=== PATIENT | male | born 1940 | race Caucasian/White ===

== ENCOUNTER 2019-02-23 11:51 | Outpatient (REF) | payer BC, MEDICARE, SELFPAY ==
[2019-02-23 20:35] LABS: Abs Immature Grans 0.04 k/cumm (0.0-0.09); Absolute Basophil Count 0.04 k/cumm (0.0-0.2); Absolute Eosinophil Count 0.32 k/cumm (0.0-0.7); Absolute Lymphocyte Count 2.65 k/cumm (1.2-3.4); Absolute Monocyte Count 0.85 k/cumm (0.11-0.7); Absolute Neutrophil Count 3.22 k/cumm (1.2-6.7); Basophils % 0.6; Eosinophils % 4.5; HCT 43.7 % (40.0-50.0); HGB 14.7 g/dL (13.5-17.5); Immature Grans % 0.6; Lymphocytes % 37.2; Mean Corp. HGB Concentration 33.6 g/dL (32.0-36.0); Mean Corpuscular Hemoglobin 31.5 pg (27.0-33.0); Mean Corpuscular Volume 93.6 fL (80-95); Mean Platelet Volume 11.9 fL (8.0-11.0); Monocytes % 11.9; Neutrophils % 45.2; Platelet Count 158 x1000/uL (130-400); RBC 4.67 m/cumm (4.50-6.00); RBC Distribution Width 13.1 % (11.8-14.1); White Blood Cell Count 7.12 k/cumm (4.4-10.8)
[2019-02-23 20:54] LABS: Bilirubin Negative (Negative); Blood Negative (Negative); Clarity Clear; Glucose Negative (Negative); Ketones Negative (Negative); Leukocyte Esterase Negative (Negative); Nitrite Negative (Negative); Specific Gravity 1.025 (1.005-1.025); Urobilinogen 0.2 EU/dL (Up TO 0.2); pH 5.5 (5-8)
[2019-02-23 20:56] LABS: ALT 47 U/L (12-78); AST 30 U/L (15-37); Albumin 3.9 g/dL (3.4-5.0); Alkaline Phosphatase 60 U/L (46-116); Anion Gap 9.9 mmol/L (3-11); BUN 19 mg/dL (7-18); Bilirubin, Total 0.6 mg/dL (0.2-1.0); CO2 26.1 mmol/L (21.0-32.0); CREATININE 1.09 mg/dL (0.70-1.30); Calcium 9.2 mg/dL (8.5-10.1); Chloride 103 mmol/L (98-107); Glucose 122 mg/dL (70-100); Potassium 4.3 mmol/L (3.5-5.1); Sodium 139 mmol/L (136-145); TSH (W/Ref FT4) 1.41 uIU/mL (0.358-3.74); Total Protein 6.9 g/dL (6.4-8.2); Uric Acid 8.7 mg/dL (3.5-7.2)
[2019-02-23 21:02] LABS: Hemoglobin A1C 6.8 % (4.5-6.2)
[2019-02-23 21:14] LABS: Vitamin D 25 Total 42.4 ng/ml (30-100)
[2019-02-25 10:31] LABS: CEA 1.6 ng/ml; PSA, Screening 0.3 ng/ml (0-6.5)
== END 2019-02-23 12:11 ==
LOC: NCHCN 11:51
PROVIDERS: PCP Internal Medicine; Visit Provider Family Medicine
DX: M54.30 Sciatica, unspecified side (principal); M25.579 Pain in unspecified ankle and joints of unspecified foot; N40.0 Benign prostatic hyperplasia without lower urinary tract symptoms; Z00.00 Encounter for general adult medical examination without abnormal findings; M1A.9XX0 Chronic gout, unspecified, without tophus (tophi); H61.22 Impacted cerumen, left ear
CPT/HCPCS: 80053; 82306; 84153; 81003; 82378; 83036; 84443; 84550; 85025

== ENCOUNTER 2019-04-06 09:53 | Outpatient (REF) | payer BC, MEDICARE, SELFPAY ==
[2019-04-06 21:42] LABS: Glucose 113 mg/dL (70-100)
== END 2019-04-06 10:13 ==
LOC: NCHCN 09:53
PROVIDERS: PCP Internal Medicine; Visit Provider Family Medicine
DX: E11.9 Type 2 diabetes mellitus without complications (principal); M12.9 Arthropathy, unspecified
CPT/HCPCS: 82947

== ENCOUNTER 2019-05-15 13:16 | Outpatient (REF) | payer BC, MEDICARE, SELFPAY ==
[2019-05-15 21:48] LABS: Calculated LDL 89 mg/dL; Cholesterol 197 mg/dL (50-200); HDL Cholesterol 36 mg/dL (40-60); TSH 1.26 uIU/mL (0.36-3.74); Triglyceride 361 mg/dL (30-150); Vitamin B12 466 pg/mL (193-986)
[2019-05-15 21:59] LABS: Uric Acid 11.4 mg/dL (3.5-7.2)
== END 2019-05-15 13:36 ==
LOC: NCHCN 13:16
PROVIDERS: PCP Internal Medicine; Visit Provider Internal Medicine
DX: R27.9 Unspecified lack of coordination (principal); M12.9 Arthropathy, unspecified; E11.9 Type 2 diabetes mellitus without complications; M10.9 Gout, unspecified; Z13.220 Encounter for screening for lipoid disorders
CPT/HCPCS: 80061; 82607; 84443; 84550

== ENCOUNTER 2019-07-01 12:57 | Outpatient (REF) | payer BC, MEDICARE, SELFPAY ==
[2019-07-01 23:00] LABS: Hemoglobin A1C 6.6 % (4.5-6.2)
[2019-07-02 11:49] LABS: COMMENT (LAB VIEW ONLY) 101.71 mg/dL; Microalb ug/mg Crea 4.6 ug/mg Cr
== END 2019-07-01 13:17 ==
LOC: NCHCN 12:57
PROVIDERS: PCP Internal Medicine; Visit Provider Internal Medicine
DX: E11.9 Type 2 diabetes mellitus without complications (principal)
CPT/HCPCS: 80048; 82043; 82570; 83036

== ENCOUNTER 2019-10-05 11:17 | Outpatient (REF) | payer BC, MEDICARE, SELFPAY ==
[2019-10-05 22:00] LABS: Hemoglobin A1C 6.6 % (3.8-5.6)
== END 2019-10-05 11:37 ==
LOC: NCHCN 11:17
PROVIDERS: PCP Internal Medicine; Visit Provider Internal Medicine
DX: E11.9 Type 2 diabetes mellitus without complications (principal)
CPT/HCPCS: 83036

== ENCOUNTER 2020-01-29 21:11 | Outpatient (REF) | payer BC, MEDICARE, SELFPAY ==
[2020-01-29 21:32] LABS: Anion Gap 6.7 mmol/L (3-11); BUN 24 mg/dL (7-18); CO2 28.3 mmol/L (21.0-32.0); CREATININE 1.01 mg/dL (0.70-1.30); Calcium 9.2 mg/dL (8.5-10.1); Chloride 105 mmol/L (98-107); Glucose 133 mg/dL (74-106); Potassium 4.7 mmol/L (3.5-5.1); Sodium 140 mmol/L (136-145); Uric Acid 7.8 mg/dL (3.5-7.2)
[2020-01-29 22:16] LABS: Hemoglobin A1C 6.4 % (3.8-5.6)
== END 2020-01-29 21:31 ==
LOC: NCHCN 21:11
PROVIDERS: PCP Internal Medicine; Visit Provider Internal Medicine
DX: M10.9 Gout, unspecified (principal); E11.9 Type 2 diabetes mellitus without complications; N20.0 Calculus of kidney; M25.579 Pain in unspecified ankle and joints of unspecified foot
CPT/HCPCS: 80048; 83036; 84550

== ENCOUNTER 2020-07-04 12:49 | Outpatient (REF) | payer BC, MEDICARE, SELFPAY ==
[2020-07-04 21:44] LABS: Hemoglobin A1C 6.7 % (<5.7)
== END 2020-07-04 13:09 ==
LOC: NCHCN 12:49
PROVIDERS: PCP Internal Medicine; Visit Provider Internal Medicine
DX: E11.9 Type 2 diabetes mellitus without complications (principal); M10.9 Gout, unspecified
CPT/HCPCS: 83036

== ENCOUNTER 2020-12-21 16:27 | Outpatient (REF) | payer BC, MEDICARE, SELFPAY ==
[2020-12-23 16:33] LABS: COVID-19 RT-PCR UVMMC Result Negative (Negative)
== END 2020-12-21 16:28 | disposition home or self-care (01) ==
LOC: NCHCN 16:27
PROVIDERS: PCP Internal Medicine; Visit Provider Internal Medicine
DX: Z20.822 Contact with and (suspected) exposure to COVID-19 (principal); J06.9 Acute upper respiratory infection, unspecified
CPT/HCPCS: U0003

== ENCOUNTER 2021-01-23 15:10 | Outpatient (REF) | payer BC, MEDICARE, SELFPAY ==
[2021-01-23 14:23] LABS: Hemoglobin A1C 7.1 % (<5.7)
[2021-01-23 14:45] LABS: ALT 44 U/L (16-63); AST 27 U/L (15-37); Albumin 3.8 g/dL (3.4-5.0); Alkaline Phosphatase 65 U/L (46-116); Anion Gap 8.6 mmol/L (3-11); BUN 23 mg/dL (7-18); Bilirubin, Total 0.8 mg/dL (0.2-1.0); CO2 28.4 mmol/L (21.0-32.0); CREATININE 1.1 mg/dL (0.70-1.30); Calcium 8.9 mg/dL (8.5-10.1); Chloride 106 mmol/L (98-107); Glucose 148 mg/dL (74-106); Potassium 4.4 mmol/L (3.5-5.1); Sodium 143 mmol/L (136-145); Total Protein 6.4 g/dL (6.4-8.2)
[2021-01-23 15:11] LABS: Calculated LDL 29 mg/dL (<100); Cholesterol 123 mg/dL (<200); HDL Cholesterol 37 mg/dL (40-60); Triglyceride 287 mg/dL (<150)
== END 2021-01-23 15:11 | disposition home or self-care (01) ==
LOC: NCHCN 15:10
PROVIDERS: PCP Internal Medicine; Visit Provider Internal Medicine
DX: E11.9 Type 2 diabetes mellitus without complications (principal); M10.9 Gout, unspecified; F10.10 Alcohol abuse, uncomplicated; M25.571 Pain in right ankle and joints of right foot; N20.0 Calculus of kidney
CPT/HCPCS: 80053; 80061; 83036; 84550

== ENCOUNTER 2021-05-01 14:41 | Outpatient (REF) | payer BC, MEDICARE, SELFPAY ==
[2021-05-01 15:57] LABS: Abs Immature Grans 0.03 10^3/uL (0.0-0.06); Absolute Basophil Count 0.06 10^3/uL (0.0-0.2); Absolute Eosinophil Count 0.33 10^3/uL (0.0-0.7); Absolute Lymphocyte Count 2.04 10^3/uL (1.2-3.4); Absolute Monocyte Count 0.66 10^3/uL (0.1-0.8); Absolute Neutrophil Count 3.43 10^3/uL (1.2-6.7); Basophils % 0.9; HCT 45.5 % (40.0-50.0); HGB 14.8 g/dL (13.5-17.5); Immature Grans % 0.5; Lymphocytes % 31.1; MCH 30.5 pg (27.0-33.0); MCHC 32.5 % (32.0-36.0); MCV 93.6 fL (80-95); MPV 12.4 fL (8.0-11.0); Monocytes % 10.1; Neutrophils % 52.4; Nucleated RBC 0 %; Platelet Count 123 10^3/uL (130-400); RBC 4.86 10^6/uL (4.36-5.78); RDW 11.9 % (11.8-14.1); WBC 6.55 10^3/uL (4.4-10.8)
[2021-05-01 16:35] LABS: Hemoglobin A1C 6.6 % (<5.7)
== END 2021-05-01 14:42 | disposition home or self-care (01) ==
LOC: NCHCN 14:41
PROVIDERS: PCP Internal Medicine; Visit Provider Internal Medicine
DX: E11.9 Type 2 diabetes mellitus without complications (principal); R13.10 Dysphagia, unspecified; R31.9 Hematuria, unspecified; I48.92 Unspecified atrial flutter
CPT/HCPCS: 83036; 85025

== ENCOUNTER 2021-09-22 19:11 | Outpatient (REF) | payer BC, MEDICARE, SELFPAY ==
[2021-09-22 15:51] LABS: Hemoglobin A1C 6.3 % (<5.7)
== END 2021-09-22 19:12 | disposition home or self-care (01) ==
LOC: NCHCN 19:11
PROVIDERS: PCP Internal Medicine; Visit Provider Internal Medicine
DX: E11.9 Type 2 diabetes mellitus without complications (principal)
CPT/HCPCS: 83036

== ENCOUNTER 2022-02-20 19:00 | Outpatient (REF) | payer BC, MEDICARE, SELFPAY ==
[2022-02-20 15:53] LABS: Microalb ug/mg Crea 5.2 ug/mg Cr
== END 2022-02-20 19:01 | disposition home or self-care (01) ==
LOC: NCHCN 19:00
PROVIDERS: PCP Internal Medicine; Visit Provider Nurse Practitioner Family
DX: E11.9 Type 2 diabetes mellitus without complications (principal)
CPT/HCPCS: 82043; 82570

== ENCOUNTER 2022-07-11 16:35 | Outpatient (REF) | payer BC, MEDICARE, SELFPAY ==
[2022-07-11 14:15] LABS: HCT 43.3 % (40.0-50.0); HGB 14.4 g/dL (13.5-17.5); MCH 31.5 pg (27.0-33.0); MCHC 33.3 % (32.0-36.0); MCV 95 fL (80-95); MPV 12.1 fL (8.0-11.0); Platelet Count 125 10^3/uL (130-400); RBC 4.57 10^6/uL (4.36-5.78); RDW-SD 41.6 fL; WBC 7.22 10^3/uL (4.4-10.8)
[2022-07-11 14:26] LABS: Hemoglobin A1C 6.4 % (<5.7)
[2022-07-11 15:04] LABS: ALT 41 U/L (16-63); AST 27 U/L (15-37); Alkaline Phosphatase 66 U/L (46-116); Anion Gap 9.7 mmol/L (3-11); BUN 22 mg/dL (7-18); Bilirubin, Total 0.6 mg/dL (0.2-1.0); CO2 24.3 mmol/L (21.0-32.0); Calcium 9.7 mg/dL (8.5-10.1); Chloride 106 mmol/L (98-107); Estimated GFR 75.14 (mL/min/1.73m2); Glucose 146 mg/dL (74-106); Potassium 4.5 mmol/L (3.5-5.1); Sodium 140 mmol/L (136-145); Total Protein 7.2 g/dL (6.4-8.2); Vitamin B12 392 pg/mL (193-986)
== END 2022-07-11 16:36 | disposition home or self-care (01) ==
LOC: NCHCN 16:35
PROVIDERS: PCP Internal Medicine; Visit Provider Internal Medicine
DX: E11.9 Type 2 diabetes mellitus without complications (principal); R42 Dizziness and giddiness
CPT/HCPCS: 80053; 85027; 82607; 83036

== ENCOUNTER 2022-12-14 11:04 | Outpatient (REF) | payer BC, MEDICARE, SELFPAY | END 2022-12-14 11:05 | disposition home or self-care (01) | LOC: NCHCN 11:04 | PROVIDERS: PCP Internal Medicine; Visit Provider Internal Medicine | DX: E11.9 Type 2 diabetes mellitus without complications (principal) | CPT/HCPCS: 83036 ==

== ENCOUNTER 2023-05-03 10:06 | Outpatient (REF) | payer BC, MEDICARE, SELFPAY ==
[2023-05-03 16:45] LABS: COMMENT (LAB VIEW ONLY) 137.16 mg/dL; Microalb ug/mg Crea 7.1 ug/mg Cr
== END 2023-05-03 10:07 | disposition home or self-care (01) ==
LOC: NCHCN 10:06
PROVIDERS: PCP Internal Medicine; Visit Provider Internal Medicine
DX: E11.9 Type 2 diabetes mellitus without complications (principal)
CPT/HCPCS: 82043; 82570

== ENCOUNTER 2023-05-06 13:18 | Outpatient (REF) | payer BC, MEDICARE, SELFPAY ==
[2023-05-06 16:46] LABS: Hemoglobin A1C 6.6 % (<5.7)
== END 2023-05-06 13:19 | disposition home or self-care (01) ==
LOC: NCHCN 13:18
PROVIDERS: PCP Internal Medicine; Visit Provider Internal Medicine
DX: E11.9 Type 2 diabetes mellitus without complications (principal)
CPT/HCPCS: 83036

== ENCOUNTER 2023-09-04 15:43 | Outpatient (REF) | payer BC, MEDICARE, SELFPAY ==
--- OUTSIDE RECORDS SUMMARY | 2023-09-04 15:44 | XMS_ITS | CCD ---
Author Name Unknown Address [address] [place] [address] [phone] Organization Unknown Address [address] [place] [address] [phone] Care Team Providers Care Community Nutrition Educator Name Role Phone KARLEE PIERRE Aminata Attending Physician [phone] Vital Signs Unknown or Not Available. Allergies Allergy Code Allergy Type Reaction Status No Known Environmental Allergies 0 No known envir onmental allergies Active No Known Food Allergies 0 No known food allergies Active No Known Drug Allergies 0 No known drug allergies Active Procedures Unknown or Not Available. History of Immunizations Unknown or Not Available. Problems Unknown or Not Available. Results Unknown or Not Available. Active Medications Medication Code Dose Units Frequency Route Modificatio n Start Date/Time Atorvastatin Calcium 20MG Oral Tablet 603619 20 MILLIGRAMS BEDTIME ORAL 12:20 Prescription Detail TAKE 20 MILLIGRAMS ORAL BEDTIME Finasteride 5MG Oral Tablet 545555 5 MILLIGRAMS DAILY ORAL 12:20 Prescription Detail TAKE 5 MILLIGRAMS ORAL DAILY Gabapentin 100MG Oral Capsule 236069 300 MILLIGRAMS NEEDED THREE TIMES A DAY ORAL 10/29/2021 12:20 Prescription Detail TAKE 300 MILLIGRAMS ORAL NEEDED THREE TIMES A DAY metFORMIN HCl 500MG Oral Tablet 432898 500 MILLIGRAMS TWICE A DAY ORAL 12:20 Prescription Detail TAKE 500 MILLIGRAMS ORAL TWICE A DAY Metoprolol Succinate 50MG Oral Tablet, Extended Release [id number] 50 MILLIGRAMS DAILY ORAL 12:20 Prescription Detail TAKE 50 MILLIGRAMS ORAL DAILY Oxybutynin Chloride 5MG Oral Tablet 515557 5 MILLIGRAMS EVERY EVENING ORAL 10/29/2021 12:20 Prescription Detail TAKE 5 MILLIGRAMS ORAL EVERY EVENING oxyCODONE HCl 5MG Oral Tablet 2952319 1 TABLET NEEDED EVERY 6 HOURS ORAL 10/29/2021 12:20 Prescription Detail TAKE 1 TABLET ORAL NEEDED EVERY 6 EJSUS RS FOR Pain Turmeric 500 MG Oral Capsule 1801205 500 MG DAILY ORAL 12:20 Prescription Detail TAKE 500 MG ORAL DAILY Tylenol Arthritis 650MG Oral Tablet, Extended Release [id number] 650 MILLIGRAMS NEEDED ORAL 12:20 Prescription Detail TAKE 650 MILLIGRAMS ORAL NEEDED Vitamin D 5000 IU Oral Capsule [id number] 5000 IU TWICE A DAY ORAL 10/29/2021 12:20 Prescription Detail TAKE 5000 IU ORAL TWICE A DAY Xarelto 20MG Oral Tablet [id number] 20 MILLIGRAMS DAILY ORAL 12:20 Prescription Detail TAKE 20 MILLIGRAMS ORAL DAILY Multivitamin Oral Tablet [id number] 1 EACH DAILY ORAL 2018 08:54 Prescription Detail TAKE 1 EACH ORAL DAILY Medications Administered During Visit Unknown or Not Available. Encounters Encounter Diagnosis Diagnosis Code Start Date Paroxysmal atrial fibrillation [id number] 03/28/2023 Social History Smoking Status Code Start Date End Date Former smoker [id number] 09/16/2003 Patient Decision Aids Unknown or Not Available. Discharge Instructions You were admitted to on 03/28/2023 09:01 with a principal diagnosis of Paroxysmal atrial fibrillation You were discharged from on 03/28/2023 09:01 Should you have any questions prior to discharge, please contact a member of your healthcare team. If you have left the hospital and have any questions, please contact your primary care physician. Chief Complaint and Reason For Visit Unknown or Not Available. Function Status Unknown or Not Available. Plan of Care Unknown or Not Available. Referral/Transition of Care Unknown or Not Available.
--- OUTSIDE RECORDS SUMMARY | 2023-09-04 15:45 | XMS_ITS | CCD ---
Author Name Unknown Address [address] [place] [address] [phone] Organization Unknown Address [address] [place] [address] [phone] Care Team Providers Care House Parent Name Role Phone ROOMMARYLOU RAJAN Attending Physician [phone] Vital Signs Unknown or Not Available. Allergies [...] Start Date/Time Atorvastatin Calcium 20MG Oral Tablet 604615 20 MILLIGRAMS BEDTIME ORAL 12:20 Prescription Detail TAKE 20 MILLIGRAMS ORAL BEDTIME Finasteride 5MG Oral Tablet 123238 5 MILLIGRAMS DAILY ORAL 12:20 Prescription Detail TAKE 5 MILLIGRAMS ORAL DAILY Gabapentin 100MG Oral Capsule 434613 300 MILLIGRAMS NEEDED THREE TIMES A DAY ORAL 10/29/2021 12:20 Prescription Detail TAKE 300 MILLIGRAMS ORAL NEEDED THREE TIMES A DAY metFORMIN HCl 500MG Oral Tablet 734890 500 MILLIGRAMS TWICE A DAY ORAL 12:20 Prescription Detail TAKE 500 MILLIGRAMS ORAL TWICE A DAY Metoprolol Succinate 50MG Oral Tablet, Extended Release [id number] 50 MILLIGRAMS DAILY ORAL 12:20 Prescription Detail TAKE 50 MILLIGRAMS ORAL DAILY Oxybutynin Chloride 5MG Oral Tablet 719478 5 MILLIGRAMS EVERY EVENING ORAL 10/29/2021 12:20 Prescription Detail TAKE 5 MILLIGRAMS ORAL EVERY EVENING oxyCODONE HCl 5MG Oral Tablet 8703471 1 TABLET NEEDED EVERY 6 HOURS ORAL 10/29/2021 12:20 Prescription Detail TAKE 1 TABLET ORAL NEEDED EVERY 6 JESUS RS FOR Pain Turmeric 500 MG Oral Capsule 6680286 500 MG DAILY ORAL 12:20 Prescription Detail TAKE 500 MG ORAL DAILY Tylenol Arthritis 650MG Oral Tablet, Extended Release [id number] 650 MILLIGRAMS NEEDED ORAL 12:20 Prescription Detail TAKE 650 MILLIGRAMS ORAL NEEDED Vitamin D 5000 IU Oral Capsule 32606500835 5000 IU TWICE A DAY ORAL 10/29/2021 12:20 Prescription Detail TAKE 5000 IU ORAL TWICE A DAY Xarelto 20MG Oral Tablet [id number] 20 MILLIGRAMS DAILY ORAL 12:20 Prescription Detail TAKE 20 MILLIGRAMS ORAL DAILY Multivitamin Oral Tablet 38379657959 1 EACH DAILY ORAL 2018 08:54 Prescription Detail TAKE 1 EACH ORAL DAILY Medications Administered During Visit Unknown or Not Available. Encounters Encounter Diagnosis Diagnosis Code Start Date Refusal of treatment by patient [id number] 10/23/2022 Social History Smoking Status Code Start Date End Date Former smoker [id number] 09/16/2003 Patient Decision Aids Unknown or Not Available. Discharge Instructions You were admitted to [facility] on 10/23/2022 08:00 with a principal diagnosis of Procedure and treatment not carried out because of patient's decision for other reasons You were discharged from [facility] on 10/23/2022 08:00 Should you have any questions prior to [...]
--- OUTSIDE RECORDS SUMMARY | 2023-09-04 15:45 | XMS_ITS | CCD ---
Author Name Unknown Address [address] [place] [address] [phone] Organization Unknown Address [address] [place] [address] [phone] Care Team Providers Care Chain Hooker Name Role Phone AYAZ CHAUDHARY Attending Physician [phone] Vital Signs Unknown or Not Available. Allergies [...] Start Date/Time Atorvastatin Calcium 20MG Oral Tablet 328654 20 MILLIGRAMS BEDTIME ORAL 12:20 Prescription Detail TAKE 20 MILLIGRAMS ORAL BEDTIME Finasteride 5MG Oral Tablet 406987 5 MILLIGRAMS DAILY ORAL 12:20 Prescription Detail TAKE 5 MILLIGRAMS ORAL DAILY Gabapentin 100MG Oral Capsule 607045 300 MILLIGRAMS NEEDED THREE TIMES A DAY ORAL 10/29/2021 12:20 Prescription Detail TAKE 300 MILLIGRAMS ORAL NEEDED THREE TIMES A DAY metFORMIN HCl 500MG Oral Tablet 504139 500 MILLIGRAMS TWICE A DAY ORAL 12:20 Prescription Detail TAKE 500 MILLIGRAMS ORAL TWICE A DAY Metoprolol Succinate 50MG Oral Tablet, Extended Release 719348 50 MILLIGRAMS DAILY ORAL 12:20 Prescription Detail TAKE 50 MILLIGRAMS ORAL DAILY Oxybutynin Chloride 5MG Oral Tablet 754264 5 MILLIGRAMS EVERY EVENING ORAL 10/29/2021 12:20 Prescription Detail TAKE 5 MILLIGRAMS ORAL EVERY EVENING oxyCODONE HCl 5MG Oral Tablet 3060020 1 TABLET NEEDED EVERY 6 HOURS ORAL 10/29/2021 12:20 Prescription Detail TAKE 1 TABLET ORAL NEEDED EVERY 6 JESUS RS FOR Pain Turmeric 500 MG Oral Capsule 5740604 500 MG DAILY ORAL 12:20 Prescription Detail TAKE 500 MG ORAL DAILY Tylenol Arthritis 650MG Oral Tablet, Extended Release [id number] 650 MILLIGRAMS NEEDED ORAL 12:20 Prescription Detail TAKE 650 MILLIGRAMS ORAL NEEDED Vitamin D 5000 IU Oral Capsule 12423916614 5000 IU TWICE A DAY ORAL 10/29/2021 12:20 Prescription Detail TAKE 5000 IU ORAL TWICE A DAY Xarelto 20MG Oral Tablet 3890201 20 MILLIGRAMS DAILY ORAL 12:20 Prescription Detail TAKE 20 MILLIGRAMS ORAL DAILY Multivitamin Oral Tablet 76116079982 1 EACH DAILY ORAL 2018 08:54 Prescription Detail TAKE 1 EACH ORAL DAILY Medications Administered During Visit Unknown or Not Available. Encounters Encounter Diagnosis Diagnosis Code Start Date Unilateral primary osteoarthritis, left knee M17 12 08/13/2022 Social History Smoking Status Code Start Date End Date Former smoker [id number] 09/16/2003 Patient Decision Aids Unknown or Not Available. Discharge Instructions You were admitted to [facility] on 08/13/2022 13:29 with a principal diagnosis of Unilateral primary osteoarthritis, left knee You were discharged from [facility] on 08/13/2022 13:29 Should you have any questions prior to [...]
--- OUTSIDE RECORDS SUMMARY | 2023-09-04 15:45 | XMS_ITS | CCD ---
Author Name Unknown Address [address] [place] [address] [phone] Organization Unknown Address [address] [place] [address] [phone] Care Team Providers Care Equal Opportunity Director Name Role Phone MELISSA BHAKTA Attending Physician [phone] MELISSA BHAKTA Rounding (Secondary) Physician [phone] Vital Signs Unknown or Not Available. Allergies [...] Start Date/Time Atorvastatin Calcium 20MG Oral Tablet 999510 20 MILLIGRAMS BEDTIME ORAL 12:20 Prescription Detail TAKE 20 MILLIGRAMS ORAL BEDTIME Finasteride 5MG Oral Tablet 626319 5 MILLIGRAMS DAILY ORAL 022 12:20 Prescription Detail TAKE 5 MILLIGRAMS ORAL DAILY Gabapentin 100MG Oral Capsule 021509 300 MILLIGRAMS NEEDED THREE TIMES A DAY ORAL 10/29/2021 12:20 Prescription Detail TAKE 300 MILLIGRAMS ORAL NEEDED THREE TIMES A DAY metFORMIN HCl 500MG Oral Tablet 877477 500 MILLIGRAMS TWICE A DAY ORAL 022 12:20 Prescription Detail TAKE 500 MILLIGRAMS ORAL TWICE A DAY Metoprolol Succinate 50MG Oral Tablet, Extended Release 981336 50 MILLIGRAMS DAILY ORAL 12:20 Prescription Detail TAKE 50 MILLIGRAMS ORAL DAILY Oxybutynin Chloride 5MG Oral Tablet 459499 5 MILLIGRAMS EVERY EVENING ORAL 10/29/2021 12:20 Prescription Detail TAKE 5 MILLIGRAMS ORAL EVERY EVENING oxyCODONE HCl 5MG Oral Tablet 1055572 1 TABLET NEEDED EVERY 6 HOURS ORAL 10/29/2021 12:20 Prescription Detail TAKE 1 TABLET ORAL NEEDED EVERY 6 JESUS RS FOR Pain Turmeric 500 MG Oral Capsule 1137497 500 MG DAILY ORAL 12:20 Prescription Detail TAKE 500 MG ORAL DAILY Tylenol Arthritis 650MG Oral Tablet, Extended Release [id number] 650 MILLIGRAMS NEEDED ORAL 12:20 Prescription Detail TAKE 650 MILLIGRAMS ORAL NEEDED Vitamin D 5000 IU Oral Capsule 22869360664 5000 IU TWICE A DAY ORAL 10/29/2021 12:20 Prescription Detail TAKE 5000 IU ORAL TWICE A DAY Xarelto 20MG Oral Tablet 2288790 20 MILLIGRAMS DAILY ORAL 12:20 Prescription Detail TAKE 20 MILLIGRAMS ORAL DAILY Multivitamin Oral Tablet 60709646055 1 EACH DAILY ORAL 2018 08:54 Prescription Detail TAKE 1 EACH ORAL DAILY Medications Administered During Visit Unknown or Not Available. Encounters Encounter Diagnosis Diagnosis Code Start Date Carpal tunnel syndrome, bilateral upper limbs G5 603 09/06/2022 Social History Smoking Status Code Start Date End Date Former smoker [id number] 09/16/2003 Patient Decision Aids Unknown or Not Available. Discharge Instructions You were admitted to [facility] on 09/06/2022 14:57 with a principal diagnosis of Carpal tunnel syndrome, bilateral upper limbs You were discharged from [facility] on 09/06/2022 00:00 Should you have any questions prior to [...]
--- OUTSIDE RECORDS SUMMARY | 2023-09-04 15:45 | XMS_ITS | CCD ---
Author Name Unknown Address [address] [place] [address] [phone] Organization Unknown Address [address] [place] [address] [phone] Care Team Providers Care Assistant Director Of Plant Operations Name Role Phone RAHUL ANDREW Attending Physician [phone] Vital Signs Unknown or Not Available. Allergies [...] Start Date/Time Atorvastatin Calcium 20MG Oral Tablet 445140 20 MILLIGRAMS BEDTIME ORAL 12:20 Prescription Detail TAKE 20 MILLIGRAMS ORAL BEDTIME Finasteride 5MG Oral Tablet 067282 5 MILLIGRAMS DAILY ORAL 12:20 Prescription Detail TAKE 5 MILLIGRAMS ORAL DAILY Gabapentin 100MG Oral Capsule 223839 300 MILLIGRAMS NEEDED THREE TIMES A DAY ORAL 10/29/2021 12:20 Prescription Detail TAKE 300 MILLIGRAMS ORAL NEEDED THREE TIMES A DAY metFORMIN HCl 500MG Oral Tablet 578534 500 MILLIGRAMS TWICE A DAY ORAL 12:20 Prescription Detail TAKE 500 MILLIGRAMS ORAL TWICE A DAY Metoprolol Succinate 50MG Oral Tablet, Extended Release 301074 50 MILLIGRAMS DAILY ORAL 12:20 Prescription Detail TAKE 50 MILLIGRAMS ORAL DAILY Oxybutynin Chloride 5MG Oral Tablet 109426 5 MILLIGRAMS EVERY EVENING ORAL 10/29/2021 12:20 Prescription Detail TAKE 5 MILLIGRAMS ORAL EVERY EVENING oxyCODONE HCl 5MG Oral Tablet 7330500 1 TABLET NEEDED EVERY 6 HOURS ORAL 10/29/2021 12:20 Prescription Detail TAKE 1 TABLET ORAL NEEDED EVERY 6 JESUS RS FOR Pain Turmeric 500 MG Oral Capsule 1438921 500 MG DAILY ORAL 12:20 Prescription Detail TAKE 500 MG ORAL DAILY Tylenol Arthritis 650MG Oral Tablet, Extended Release [id number] 650 MILLIGRAMS NEEDED ORAL 12:20 Prescription Detail TAKE 650 MILLIGRAMS ORAL NEEDED Vitamin D 5000 IU Oral Capsule 89940708028 5000 IU TWICE A DAY ORAL 10/29/2021 12:20 Prescription Detail TAKE 5000 IU ORAL TWICE A DAY Xarelto 20MG Oral Tablet 0772330 20 MILLIGRAMS DAILY ORAL 12:20 Prescription Detail TAKE 20 MILLIGRAMS ORAL DAILY Multivitamin Oral Tablet 87003424231 1 EACH DAILY ORAL 2018 08:54 Prescription Detail TAKE 1 EACH ORAL DAILY Medications Administered During Visit Unknown or Not Available. Encounters Encounter Diagnosis Diagnosis Code Start Date Radiculopathy, lumbar region M5416 05/2023 Social History Smoking Status Code Start Date End Date Former smoker [id number] 09/16/2003 Patient Decision Aids Unknown or Not Available. Discharge Instructions You were admitted to [facility] on 09/24/2022 14:38 with a principal diagnosis of Radiculopathy, lumbar region You were discharged from [facility] on 02/05/2023 08:56 Should you have any questions prior to [...]
--- OUTSIDE RECORDS SUMMARY | 2023-09-04 15:45 | XMS_ITS | CCD ---
Author Name Unknown Address [address] [place] [address] [phone] Organization Unknown Address [address] [place] [address] [phone] Care Team Providers Care Area Loss Prevention Manager Name Role Phone EVELIA MCKEON Attending Physician [phone] Vital Signs Unknown or Not Available. Allergies Allergy Code Allergy Type Reaction Status No Known Environmental Allergies 0 No known envir onmental allergies Active No Known Food Allergies 0 No known food allergies Active No Known Drug Allergies 0 No known drug allergies Active Procedures Unknown or Not Available. History of Immunizations Unknown or Not Available. Problems Unknown or Not Available. Results BUN/CREATININE RATIO FOR RAD IOLOGY* - Collect Date/Time: 01/04/2023 09:04 Test Name Code Test Result Test Units Test Ref Rang e BUN 3094-0 21 mg/dL L=6 H=25 CREATININE 2160-0 1.23 mg/dL L=0.67 H=1.17 BUN/CREATININE RATIO 3097-3 17.1 AGE 82 years eGFR (non-Afr.Amer) 84612-9 56 mL/min eGFR (Afr-Uzbek) 99043-9 68 mL/min Active Medications Medication Code Dose Units Frequency Route Modificatio n Start Date/Time Atorvastatin Calcium 20MG Oral Tablet 895525 20 MILLIGRAMS BEDTIME ORAL 12:20 Prescription Detail TAKE 20 MILLIGRAMS ORAL BEDTIME Finasteride 5MG Oral Tablet 413015 5 MILLIGRAMS DAILY ORAL 12:20 Prescription Detail TAKE 5 MILLIGRAMS ORAL DAILY Gabapentin 100MG Oral Capsule 963027 300 MILLIGRAMS NEEDED THREE TIMES A DAY ORAL 10/29/2021 12:20 Prescription Detail TAKE 300 MILLIGRAMS ORAL NEEDED THREE TIMES A DAY metFORMIN HCl 500MG Oral Tablet 266000 500 MILLIGRAMS TWICE A DAY ORAL 12:20 Prescription Detail TAKE 500 MILLIGRAMS ORAL TWICE A DAY Metoprolol Succinate 50MG Oral Tablet, Extended Release 530624 50 MILLIGRAMS DAILY ORAL 12:20 Prescription Detail TAKE 50 MILLIGRAMS ORAL DAILY Oxybutynin Chloride 5MG Oral Tablet 204576 5 MILLIGRAMS EVERY EVENING ORAL 10/29/2021 12:20 Prescription Detail TAKE 5 MILLIGRAMS ORAL EVERY EVENING oxyCODONE HCl 5MG Oral Tablet 0558218 1 TABLET NEEDED EVERY 6 HOURS ORAL 10/29/2021 12:20 Prescription Detail TAKE 1 TABLET ORAL NEEDED EVERY 6 JESUS RS FOR Pain Turmeric 500 MG Oral Capsule 3092931 500 MG DAILY ORAL 022 12:20 Prescription Detail TAKE 500 MG ORAL DAILY Tylenol Arthritis 650MG Oral Tablet, Extended Release [id number] 650 MILLIGRAMS NEEDED ORAL 12:20 Prescription Detail TAKE 650 MILLIGRAMS ORAL NEEDED Vitamin D 5000 IU Oral Capsule 52256666637 5000 IU TWICE A DAY ORAL 10/29/2021 12:20 Prescription Detail TAKE 5000 IU ORAL TWICE A DAY Xarelto 20MG Oral Tablet [id number] 20 MILLIGRAMS DAILY ORAL 12:20 Prescription Detail TAKE 20 MILLIGRAMS ORAL DAILY Multivitamin Oral Tablet 79450245716 1 EACH DAILY ORAL 2018 08:54 Prescription Detail TAKE 1 EACH ORAL DAILY Medications Administered During Visit Unknown or Not Available. 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 Discharge Instructions You were admitted to [facility] on 01/04/2023 08:49 with a principal diagnosis of Malignant neoplasm of splenic flexure You had the following tests done:BUN/CREATININE RATIO FOR RADIOLOGY* You were discharged from [facility] on 01/04/2023 08:49 Should you have any questions prior to discharge, please contact a member of your healthcare team. If you have left the hospital and have any questions, please contact your primary care physician. Chief Complaint and Reason For Visit Chief Complaint Date of Onset CANCER OF THE SPLEEN Function Status Unknown or Not Available. Plan of Care Unknown or Not Available. Referral/Transition of Care Unknown or Not Available.
--- OUTSIDE RECORDS SUMMARY | 2023-09-04 15:46 | XMS_ITS | CCD ---
Author Name Unknown Address [address] [place] [address] [phone] Organization Unknown Address [address] [place] [address] [phone] Care Team Providers Care Eyelet Maker Name Role Phone ANA PAULA SMITH Attending Physician [phone] ANA PAULA SMITH Rounding (Secondary) Physician [phone] Vital Signs Unknown or Not Available. Allergies [...] Start Date/Time Atorvastatin Calcium 20MG Oral Tablet 646331 20 MILLIGRAMS BEDTIME ORAL 12:20 Prescription Detail TAKE 20 MILLIGRAMS ORAL BEDTIME Finasteride 5MG Oral Tablet 359161 5 MILLIGRAMS DAILY ORAL 12:20 Prescription Detail TAKE 5 MILLIGRAMS ORAL DAILY Gabapentin 100MG Oral Capsule 879030 300 MILLIGRAMS NEEDED THREE TIMES A DAY ORAL 10/29/2021 12:20 Prescription Detail TAKE 300 MILLIGRAMS ORAL NEEDED THREE TIMES A DAY metFORMIN HCl 500MG Oral Tablet 003044 500 MILLIGRAMS TWICE A DAY ORAL 12:20 Prescription Detail TAKE 500 MILLIGRAMS ORAL TWICE A DAY Metoprolol Succinate 50MG Oral Tablet, Extended Release 963065 50 MILLIGRAMS DAILY ORAL 12:20 Prescription Detail TAKE 50 MILLIGRAMS ORAL DAILY Oxybutynin Chloride 5MG Oral Tablet 504984 5 MILLIGRAMS EVERY EVENING ORAL 10/29/2021 12:20 Prescription Detail TAKE 5 MILLIGRAMS ORAL EVERY EVENING oxyCODONE HCl 5MG Oral Tablet 1524327 1 TABLET NEEDED EVERY 6 HOURS ORAL 10/29/2021 12:20 Prescription Detail TAKE 1 TABLET ORAL NEEDED EVERY 6 JESUS RS FOR Pain Turmeric 500 MG Oral Capsule 6261275 500 MG DAILY ORAL 12:20 Prescription Detail TAKE 500 MG ORAL DAILY Tylenol Arthritis 650MG Oral Tablet, Extended Release [id number] 650 MILLIGRAMS NEEDED ORAL 12:20 Prescription Detail TAKE 650 MILLIGRAMS ORAL NEEDED Vitamin D 5000 IU Oral Capsule 08660168441 5000 IU TWICE A DAY ORAL 10/29/2021 12:20 Prescription Detail TAKE 5000 IU ORAL TWICE A DAY Xarelto 20MG Oral Tablet 6274988 20 MILLIGRAMS DAILY ORAL 12:20 Prescription Detail TAKE 20 MILLIGRAMS ORAL DAILY Multivitamin Oral Tablet 24342209809 1 EACH DAILY ORAL 2018 08:54 Prescription Detail TAKE 1 EACH ORAL DAILY Medications Administered During Visit Unknown or Not Available. Encounters Encounter Diagnosis Diagnosis Code Start Date Encounter for follow-up exam ination after completed treatment for conditions other than malignant neoplasm Z09 11/13/2021 Social History Smoking Status Code Start Date End Date Former smoker [id number] 09/16/2003 Patient Decision Aids Unknown or Not Available. Discharge Instructions You were admitted to [facility] on 11/13/2021 11:31 with a principal diagnosis of Encntr for f/u exam aft trtmt for cond oth than malig neoplm You were discharged from [facility] on 11/13/2021 00:00 Should you have any questions prior [...]
--- OUTSIDE RECORDS SUMMARY | 2023-09-04 15:46 | XMS_ITS | CCD ---
Author Name Unknown Address [address] [place] [address] [id number] Organization Unknown Address [address] [place] [address] [phone] Care Team Providers Care Supervisor Pole Yard Name Role Phone ANA PAULA SMITH Attending Physician [phone] Vital Signs Vital Sign Value Unit Date/Time Recent/Initial ? BMI (Body Mass Index) 28.13 kg/m^2 10/16/2021 16: 55 Initial VS Weight Measured 185 lbs 10/16/2021 16:55 Ini tial VS Height 68 in 10/16/2021 16:55 Initial VS BSA (Body Surface Area) 2.01 m^2 10/16/2021 1 6:55 Initial VS BP Systolic 113 mmHg 10/27/2021 15:34 Initial VS BP Diastolic 69 mmHg 10/27/2021 15:34 Initia l VS Respiratory Rate 12 bpm 10/27/2021 15:34 In itial VS Heart Rate 55 bpm 10/27/2021 15:34 Initial VS O2 % BldC Oximetry 96 % 10/27/2021 15:34 Initial VS Body Temperature 36.3 degrees 10/27/2021 15:34 In itial VS BP Systolic 136 mmHg 10/29/2021 07:40 Most Re cent VS BP Diastolic 74 mmHg 10/29/2021 07:40 Most R ecent VS Respiratory Rate 18 bpm 10/29/2021 07:[address] Recent VS O2 % BldC Oximetry 97 % 10/29/2021 07:40 Most Recent VS Body Temperature 36.5 degrees 10/29/2021 07:[address] Recent VS Heart Rate 60 bpm 10/29/2021 08:58 Most Rec ent VS Allergies Allergy Code Allergy Type Reaction Status No Known Environmental Allergies 0 No known envir onmental allergies Active No Known Food Allergies 0 No known food allergies Active No Known Drug Allergies 0 No known drug allergies Active Procedures Procedure Code Procedure Type Date Supplement Abdominal Wall wi th Nonautologous Tissue Substitute, Open Approach [id number] ICD-10 PCS 10/27/2021 Anesthesia, Hernia Repairs, Lower Abdomen; Ventral & Incisional Hernias 45150 CPT 10/27/2021 History of Immunizations Unknown or Not Available. Problems Unknown or Not Available. Results BASIC METABOLIC PANEL (BMP) - Collect Date/Time: 10/28/2021 06:20 Test Name Code Test Result Test Units Test Ref Rang e GLUCOSE 2345-7 137 mg/dL L=70 H=116 BUN 3094-0 22 mg/dL L=6 H=25 CREATININE 2160-0 1.16 mg/dL L=0.67 H=1.17 SODIUM SERUM 2951-2 136 mmol/L L=136 H=145 POTASSIUM SERUM 2823-3 4.5 mmol/L L=3.4 H=5 .2 CHLORIDE SERUM 2075-0 103 mmol/L L=96 H=110 CARBON DIOXIDE (CO2) 2028-9 27 mmol/L L=22 H=34 ANION GAP 64521-3 6.3 mmol/L CALCIUM SERUM 02849-7 8.4 mg/dL L=8.2 H=10. 2 AGE 81 years eGFR (non-Afr.Amer.) 87187-4 60 mL/min eGFR (Afr-Bolivian) 65594-1 73 mL/min GLUCOSE FINGER/HEEL CAPILLAR Y - Collect Date/Time: 10/28/2021 16:59 Test Name Code Test Result Test Units Test Ref Rang e GLUCOSE CAP 147 mg/dL L=70 H=116 GLUCOSE FINGER/HEEL CAPILLAR Y - Collect Date/Time: 10/28/2021 12:04 Test Name Code Test Result Test Units Test Ref Rang e GLUCOSE CAP 111 mg/dL L=70 H=116 GLUCOSE FINGER/HEEL CAPILLAR Y - Collect Date/Time: 10/27/2021 21:16 Test Name Code Test Result Test Units Test Ref Rang e GLUCOSE CAP 189 mg/dL L=70 H=116 GLUCOSE FINGER/HEEL CAPILLAR Y - Collect Date/Time: 10/27/2021 16:40 Test Name Code Test Result Test Units Test Ref Rang e GLUCOSE CAP 132 mg/dL L=70 H=116 GLUCOSE FINGER/HEEL CAPILLAR Y - Collect Date/Time: 10/27/2021 14:22 Test Name Code Test Result Test Units Test Ref Rang e GLUCOSE CAP 112 mg/dL L=70 H=116 GLUCOSE FINGER/HEEL CAPILLAR Y - Collect Date/Time: 10/27/2021 09:52 Test Name Code Test Result Test Units Test Ref Rang e GLUCOSE CAP 114 mg/dL L=70 H=116 CBC W/ DIFFERENTIAL* - Colle ct Date/Time: 10/29/2021 06:35 Test Name Code Test Result Test Units Test Ref Rang e WBC 6690-2 7.83 th/cmm L=5.00 H=10.00 NEUT % 51.4 % L=40.0 H=80.0 LYMPH % 35.9 % L=10.0 H=50.0 MONO % 29769-7 10.6 % L=2.0 H=12.0 EOS % 1.0 % L=0.0 H=8.0 BASO % 0.6 % L=0.0 H=3.0 IG % 2514-8 0.5 % L=0.0 H=1.1 NRBC % 60551-9 0.0 % L=0.0 H=0.0 NEUT abs count 751-8 4.0 th/cmm L=1.6 H=8. 4 LYMPH abs count 731-0 2.8 th/cmm L=1.5 H=4 .0 MONO abs count 742-7 0.8 th/cmm L=0.2 H=1. 0 EOS abs count 711-2 0.1 th/cmm L=0.0 H=0.5 BASO abs count 704-7 0.1 th/cmm L=0.0 H=0. 2 IG abs count 82226-3 0.0 th/cmm L=0.0 H=0.1 NRBC abs count 15462-2 0.0 mil/cmm L=0.0 H=0. 0 RBC 789-8 4.10 mil/cmm L=4.30 H=6.20 HEMOGLOBIN 718-7 12.8 gm/dL L=13.0 H=17.0 HEMATOCRIT 4544-3 39 % L=45 H=52 MCV 787-2 96 fL L=82 H=92 MCH 785-6 31.2 pg L=27.0 H=31.0 MCHC 786-4 32.7 % L=32.0 H=36.0 RDW-SD 788-0 43.8 fL L=39.0 H=49.0 PLATELET COUNT 777-3 117 th/cmm L=150 H=45 0 CBC W/ DIFFERENTIAL* - [facility] ct Date/Time: 10/28/2021 06:20 Test Name Code Test Result Test Units Test Ref Rang e WBC 6690-2 11.09 th/cmm L=5.00 H=10.00 NEUT % 76.1 % L=40.0 H=80.0 LYMPH % 15.7 % L=10.0 H=50.0 MONO % 90084-8 7.6 % L=2.0 H=12.0 EOS % 0.0 % L=0.0 H=8.0 BASO % 0.1 % L=0.0 H=3.0 IG % 2514-8 0.5 % L=0.0 H=1.1 NRBC % 42603-6 0.0 % L=0.0 H=0.0 NEUT abs count 751-8 8.5 th/cmm L=1.6 H=8. 4 LYMPH abs count 731-0 1.7 th/cmm L=1.5 H=4 .0 MONO abs count 742-7 0.8 th/cmm L=0.2 H=1. 0 EOS abs count 711-2 0.0 th/cmm L=0.0 H=0.5 BASO abs count 704-7 0.0 th/cmm L=0.0 H=0. 2 IG abs count 81262-0 0.1 th/cmm L=0.0 H=0.1 NRBC abs count 41719-3 0.0 mil/cmm L=0.0 H=0. 0 RBC 789-8 4.07 mil/cmm L=4.30 H=6.20 HEMOGLOBIN 718-7 12.8 gm/dL L=13.0 H=17.0 HEMATOCRIT 4544-3 38 % L=45 H=52 MCV 787-2 94 fL L=82 H=92 MCH 785-6 31.4 pg L=27.0 H=31.0 MCHC 786-4 33.5 % L=32.0 H=36.0 RDW-SD 788-0 42.2 fL L=39.0 H=49.0 PLATELET COUNT 777-3 131 th/cmm L=150 H=45 0 Active Medications Medications Administered During Visit Medication Dose Units Frequency Route Date/Time of Last Dose ERTAPENEM IVPB: 1GM/50ML 1 GM X1 10/27/2021 11:15 OxyCODONE TABLET SR: 10MG 10 MG X1 PO 10/27/2021 10:12 MIDAZOLAM INJ SDV: 2MG/2ML 2 MG X1 IVP 10/27/2021 10:50 FentaNYL INJ SDV: 100MCG/2ML 25 MCG PRN IN PACU Q5MIN IVP 10/27/2021 14:58 ACETAMINOPHEN INJ SDV: 1000MG/100ML 1000 MG PRN IN PACU X1 10/27/2021 14 :46 GABAPENTIN CAPSULE: 100MG 300 MG PRN TID PO 10/28/2021 21:28 FINASTERIDE TABLET: 5MG 5 MG DAILY PO 10/29/2021 09:04 METOPROLOL SUCCINATE TABLET ER: 50MG 50 MG DAILY PO 10/29/2021 0 9:04 OXYBUTYNIN TABLET: 5MG 5 MG BEDTIME PO 10/28/2021 21:28 MetFORMIN TABLET: 500MG 500 MG BID PO 10/29/2021 09:04 POTASSIUM CHL IN D5%-1/2NS: 20mEq/1000ML 1000 ML CONT 10/17 06:00 ENOXAPARIN INJ SYRINGE: 30MG/0.3ML 30 MG Q24H SUBQ 10/28/2021 15:0 2 OxyCODONE TABLET no apap added: 5mg 5 MG PRN Q3H PO 10/29/2021 13:3 3 INSULIN MDV REGULAR: 1000UNITS/10ML Unit(s) PRN SUBQ 10/27/2021 16 :43 ACETAMINOPHEN INJ SDV: 1000MG/100ML 1000 MG Q6H 10/29/2021 09:0 4 INSULIN MDV LISPRO: 1000UNITS/10ML PRN SUBQ 10/28/2021 19 :22 ATORVASTATIN TABLET: 20MG 20 MG BEDTIME PO 10/28/2021 21:28 Encounters Encounter Diagnosis Diagnosis Code Start Date Incisional hernia without obstruction or gangren e K432 10/27/2021 Social History Smoking Status Code Start Date End Date Former smoker [id number] 09/16/2003 Patient Decision Aids Patient Decision Aid Patient Portal Access Umbilical Hernia Repair Discharge Instructions You were admitted to [facility] on 10/27/2021 14:24 with a principal diagnosis of Incisional hernia without obstruction or gangrene You had the following procedures done:Supplement Abdominal Wall with Nonautologous Tissue Substitute, Open ApproachAnesthesia, Hernia Repairs, Lower Abdomen; Ventral & Incisional Hernias You had the following tests done:CBC W/ DIFFERENTIAL*GLUCOSE FINGER/HEEL CAPILLARYGLUCOSE FINGER/HEEL CAPILLARYBASIC METABOLIC PANEL (BMP)CBC W/ DIFFERENTIAL*GLUCOSE FINGER/HEEL CAPILLARYGLUCOSE FINGER/HEEL CAPILLARYGLUCOSE FINGER/HEEL CAPILLARYGLUCOSE FINGER/HEEL CAPILLARY You were discharged from [facility] on 10/29/2021 13:50 Should you have any questions prior to discharge, please contact a member of your healthcare team. If you have left the hospital and have any questions, please contact your primary care physician. Chief Complaint and Reason For Visit Chief Complaint Date of Onset SP STOMAL HERNIA REPAIR WRECTO RECTUS ME SH 120MIN IP 10/30/2021 Function Status Unknown or Not Available. Plan of Care Unknown or Not Available. Referral/Transition of Care Unknown or Not Available.
--- OUTSIDE RECORDS SUMMARY | 2023-09-04 15:46 | XMS_ITS | CCD ---
Author Name Unknown Address [address] [place] [address] [phone] Organization Unknown Address [address] [place] [address] [phone] Care Team Providers Care Photonic Laboratory Technician Name Role Phone EVELIA MCKEON Attending Physician [phone] Vital Signs Unknown or Not Available. Allergies Allergy Code Allergy Type Reaction Status No Known Environmental Allergies 0 No known envir onmental allergies Active No Known Food Allergies 0 No known food allergies Active No Known Drug Allergies 0 No known drug allergies Active Procedures Unknown or Not Available. History of Immunizations Unknown or Not Available. Problems Unknown or Not Available. Results COMPREHENSIVE METABOLIC PANE L (CMP) - Collect Date/Time: 12/01/2021 08:13 Test Name Code Test Result Test Units Test Ref Rang e GLUCOSE 2345-7 140 mg/dL L=70 H=116 BUN 3094-0 21 mg/dL L=6 H=25 CREATININE 2160-0 1.13 mg/dL L=0.67 H=1.17 SODIUM SERUM 2951-2 141 mmol/L L=136 H=145 POTASSIUM SERUM 2823-3 4.5 mmol/L L=3.4 H=5 .2 CHLORIDE SERUM 2075-0 103 mmol/L L=96 H=110 CARBON DIOXIDE (CO2) 2028-9 33 mmol/L L=22 H=34 ANION GAP 19187-8 5.4 mmol/L CALCIUM SERUM 54982-3 9.6 mg/dL L=8.2 H=10. 2 BILIRUBIN TOTAL 1975-2 0.8 mg/dL L=0.0 H=1 .3 ALK. PHOS. 6768-6 63 U/L L=46 H=116 SGOT (AST) 1920-8 25 U/L L=15 H=37 SGPT (ALT) 1742-6 35 U/L L=12 H=78 TOTAL PROTEIN 2885-2 7.6 gm/dL L=6.0 H=8.0 ALBUMIN 1751-7 4.3 gm/dL L=3.4 H=5.0 AGE 81 years eGFR (non-Afr.Amer.) 78977-0 62 mL/min eGFR (Afr-Gibraltarian) 12505-9 75 mL/min CBC W/ DIFFERENTIAL* - Colle ct Date/Time: 12/01/2021 08:13 Test Name Code Test Result Test Units Test Ref Rang e WBC 6690-2 7.53 th/cmm L=5.00 H=10.00 NEUT % 42.4 % L=40.0 H=80.0 LYMPH % 37.2 % L=10.0 H=50.0 MONO % 45434-2 11.8 % L=2.0 H=12.0 EOS % 6.2 % L=0.0 H=8.0 BASO % 1.2 % L=0.0 H=3.0 IG % 2514-8 1.2 % L=0.0 H=1.1 NRBC % 32779-3 0.0 % L=0.0 H=0.0 NEUT abs count 751-8 3.2 th/cmm L=1.6 H=8. 4 LYMPH abs count 731-0 2.8 th/cmm L=1.5 H=4 .0 MONO abs count 742-7 0.9 th/cmm L=0.2 H=1. 0 EOS abs count 711-2 0.5 th/cmm L=0.0 H=0.5 BASO abs count 704-7 0.1 th/cmm L=0.0 H=0. 2 IG abs count 42849-2 0.1 th/cmm L=0.0 H=0.1 NRBC abs count 73535-4 0.0 mil/cmm L=0.0 H=0. 0 RBC 789-8 4.72 mil/cmm L=4.30 H=6.20 HEMOGLOBIN 718-7 14.9 gm/dL L=13.0 H=17.0 HEMATOCRIT 4544-3 45 % L=45 H=52 MCV 787-2 94 fL L=82 H=92 MCH 785-6 31.6 pg L=27.0 H=31.0 MCHC 786-4 33.5 % L=32.0 H=36.0 RDW-SD 788-0 42.4 fL L=39.0 H=49.0 PLATELET COUNT 777-3 164 th/cmm L=150 H=45 0 Active Medications Medication Code Dose Units Frequency Route Modificatio n Start Date/Time Atorvastatin Calcium 20MG Oral Tablet 076250 20 MILLIGRAMS BEDTIME ORAL 12:20 Prescription Detail TAKE 20 MILLIGRAMS ORAL BEDTIME Finasteride 5MG Oral Tablet 619384 5 MILLIGRAMS DAILY ORAL 12:20 Prescription Detail TAKE 5 MILLIGRAMS ORAL DAILY Gabapentin 100MG Oral Capsule 636535 300 MILLIGRAMS NEEDED THREE TIMES A DAY ORAL 10/29/2021 12:20 Prescription Detail TAKE 300 MILLIGRAMS ORAL NEEDED THREE TIMES A DAY metFORMIN HCl 500MG Oral Tablet 705390 500 MILLIGRAMS TWICE A DAY ORAL 12:20 Prescription Detail TAKE 500 MILLIGRAMS ORAL TWICE A DAY Metoprolol Succinate 50MG Oral Tablet, Extended Release 799803 50 MILLIGRAMS DAILY ORAL 12:20 Prescription Detail TAKE 50 MILLIGRAMS ORAL DAILY Oxybutynin Chloride 5MG Oral Tablet 830052 5 MILLIGRAMS EVERY EVENING ORAL 10/29/2021 12:20 Prescription Detail TAKE 5 MILLIGRAMS ORAL EVERY EVENING oxyCODONE HCl 5MG Oral Tablet 4636304 1 TABLET NEEDED EVERY 6 HOURS ORAL 10/29/2021 12:20 Prescription Detail TAKE 1 TABLET ORAL NEEDED EVERY 6 JESUS RS FOR Pain Turmeric 500 MG Oral Capsule 0760755 500 MG DAILY ORAL 12:20 Prescription Detail TAKE 500 MG ORAL DAILY Tylenol Arthritis 650MG Oral Tablet, Extended Release [id number] 650 MILLIGRAMS NEEDED ORAL 12:20 Prescription Detail TAKE 650 MILLIGRAMS ORAL NEEDED Vitamin D 5000 IU Oral Capsule 91078022540 5000 IU TWICE A DAY ORAL 10/29/2021 12:20 Prescription Detail TAKE 5000 IU ORAL TWICE A DAY Xarelto 20MG Oral Tablet 4888703 20 MILLIGRAMS DAILY ORAL 12:20 Prescription Detail TAKE 20 MILLIGRAMS ORAL DAILY Multivitamin Oral Tablet 48834308776 1 EACH DAILY ORAL 2018 08:54 Prescription Detail TAKE 1 EACH ORAL DAILY Medications Administered During Visit Unknown or Not Available. 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 Discharge Instructions You were admitted to [facility] on 12/01/2021 08:05 with a principal diagnosis of Malignant neoplasm of splenic flexure You had the following tests done:CBC W/ DIFFERENTIAL*COMPREHENSIVE METABOLIC PANEL (CMP) You were discharged from [facility] on 12/01/2021 08:05 Should you have any questions prior to [...]
--- OUTSIDE RECORDS SUMMARY | 2023-09-04 15:46 | XMS_ITS | CCD ---
Author Name Unknown Address [address] [place] [address] [phone] Organization Unknown Address [address] [place] [address] [phone] Care Team Providers Care Geoscience Professor Name Role Phone CHRISSYDAILYEVELIA Attending Physician [phone] Vital Signs Unknown or Not Available. Allergies [...] Start Date/Time Atorvastatin Calcium 20MG Oral Tablet 697296 20 MILLIGRAMS BEDTIME ORAL 12:20 Prescription Detail TAKE 20 MILLIGRAMS ORAL BEDTIME Finasteride 5MG Oral Tablet 704550 5 MILLIGRAMS DAILY ORAL 12:20 Prescription Detail TAKE 5 MILLIGRAMS ORAL DAILY Gabapentin 100MG Oral Capsule 217492 300 MILLIGRAMS NEEDED THREE TIMES A DAY ORAL 10/29/2021 12:20 Prescription Detail TAKE 300 MILLIGRAMS ORAL NEEDED THREE TIMES A DAY metFORMIN HCl 500MG Oral Tablet 062128 500 MILLIGRAMS TWICE A DAY ORAL 12:20 Prescription Detail TAKE 500 MILLIGRAMS ORAL TWICE A DAY Metoprolol Succinate 50MG Oral Tablet, Extended Release 514737 50 MILLIGRAMS DAILY ORAL 12:20 Prescription Detail TAKE 50 MILLIGRAMS ORAL DAILY Oxybutynin Chloride 5MG Oral Tablet 516947 5 MILLIGRAMS EVERY EVENING ORAL 10/29/2021 12:20 Prescription Detail TAKE 5 MILLIGRAMS ORAL EVERY EVENING oxyCODONE HCl 5MG Oral Tablet 5882437 1 TABLET NEEDED EVERY 6 HOURS ORAL 10/29/2021 12:20 Prescription Detail TAKE 1 TABLET ORAL NEEDED EVERY 6 JESUS RS FOR Pain Turmeric 500 MG Oral Capsule 9971678 500 MG DAILY ORAL 12:20 Prescription Detail TAKE 500 MG ORAL DAILY Tylenol Arthritis 650MG Oral Tablet, Extended Release 4097708 650 MILLIGRAMS NEEDED ORAL 12:20 Prescription Detail TAKE 650 MILLIGRAMS ORAL NEEDED Vitamin D 5000 IU Oral Capsule 22852899188 5000 IU TWICE A DAY ORAL 10/29/2021 12:20 Prescription Detail TAKE 5000 IU ORAL TWICE A DAY Xarelto 20MG Oral Tablet 0055574 20 MILLIGRAMS DAILY ORAL 12:20 Prescription Detail TAKE 20 MILLIGRAMS ORAL DAILY Multivitamin Oral Tablet 43068362710 1 EACH DAILY ORAL 2018 08:54 Prescription Detail TAKE 1 EACH ORAL DAILY Medications Administered During Visit Unknown or Not Available. 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 Discharge Instructions You were admitted to [facility] on 12/20/2021 08:48 with a principal diagnosis of Malignant neoplasm of splenic flexure You were discharged from [facility] on 12/20/2021 08:48 Should you have any questions prior to discharge, please contact a member of your healthcare team. If you have left the hospital and have any questions, please contact your primary care physician. Chief Complaint and Reason For Visit Chief Complaint Date of Onset SPLENIC FLEXURE CA Function Status Unknown or Not Available. Plan of Care Unknown or Not Available. Referral/Transition of Care Unknown or Not Available.
--- OUTSIDE RECORDS SUMMARY | 2023-09-04 15:46 | XMS_ITS | CCD ---
Author Name Unknown Address [address] [place] [address] [phone] Organization Unknown Address [address] [place] [address] [phone] Care Team Providers Care Pencil Inspector Name Role Phone ANA PAULA SMITH Attending Physician [phone] ANA PAULA SMITH Rounding (Secondary) Physician [phone] Vital Signs Unknown or Not Available. Allergies [...] Start Date/Time Atorvastatin Calcium 20MG Oral Tablet 827294 20 MILLIGRAMS BEDTIME ORAL 12:20 Prescription Detail TAKE 20 MILLIGRAMS ORAL BEDTIME Finasteride 5MG Oral Tablet 698970 5 MILLIGRAMS DAILY ORAL 12:20 Prescription Detail TAKE 5 MILLIGRAMS ORAL DAILY Gabapentin 100MG Oral Capsule 281356 300 MILLIGRAMS NEEDED THREE TIMES A DAY ORAL 10/29/2021 12:20 Prescription Detail TAKE 300 MILLIGRAMS ORAL NEEDED THREE TIMES A DAY metFORMIN HCl 500MG Oral Tablet 402165 500 MILLIGRAMS TWICE A DAY ORAL 12:20 Prescription Detail TAKE 500 MILLIGRAMS ORAL TWICE A DAY Metoprolol Succinate 50MG Oral Tablet, Extended Release 855500 50 MILLIGRAMS DAILY ORAL 12:20 Prescription Detail TAKE 50 MILLIGRAMS ORAL DAILY Oxybutynin Chloride 5MG Oral Tablet 664277 5 MILLIGRAMS EVERY EVENING ORAL 10/29/2021 12:20 Prescription Detail TAKE 5 MILLIGRAMS ORAL EVERY EVENING oxyCODONE HCl 5MG Oral Tablet 1745822 1 TABLET NEEDED EVERY 6 HOURS ORAL 10/29/2021 12:20 Prescription Detail TAKE 1 TABLET ORAL NEEDED EVERY 6 JESUS RS FOR Pain Turmeric 500 MG Oral Capsule 1509393 500 MG DAILY ORAL 12:20 Prescription Detail TAKE 500 MG ORAL DAILY Tylenol Arthritis 650MG Oral Tablet, Extended Release 2045177 650 MILLIGRAMS NEEDED ORAL 12:20 Prescription Detail TAKE 650 MILLIGRAMS ORAL NEEDED Vitamin D 5000 IU Oral Capsule 99581767531 5000 IU TWICE A DAY ORAL 10/29/2021 12:20 Prescription Detail TAKE 5000 IU ORAL TWICE A DAY Xarelto 20MG Oral Tablet 9151349 20 MILLIGRAMS DAILY ORAL 12:20 Prescription Detail TAKE 20 MILLIGRAMS ORAL DAILY Multivitamin Oral Tablet 34968560469 1 EACH DAILY ORAL 2018 08:54 Prescription Detail TAKE 1 EACH ORAL DAILY Medications Administered During Visit Unknown or Not Available. Encounters Encounter Diagnosis Diagnosis Code Start Date Incisional hernia without obstruction or gangren e K432 10/27/2021 Social History Smoking Status Code Start Date End Date Former smoker [id number] 09/16/2003 Patient Decision Aids Unknown or Not Available. Discharge Instructions You were admitted to [facility] on 10/27/2021 09:18 with a principal diagnosis of Incisional hernia without obstruction or gangrene You were discharged from [facility] on 10/29/2021 09:18 Should you have any questions prior to [...]
--- OUTSIDE RECORDS SUMMARY | 2023-09-04 15:46 | XMS_ITS | CCD ---
Author Name Unknown Address [address] [place] [address] [phone] Organization Unknown Address [address] [place] [address] [phone] Care Team Providers Care Sybase Developer Name Role Phone KARLEE PIERRE Attending Physician [phone] KARLEE PIERRE Rounding (Secondary) Physician [phone] Vital Signs Unknown or Not Available. Allergies [...] Start Date/Time Atorvastatin Calcium 20MG Oral Tablet 663841 20 MILLIGRAMS BEDTIME ORAL 12:20 Prescription Detail TAKE 20 MILLIGRAMS ORAL BEDTIME Finasteride 5MG Oral Tablet 527481 5 MILLIGRAMS DAILY ORAL 12:20 Prescription Detail TAKE 5 MILLIGRAMS ORAL DAILY Gabapentin 100MG Oral Capsule 017194 300 MILLIGRAMS NEEDED THREE TIMES A DAY ORAL 10/29/2021 12:20 Prescription Detail TAKE 300 MILLIGRAMS ORAL NEEDED THREE TIMES A DAY metFORMIN HCl 500MG Oral Tablet 046111 500 MILLIGRAMS TWICE A DAY ORAL 12:20 Prescription Detail TAKE 500 MILLIGRAMS ORAL TWICE A DAY Metoprolol Succinate 50MG Oral Tablet, Extended Release 377915 50 MILLIGRAMS DAILY ORAL 12:20 Prescription Detail TAKE 50 MILLIGRAMS ORAL DAILY Oxybutynin Chloride 5MG Oral Tablet 846662 5 MILLIGRAMS EVERY EVENING ORAL 10/29/2021 12:20 Prescription Detail TAKE 5 MILLIGRAMS ORAL EVERY EVENING oxyCODONE HCl 5MG Oral Tablet 9906589 1 TABLET NEEDED EVERY 6 HOURS ORAL 10/29/2021 12:20 Prescription Detail TAKE 1 TABLET ORAL NEEDED EVERY 6 JESUS RS FOR Pain Turmeric 500 MG Oral Capsule 7771414 500 MG DAILY ORAL 12:20 Prescription Detail TAKE 500 MG ORAL DAILY Tylenol Arthritis 650MG Oral Tablet, Extended Release [id number] 650 MILLIGRAMS NEEDED ORAL 12:20 Prescription Detail TAKE 650 MILLIGRAMS ORAL NEEDED Vitamin D 5000 IU Oral Capsule 13639213460 5000 IU TWICE A DAY ORAL 10/29/2021 12:20 Prescription Detail TAKE 5000 IU ORAL TWICE A DAY Xarelto 20MG Oral Tablet 6490771 20 MILLIGRAMS DAILY ORAL 12:20 Prescription Detail TAKE 20 MILLIGRAMS ORAL DAILY Multivitamin Oral Tablet 46883121055 1 EACH DAILY ORAL 2018 08:54 Prescription Detail TAKE 1 EACH ORAL DAILY Medications Administered During Visit Unknown or Not Available. Encounters Encounter Diagnosis Diagnosis Code Start Date Paroxysmal atrial fibrillation I480 0 03/29/2022 Social History Smoking Status Code Start Date End Date Former smoker [id number] 09/16/2003 Patient Decision Aids Unknown or Not Available. Discharge Instructions You were admitted to [facility] on 03/29/2022 11:16 with a principal diagnosis of Paroxysmal atrial fibrillation You were discharged from [facility] on 03/29/2022 00:00 Should you have any questions prior [...]
--- OUTSIDE RECORDS SUMMARY | 2023-09-04 15:46 | XMS_ITS | CCD ---
Author Name Unknown Address [address] [place] [address] [phone] Organization Unknown Address [address] [place] [address] [phone] Care Team Providers Care Transit Mixer Driver Name Role Phone ANA PAULA SMITH Attending Physician [phone] Vital Signs Unknown or Not Available. Allergies [...] Start Date/Time Atorvastatin Calcium 20MG Oral Tablet 709393 20 MILLIGRAMS BEDTIME ORAL 12:20 Prescription Detail TAKE 20 MILLIGRAMS ORAL BEDTIME Finasteride 5MG Oral Tablet 715724 5 MILLIGRAMS DAILY ORAL 12:20 Prescription Detail TAKE 5 MILLIGRAMS ORAL DAILY Gabapentin 100MG Oral Capsule 761608 300 MILLIGRAMS NEEDED THREE TIMES A DAY ORAL 10/29/2021 12:20 Prescription Detail TAKE 300 MILLIGRAMS ORAL NEEDED THREE TIMES A DAY metFORMIN HCl 500MG Oral Tablet 263151 500 MILLIGRAMS TWICE A DAY ORAL 12:20 Prescription Detail TAKE 500 MILLIGRAMS ORAL TWICE A DAY Metoprolol Succinate 50MG Oral Tablet, Extended Release 331157 50 MILLIGRAMS DAILY ORAL 12:20 Prescription Detail TAKE 50 MILLIGRAMS ORAL DAILY Oxybutynin Chloride 5MG Oral Tablet 657383 5 MILLIGRAMS EVERY EVENING ORAL 10/29/2021 12:20 Prescription Detail TAKE 5 MILLIGRAMS ORAL EVERY EVENING oxyCODONE HCl 5MG Oral Tablet 6883864 1 TABLET NEEDED EVERY 6 HOURS ORAL 10/29/2021 12:20 Prescription Detail TAKE 1 TABLET ORAL NEEDED EVERY 6 JESUS RS FOR Pain Turmeric 500 MG Oral Capsule 7656965 500 MG DAILY ORAL 12:20 Prescription Detail TAKE 500 MG ORAL DAILY Tylenol Arthritis 650MG Oral Tablet, Extended Release 7150881 650 MILLIGRAMS NEEDED ORAL 12:20 Prescription Detail TAKE 650 MILLIGRAMS ORAL NEEDED Vitamin D 5000 IU Oral Capsule 23211508529 5000 IU TWICE A DAY ORAL 10/29/2021 12:20 Prescription Detail TAKE 5000 IU ORAL TWICE A DAY Xarelto 20MG Oral Tablet [id number] 20 MILLIGRAMS DAILY ORAL 12:20 Prescription Detail TAKE 20 MILLIGRAMS ORAL DAILY Multivitamin Oral Tablet [id number] 1 EACH DAILY ORAL 2018 08:54 Prescription Detail TAKE 1 EACH ORAL DAILY Medications Administered During Visit Unknown or Not Available. Encounters Unknown or Not Available. Social History Smoking Status Code Start Date End Date Former smoker [id number] 09/16/2003 Patient Decision Aids Unknown or Not Available. Discharge Instructions You were admitted to [facility] on 10/27/2021 08:57 You were discharged from [facility] on 10/27/2021 08:57 Should you have any questions prior to [...]
--- OUTSIDE RECORDS SUMMARY | 2023-09-04 15:46 | XMS_ITS | CCD ---
Author Name Unknown Address [address] [place] [address] [phone] Organization Unknown Address [address] [place] [address] [phone] Care Team Providers Care Rn Tele Name Role Phone ANA PAULA SMITH Attending Physician [phone] ANA PAULA SMITH Rounding (Secondary) Physician [phone] Vital Signs Unknown or Not Available. Allergies [...] Start Date/Time Atorvastatin Calcium 20MG Oral Tablet [id number] 20 MILLIGRAMS BEDTIME ORAL 12:20 Prescription Detail TAKE 20 MILLIGRAMS ORAL BEDTIME Finasteride 5MG Oral Tablet 414024 5 MILLIGRAMS DAILY ORAL 12:20 Prescription Detail TAKE 5 MILLIGRAMS ORAL DAILY Gabapentin 100MG Oral Capsule [id number] 300 MILLIGRAMS NEEDED THREE TIMES A DAY ORAL 10/29/2021 12:20 Prescription Detail TAKE 300 MILLIGRAMS ORAL NEEDED THREE TIMES A DAY metFORMIN HCl 500MG Oral Tablet 348178 500 MILLIGRAMS TWICE A DAY ORAL 12:20 Prescription Detail TAKE 500 MILLIGRAMS ORAL TWICE A DAY Metoprolol Succinate 50MG Oral Tablet, Extended Release 115994 50 MILLIGRAMS DAILY ORAL 12:20 Prescription Detail TAKE 50 MILLIGRAMS ORAL DAILY Oxybutynin Chloride 5MG Oral Tablet 623533 5 MILLIGRAMS EVERY EVENING ORAL 10/29/2021 12:20 Prescription Detail TAKE 5 MILLIGRAMS ORAL EVERY EVENING oxyCODONE HCl 5MG Oral Tablet 9393469 1 TABLET NEEDED EVERY 6 HOURS ORAL 10/29/2021 12:20 Prescription Detail TAKE 1 TABLET ORAL NEEDED EVERY 6 JESUS RS FOR Pain Turmeric 500 MG Oral Capsule 6451937 500 MG DAILY ORAL 12:20 Prescription Detail TAKE 500 MG ORAL DAILY Tylenol Arthritis 650MG Oral Tablet, Extended Release [id number] 650 MILLIGRAMS NEEDED ORAL 12:20 Prescription Detail TAKE 650 MILLIGRAMS ORAL NEEDED Vitamin D 5000 IU Oral Capsule [id number] 5000 IU TWICE A DAY ORAL 10/29/2021 12:20 Prescription Detail TAKE 5000 IU ORAL TWICE A DAY Xarelto 20MG Oral Tablet 0297153 20 MILLIGRAMS DAILY ORAL 12:20 Prescription Detail TAKE 20 MILLIGRAMS ORAL DAILY Multivitamin Oral Tablet 55264094472 1 EACH DAILY ORAL 2018 08:54 Prescription Detail TAKE 1 EACH ORAL DAILY Medications Administered During Visit Unknown or Not Available. Encounters Encounter Diagnosis Diagnosis Code Start Date Follow-up visit [id number] 12/07/2021 Social History Smoking Status Code Start Date End Date Former smoker [id number] 09/16/2003 Patient Decision Aids Unknown or Not Available. Discharge Instructions You were admitted to [facility] on 12/07/2021 14:47 with a principal diagnosis of Encounter for follow-up examination after completed treatment for conditions other than malignant neoplasm You were discharged from [facility] on 12/07/2021 00:00 Should you have any questions prior [...]
--- OUTSIDE RECORDS SUMMARY | 2023-09-04 15:47 | XMS_ITS | CCD ---
Author Name Unknown Address [address] [place] [address] [phone] Organization Unknown Address [address] [place] [address] [phone] Care Team Providers Care Facilities Maintenance Assistant Name Role Phone LM VARELA MD Attending Physician [phone] Vital Signs Vital Sign Value Unit Date/Time Recent/Initial ? BP Systolic 114 mmHg 05/24/2021 11:30 Initial VS BP Diastolic 73 mmHg 05/24/2021 11:30 Initia l VS Respiratory Rate 11 bpm 05/24/2021 11:30 In itial VS Heart Rate 45 bpm 05/24/2021 11:30 Initial VS O2 % BldC Oximetry 96 % 05/24/2021 11:30 Initial VS Body Temperature 36.1 degrees 05/24/2021 11:30 In itial VS Allergies Allergy Code Allergy Type Reaction Status No Known Environmental Allergies 0 No known envir onmental allergies Active No Known Food Allergies 0 No known food allergies Active No Known Drug Allergies 0 No known drug allergies Active Procedures Procedure Code Procedure Type Date Lithotripsy, Extracorporeal Shock Wave 56289 CP T 05/24/2021 Cystourethroscopy (Sep Proc) 43134 CPT 05/24/2021 Anesthesia, Lithotripsy, Ext racorporeal Shock Wave; w/o Water Bath 70234 CPT 05/24/2021 History of Immunizations Unknown or Not Available. Problems Unknown or Not Available. Results GLUCOSE FINGER/HEEL CAPILLAR Y - Collect Date/Time: 05/24/2021 09:48 Test Name Code Test Result Test Units Test Ref Rang e GLUCOSE CAP 115 mg/dL L=70 H=116 Active Medications Medications Administered During Visit Unknown or Not Available. Encounters Encounter Diagnosis Diagnosis Code Start Date Calculus of kidney N200 05/24/2021 Social History Smoking Status Code Start Date End Date Former smoker [id number] 09/16/2003 Patient Decision Aids Unknown or Not Available. Discharge Instructions You were admitted to [facility] 01 on 05/24/2021 08:03 with a principal diagnosis of Calculus of kidney You had the following procedures done:Lithotripsy, Extracorporeal Shock WaveCystourethroscopy (Sep Proc)Anesthesia, Lithotripsy, Extracorporeal Shock Wave; w/o Water Bath You had the following tests done:GLUCOSE FINGER/HEEL CAPILLARY You were discharged from [facility] 01 on 05/24/2021 11:05 Should you have any questions prior to discharge, please contact a member of your healthcare team. If you have left the hospital and have any questions, please contact your primary care physician. Chief Complaint and Reason For Visit Chief Complaint Date of Onset LEFT ESWL W/ FLEXABLE CYSTOSCOPY 45MIN O P Function Status Unknown or Not Available. Plan of Care Unknown or Not Available. Referral/Transition of Care Unknown or Not Available.
--- OUTSIDE RECORDS SUMMARY | 2023-09-04 15:47 | XMS_ITS | CCD ---
Author Name Unknown Address [address] [place] [address] [phone] Organization Unknown Address [address] [place] [address] [phone] Care Team Providers Care Medical Lab Specialist Name Role Phone ANA PAULA SMITH Attending Physician [phone] Vital Signs Unknown or Not Available. Allergies [...] Start Date/Time Atorvastatin Calcium 20MG Oral Tablet 900338 20 MILLIGRAMS BEDTIME ORAL 12:20 Prescription Detail TAKE 20 MILLIGRAMS ORAL BEDTIME Finasteride 5MG Oral Tablet 508049 5 MILLIGRAMS DAILY ORAL 12:20 Prescription Detail TAKE 5 MILLIGRAMS ORAL DAILY Gabapentin 100MG Oral Capsule 038015 300 MILLIGRAMS NEEDED THREE TIMES A DAY ORAL 10/29/2021 12:20 Prescription Detail TAKE 300 MILLIGRAMS ORAL NEEDED THREE TIMES A DAY metFORMIN HCl 500MG Oral Tablet 703934 500 MILLIGRAMS TWICE A DAY ORAL 12:20 Prescription Detail TAKE 500 MILLIGRAMS ORAL TWICE A DAY Metoprolol Succinate 50MG Oral Tablet, Extended Release 677580 50 MILLIGRAMS DAILY ORAL 12:20 Prescription Detail TAKE 50 MILLIGRAMS ORAL DAILY Oxybutynin Chloride 5MG Oral Tablet 141758 5 MILLIGRAMS EVERY EVENING ORAL 10/29/2021 12:20 Prescription Detail TAKE 5 MILLIGRAMS ORAL EVERY EVENING oxyCODONE HCl 5MG Oral Tablet 6623717 1 TABLET NEEDED EVERY 6 HOURS ORAL 10/29/2021 12:20 Prescription Detail TAKE 1 TABLET ORAL NEEDED EVERY 6 JESUS RS FOR Pain Turmeric 500 MG Oral Capsule 7624622 500 MG DAILY ORAL 022 12:20 Prescription Detail TAKE 500 MG ORAL DAILY Tylenol Arthritis 650MG Oral Tablet, Extended Release 7180275 650 MILLIGRAMS NEEDED ORAL 12:20 Prescription Detail TAKE 650 MILLIGRAMS ORAL NEEDED Vitamin D 5000 IU Oral Capsule 64523969267 5000 IU TWICE A DAY ORAL 10/29/2021 12:20 Prescription Detail TAKE 5000 IU ORAL TWICE A DAY Xarelto 20MG Oral Tablet 2218006 20 MILLIGRAMS DAILY ORAL 022 12:20 Prescription Detail TAKE 20 MILLIGRAMS ORAL DAILY Multivitamin Oral Tablet 84115306449 1 EACH DAILY ORAL 2018 08:54 Prescription Detail TAKE 1 EACH ORAL DAILY Medications Administered During Visit Unknown or Not Available. Encounters Encounter Diagnosis Diagnosis Code Start Date Incisional hernia [id number] 09/25/2021 Social History Smoking Status Code Start Date End Date Former smoker [id number] 09/16/2003 Patient Decision Aids Unknown or Not Available. Discharge Instructions You were admitted to [facility] on 09/25/2021 08:00 with a principal diagnosis of Incisional hernia without obstruction or gangrene You were discharged from [facility] on 09/25/2021 08:00 Should you have any questions prior to discharge, please contact a member of your healthcare team. If you have left the hospital and have any questions, please contact your primary care physician. Chief Complaint and Reason For Visit Chief Complaint Date of Onset INCISIONAL HERNIA Function Status Unknown or Not Available. Plan of Care Unknown or Not Available. Referral/Transition of Care Unknown or Not Available.
--- OUTSIDE RECORDS SUMMARY | 2023-09-04 15:47 | XMS_ITS | CCD ---
Author Name Unknown Address [address] [place] [address] [phone] Organization Unknown Address [address] [place] [address] [phone] Care Team Providers Care Gear Roller Name Role Phone ANA PAULA SMITH Attending Physician [phone] ANA PAULA SMITH Rounding (Secondary) Physician [phone] Vital Signs Unknown or Not Available. Allergies [...] Start Date/Time Atorvastatin Calcium 20MG Oral Tablet 013205 20 MILLIGRAMS BEDTIME ORAL 12:20 Prescription Detail TAKE 20 MILLIGRAMS ORAL BEDTIME Finasteride 5MG Oral Tablet 358451 5 MILLIGRAMS DAILY ORAL 12:20 Prescription Detail TAKE 5 MILLIGRAMS ORAL DAILY Gabapentin 100MG Oral Capsule 452798 300 MILLIGRAMS NEEDED THREE TIMES A DAY ORAL 10/29/2021 12:20 Prescription Detail TAKE 300 MILLIGRAMS ORAL NEEDED THREE TIMES A DAY metFORMIN HCl 500MG Oral Tablet 341695 500 MILLIGRAMS TWICE A DAY ORAL 12:20 Prescription Detail TAKE 500 MILLIGRAMS ORAL TWICE A DAY Metoprolol Succinate 50MG Oral Tablet, Extended Release 789932 50 MILLIGRAMS DAILY ORAL 12:20 Prescription Detail TAKE 50 MILLIGRAMS ORAL DAILY Oxybutynin Chloride 5MG Oral Tablet 069504 5 MILLIGRAMS EVERY EVENING ORAL 10/29/2021 12:20 Prescription Detail TAKE 5 MILLIGRAMS ORAL EVERY EVENING oxyCODONE HCl 5MG Oral Tablet 0092517 1 TABLET NEEDED EVERY 6 HOURS ORAL 10/29/2021 12:20 Prescription Detail TAKE 1 TABLET ORAL NEEDED EVERY 6 JESUS RS FOR Pain Turmeric 500 MG Oral Capsule 7547839 500 MG DAILY ORAL 12:20 Prescription Detail TAKE 500 MG ORAL DAILY Tylenol Arthritis 650MG Oral Tablet, Extended Release [id number] 650 MILLIGRAMS NEEDED ORAL 12:20 Prescription Detail TAKE 650 MILLIGRAMS ORAL NEEDED Vitamin D 5000 IU Oral Capsule 20231290932 5000 IU TWICE A DAY ORAL 10/29/2021 12:20 Prescription Detail TAKE 5000 IU ORAL TWICE A DAY Xarelto 20MG Oral Tablet 0034860 20 MILLIGRAMS DAILY ORAL 12:20 Prescription Detail TAKE 20 MILLIGRAMS ORAL DAILY Multivitamin Oral Tablet 84502120287 1 EACH DAILY ORAL 2018 08:54 Prescription Detail TAKE 1 EACH ORAL DAILY Medications Administered During Visit Unknown or Not Available. Encounters Encounter Diagnosis Diagnosis Code Start Date Incisional hernia without obstruction or gangren e K432 09/11/2021 Social History Smoking Status Code Start Date End Date Former smoker [id number] 09/16/2003 Patient Decision Aids Unknown or Not Available. Discharge Instructions You were admitted to [facility] on 09/11/2021 09:49 with a principal diagnosis of Incisional hernia without obstruction or gangrene You were discharged from [facility] on 09/11/2021 00:00 Should you have any questions prior [...]
--- OUTSIDE RECORDS SUMMARY | 2023-09-04 15:47 | XMS_ITS | CCD ---
Author Name Unknown Address [address] [place] [address] [phone] Organization Unknown Address [address] [place] [address] [phone] Care Team Providers Care Strategic Marketing Leader Name Role Phone LM VARELA MD Attending Physician [phone] Vital Signs Unknown or Not Available. Allergies [...] Start Date/Time Atorvastatin Calcium 20MG Oral Tablet 589489 20 MILLIGRAMS BEDTIME ORAL 12:20 Prescription Detail TAKE 20 MILLIGRAMS ORAL BEDTIME Finasteride 5MG Oral Tablet 283297 5 MILLIGRAMS DAILY ORAL 12:20 Prescription Detail TAKE 5 MILLIGRAMS ORAL DAILY Gabapentin 100MG Oral Capsule 268419 300 MILLIGRAMS NEEDED THREE TIMES A DAY ORAL 10/29/2021 12:20 Prescription Detail TAKE 300 MILLIGRAMS ORAL NEEDED THREE TIMES A DAY metFORMIN HCl 500MG Oral Tablet 272068 500 MILLIGRAMS TWICE A DAY ORAL 12:20 Prescription Detail TAKE 500 MILLIGRAMS ORAL TWICE A DAY Metoprolol Succinate 50MG Oral Tablet, Extended Release 504133 50 MILLIGRAMS DAILY ORAL 12:20 Prescription Detail TAKE 50 MILLIGRAMS ORAL DAILY Oxybutynin Chloride 5MG Oral Tablet 270110 5 MILLIGRAMS EVERY EVENING ORAL 10/29/2021 12:20 Prescription Detail TAKE 5 MILLIGRAMS ORAL EVERY EVENING oxyCODONE HCl 5MG Oral Tablet 7784165 1 TABLET NEEDED EVERY 6 HOURS ORAL 10/29/2021 12:20 Prescription Detail TAKE 1 TABLET ORAL NEEDED EVERY 6 JESUS RS FOR Pain Turmeric 500 MG Oral Capsule 4376005 500 MG DAILY ORAL 12:20 Prescription Detail TAKE 500 MG ORAL DAILY Tylenol Arthritis 650MG Oral Tablet, Extended Release [id number] 650 MILLIGRAMS NEEDED ORAL 12:20 Prescription Detail TAKE 650 MILLIGRAMS ORAL NEEDED Vitamin D 5000 IU Oral Capsule 20192409486 5000 IU TWICE A DAY ORAL 10/29/2021 12:20 Prescription Detail TAKE 5000 IU ORAL TWICE A DAY Xarelto 20MG Oral Tablet 4838778 20 MILLIGRAMS DAILY ORAL 12:20 Prescription Detail TAKE 20 MILLIGRAMS ORAL DAILY Multivitamin Oral Tablet 88679389100 1 EACH DAILY ORAL 2018 08:54 Prescription Detail TAKE 1 EACH ORAL DAILY Medications Administered During Visit Unknown or Not Available. Encounters Unknown or Not Available. Social History Smoking Status Code Start Date End Date Former smoker [id number] 09/16/2003 Patient Decision Aids Unknown or Not Available. Discharge Instructions You were admitted to [facility] 01 on 05/24/2021 15:24 You were discharged from [facility] 01 on 05/24/2021 15:24 Should you have any questions prior to [...]
--- OUTSIDE RECORDS SUMMARY | 2023-09-04 15:47 | XMS_ITS | CCD ---
Author Name Unknown Address [address] [place] [address] [phone] Organization Unknown Address [address] [place] [address] [phone] Care Team Providers Care Deputy Commonwealth'S Attorney Name Role Phone ANA PAULA SMITH Attending Physician [phone] ANA PAULA SMITH Rounding (Secondary) Physician [phone] Vital Signs Unknown or Not Available. Allergies [...] Start Date/Time Atorvastatin Calcium 20MG Oral Tablet [id number] 20 MILLIGRAMS BEDTIME ORAL 12:20 Prescription Detail TAKE 20 MILLIGRAMS ORAL BEDTIME Finasteride 5MG Oral Tablet 732258 5 MILLIGRAMS DAILY ORAL 12:20 Prescription Detail TAKE 5 MILLIGRAMS ORAL DAILY Gabapentin 100MG Oral Capsule 000299 300 MILLIGRAMS NEEDED THREE TIMES A DAY ORAL 10/29/2021 12:20 Prescription Detail TAKE 300 MILLIGRAMS ORAL NEEDED THREE TIMES A DAY metFORMIN HCl 500MG Oral Tablet 226250 500 MILLIGRAMS TWICE A DAY ORAL 12:20 Prescription Detail TAKE 500 MILLIGRAMS ORAL TWICE A DAY Metoprolol Succinate 50MG Oral Tablet, Extended Release 553806 50 MILLIGRAMS DAILY ORAL 12:20 Prescription Detail TAKE 50 MILLIGRAMS ORAL DAILY Oxybutynin Chloride 5MG Oral Tablet 926022 5 MILLIGRAMS EVERY EVENING ORAL 10/29/2021 12:20 Prescription Detail TAKE 5 MILLIGRAMS ORAL EVERY EVENING oxyCODONE HCl 5MG Oral Tablet 5839968 1 TABLET NEEDED EVERY 6 HOURS ORAL 10/29/2021 12:20 Prescription Detail TAKE 1 TABLET ORAL NEEDED EVERY 6 JESUS RS FOR Pain Turmeric 500 MG Oral Capsule 8865557 500 MG DAILY ORAL 12:20 Prescription Detail TAKE 500 MG ORAL DAILY Tylenol Arthritis 650MG Oral Tablet, Extended Release 0323007 650 MILLIGRAMS NEEDED ORAL 12:20 Prescription Detail TAKE 650 MILLIGRAMS ORAL NEEDED Vitamin D 5000 IU Oral Capsule 65077554186 5000 IU TWICE A DAY ORAL 10/29/2021 12:20 Prescription Detail TAKE 5000 IU ORAL TWICE A DAY Xarelto 20MG Oral Tablet 9658471 20 MILLIGRAMS DAILY ORAL 12:20 Prescription Detail TAKE 20 MILLIGRAMS ORAL DAILY Multivitamin Oral Tablet 16243660939 1 EACH DAILY ORAL 2018 08:54 Prescription Detail TAKE 1 EACH ORAL DAILY Medications Administered During Visit Unknown or Not Available. Encounters Encounter Diagnosis Diagnosis Code Start Date Person consulting for explan ation of examination or test findings Z712 09/26/2021 Social History Smoking Status Code Start Date End Date Former smoker [id number] 09/16/2003 Patient Decision Aids Unknown or Not Available. Discharge Instructions You were admitted to [facility] on 09/26/2021 12:05 with a principal diagnosis of Person consulting for explanation of examination or test findings You were discharged from [facility] on 09/26/2021 00:00 Should you have any questions prior [...]
[2023-09-04 20:55] LABS: HCT 42.9 % (40.0-50.0); HGB 14.5 g/dL (13.5-17.5); MCHC 33.8 % (32.0-36.0); MCV 92 fL (80-95); RBC 4.67 10^6/uL (4.36-5.78); RDW 12.1 % (11.8-14.1); RDW-SD 40.1 fL; WBC 6.88 10^3/uL (4.4-10.8)
[2023-09-04 21:00] LABS: Anion Gap 9.6 mmol/L (3-11); BUN 25 mg/dL (7-18); CO2 26.4 mmol/L (21.0-32.0); CREATININE 1.3 mg/dL (0.70-1.30); Calcium 9.6 mg/dL (8.5-10.1); Chloride 103 mmol/L (98-107); Estimated GFR 54.51 (mL/min/1.73m2); Glucose 180 mg/dL (74-106); Potassium 4.5 mmol/L (3.5-5.1); Sodium 139 mmol/L (136-145)
[2023-09-04 21:17] LABS: Hemoglobin A1C 6.5 % (<5.7)
== END 2023-09-04 15:44 | disposition home or self-care (01) ==
LOC: NCHCN 15:43
PROVIDERS: PCP Internal Medicine; Visit Provider Internal Medicine
DX: E11.9 Type 2 diabetes mellitus without complications (principal); D69.6 Thrombocytopenia, unspecified
CPT/HCPCS: 80048; 85027; 83036

== ENCOUNTER 2024-03-02 15:35 | Outpatient (REF) | payer MEDICARE, SELFPAY ==
[2024-03-02 15:09] LABS: HCT 43.5 % (40.0-50.0); HGB 14.1 g/dL (13.5-17.5); MCH 31.1 pg (27.0-33.0); MCHC 32.4 % (32.0-36.0); MCV 96 fL (80-95); RBC 4.54 10^6/uL (4.36-5.78); RDW 12.1 % (11.8-14.1); RDW-SD 42.9 fL; WBC 6.35 10^3/uL (4.4-10.8)
[2024-03-02 15:23] LABS: ALT 32 U/L (16-63); AST 23 U/L (15-37); Albumin 3.9 g/dL (3.4-5.0); Alkaline Phosphatase 61 U/L (46-116); Anion Gap 8.1 mmol/L (3-11); BUN 20 mg/dL (7-18); Bilirubin, Total 0.7 mg/dL (0.2-1.0); CO2 28.9 mmol/L (21.0-32.0); CREATININE 1.1 mg/dL (0.70-1.30); Calcium 9.6 mg/dL (8.5-10.1); Chloride 104 mmol/L (98-107); Estimated GFR 66.61 (mL/min/1.73m2); Glucose 106 mg/dL (74-106); Potassium 4.6 mmol/L (3.5-5.1); Sodium 141 mmol/L (136-145); Total Protein 6.9 g/dL (6.4-8.2)
--- OUTSIDE RECORDS SUMMARY | 2024-03-02 15:39 | XMS_ITS ---
Author Name Unknown Address [address] [place] [address] [phone] Phone Organization Unknown Address [address] [place] [address] [phone] Phone Care Team Providers Care Waste Machine Offbearer Name Role Phone AVERY Hale Attending Unavailable NEENA Moreira Primary Unavailable Results XR EXAM ABDOMEN 1 VIEW - Com pleted: 08/31/2021 09:36 LOINC: [An error prevented this con tent from loading. This incident has been logged.] Social History Type Status Start Date End Date Code Code Syst em Smoking History Former smoker 09/16/[id number] Sex Male Medications Medication Start Date End Date Route Frequency Dose Code Code System Medication Instructions Home Meds Multivitamin Oral Tablet 11/26/2018 Unknown ORAL DAILY 1 unit(s) RxNorm TAKE 1 EACH ORAL DAILY Tylenol Arthritis 650MG Oral Tablet, Extended Release 11/26/2018 2 ORAL NEEDED EVERY 8 HOURS 1300 MILLIGRAMS 1209362 RxNorm TAKE 1300 MILLIGRAMS ORAL NEEDED EVERY 8 HOURS oxyCODONE HCl 5MG Oral Tablet 10/11/2019 2 ORAL NEEDED EVERY 3 HOURS 5 MILLIGRAMS 7811131 RxNorm TAKE 5 MILLIGRAMS ORAL NEEDED EVERY 3 HOURS Atorvastatin Calcium 20MG Oral Tablet 10/11/2019 2 ORAL BEDTIME 20 MILLIGRAMS 341942 RxNorm TAKE 20 MILLIGRAMS ORAL BEDTIME Flomax 0.4MG Oral Capsule 10/11/2019 2 ORAL DAILY 0.4 MILLIGRAMS 029818 RxNorm TAKE 0.4 MILLIGRAMS ORAL DAILY Gabapentin 100MG Oral Capsule 10/11/2019 2 ORAL THREE TIMES A DAY 200 MILLIGRAMS 542141 RxNorm TAKE 200 MILLIGRAMS ORAL THREE TIMES A DAY Metoprolol Succinate 50MG Oral Tablet, Extended Release 10/11/2019 2 ORAL DAILY 50 MILLIGRAMS 770586 RxNorm TAKE 50 MILLIGRAMS ORAL DAILY Xarelto 20MG Oral Tablet 10/11/2019 2 ORAL DAILY 20 MILLIGRAMS 8046099 RxNorm TAKE 20 MILLIGRAMS ORAL DAILY oxyCODONE HCl 5MG Oral Tablet 10/29/2021 Unknown ORAL NEEDED EVERY 6 HOURS 1 TABLET 3370121 RxNorm TAKE 1 TABLET ORAL NEEDED EVERY 6 HOURS FOR Pain Atorvastatin Calcium 20MG Oral Tablet 10/29/2021 Unknown ORAL BEDTIME 20 MILLIGRAMS 106481 RxNorm TAKE 20 MILLIGRAMS ORAL BEDTIME Finasteride 5MG Oral Tablet 10/29/2021 Unknown ORAL DAILY 5 MILLIGRAMS 760774 RxNorm TAKE 5 MILLIGRAMS ORAL DAILY Gabapentin 100MG Oral Capsule 10/29/2021 Unknown ORAL NEEDED THREE TIMES A DAY 300 MILLIGRAMS 985023 RxNorm TAKE 300 MILLIGRAMS ORAL NEEDED THREE TIMES A DAY Metoprolol Succinate 50MG Oral Tablet, Extended Release 10/29/2021 Unknown ORAL DAILY 50 MILLIGRAMS 567020 RxNorm TAKE 50 MILLIGRAMS ORAL DAILY Oxybutynin Chloride 5MG Oral Tablet 10/29/2021 Unknown ORAL EVERY EVENING 5 MILLIGRAMS 559245 RxNorm TAKE 5 MILLIGRAMS ORAL EVERY EVENING Turmeric 500 MG Oral Capsule 10/29/2021 Unknown ORAL DAILY 500 MG 5949334 RxNorm TAKE 500 MG ORAL DAILY Tylenol Arthritis 650MG Oral Tablet, Extended Release 10/29/2021 Unknown ORAL NEEDED 650 MILLIGRAMS 5117440 RxNorm TAKE 650 MILLIGRAMS ORAL NEEDED Vitamin D 5000 IU Oral Capsule 10/29/2021 Unknown ORAL TWICE A DAY 5000 IU RxNorm TAKE 5000 IU ORAL TWICE A DAY Xarelto 20MG Oral Tablet 10/29/2021 Unknown ORAL DAILY 20 MILLIGRAMS 8027679 RxNorm TAKE 20 MILLIGRAMS ORAL DAILY metFORMIN HCl 500MG Oral Tablet 10/29/2021 Unknown ORAL TWICE A DAY 500 MILLIGRAMS 969536 RxNorm TAKE 500 MILLIGRAMS ORAL TWICE A DAY Hospital Discharge Instructions Should you have any questions prior to discharge, please contact a member of your healthcare team. If you have left the hospital and have any questions, please contact your primary care physician. 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 [id number] SNO MED-CT INCISIONAL HERNIA 11/26/2018 resolved [id number] S NOMED-CT Allergies and Adverse Reactions Allergy Substance Reaction Severity Start Date Concern Status Co de Code System No Known Drug Allergies Moderate Active 730305206 SNOMED-CT Plan of Treatment Exposure 10/24/2020 LAB DRAW 15MIN 01/04/2023 CT CHEST/ABDOMEN/PELVIS W/ CONTRAST CT CHEST/ABDOMEN/PELVIS W/ CONTRAST 02/2022 LAB DRAW 15MIN 12/01/2021 PRE-OP COVID-19 TESTING 10/25/2021 CT ABDOMEN/PELVIS W/ CONTRAST 2 Encounters Encounter Diagnosis Start Date Code Code Sys tem Kidney stone 08/31/2021 [id number] SNOMED-CT Personal Care Team Section Performer Name Performer Role Active Date Inactive Da te
--- OUTSIDE RECORDS SUMMARY | 2024-03-02 15:39 | XMS_ITS ---
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 See Note COMPREHENSIVE METABOLIC PANE L (CMP) - Collect Date/Time: 09/11/2021 11:27 [facility] ID: [id number] [address] [place] [address], [address] LOINC: 03519-8 Test Value Unit Reference Range Code Code System Flag GLUCOSE 128 mg/dL L=70 H=116 2345-7 LOINC H BUN 27 mg/dL L=6 H=25 3094-0 LOINC H CREATININE 1.10 mg/dL L=0.67 H=1.17 2160-0 LOINC SODIUM SERUM 141 mmol/L L=136 H=145 2951-2 LOINC POTASSIUM SERUM 4.3 mmol/L L=3.4 H=5.2 2823-3 LOINC CHLORIDE SERUM 104 mmol/L L=96 H=110 2075-0 LOINC CARBON DIOXIDE (CO2) 29 mmol/L L=22 H=34 2028-9 LOINC ANION GAP 7.7 mmol/L 79157-5 LOINC CALCIUM SERUM 9.4 mg/dL L=8.2 H=10.2 39772-1 LOINC BILIRUBIN TOTAL 0.6 mg/dL L=0.0 H=1.3 1975-2 LOINC ALK. PHOS. 57 U/L L=46 H=116 6768-6 LOINC SGOT (AST) 25 U/L L=15 H=37 1920-8 LOINC SGPT (ALT) 41 U/L L=12 H=78 1742-6 LOINC TOTAL PROTEIN 7.0 gm/dL L=6.0 H=8.0 2885-2 LOINC ALBUMIN 3.9 gm/dL L=3.4 H=5.0 1751-7 LOINC AGE 81 years eGFR (non-Afr.Amer.) 64 mL/min 87415-1 LOINC eGFR (Afr-Bolivian) 78 mL/min 53204-7 LOINC CBC W/ DIFFERENTIAL* - Colle ct Date/Time: 09/11/2021 11:27 [facility] ID: [id number] [address] [place], [place], [address] LOINC: 04199-4 Test Value Unit Reference Range Code Code System Flag WBC 7.16 th/cmm L=5.00 H=10.00 6690-2 LOINC NEUT % 52.0 % L=40.0 H=80.0 LYMPH % 33.5 % L=10.0 H=50.0 MONO % 9.6 % L=2.0 H=12.0 59408-2 LOINC EOS % 3.9 % L=0.0 H=8.0 BASO % 0.7 % L=0.0 H=3.0 IG % 0.3 % L=0.0 H=1.1 2514-8 LOINC NRBC % 0.0 % L=0.0 H=0.0 78762-4 LOINC NEUT abs count 3.7 th/cmm L=1.6 H=8.4 751-8 LOINC LYMPH abs count 2.4 th/cmm L=1.5 H=4.0 731-0 LOINC MONO abs count 0.7 th/cmm L=0.2 H=1.0 742-7 LOINC EOS abs count 0.3 th/cmm L=0.0 H=0.5 711-2 LOINC BASO abs count 0.1 th/cmm L=0.0 H=0.2 704-7 LOINC IG abs count 0.0 th/cmm L=0.0 H=0.1 44677-5 LOINC NRBC abs count 0.0 mil/cmm L=0.0 H=0.0 62182-8 LOINC RBC 4.79 mil/cmm L=4.30 H=6.20 789-8 LOINC HEMOGLOBIN 15.2 gm/dL L=13.0 H=17.0 718-7 LOINC HEMATOCRIT 46 % L=45 H=52 4544-3 LOINC MCV 95 fL L=82 H=92 787-2 LOINC H MCH 31.7 pg L=27.0 H=31.0 785-6 LOINC H MCHC 33.4 % L=32.0 H=36.0 786-4 LOINC RDW-SD 41.5 fL L=39.0 H=49.0 788-0 LOINC PLATELET COUNT 170 th/cmm L=150 H=450 777-3 LOINC Social History Type Status Start Date End Date Code Code Syst em Smoking History Former smoker 09/16/[id number] Sex Male Medications Medication Start Date End Date Route Frequency Dose Code Code System Medication Instructions Home Meds Multivitamin Oral Tablet 11/26/2018 Unknown ORAL DAILY 1 unit(s) RxNorm TAKE 1 EACH ORAL DAILY Tylenol Arthritis 650MG Oral Tablet, Extended Release 11/26/2018 2 ORAL NEEDED EVERY 8 HOURS 1300 MILLIGRAMS [id number] RxNorm TAKE 1300 MILLIGRAMS ORAL NEEDED EVERY 8 HOURS oxyCODONE HCl 5MG Oral Tablet 10/11/2019 2 ORAL NEEDED EVERY 3 HOURS 5 MILLIGRAMS 2666476 RxNorm TAKE 5 MILLIGRAMS ORAL NEEDED EVERY 3 HOURS Atorvastatin Calcium 20MG Oral Tablet 10/11/2019 2 ORAL BEDTIME 20 MILLIGRAMS 929968 RxNorm TAKE 20 MILLIGRAMS ORAL BEDTIME Flomax 0.4MG Oral Capsule 10/11/2019 2 ORAL DAILY 0.4 MILLIGRAMS 567441 RxNorm TAKE 0.4 MILLIGRAMS ORAL DAILY Gabapentin 100MG Oral Capsule 10/11/2019 2 ORAL THREE TIMES A DAY 200 MILLIGRAMS 319231 RxNorm TAKE 200 MILLIGRAMS ORAL THREE TIMES A DAY Metoprolol Succinate 50MG Oral Tablet, Extended Release 10/11/2019 2 ORAL DAILY 50 MILLIGRAMS 936819 RxNorm TAKE 50 MILLIGRAMS ORAL DAILY Xarelto 20MG Oral Tablet 10/11/2019 2 ORAL DAILY 20 MILLIGRAMS 6161767 RxNorm TAKE 20 MILLIGRAMS ORAL DAILY oxyCODONE HCl 5MG Oral Tablet 10/29/2021 Unknown ORAL NEEDED EVERY 6 HOURS 1 TABLET 3428042 RxNorm TAKE 1 TABLET ORAL NEEDED EVERY 6 HOURS FOR Pain Atorvastatin Calcium 20MG Oral Tablet 10/29/2021 Unknown ORAL BEDTIME 20 MILLIGRAMS 468081 RxNorm TAKE 20 MILLIGRAMS ORAL BEDTIME Finasteride 5MG Oral Tablet 10/29/2021 Unknown ORAL DAILY 5 MILLIGRAMS 981281 RxNorm TAKE 5 MILLIGRAMS ORAL DAILY Gabapentin 100MG Oral Capsule 10/29/2021 Unknown ORAL NEEDED THREE TIMES A DAY 300 MILLIGRAMS 634472 RxNorm TAKE 300 MILLIGRAMS ORAL NEEDED THREE TIMES A DAY Metoprolol Succinate 50MG Oral Tablet, Extended Release 10/29/2021 Unknown ORAL DAILY 50 MILLIGRAMS 953354 RxNorm TAKE 50 MILLIGRAMS ORAL DAILY Oxybutynin Chloride 5MG Oral Tablet 10/29/2021 Unknown ORAL EVERY EVENING 5 MILLIGRAMS 716996 RxNorm TAKE 5 MILLIGRAMS ORAL EVERY EVENING Turmeric 500 MG Oral Capsule 10/29/2021 Unknown ORAL DAILY 500 MG 3736480 RxNorm TAKE 500 MG ORAL DAILY Tylenol Arthritis 650MG Oral Tablet, Extended Release 10/29/2021 Unknown ORAL NEEDED 650 MILLIGRAMS 0788483 RxNorm TAKE 650 MILLIGRAMS ORAL NEEDED Vitamin D 5000 IU Oral Capsule 10/29/2021 Unknown ORAL TWICE A DAY 5000 IU RxNorm TAKE 5000 IU ORAL TWICE A DAY Xarelto 20MG Oral Tablet 10/29/2021 Unknown ORAL DAILY 20 MILLIGRAMS 4180175 RxNorm TAKE 20 MILLIGRAMS ORAL DAILY metFORMIN HCl 500MG Oral Tablet 10/29/2021 Unknown ORAL TWICE A DAY 500 MILLIGRAMS 952343 RxNorm TAKE 500 MILLIGRAMS ORAL TWICE A [...] PERISTOMAL VENTRAL HERNIA REPAIR WITH MESH 10/27 [id number] X 10/16/2024 Symbot ex [email or web address] Problems Problem Start Date Resolved Date Status Code Code 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 [id number] SNO MED-CT INCISIONAL HERNIA 11/26/2018 resolved 545323231 S NOMED-CT Allergies and Adverse Reactions Allergy Substance Reaction Severity Start Date Concern Status Co de Code System No Known Drug Allergies Moderate Active 398277414 SNOMED-CT Plan of Treatment Exposure 10/24/2020 LAB DRAW 15MIN 01/04/2023 CT CHEST/ABDOMEN/PELVIS W/ CONTRAST CT CHEST/ABDOMEN/PELVIS W/ CONTRAST 02/2022 LAB DRAW 15MIN 12/01/2021 PRE-OP COVID-19 TESTING 10/25/2021 CT ABDOMEN/PELVIS W/ CONTRAST 2 Encounters Encounter Diagnosis Start Date Code Code 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
--- OUTSIDE RECORDS SUMMARY | 2024-03-02 15:39 | XMS_ITS ---
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 Name Role Phone SARAH Parra Attending Unavailable NEENA Moreira Primary Unavailable Social History Type Status Start Date End Date Code Code Syst em Smoking History Former smoker 09/16/[id number] Sex Male Medications Medication Start Date End Date Route Frequency Dose Code Code System Medication Instructions Home Meds Multivitamin Oral Tablet 11/26/2018 Unknown ORAL DAILY 1 unit(s) RxNorm TAKE 1 EACH ORAL DAILY Tylenol Arthritis 650MG Oral Tablet, Extended Release 11/26/2018 2 ORAL NEEDED EVERY 8 HOURS 1300 MILLIGRAMS 1071664 RxNorm TAKE 1300 MILLIGRAMS ORAL NEEDED EVERY 8 HOURS oxyCODONE HCl 5MG Oral Tablet 10/11/2019 2 ORAL NEEDED EVERY 3 HOURS 5 MILLIGRAMS 1231781 RxNorm TAKE 5 MILLIGRAMS ORAL NEEDED EVERY 3 HOURS Atorvastatin Calcium 20MG Oral Tablet 10/11/2019 2 ORAL BEDTIME 20 MILLIGRAMS 083342 RxNorm TAKE 20 MILLIGRAMS ORAL BEDTIME Flomax 0.4MG Oral Capsule 10/11/2019 2 ORAL DAILY 0.4 MILLIGRAMS 118183 RxNorm TAKE 0.4 MILLIGRAMS ORAL DAILY Gabapentin 100MG Oral Capsule 10/11/2019 2 ORAL THREE TIMES A DAY 200 MILLIGRAMS 455869 RxNorm TAKE 200 MILLIGRAMS ORAL THREE TIMES A DAY Metoprolol Succinate 50MG Oral Tablet, Extended Release 10/11/2019 2 ORAL DAILY 50 MILLIGRAMS 656491 RxNorm TAKE 50 MILLIGRAMS ORAL DAILY Xarelto 20MG Oral Tablet 10/11/2019 2 ORAL DAILY 20 MILLIGRAMS 0917727 RxNorm TAKE 20 MILLIGRAMS ORAL DAILY oxyCODONE HCl 5MG Oral Tablet 10/29/2021 Unknown ORAL NEEDED EVERY 6 HOURS 1 TABLET 1886466 RxNorm TAKE 1 TABLET ORAL NEEDED EVERY 6 HOURS FOR Pain Atorvastatin Calcium 20MG Oral Tablet 10/29/2021 Unknown ORAL BEDTIME 20 MILLIGRAMS 675109 RxNorm TAKE 20 MILLIGRAMS ORAL BEDTIME Finasteride 5MG Oral Tablet 10/29/2021 Unknown ORAL DAILY 5 MILLIGRAMS 394832 RxNorm TAKE 5 MILLIGRAMS ORAL DAILY Gabapentin 100MG Oral Capsule 10/29/2021 Unknown ORAL NEEDED THREE TIMES A DAY 300 MILLIGRAMS 395928 RxNorm TAKE 300 MILLIGRAMS ORAL NEEDED THREE TIMES A DAY Metoprolol Succinate 50MG Oral Tablet, Extended Release 10/29/2021 Unknown ORAL DAILY 50 MILLIGRAMS 084513 RxNorm TAKE 50 MILLIGRAMS ORAL DAILY Oxybutynin Chloride 5MG Oral Tablet 10/29/2021 Unknown ORAL EVERY EVENING 5 MILLIGRAMS 539689 RxNorm TAKE 5 MILLIGRAMS ORAL EVERY EVENING Turmeric 500 MG Oral Capsule 10/29/2021 Unknown ORAL DAILY 500 MG 1315762 RxNorm TAKE 500 MG ORAL DAILY Tylenol Arthritis 650MG Oral Tablet, Extended Release 10/29/2021 Unknown ORAL NEEDED 650 MILLIGRAMS 8916614 RxNorm TAKE 650 MILLIGRAMS ORAL NEEDED Vitamin D 5000 IU Oral Capsule 10/29/2021 Unknown ORAL TWICE A DAY 5000 IU RxNorm TAKE 5000 IU ORAL TWICE A DAY Xarelto 20MG Oral Tablet 10/29/2021 Unknown ORAL DAILY 20 MILLIGRAMS 3534864 RxNorm TAKE 20 MILLIGRAMS ORAL DAILY metFORMIN HCl 500MG Oral Tablet 10/29/2021 Unknown ORAL TWICE A DAY 500 MILLIGRAMS 356488 RxNorm TAKE 500 MILLIGRAMS ORAL TWICE A [...] PERISTOMAL VENTRAL HERNIA REPAIR WITH MESH 10/27 [id number] X 10/16/2024 Symbot ex [email or web address] Problems Problem Start Date Resolved Date Status Code Code 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 [id number] SNO MED-CT INCISIONAL HERNIA 11/26/2018 resolved 031834731 S NOMED-CT Allergies and Adverse Reactions Allergy Substance Reaction Severity Start Date Concern Status Co de Code System No Known Drug Allergies Moderate Active 303363012 SNOMED-CT Plan of Treatment Exposure 10/24/2020 LAB DRAW 15MIN 01/04/2023 CT CHEST/ABDOMEN/PELVIS W/ CONTRAST CT CHEST/ABDOMEN/PELVIS W/ CONTRAST 02/2022 LAB DRAW 15MIN 12/01/2021 PRE-OP COVID-19 TESTING 10/25/2021 CT ABDOMEN/PELVIS W/ CONTRAST Encounters Encounter Diagnosis Start Date Code Code Sys tem Incisional hernia without obstruction or gangrene 08/17 SNOMED-CT Personal Care Team Section Performer Name Performer Role Active Date Inactive Da te
--- OUTSIDE RECORDS SUMMARY | 2024-03-02 15:40 | XMS_ITS ---
Author Name Unknown Address [address] [place] [address] [phone] Phone Organization Unknown Address [address] [place] [address] [phone] Phone Care Team Providers Care Adult Nurse Practitioner Name Role Phone SARAH Parra Attending Unavailable NEENA Moreira Primary Unavailable Results CT ABD + PELV W CONTRAST - C ompleted: 09/25/2021 08:50 LOINC: [An error prevented this con tent from loading. This incident has been logged.] Social History Type Status Start Date End Date Code Code Syst em Smoking History Former smoker 09/16/[id number] Sex Male Medications Medication Start Date End Date Route Frequency Dose Code Code System Medication Instructions Home Meds Multivitamin Oral Tablet 11/26/2018 Unknown ORAL DAILY 1 unit(s) RxNorm TAKE 1 EACH ORAL DAILY Tylenol Arthritis 650MG Oral Tablet, Extended Release 11/26/2018 2 ORAL NEEDED EVERY 8 HOURS 1300 MILLIGRAMS 6611988 RxNorm TAKE 1300 MILLIGRAMS ORAL NEEDED EVERY 8 HOURS oxyCODONE HCl 5MG Oral Tablet 10/11/2019 2 ORAL NEEDED EVERY 3 HOURS 5 MILLIGRAMS 8841168 RxNorm TAKE 5 MILLIGRAMS ORAL NEEDED EVERY 3 HOURS Atorvastatin Calcium 20MG Oral Tablet 10/11/2019 2 ORAL BEDTIME 20 MILLIGRAMS 905918 RxNorm TAKE 20 MILLIGRAMS ORAL BEDTIME Flomax 0.4MG Oral Capsule 10/11/2019 2 ORAL DAILY 0.4 MILLIGRAMS 942025 RxNorm TAKE 0.4 MILLIGRAMS ORAL DAILY Gabapentin 100MG Oral Capsule 10/11/2019 2 ORAL THREE TIMES A DAY 200 MILLIGRAMS 450812 RxNorm TAKE 200 MILLIGRAMS ORAL THREE TIMES A DAY Metoprolol Succinate 50MG Oral Tablet, Extended Release 10/11/2019 2 ORAL DAILY 50 MILLIGRAMS 520026 RxNorm TAKE 50 MILLIGRAMS ORAL DAILY Xarelto 20MG Oral Tablet 10/11/2019 2 ORAL DAILY 20 MILLIGRAMS 0815937 RxNorm TAKE 20 MILLIGRAMS ORAL DAILY oxyCODONE HCl 5MG Oral Tablet 10/29/2021 Unknown ORAL NEEDED EVERY 6 HOURS 1 TABLET 6182556 RxNorm TAKE 1 TABLET ORAL NEEDED EVERY 6 HOURS FOR Pain Atorvastatin Calcium 20MG Oral Tablet 10/29/2021 Unknown ORAL BEDTIME 20 MILLIGRAMS 976243 RxNorm TAKE 20 MILLIGRAMS ORAL BEDTIME Finasteride 5MG Oral Tablet 10/29/2021 Unknown ORAL DAILY 5 MILLIGRAMS 382848 RxNorm TAKE 5 MILLIGRAMS ORAL DAILY Gabapentin 100MG Oral Capsule 10/29/2021 Unknown ORAL NEEDED THREE TIMES A DAY 300 MILLIGRAMS 832941 RxNorm TAKE 300 MILLIGRAMS ORAL NEEDED THREE TIMES A DAY Metoprolol Succinate 50MG Oral Tablet, Extended Release 10/29/2021 Unknown ORAL DAILY 50 MILLIGRAMS 189715 RxNorm TAKE 50 MILLIGRAMS ORAL DAILY Oxybutynin Chloride 5MG Oral Tablet 10/29/2021 Unknown ORAL EVERY EVENING 5 MILLIGRAMS 124077 RxNorm TAKE 5 MILLIGRAMS ORAL EVERY EVENING Turmeric 500 MG Oral Capsule 10/29/2021 Unknown ORAL DAILY 500 MG 1100639 RxNorm TAKE 500 MG ORAL DAILY Tylenol Arthritis 650MG Oral Tablet, Extended Release 10/29/2021 Unknown ORAL NEEDED 650 MILLIGRAMS 7234548 RxNorm TAKE 650 MILLIGRAMS ORAL NEEDED Vitamin D 5000 IU Oral Capsule 10/29/2021 Unknown ORAL TWICE A DAY 5000 IU RxNorm TAKE 5000 IU ORAL TWICE A DAY Xarelto 20MG Oral Tablet 10/29/2021 Unknown ORAL DAILY 20 MILLIGRAMS 4748918 RxNorm TAKE 20 MILLIGRAMS ORAL DAILY metFORMIN HCl 500MG Oral Tablet 10/29/2021 Unknown ORAL TWICE A DAY 500 MILLIGRAMS 998425 RxNorm TAKE 500 MILLIGRAMS ORAL TWICE A [...] PERISTOMAL VENTRAL HERNIA REPAIR WITH MESH 10/27 [id number] X 10/16/2024 Symbot ex SYM12 Problems Problem Start Date Resolved Date Status Code Code 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 [id number] SNO MED-CT INCISIONAL HERNIA 11/26/2018 resolved 987659185 S NOMED-CT Allergies and Adverse Reactions Allergy Substance Reaction Severity Start Date Concern Status Co de Code System No Known Drug Allergies Moderate Active 986099205 SNOMED-CT Plan of Treatment Exposure 10/24/2020 LAB DRAW 15MIN 01/04/2023 CT CHEST/ABDOMEN/PELVIS W/ CONTRAST CT CHEST/ABDOMEN/PELVIS W/ CONTRAST 02/2022 LAB DRAW 15MIN 12/01/2021 PRE-OP COVID-19 TESTING 10/25/2021 CT ABDOMEN/PELVIS W/ CONTRAST 2 Encounters Encounter Diagnosis Start Date Code Code Sys tem Incisional hernia 09/25/2021 [id number] SNOMED-CT Personal Care Team Section Performer Name Performer Role Active Date Inactive Da te
--- OUTSIDE RECORDS SUMMARY | 2024-03-02 15:40 | XMS_ITS ---
Author Name Unknown Address [address] [place] [address] [phone] Phone Organization Unknown Address [address] [place] [address] [phone] Phone Care Team Providers Care Joiner Helper Name Role Phone SARAH Parra Attending Unavailable NEENA Moreira Primary Unavailable Social History Type Status Start Date End Date Code Code Syst em Smoking History Former smoker 09/16/[address] Sex Male Medications Medication Start Date End Date Route Frequency Dose Code Code System Medication Instructions Home Meds Multivitamin Oral Tablet 11/26/2018 Unknown ORAL DAILY 1 unit(s) RxNorm TAKE 1 EACH ORAL DAILY Tylenol Arthritis 650MG Oral Tablet, Extended Release 11/26/2018 2 ORAL NEEDED EVERY 8 HOURS 1300 MILLIGRAMS 2379786 RxNorm TAKE 1300 MILLIGRAMS ORAL NEEDED EVERY 8 HOURS oxyCODONE HCl 5MG Oral Tablet 10/11/2019 2 ORAL NEEDED EVERY 3 HOURS 5 MILLIGRAMS 0267901 RxNorm TAKE 5 MILLIGRAMS ORAL NEEDED EVERY 3 HOURS Atorvastatin Calcium 20MG Oral Tablet 10/11/2019 2 ORAL BEDTIME 20 MILLIGRAMS 606981 RxNorm TAKE 20 MILLIGRAMS ORAL BEDTIME Flomax 0.4MG Oral Capsule 10/11/2019 2 ORAL DAILY 0.4 MILLIGRAMS 339830 RxNorm TAKE 0.4 MILLIGRAMS ORAL DAILY Gabapentin 100MG Oral Capsule 10/11/2019 2 ORAL THREE TIMES A DAY 200 MILLIGRAMS 719802 RxNorm TAKE 200 MILLIGRAMS ORAL THREE TIMES A DAY Metoprolol Succinate 50MG Oral Tablet, Extended Release 10/11/2019 2 ORAL DAILY 50 MILLIGRAMS 894606 RxNorm TAKE 50 MILLIGRAMS ORAL DAILY Xarelto 20MG Oral Tablet 10/11/2019 2 ORAL DAILY 20 MILLIGRAMS 5330302 RxNorm TAKE 20 MILLIGRAMS ORAL DAILY oxyCODONE HCl 5MG Oral Tablet 10/29/2021 Unknown ORAL NEEDED EVERY 6 HOURS 1 TABLET 1553280 RxNorm TAKE 1 TABLET ORAL NEEDED EVERY 6 HOURS FOR Pain Atorvastatin Calcium 20MG Oral Tablet 10/29/2021 Unknown ORAL BEDTIME 20 MILLIGRAMS 659881 RxNorm TAKE 20 MILLIGRAMS ORAL BEDTIME Finasteride 5MG Oral Tablet 10/29/2021 Unknown ORAL DAILY 5 MILLIGRAMS 222381 RxNorm TAKE 5 MILLIGRAMS ORAL DAILY Gabapentin 100MG Oral Capsule 10/29/2021 Unknown ORAL NEEDED THREE TIMES A DAY 300 MILLIGRAMS 157813 RxNorm TAKE 300 MILLIGRAMS ORAL NEEDED THREE TIMES A DAY Metoprolol Succinate 50MG Oral Tablet, Extended Release 10/29/2021 Unknown ORAL DAILY 50 MILLIGRAMS 568159 RxNorm TAKE 50 MILLIGRAMS ORAL DAILY Oxybutynin Chloride 5MG Oral Tablet 10/29/2021 Unknown ORAL EVERY EVENING 5 MILLIGRAMS 661291 RxNorm TAKE 5 MILLIGRAMS ORAL EVERY EVENING Turmeric 500 MG Oral Capsule 10/29/2021 Unknown ORAL DAILY 500 MG 5673967 RxNorm TAKE 500 MG ORAL DAILY Tylenol Arthritis 650MG Oral Tablet, Extended Release 10/29/2021 Unknown ORAL NEEDED 650 MILLIGRAMS 0124669 RxNorm TAKE 650 MILLIGRAMS ORAL NEEDED Vitamin D 5000 IU Oral Capsule 10/29/2021 Unknown ORAL TWICE A DAY 5000 IU RxNorm TAKE 5000 IU ORAL TWICE A DAY Xarelto 20MG Oral Tablet 10/29/2021 Unknown ORAL DAILY 20 MILLIGRAMS 8122425 RxNorm TAKE 20 MILLIGRAMS ORAL DAILY metFORMIN HCl 500MG Oral Tablet 10/29/2021 Unknown ORAL TWICE A DAY 500 MILLIGRAMS 049189 RxNorm TAKE 500 MILLIGRAMS ORAL TWICE A [...] PERISTOMAL VENTRAL HERNIA REPAIR WITH MESH 10/27 [id number] X 10/16/2024 Symbot ex [email or web address] Problems Problem Start Date Resolved Date Status Code Code 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 [id number] SNO MED-CT INCISIONAL HERNIA 11/26/2018 resolved 945283660 S NOMED-CT Allergies and Adverse Reactions Allergy Substance Reaction Severity Start Date Concern Status Co de Code System No Known Drug Allergies Moderate Active 525788583 SNOMED-CT Plan of Treatment Exposure 10/24/2020 LAB DRAW 15MIN 01/04/2023 CT CHEST/ABDOMEN/PELVIS W/ CONTRAST CT CHEST/ABDOMEN/PELVIS W/ CONTRAST 02/2022 LAB DRAW 15MIN 12/01/2021 PRE-OP COVID-19 TESTING 10/25/2021 CT ABDOMEN/PELVIS W/ CONTRAST 2 Encounters Encounter Diagnosis Start Date Code Code Sys tem Person consulting for explan ation of examination or test findings 09/26/2021 SNOMED-CT Personal Care Team Section Performer Name Performer Role Active Date Inactive Da te
--- OUTSIDE RECORDS SUMMARY | 2024-03-02 15:41 | XMS_ITS ---
Author Name Unknown Address [address] [place] [address] [phone] Phone Organization Unknown Address [address] [place] [address] [phone] Phone Care Team Providers Care Associate Dean Name Role Phone Unavailable [employer]watchlist Unavailable SARAH Parra Attending Unavailable TESS Hubbard SYSTEMS ANALYSIS MANAGER Unavailable NEENA Moreira Primary Unavailable Results CBC W/ DIFFERENTIAL* - Colle ct Date/Time: 10/29/2021 06:35 [facility] ID: [id number] [address] [place] [address], [address] LOINC: 19300-6 Test Value Unit Reference Range Code Code System Flag WBC 7.83 th/cmm L=5.00 H=10.00 6690-2 LOINC NEUT % 51.4 % L=40.0 H=80.0 LYMPH % 35.9 % L=10.0 H=50.0 MONO % 10.6 % L=2.0 H=12.0 54466-2 LOINC EOS % 1.0 % L=0.0 H=8.0 BASO % 0.6 % L=0.0 H=3.0 IG % 0.5 % L=0.0 H=1.1 2514-8 LOINC NRBC % 0.0 % L=0.0 H=0.0 94091-3 LOINC NEUT abs count 4.0 th/cmm L=1.6 H=8.4 751-8 LOINC LYMPH abs count 2.8 th/cmm L=1.5 H=4.0 731-0 LOINC MONO abs count 0.8 th/cmm L=0.2 H=1.0 742-7 LOINC EOS abs count 0.1 th/cmm L=0.0 H=0.5 711-2 LOINC BASO abs count 0.1 th/cmm L=0.0 H=0.2 704-7 LOINC IG abs count 0.0 th/cmm L=0.0 H=0.1 28028-9 LOINC NRBC abs count 0.0 mil/cmm L=0.0 H=0.0 89858-9 LOINC RBC 4.10 mil/cmm L=4.30 H=6.20 789-8 LOINC L HEMOGLOBIN 12.8 gm/dL L=13.0 H=17.0 718-7 LOINC L HEMATOCRIT 39 % L=45 H=52 4544-3 LOINC L MCV 96 fL L=82 H=92 787-2 LOINC H MCH 31.2 pg L=27.0 H=31.0 785-6 LOINC H MCHC 32.7 % L=32.0 H=36.0 786-4 LOINC RDW-SD 43.8 fL L=39.0 H=49.0 788-0 LOINC PLATELET COUNT 117 th/cmm L=150 H=450 777-3 LOINC L GLUCOSE FINGER/HEEL CAPILLAR Y - Collect Date/Time: 10/28/2021 16:59 [facility] ID: [id number] [address] [place] [address], [id number] LOINC: 57152-8 Test Value Unit Reference Range Code Code System Flag GLUCOSE CAP 147 mg/dL L=70 H=116 H GLUCOSE FINGER/HEEL CAPILLAR Y - Collect Date/Time: 10/28/2021 12:04 [facility] ID: [id number] [address] [place] [address], [id number] LOINC: 60705-4 Test Value Unit Reference Range Code Code System Flag GLUCOSE CAP 111 mg/dL L=70 H=116 BASIC METABOLIC PANEL (BMP) - Collect Date/Time: 10/28/2021 06:20 [facility] ID: [id number] [address] [place], [place], [address] LOINC: 22909-8 Test Value Unit Reference Range Code Code System Flag GLUCOSE 137 mg/dL L=70 H=116 2345-7 LOINC H BUN 22 mg/dL L=6 H=25 3094-0 LOINC CREATININE 1.16 mg/dL L=0.67 H=1.17 2160-0 LOINC SODIUM SERUM 136 mmol/L L=136 H=145 2951-2 LOINC POTASSIUM SERUM 4.5 mmol/L L=3.4 H=5.2 2823-3 LOINC CHLORIDE SERUM 103 mmol/L L=96 H=110 2075-0 LOINC CARBON DIOXIDE (CO2) 27 mmol/L L=22 H=34 2028-9 LOINC ANION GAP 6.3 mmol/L 76032-1 LOINC CALCIUM SERUM 8.4 mg/dL L=8.2 H=10.2 50405-3 LOINC AGE 81 years eGFR (non-Afr.Amer.) 60 mL/min 92280-4 LOINC eGFR (Afr-German) 73 mL/min 10892-8 LOINC CBC W/ DIFFERENTIAL* - Colle ct Date/Time: 10/28/2021 06:20 [facility] ID: [id number] [address], [place], [address] LOINC: 92966-6 Test Value Unit Reference Range Code Code System Flag WBC 11.09 th/cmm L=5.00 H=10.00 6690-2 LOINC H NEUT % 76.1 % L=40.0 H=80.0 LYMPH % 15.7 % L=10.0 H=50.0 MONO % 7.6 % L=2.0 H=12.0 51540-9 LOINC EOS % 0.0 % L=0.0 H=8.0 BASO % 0.1 % L=0.0 H=3.0 IG % 0.5 % L=0.0 H=1.1 2514-8 LOINC NRBC % 0.0 % L=0.0 H=0.0 48653-5 LOINC NEUT abs count 8.5 th/cmm L=1.6 H=8.4 751-8 LOINC H LYMPH abs count 1.7 th/cmm L=1.5 H=4.0 731-0 LOINC MONO abs count 0.8 th/cmm L=0.2 H=1.0 742-7 LOINC EOS abs count 0.0 th/cmm L=0.0 H=0.5 711-2 LOINC BASO abs count 0.0 th/cmm L=0.0 H=0.2 704-7 LOINC IG abs count 0.1 th/cmm L=0.0 H=0.1 74123-5 LOINC NRBC abs count 0.0 mil/cmm L=0.0 H=0.0 43221-9 LOINC RBC 4.07 mil/cmm L=4.30 H=6.20 789-8 LOINC L HEMOGLOBIN 12.8 gm/dL L=13.0 H=17.0 718-7 LOINC L HEMATOCRIT 38 % L=45 H=52 4544-3 LOINC L MCV 94 fL L=82 H=92 787-2 LOINC H MCH 31.4 pg L=27.0 H=31.0 785-6 LOINC H MCHC 33.5 % L=32.0 H=36.0 786-4 LOINC RDW-SD 42.2 fL L=39.0 H=49.0 788-0 LOINC PLATELET COUNT 131 th/cmm L=150 H=450 777-3 LOINC L GLUCOSE FINGER/HEEL CAPILLAR Y - Collect Date/Time: 10/27/2021 21:16 [facility] ID: [id number] [address] [place] [address], [id number] LOINC: 67233-2 Test Value Unit Reference Range Code Code System Flag GLUCOSE CAP 189 mg/dL L=70 H=116 H GLUCOSE FINGER/HEEL CAPILLAR Y - Collect Date/Time: 10/27/2021 16:40 [facility] ID: [id number] [address], [place], [id number] LOINC: 21625-3 Test Value Unit Reference Range Code Code System Flag GLUCOSE CAP 132 mg/dL L=70 H=116 H GLUCOSE FINGER/HEEL CAPILLAR Y - Collect Date/Time: 10/27/2021 14:22 [facility] ID: [id number] [address], [place], [id number] LOINC: 66210-2 Test Value Unit Reference Range Code Code System Flag GLUCOSE CAP 112 mg/dL L=70 H=116 GLUCOSE FINGER/HEEL CAPILLAR Y - Collect Date/Time: 10/27/2021 09:52 [facility] ID: [id number] [address] [place] [address], [id number] LOINC: 09335-9 Test Value Unit Reference Range Code Code System Flag GLUCOSE CAP 114 mg/dL L=70 H=116 Social History Type Status Start Date End Date Code Code Syst em Smoking History Former smoker 09/16/[address] Sex Male Vital Signs Vital Sign Value Unit Annawan Value Annawan Unit Date/Time Recent/Initial? Code Code System Body Mass Index 28.13 kg/m2 10/16/2021 16:55 Initial 95806 -5 INC Systolic Blood Pressure 136 mm[Hg] 10/29/2021 07:40 Most Recent 8480- 6 LOINC Diastolic Blood Pressure 74 mm[Hg] 10/29/2021 07:40 Most Recent 8462- 4 LOINC Systolic Blood Pressure 113 mm[Hg] 10/27/2021 15:34 Initial 8480- 6 LOINC Diastolic Blood Pressure 69 mm[Hg] 10/27/2021 15:34 Initial 8462- 4 LOINC Body Surface Area 2.01 m2 10/16/2021 16:55 Initial 3140- 1 LOINC Height 172.720 0 cm 68.00 in 10/16/2021 16:55 Initial 8302- 2 LOINC O2 Saturation 97 % 2021 07:40 Most Recent 92048 -5 LOINC O2 Saturation 96 % 2021 15:34 Initial 92636 -5 LOINC Fraction of Inspired Oxygen 21 % 10/29/2021 04:46 Most Recent 3150- 0 LOINC Fraction of Inspired Oxygen 21 % 10/27/2021 20:10 Initial 3150- 0 LOINC Pulse 60.0 /min 10/29/2021 08:58 Most Recent 8867- 4 LOINC Pulse 55.0 /min 10/27/2021 15:34 Initial 8867- 4 LOINC Respiration 18 /min 10/29/19 22 07:40 Most Recent 9279- 1 LOINC Respiration 12 /min 10/27/19 15:34 Initial 9279- 1 LOINC Temperature 36.5 Kandis 97.7 F 10/29/19 07:40 Most Recent 8310- 5 LOINC Temperature 36.3 Kandis 97.3 F 10/27/19 15:34 Initial 8310- 5 LOINC Weight 83.91 kg 185.00 lbs 10/16/2021 16:55 Initial 77953 -7 [facility] Medications Medication Start Date End Date Route Frequency Dose Code Code System Medication Instructions Home Meds Multivitamin Oral Tablet 11/26/2018 Unknown ORAL DAILY 1 unit(s) RxNorm TAKE 1 EACH ORAL DAILY oxyCODONE HCl 5MG Oral Tablet 10/29/2021 Unknown ORAL NEEDED EVERY 6 HOURS 1 TABLET 3389523 RxNorm TAKE 1 TABLET ORAL NEEDED EVERY 6 HOURS FOR Pain Atorvastatin Calcium 20MG Oral Tablet 10/29/2021 Unknown ORAL BEDTIME 20 MILLIGRAMS 177038 RxNorm TAKE 20 MILLIGRAMS ORAL BEDTIME Finasteride 5MG Oral Tablet 10/29/2021 Unknown ORAL DAILY 5 MILLIGRAMS 341924 RxNorm TAKE 5 MILLIGRAMS ORAL DAILY Gabapentin 100MG Oral Capsule 10/29/2021 Unknown ORAL NEEDED THREE TIMES A DAY 300 MILLIGRAMS 293507 RxNorm TAKE 300 MILLIGRAMS ORAL NEEDED THREE TIMES A DAY Metoprolol Succinate 50MG Oral Tablet, Extended Release 10/29/2021 Unknown ORAL DAILY 50 MILLIGRAMS 527333 RxNorm TAKE 50 MILLIGRAMS ORAL DAILY Oxybutynin Chloride 5MG Oral Tablet 10/29/2021 Unknown ORAL EVERY EVENING 5 MILLIGRAMS 607117 RxNorm TAKE 5 MILLIGRAMS ORAL EVERY EVENING Turmeric 500 MG Oral Capsule 10/29/2021 Unknown ORAL DAILY 500 MG 8297878 RxNorm TAKE 500 MG ORAL DAILY Tylenol Arthritis 650MG Oral Tablet, Extended Release 10/29/2021 Unknown ORAL NEEDED 650 MILLIGRAMS 7312323 RxNorm TAKE 650 MILLIGRAMS ORAL NEEDED Vitamin D 5000 IU Oral Capsule 10/29/2021 Unknown ORAL TWICE A DAY 5000 IU RxNorm TAKE 5000 IU ORAL TWICE A DAY Xarelto 20MG Oral Tablet 10/29/2021 Unknown ORAL DAILY 20 MILLIGRAMS 7107530 RxNorm TAKE 20 MILLIGRAMS ORAL DAILY metFORMIN HCl 500MG Oral Tablet 10/29/2021 Unknown ORAL TWICE A DAY 500 MILLIGRAMS 543607 RxNorm TAKE 500 MILLIGRAMS ORAL TWICE A DAY Hospital Discharge Instructions Should you have any questions prior to discharge, please contact a member of your healthcare team. If you have left the hospital and have any questions, please contact your primary care physician. Reason For Referral No Data Found Procedures Procedure Name Date Status Code Code Syste m Supplement Abdominal Wall wi th Nonautologous Tissue Substitute, Open Approach 10/27/2021 completed [id number] Anesthesia, Hernia Repairs, Lower Abdomen; Ventral & Incisional Hernias 10/27/2021 completed 63913 CPT Implants Implanted LAURI Status Assigning Authority Procedure Date Lot Number Serial Number Manufacturing Date Expiration Date Distinct ID Code Brand Name Model Number Abdominal hernia surgical mesh, composite- polymer 0110 8845 2119 0344 1725 0131 10PU B018 3X Active FDA PERISTOMAL VENTRAL HERNIA REPAIR WITH MESH 10/27 [id number] X 10/16/2024 Symbot ex [id number] Problems Problem Start Date Resolved Date Status Code Code 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 840387452 SNO MED-CT INCISIONAL HERNIA 11/26/2018 resolved 652213778 S NOMED-CT Allergies and Adverse Reactions Allergy Substance Reaction Severity Start Date Concern Status Co de Code System No Known Drug Allergies Moderate Active 733925394 SNOMED-CT Plan of Treatment Exposure 10/24/2020 LAB DRAW 15MIN 01/04/2023 CT CHEST/ABDOMEN/PELVIS W/ CONTRAST CT CHEST/ABDOMEN/PELVIS W/ CONTRAST 02/2022 LAB DRAW 15MIN 12/01/2021 PRE-OP COVID-19 TESTING 10/25/2021 CT ABDOMEN/PELVIS W/ CONTRAST 2 Encounters Encounter Diagnosis Start Date Code Code Sys tem Incisional hernia without obstruction or gangrene 10/17 SNOMED-CT Personal Care Team Section Performer Name Performer Role Active Date Inactive Da te Progress Notes
--- OUTSIDE RECORDS SUMMARY | 2024-03-02 15:41 | XMS_ITS ---
Author Name Unknown Address [address] [place] [address] [phone] Phone Organization Unknown Address [address] [place] [address] [phone] Phone Care Team Providers Care Sheet Metal Assembler And Riveter Name Role Phone SARAH Parra Attending Unavailable NEENA Moreira Primary Unavailable Social History Type Status Start Date End Date Code Code Syst em Smoking History Former smoker 09/16/[id number] Sex Male Medications Medication Start Date End Date Route Frequency Dose Code Code System Medication Instructions Home Meds Multivitamin Oral Tablet 11/26/2018 Unknown ORAL DAILY 1 unit(s) RxNorm TAKE 1 EACH ORAL DAILY oxyCODONE HCl 5MG Oral Tablet 10/29/2021 Unknown ORAL NEEDED EVERY 6 HOURS 1 TABLET 5400424 RxNorm TAKE 1 TABLET ORAL NEEDED EVERY 6 HOURS FOR Pain Atorvastatin Calcium 20MG Oral Tablet 10/29/2021 Unknown ORAL BEDTIME 20 MILLIGRAMS 691950 RxNorm TAKE 20 MILLIGRAMS ORAL BEDTIME Finasteride 5MG Oral Tablet 10/29/2021 Unknown ORAL DAILY 5 MILLIGRAMS 287588 RxNorm TAKE 5 MILLIGRAMS ORAL DAILY Gabapentin 100MG Oral Capsule 10/29/2021 Unknown ORAL NEEDED THREE TIMES A DAY 300 MILLIGRAMS 002847 RxNorm TAKE 300 MILLIGRAMS ORAL NEEDED THREE TIMES A DAY Metoprolol Succinate 50MG Oral Tablet, Extended Release 10/29/2021 Unknown ORAL DAILY 50 MILLIGRAMS 506085 RxNorm TAKE 50 MILLIGRAMS ORAL DAILY Oxybutynin Chloride 5MG Oral Tablet 10/29/2021 Unknown ORAL EVERY EVENING 5 MILLIGRAMS 312285 RxNorm TAKE 5 MILLIGRAMS ORAL EVERY EVENING Turmeric 500 MG Oral Capsule 10/29/2021 Unknown ORAL DAILY 500 MG 3295957 RxNorm TAKE 500 MG ORAL DAILY Tylenol Arthritis 650MG Oral Tablet, Extended Release 10/29/2021 Unknown ORAL NEEDED 650 MILLIGRAMS 0046088 RxNorm TAKE 650 MILLIGRAMS ORAL NEEDED Vitamin D 5000 IU Oral Capsule 10/29/2021 Unknown ORAL TWICE A DAY 5000 IU RxNorm TAKE 5000 IU ORAL TWICE A DAY Xarelto 20MG Oral Tablet 10/29/2021 Unknown ORAL DAILY 20 MILLIGRAMS 4233610 RxNorm TAKE 20 MILLIGRAMS ORAL DAILY metFORMIN HCl 500MG Oral Tablet 10/29/2021 Unknown ORAL TWICE A DAY 500 MILLIGRAMS 021974 RxNorm TAKE 500 MILLIGRAMS ORAL TWICE A [...] PERISTOMAL VENTRAL HERNIA REPAIR WITH MESH 10/27 [id number] X 10/16/2024 Symbot ex [email or web address] Problems Problem Start Date Resolved Date Status Code Code 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 301105947 SNO MED-CT INCISIONAL HERNIA 11/26/2018 resolved 392054796 S NOMED-CT Allergies and Adverse Reactions Allergy Substance Reaction Severity Start Date Concern Status Co de Code System No Known Drug Allergies Moderate Active 970646587 SNOMED-CT Plan of Treatment Exposure 10/24/2020 LAB DRAW 15MIN 01/04/2023 CT CHEST/ABDOMEN/PELVIS W/ CONTRAST CT CHEST/ABDOMEN/PELVIS W/ CONTRAST 02/2022 LAB DRAW 15MIN 12/01/2021 PRE-OP COVID-19 TESTING 10/25/2021 CT ABDOMEN/PELVIS W/ CONTRAST 2 Encounters Encounter Diagnosis Start Date Code Code Sys tem Encounter for follow-up exam ination after completed treatment for conditions other than malignant neoplasm 11/13/2021 SNOMED-CT Personal Care Team Section Performer Name Performer Role Active Date Inactive Da te
--- OUTSIDE RECORDS SUMMARY | 2024-03-02 15:41 | XMS_ITS ---
Author Name Unknown Address [address] [place] [address] [phone] Phone Organization Unknown Address [address] [place] [phone] Phone Care Team Providers Care Designated Broker Name Role Phone SARAH Parra Attending Unavailable NEENA Moreira Primary Unavailable Social History Type Status Start Date End Date Code Code Syst em Smoking History Former smoker 09/16/[address] Sex Male Medications Medication Start Date End Date Route Frequency Dose Code Code System Medication Instructions Home Meds Multivitamin Oral Tablet 11/26/2018 Unknown ORAL DAILY 1 unit(s) RxNorm TAKE 1 EACH ORAL DAILY oxyCODONE HCl 5MG Oral Tablet 10/29/2021 Unknown ORAL NEEDED EVERY 6 HOURS 1 TABLET 0210055 RxNorm TAKE 1 TABLET ORAL NEEDED EVERY 6 HOURS FOR Pain Atorvastatin Calcium 20MG Oral Tablet 10/29/2021 Unknown ORAL BEDTIME 20 MILLIGRAMS 688653 RxNorm TAKE 20 MILLIGRAMS ORAL BEDTIME Finasteride 5MG Oral Tablet 10/29/2021 Unknown ORAL DAILY 5 MILLIGRAMS 487499 RxNorm TAKE 5 MILLIGRAMS ORAL DAILY Gabapentin 100MG Oral Capsule 10/29/2021 Unknown ORAL NEEDED THREE TIMES A DAY 300 MILLIGRAMS 151442 RxNorm TAKE 300 MILLIGRAMS ORAL NEEDED THREE TIMES A DAY Metoprolol Succinate 50MG Oral Tablet, Extended Release 10/29/2021 Unknown ORAL DAILY 50 MILLIGRAMS 701224 RxNorm TAKE 50 MILLIGRAMS ORAL DAILY Oxybutynin Chloride 5MG Oral Tablet 10/29/2021 Unknown ORAL EVERY EVENING 5 MILLIGRAMS 039074 RxNorm TAKE 5 MILLIGRAMS ORAL EVERY EVENING Turmeric 500 MG Oral Capsule 10/29/2021 Unknown ORAL DAILY 500 MG 0506983 RxNorm TAKE 500 MG ORAL DAILY Tylenol Arthritis 650MG Oral Tablet, Extended Release 10/29/2021 Unknown ORAL NEEDED 650 MILLIGRAMS 2720138 RxNorm TAKE 650 MILLIGRAMS ORAL NEEDED Vitamin D 5000 IU Oral Capsule 10/29/2021 Unknown ORAL TWICE A DAY 5000 IU RxNorm TAKE 5000 IU ORAL TWICE A DAY Xarelto 20MG Oral Tablet 10/29/2021 Unknown ORAL DAILY 20 MILLIGRAMS 1494639 RxNorm TAKE 20 MILLIGRAMS ORAL DAILY metFORMIN HCl 500MG Oral Tablet 10/29/2021 Unknown ORAL TWICE A DAY 500 MILLIGRAMS 948303 RxNorm TAKE 500 MILLIGRAMS ORAL TWICE A [...] PERISTOMAL VENTRAL HERNIA REPAIR WITH MESH 10/27 [id number] X 10/16/2024 Symbot ex SYM12 Problems Problem Start Date Resolved Date Status Code Code 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
--- OUTSIDE RECORDS SUMMARY | 2024-03-02 15:42 | XMS_ITS ---
Author Name Unknown Address [address] [place] [phone] Phone Organization Unknown Address [address] [place] [address] [phone] Phone Care Team Providers Care Internal Combustion Engine Subassembler Name Role Phone SARAH Parra Attending Unavailable NEENA Moreira Primary Unavailable Social History Type Status Start Date End Date Code Code Syst em Smoking History Former smoker 09/16/[address] Sex Male Medications Medication Start Date End Date Route Frequency Dose Code Code System Medication Instructions Home Meds Multivitamin Oral Tablet 11/26/2018 Unknown ORAL DAILY 1 unit(s) RxNorm TAKE 1 EACH ORAL DAILY oxyCODONE HCl 5MG Oral Tablet 10/29/2021 Unknown ORAL NEEDED EVERY 6 HOURS 1 TABLET 7740187 RxNorm TAKE 1 TABLET ORAL NEEDED EVERY 6 HOURS FOR Pain Atorvastatin Calcium 20MG Oral Tablet 10/29/2021 Unknown ORAL BEDTIME 20 MILLIGRAMS 458511 RxNorm TAKE 20 MILLIGRAMS ORAL BEDTIME Finasteride 5MG Oral Tablet 10/29/2021 Unknown ORAL DAILY 5 MILLIGRAMS 115572 RxNorm TAKE 5 MILLIGRAMS ORAL DAILY Gabapentin 100MG Oral Capsule 10/29/2021 Unknown ORAL NEEDED THREE TIMES A DAY 300 MILLIGRAMS 398102 RxNorm TAKE 300 MILLIGRAMS ORAL NEEDED THREE TIMES A DAY Metoprolol Succinate 50MG Oral Tablet, Extended Release 10/29/2021 Unknown ORAL DAILY 50 MILLIGRAMS 177082 RxNorm TAKE 50 MILLIGRAMS ORAL DAILY Oxybutynin Chloride 5MG Oral Tablet 10/29/2021 Unknown ORAL EVERY EVENING 5 MILLIGRAMS 671669 RxNorm TAKE 5 MILLIGRAMS ORAL EVERY EVENING Turmeric 500 MG Oral Capsule 10/29/2021 Unknown ORAL DAILY 500 MG 8334751 RxNorm TAKE 500 MG ORAL DAILY Tylenol Arthritis 650MG Oral Tablet, Extended Release 10/29/2021 Unknown ORAL NEEDED 650 MILLIGRAMS 8232816 RxNorm TAKE 650 MILLIGRAMS ORAL NEEDED Vitamin D 5000 IU Oral Capsule 10/29/2021 Unknown ORAL TWICE A DAY 5000 IU RxNorm TAKE 5000 IU ORAL TWICE A DAY Xarelto 20MG Oral Tablet 10/29/2021 Unknown ORAL DAILY 20 MILLIGRAMS 7956431 RxNorm TAKE 20 MILLIGRAMS ORAL DAILY metFORMIN HCl 500MG Oral Tablet 10/29/2021 Unknown ORAL TWICE A DAY 500 MILLIGRAMS 370490 RxNorm TAKE 500 MILLIGRAMS ORAL TWICE A [...] PERISTOMAL VENTRAL HERNIA REPAIR WITH MESH 10/27 [id number] X 10/16/2024 Symbot ex SYM12 Problems Problem Start Date Resolved Date Status Code Code 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 879299626 SNO MED-CT INCISIONAL HERNIA 11/26/2018 resolved 957376704 S NOMED-CT Allergies and Adverse Reactions Allergy Substance Reaction Severity Start Date Concern Status Co de Code System No Known Drug Allergies Moderate Active 463615738 SNOMED-CT Plan of Treatment Exposure 10/24/2020 LAB DRAW 15MIN 01/04/2023 CT CHEST/ABDOMEN/PELVIS W/ CONTRAST CT CHEST/ABDOMEN/PELVIS W/ CONTRAST 02/2022 LAB DRAW 15MIN 12/01/2021 PRE-OP COVID-19 TESTING 10/25/2021 CT ABDOMEN/PELVIS W/ CONTRAST 2 Encounters Encounter Diagnosis Start Date Code Code Sys tem Follow-up visit 12/07/2021 [id number] SNOMED-CT Personal Care Team Section Performer Name Performer Role Active Date Inactive Da te
--- OUTSIDE RECORDS SUMMARY | 2024-03-02 15:42 | XMS_ITS ---
Author Name Unknown Address [address] [place] [address] [phone] Phone Organization Unknown Address [address] [place] [address] [phone] Phone Care Team Providers Care Bar Pointer Name Role Phone LINDA ALTAMIRANO Attending Unavailable NEENA Moreira Primary Unavailable Results COMPREHENSIVE METABOLIC PANE L (CMP) - Collect Date/Time: 12/01/2021 08:13 [facility] ID: [id number] [address] [place], [place], [address] LOINC: 04879-4 Test Value Unit Reference Range Code Code System Flag GLUCOSE 140 mg/dL L=70 H=116 2345-7 LOINC H BUN 21 mg/dL L=6 H=25 3094-0 LOINC CREATININE 1.13 mg/dL L=0.67 H=1.17 2160-0 LOINC SODIUM SERUM 141 mmol/L L=136 H=145 2951-2 LOINC POTASSIUM SERUM 4.5 mmol/L L=3.4 H=5.2 2823-3 LOINC CHLORIDE SERUM 103 mmol/L L=96 H=110 2075-0 LOINC CARBON DIOXIDE (CO2) 33 mmol/L L=22 H=34 2028-9 LOINC ANION GAP 5.4 mmol/L 07571-6 LOINC CALCIUM SERUM 9.6 mg/dL L=8.2 H=10.2 19599-8 LOINC BILIRUBIN TOTAL 0.8 mg/dL L=0.0 H=1.3 1975-2 LOINC ALK. PHOS. 63 U/L L=46 H=116 6768-6 LOINC SGOT (AST) 25 U/L L=15 H=37 1920-8 LOINC SGPT (ALT) 35 U/L L=12 H=78 1742-6 LOINC TOTAL PROTEIN 7.6 gm/dL L=6.0 H=8.0 2885-2 LOINC ALBUMIN 4.3 gm/dL L=3.4 H=5.0 1751-7 LOINC AGE 81 years eGFR (non-Afr.Amer.) 62 mL/min 76697-9 LOINC eGFR (Afr-[place]) 75 mL/min 32929-3 LOINC CBC W/ DIFFERENTIAL* - Colle ct Date/Time: 12/01/2021 08:13 [facility] ID: [id number] [address] [place] [address], [address] LOINC: 74427-3 Test Value Unit Reference Range Code Code System Flag WBC 7.53 th/cmm L=5.00 H=10.00 6690-2 LOINC NEUT % 42.4 % L=40.0 H=80.0 LYMPH % 37.2 % L=10.0 H=50.0 MONO % 11.8 % L=2.0 H=12.0 83134-3 LOINC EOS % 6.2 % L=0.0 H=8.0 BASO % 1.2 % L=0.0 H=3.0 IG % 1.2 % L=0.0 H=1.1 2514-8 LOINC H NRBC % 0.0 % L=0.0 H=0.0 75939-8 LOINC NEUT abs count 3.2 th/cmm L=1.6 H=8.4 751-8 LOINC LYMPH abs count 2.8 th/cmm L=1.5 H=4.0 731-0 LOINC MONO abs count 0.9 th/cmm L=0.2 H=1.0 742-7 LOINC EOS abs count 0.5 th/cmm L=0.0 H=0.5 711-2 LOINC BASO abs count 0.1 th/cmm L=0.0 H=0.2 704-7 LOINC IG abs count 0.1 th/cmm L=0.0 H=0.1 11345-6 LOINC NRBC abs count 0.0 mil/cmm L=0.0 H=0.0 90802-0 LOINC RBC 4.72 mil/cmm L=4.30 H=6.20 789-8 LOINC HEMOGLOBIN 14.9 gm/dL L=13.0 H=17.0 718-7 LOINC HEMATOCRIT 45 % L=45 H=52 4544-3 LOINC MCV 94 fL L=82 H=92 787-2 LOINC H MCH 31.6 pg L=27.0 H=31.0 785-6 LOINC H MCHC 33.5 % L=32.0 H=36.0 786-4 LOINC RDW-SD 42.4 fL L=39.0 H=49.0 788-0 LOINC PLATELET COUNT 164 th/cmm L=150 H=450 777-3 LOINC Social History Type Status Start Date End Date Code Code Syst em Smoking History Former smoker 09/16/[id number] Sex Male Medications Medication Start Date End Date Route Frequency Dose Code Code System Medication Instructions Home Meds Multivitamin Oral Tablet 11/26/2018 Unknown ORAL DAILY 1 unit(s) RxNorm TAKE 1 EACH ORAL DAILY oxyCODONE HCl 5MG Oral Tablet 10/29/2021 Unknown ORAL NEEDED EVERY 6 HOURS 1 TABLET 4229984 RxNorm TAKE 1 TABLET ORAL NEEDED EVERY 6 HOURS FOR Pain Atorvastatin Calcium 20MG Oral Tablet 10/29/2021 Unknown ORAL BEDTIME 20 MILLIGRAMS 147654 RxNorm TAKE 20 MILLIGRAMS ORAL BEDTIME Finasteride 5MG Oral Tablet 10/29/2021 Unknown ORAL DAILY 5 MILLIGRAMS 228739 RxNorm TAKE 5 MILLIGRAMS ORAL DAILY Gabapentin 100MG Oral Capsule 10/29/2021 Unknown ORAL NEEDED THREE TIMES A DAY 300 MILLIGRAMS 311725 RxNorm TAKE 300 MILLIGRAMS ORAL NEEDED THREE TIMES A DAY Metoprolol Succinate 50MG Oral Tablet, Extended Release 10/29/2021 Unknown ORAL DAILY 50 MILLIGRAMS 136096 RxNorm TAKE 50 MILLIGRAMS ORAL DAILY Oxybutynin Chloride 5MG Oral Tablet 10/29/2021 Unknown ORAL EVERY EVENING 5 MILLIGRAMS 405331 RxNorm TAKE 5 MILLIGRAMS ORAL EVERY EVENING Turmeric 500 MG Oral Capsule 10/29/2021 Unknown ORAL DAILY 500 MG 9746992 RxNorm TAKE 500 MG ORAL DAILY Tylenol Arthritis 650MG Oral Tablet, Extended Release 10/29/2021 Unknown ORAL NEEDED 650 MILLIGRAMS 6568902 RxNorm TAKE 650 MILLIGRAMS ORAL NEEDED Vitamin D 5000 IU Oral Capsule 10/29/2021 Unknown ORAL TWICE A DAY 5000 IU RxNorm TAKE 5000 IU ORAL TWICE A DAY Xarelto 20MG Oral Tablet 10/29/2021 Unknown ORAL DAILY 20 MILLIGRAMS 6987151 RxNorm TAKE 20 MILLIGRAMS ORAL DAILY metFORMIN HCl 500MG Oral Tablet 10/29/2021 Unknown ORAL TWICE A DAY 500 MILLIGRAMS 508227 RxNorm TAKE 500 MILLIGRAMS ORAL TWICE A [...] PERISTOMAL VENTRAL HERNIA REPAIR WITH MESH 10/27 [id number] X 10/16/2024 Symbot ex [email or web address] Problems Problem Start Date Resolved Date Status Code Code 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 [id number] SNO MED-CT INCISIONAL HERNIA 11/26/2018 resolved 861854541 S NOMED-CT Allergies and Adverse Reactions Allergy Substance Reaction Severity Start Date Concern Status Co de Code System No Known Drug Allergies Moderate Active 412189782 SNOMED-CT Plan of Treatment Exposure 10/24/2020 LAB DRAW 15MIN 01/04/2023 CT CHEST/ABDOMEN/PELVIS W/ CONTRAST CT CHEST/ABDOMEN/PELVIS W/ CONTRAST 02/2022 LAB DRAW 15MIN 12/01/2021 PRE-OP COVID-19 TESTING 10/25/2021 CT ABDOMEN/PELVIS W/ CONTRAST 2 Encounters Encounter Diagnosis Start Date Code Code Sys tem 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
--- OUTSIDE RECORDS SUMMARY | 2024-03-02 15:43 | XMS_ITS ---
Author Name Unknown Address [address] [place] [address] [phone] Phone Organization Unknown Address [address] [place] [address] [phone] Phone Care Team Providers Care Cloth Cutting Inspector Name Role Phone NEENA Moreira Attending Unavailable Results XR KNEE 4V LT* - Completed: 08/13/2022 15:43 LOINC: [An error prevented this con tent from loading. This incident has been logged.] Social History Type Status Start Date End Date Code Code Syst em Smoking History Former smoker 09/16/[address] Sex Male Medications Medication Start Date End Date Route Frequency Dose Code Code System Medication Instructions Home Meds Multivitamin Oral Tablet 11/26/2018 Unknown ORAL DAILY 1 unit(s) RxNorm TAKE 1 EACH ORAL DAILY oxyCODONE HCl 5MG Oral Tablet 10/29/2021 Unknown ORAL NEEDED EVERY 6 HOURS 1 TABLET 5358993 RxNorm TAKE 1 TABLET ORAL NEEDED EVERY 6 HOURS FOR Pain Atorvastatin Calcium 20MG Oral Tablet 10/29/2021 Unknown ORAL BEDTIME 20 MILLIGRAMS 987044 RxNorm TAKE 20 MILLIGRAMS ORAL BEDTIME Finasteride 5MG Oral Tablet 10/29/2021 Unknown ORAL DAILY 5 MILLIGRAMS 879757 RxNorm TAKE 5 MILLIGRAMS ORAL DAILY Gabapentin 100MG Oral Capsule 10/29/2021 Unknown ORAL NEEDED THREE TIMES A DAY 300 MILLIGRAMS 540697 RxNorm TAKE 300 MILLIGRAMS ORAL NEEDED THREE TIMES A DAY Metoprolol Succinate 50MG Oral Tablet, Extended Release 10/29/2021 Unknown ORAL DAILY 50 MILLIGRAMS 838553 RxNorm TAKE 50 MILLIGRAMS ORAL DAILY Oxybutynin Chloride 5MG Oral Tablet 10/29/2021 Unknown ORAL EVERY EVENING 5 MILLIGRAMS 181275 RxNorm TAKE 5 MILLIGRAMS ORAL EVERY EVENING Turmeric 500 MG Oral Capsule 10/29/2021 Unknown ORAL DAILY 500 MG 8164390 RxNorm TAKE 500 MG ORAL DAILY Tylenol Arthritis 650MG Oral Tablet, Extended Release 10/29/2021 Unknown ORAL NEEDED 650 MILLIGRAMS 2815035 RxNorm TAKE 650 MILLIGRAMS ORAL NEEDED Vitamin D 5000 IU Oral Capsule 10/29/2021 Unknown ORAL TWICE A DAY 5000 IU RxNorm TAKE 5000 IU ORAL TWICE A DAY Xarelto 20MG Oral Tablet 10/29/2021 Unknown ORAL DAILY 20 MILLIGRAMS 4742888 RxNorm TAKE 20 MILLIGRAMS ORAL DAILY metFORMIN HCl 500MG Oral Tablet 10/29/2021 Unknown ORAL TWICE A DAY 500 MILLIGRAMS 893804 RxNorm TAKE 500 MILLIGRAMS ORAL TWICE A [...] PERISTOMAL VENTRAL HERNIA REPAIR WITH MESH 10/27 [id number] X 10/16/2024 Symbot ex [email or web address] Problems Problem Start Date Resolved Date Status Code Code 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 [id number] SNO MED-CT INCISIONAL HERNIA 11/26/2018 resolved 921121857 S NOMED-CT Allergies and Adverse Reactions Allergy Substance Reaction Severity Start Date Concern Status Co de Code System No Known Drug Allergies Moderate Active 616033768 SNOMED-CT Plan of Treatment Exposure 10/24/2020 LAB DRAW 15MIN 01/04/2023 CT CHEST/ABDOMEN/PELVIS W/ CONTRAST CT CHEST/ABDOMEN/PELVIS W/ CONTRAST 02/2022 LAB DRAW 15MIN 12/01/2021 PRE-OP COVID-19 TESTING 10/25/2021 CT ABDOMEN/PELVIS W/ CONTRAST 2 Encounters Encounter Diagnosis Start Date Code Code Sys tem Unilateral primary osteoarthritis, left knee 2 SNOMED-CT Personal Care Team Section Performer Name Performer Role Active Date Inactive Da te
--- OUTSIDE RECORDS SUMMARY | 2024-03-02 15:43 | XMS_ITS ---
Author Name Unknown Address [address] [place] [address] [phone] Phone Organization Unknown Address [address] [place] [address] [phone] Phone Care Team Providers Care Cloth Boil Off Machine Operator Name Role Phone IGNACIO Coates Attending Unavailable NEENA Moreira Primary Unavailable Social History Type Status Start Date End Date Code Code Syst em Smoking History Former smoker 09/16/[address] Sex Male Medications Medication Start Date End Date Route Frequency Dose Code Code System Medication Instructions Home Meds Multivitamin Oral Tablet 11/26/2018 Unknown ORAL DAILY 1 unit(s) RxNorm TAKE 1 EACH ORAL DAILY oxyCODONE HCl 5MG Oral Tablet 10/29/2021 Unknown ORAL NEEDED EVERY 6 HOURS 1 TABLET 9954362 RxNorm TAKE 1 TABLET ORAL NEEDED EVERY 6 HOURS FOR Pain Atorvastatin Calcium 20MG Oral Tablet 10/29/2021 Unknown ORAL BEDTIME 20 MILLIGRAMS 441748 RxNorm TAKE 20 MILLIGRAMS ORAL BEDTIME Finasteride 5MG Oral Tablet 10/29/2021 Unknown ORAL DAILY 5 MILLIGRAMS 665141 RxNorm TAKE 5 MILLIGRAMS ORAL DAILY Gabapentin 100MG Oral Capsule 10/29/2021 Unknown ORAL NEEDED THREE TIMES A DAY 300 MILLIGRAMS 796320 RxNorm TAKE 300 MILLIGRAMS ORAL NEEDED THREE TIMES A DAY Metoprolol Succinate 50MG Oral Tablet, Extended Release 10/29/2021 Unknown ORAL DAILY 50 MILLIGRAMS 724157 RxNorm TAKE 50 MILLIGRAMS ORAL DAILY Oxybutynin Chloride 5MG Oral Tablet 10/29/2021 Unknown ORAL EVERY EVENING 5 MILLIGRAMS 353240 RxNorm TAKE 5 MILLIGRAMS ORAL EVERY EVENING Turmeric 500 MG Oral Capsule 10/29/2021 Unknown ORAL DAILY 500 MG 5143519 RxNorm TAKE 500 MG ORAL DAILY Tylenol Arthritis 650MG Oral Tablet, Extended Release 10/29/2021 Unknown ORAL NEEDED 650 MILLIGRAMS 7278909 RxNorm TAKE 650 MILLIGRAMS ORAL NEEDED Vitamin D 5000 IU Oral Capsule 10/29/2021 Unknown ORAL TWICE A DAY 5000 IU RxNorm TAKE 5000 IU ORAL TWICE A DAY Xarelto 20MG Oral Tablet 10/29/2021 Unknown ORAL DAILY 20 MILLIGRAMS 9980379 RxNorm TAKE 20 MILLIGRAMS ORAL DAILY metFORMIN HCl 500MG Oral Tablet 10/29/2021 Unknown ORAL TWICE A DAY 500 MILLIGRAMS 368405 RxNorm TAKE 500 MILLIGRAMS ORAL TWICE A [...] PERISTOMAL VENTRAL HERNIA REPAIR WITH MESH 10/27 [id number] X 10/16/2024 Symbot ex [email or web address] Problems Problem Start Date Resolved Date Status Code Code 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 [id number] SNO MED-CT INCISIONAL HERNIA 11/26/2018 resolved 721240804 S NOMED-CT Allergies and Adverse Reactions Allergy Substance Reaction Severity Start Date Concern Status Co de Code System No Known Drug Allergies Moderate Active 921841804 SNOMED-CT Plan of Treatment Exposure 10/24/2020 LAB DRAW 15MIN 01/04/2023 CT CHEST/ABDOMEN/PELVIS W/ CONTRAST CT CHEST/ABDOMEN/PELVIS W/ CONTRAST 02/2022 LAB DRAW 15MIN 12/01/2021 PRE-OP COVID-19 TESTING 10/25/2021 CT ABDOMEN/PELVIS W/ CONTRAST 2 Encounters Encounter Diagnosis Start Date Code Code Sys tem Paroxysmal atrial fibrillation 03/29/2022 SNOMED-CT Personal Care Team Section Performer Name Performer Role Active Date Inactive Da te
--- OUTSIDE RECORDS SUMMARY | 2024-03-02 15:43 | XMS_ITS ---
Author Name Unknown Address [address] [place] [address] [phone] Phone Organization Unknown Address [address] [place] [address] [phone] Phone Care Team Providers Care Fuel Cell Engineer Name Role Phone LINDA ALTAMIRANO Attending Unavailable NEENA Moreira Primary Unavailable Results CT CXR ABD PELVIS WITH IV AN D ORAL* - Completed: 12/20/2021 13:58 LOINC: [An error prevented this con tent from loading. This incident has been logged.] Social History Type Status Start Date End Date Code Code Syst em Smoking History Former smoker 09/16/[address] Sex Male Medications Medication Start Date End Date Route Frequency Dose Code Code System Medication Instructions Home Meds Multivitamin Oral Tablet 11/26/2018 Unknown ORAL DAILY 1 unit(s) RxNorm TAKE 1 EACH ORAL DAILY oxyCODONE HCl 5MG Oral Tablet 10/29/2021 Unknown ORAL NEEDED EVERY 6 HOURS 1 TABLET 5123095 RxNorm TAKE 1 TABLET ORAL NEEDED EVERY 6 HOURS FOR Pain Atorvastatin Calcium 20MG Oral Tablet 10/29/2021 Unknown ORAL BEDTIME 20 MILLIGRAMS 921912 RxNorm TAKE 20 MILLIGRAMS ORAL BEDTIME Finasteride 5MG Oral Tablet 10/29/2021 Unknown ORAL DAILY 5 MILLIGRAMS 529932 RxNorm TAKE 5 MILLIGRAMS ORAL DAILY Gabapentin 100MG Oral Capsule 10/29/2021 Unknown ORAL NEEDED THREE TIMES A DAY 300 MILLIGRAMS 153811 RxNorm TAKE 300 MILLIGRAMS ORAL NEEDED THREE TIMES A DAY Metoprolol Succinate 50MG Oral Tablet, Extended Release 10/29/2021 Unknown ORAL DAILY 50 MILLIGRAMS 251939 RxNorm TAKE 50 MILLIGRAMS ORAL DAILY Oxybutynin Chloride 5MG Oral Tablet 10/29/2021 Unknown ORAL EVERY EVENING 5 MILLIGRAMS 890955 RxNorm TAKE 5 MILLIGRAMS ORAL EVERY EVENING Turmeric 500 MG Oral Capsule 10/29/2021 Unknown ORAL DAILY 500 MG 9900572 RxNorm TAKE 500 MG ORAL DAILY Tylenol Arthritis 650MG Oral Tablet, Extended Release 10/29/2021 Unknown ORAL NEEDED 650 MILLIGRAMS 6530146 RxNorm TAKE 650 MILLIGRAMS ORAL NEEDED Vitamin D 5000 IU Oral Capsule 10/29/2021 Unknown ORAL TWICE A DAY 5000 IU RxNorm TAKE 5000 IU ORAL TWICE A DAY Xarelto 20MG Oral Tablet 10/29/2021 Unknown ORAL DAILY 20 MILLIGRAMS 5397647 RxNorm TAKE 20 MILLIGRAMS ORAL DAILY metFORMIN HCl 500MG Oral Tablet 10/29/2021 Unknown ORAL TWICE A DAY 500 MILLIGRAMS 823396 RxNorm TAKE 500 MILLIGRAMS ORAL TWICE A [...] PERISTOMAL VENTRAL HERNIA REPAIR WITH MESH 10/27 [id number] X 10/16/2024 Symbot ex [email or web address] Problems Problem Start Date Resolved Date Status Code Code 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 596562136 SNO MED-CT INCISIONAL HERNIA 11/26/2018 resolved 711658256 S NOMED-CT Allergies and Adverse Reactions Allergy Substance Reaction Severity Start Date Concern Status Co de Code System No Known Drug Allergies Moderate Active 731547003 SNOMED-CT Plan of Treatment Exposure 10/24/2020 LAB DRAW 15MIN 01/04/2023 CT CHEST/ABDOMEN/PELVIS W/ CONTRAST CT CHEST/ABDOMEN/PELVIS W/ CONTRAST 02/2022 LAB DRAW 15MIN 12/01/2021 PRE-OP COVID-19 TESTING 10/25/2021 CT ABDOMEN/PELVIS W/ CONTRAST 2 Encounters Encounter Diagnosis Start Date Code Code Sys tem 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
--- OUTSIDE RECORDS SUMMARY | 2024-03-02 15:44 | XMS_ITS ---
Author Name Unknown Address [address] [place] [address] [phone] Phone Organization Unknown Address [address] [place] [address] [phone] Phone Care Team Providers Care Cattery Operator Name Role Phone LORRIE Bauer Attending Unavailable NEENA Moreira Primary Unavailable Social History Type Status Start Date End Date Code Code Syst em Smoking History Former smoker 09/16/[address] Sex Male Medications Medication Start Date End Date Route Frequency Dose Code Code System Medication Instructions Home Meds Multivitamin Oral Tablet 11/26/2018 Unknown ORAL DAILY 1 unit(s) RxNorm TAKE 1 EACH ORAL DAILY oxyCODONE HCl 5MG Oral Tablet 10/29/2021 Unknown ORAL NEEDED EVERY 6 HOURS 1 TABLET 2096137 RxNorm TAKE 1 TABLET ORAL NEEDED EVERY 6 HOURS FOR Pain Atorvastatin Calcium 20MG Oral Tablet 10/29/2021 Unknown ORAL BEDTIME 20 MILLIGRAMS 010077 RxNorm TAKE 20 MILLIGRAMS ORAL BEDTIME Finasteride 5MG Oral Tablet 10/29/2021 Unknown ORAL DAILY 5 MILLIGRAMS 674798 RxNorm TAKE 5 MILLIGRAMS ORAL DAILY Gabapentin 100MG Oral Capsule 10/29/2021 Unknown ORAL NEEDED THREE TIMES A DAY 300 MILLIGRAMS 367688 RxNorm TAKE 300 MILLIGRAMS ORAL NEEDED THREE TIMES A DAY Metoprolol Succinate 50MG Oral Tablet, Extended Release 10/29/2021 Unknown ORAL DAILY 50 MILLIGRAMS 557745 RxNorm TAKE 50 MILLIGRAMS ORAL DAILY Oxybutynin Chloride 5MG Oral Tablet 10/29/2021 Unknown ORAL EVERY EVENING 5 MILLIGRAMS 032073 RxNorm TAKE 5 MILLIGRAMS ORAL EVERY EVENING Turmeric 500 MG Oral Capsule 10/29/2021 Unknown ORAL DAILY 500 MG 7300334 RxNorm TAKE 500 MG ORAL DAILY Tylenol Arthritis 650MG Oral Tablet, Extended Release 10/29/2021 Unknown ORAL NEEDED 650 MILLIGRAMS 6439208 RxNorm TAKE 650 MILLIGRAMS ORAL NEEDED Vitamin D 5000 IU Oral Capsule 10/29/2021 Unknown ORAL TWICE A DAY 5000 IU RxNorm TAKE 5000 IU ORAL TWICE A DAY Xarelto 20MG Oral Tablet 10/29/2021 Unknown ORAL DAILY 20 MILLIGRAMS 4435953 RxNorm TAKE 20 MILLIGRAMS ORAL DAILY metFORMIN HCl 500MG Oral Tablet 10/29/2021 Unknown ORAL TWICE A DAY 500 MILLIGRAMS 454026 RxNorm TAKE 500 MILLIGRAMS ORAL TWICE A [...] PERISTOMAL VENTRAL HERNIA REPAIR WITH MESH 10/27 [id number] X 10/16/2024 Symbot ex SYM12 Problems Problem Start Date Resolved Date Status Code Code 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 905540363 SNO MED-CT INCISIONAL HERNIA 11/26/2018 resolved 145576134 S NOMED-CT Allergies and Adverse Reactions Allergy Substance Reaction Severity Start Date Concern Status Co de Code System No Known Drug Allergies Moderate Active 751529298 SNOMED-CT Plan of Treatment Exposure 10/24/2020 LAB DRAW 15MIN 01/04/2023 CT CHEST/ABDOMEN/PELVIS W/ CONTRAST CT CHEST/ABDOMEN/PELVIS W/ CONTRAST 02/2022 LAB DRAW 15MIN 12/01/2021 PRE-OP COVID-19 TESTING 10/25/2021 CT ABDOMEN/PELVIS W/ CONTRAST 2 Encounters Encounter Diagnosis Start Date Code Code Sys tem Radiculopathy, lumbar region 09/24/2022 SNOMED-CT Personal Care Team Section Performer Name Performer Role Active Date Inactive Da te
--- OUTSIDE RECORDS SUMMARY | 2024-03-02 15:44 | XMS_ITS ---
Author Name Unknown Address [address] [place] [address] [phone] Phone Organization Unknown Address [address] [place] [place] [address] [phone] Phone Care Team Providers Care Collar Starcher Name Role Phone ROOMET MARYLOU Attending Unavailable NEENA Moreira Primary Unavailable Social History Type Status Start Date End Date Code Code Syst em Smoking History Former smoker 09/16/[address] Sex Male Medications Medication Start Date End Date Route Frequency Dose Code Code System Medication Instructions Home Meds Multivitamin Oral Tablet 11/26/2018 Unknown ORAL DAILY 1 unit(s) RxNorm TAKE 1 EACH ORAL DAILY oxyCODONE HCl 5MG Oral Tablet 10/29/2021 Unknown ORAL NEEDED EVERY 6 HOURS 1 TABLET 4061006 RxNorm TAKE 1 TABLET ORAL NEEDED EVERY 6 HOURS FOR Pain Atorvastatin Calcium 20MG Oral Tablet 10/29/2021 Unknown ORAL BEDTIME 20 MILLIGRAMS 452809 RxNorm TAKE 20 MILLIGRAMS ORAL BEDTIME Finasteride 5MG Oral Tablet 10/29/2021 Unknown ORAL DAILY 5 MILLIGRAMS 308197 RxNorm TAKE 5 MILLIGRAMS ORAL DAILY Gabapentin 100MG Oral Capsule 10/29/2021 Unknown ORAL NEEDED THREE TIMES A DAY 300 MILLIGRAMS 161287 RxNorm TAKE 300 MILLIGRAMS ORAL NEEDED THREE TIMES A DAY Metoprolol Succinate 50MG Oral Tablet, Extended Release 10/29/2021 Unknown ORAL DAILY 50 MILLIGRAMS 502645 RxNorm TAKE 50 MILLIGRAMS ORAL DAILY Oxybutynin Chloride 5MG Oral Tablet 10/29/2021 Unknown ORAL EVERY EVENING 5 MILLIGRAMS 230627 RxNorm TAKE 5 MILLIGRAMS ORAL EVERY EVENING Turmeric 500 MG Oral Capsule 10/29/2021 Unknown ORAL DAILY 500 MG 2737623 RxNorm TAKE 500 MG ORAL DAILY Tylenol Arthritis 650MG Oral Tablet, Extended Release 10/29/2021 Unknown ORAL NEEDED 650 MILLIGRAMS 5280887 RxNorm TAKE 650 MILLIGRAMS ORAL NEEDED Vitamin D 5000 IU Oral Capsule 10/29/2021 Unknown ORAL TWICE A DAY 5000 IU RxNorm TAKE 5000 IU ORAL TWICE A DAY Xarelto 20MG Oral Tablet 10/29/2021 Unknown ORAL DAILY 20 MILLIGRAMS 1079412 RxNorm TAKE 20 MILLIGRAMS ORAL DAILY metFORMIN HCl 500MG Oral Tablet 10/29/2021 Unknown ORAL TWICE A DAY 500 MILLIGRAMS 633039 RxNorm TAKE 500 MILLIGRAMS ORAL TWICE A [...] PERISTOMAL VENTRAL HERNIA REPAIR WITH MESH 10/27 [id number] X 10/16/2024 Symbot ex [email or web address] Problems Problem Start Date Resolved Date Status Code Code 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 096527469 SNO MED-CT INCISIONAL HERNIA 11/26/2018 resolved 738004268 S NOMED-CT Allergies and Adverse Reactions Allergy Substance Reaction Severity Start Date Concern Status Co de Code System No Known Drug Allergies Moderate Active 068599125 SNOMED-CT Plan of Treatment Exposure 10/24/2020 LAB DRAW 15MIN 01/04/2023 CT CHEST/ABDOMEN/PELVIS W/ CONTRAST CT CHEST/ABDOMEN/PELVIS W/ CONTRAST 02/2022 LAB DRAW 15MIN 12/01/2021 PRE-OP COVID-19 TESTING 10/25/2021 CT ABDOMEN/PELVIS W/ CONTRAST 2 Encounters Encounter Diagnosis Start Date Code Code Sys tem Refusal of treatment by patient 10/23/2022 879844064 SNOMED-CT Personal Care Team Section Performer Name Performer Role Active Date Inactive Da te
--- OUTSIDE RECORDS SUMMARY | 2024-03-02 15:44 | XMS_ITS ---
Author Name Unknown Address [address] [place] [address] [phone] Phone Organization Unknown Address [address] [place] [address] [phone] Phone Care Team Providers Care Restaurant Managing Partner Name Role Phone YONY TORRES Attending Unavailable NEENA Moreira Primary Unavailable Social History Type Status Start Date End Date Code Code Syst em Smoking History Former smoker 09/16/[address] Sex Male Medications Medication Start Date End Date Route Frequency Dose Code Code System Medication Instructions Home Meds Multivitamin Oral Tablet 11/26/2018 Unknown ORAL DAILY 1 unit(s) RxNorm TAKE 1 EACH ORAL DAILY oxyCODONE HCl 5MG Oral Tablet 10/29/2021 Unknown ORAL NEEDED EVERY 6 HOURS 1 TABLET 3990892 RxNorm TAKE 1 TABLET ORAL NEEDED EVERY 6 HOURS FOR Pain Atorvastatin Calcium 20MG Oral Tablet 10/29/2021 Unknown ORAL BEDTIME 20 MILLIGRAMS 662047 RxNorm TAKE 20 MILLIGRAMS ORAL BEDTIME Finasteride 5MG Oral Tablet 10/29/2021 Unknown ORAL DAILY 5 MILLIGRAMS 498879 RxNorm TAKE 5 MILLIGRAMS ORAL DAILY Gabapentin 100MG Oral Capsule 10/29/2021 Unknown ORAL NEEDED THREE TIMES A DAY 300 MILLIGRAMS 457104 RxNorm TAKE 300 MILLIGRAMS ORAL NEEDED THREE TIMES A DAY Metoprolol Succinate 50MG Oral Tablet, Extended Release 10/29/2021 Unknown ORAL DAILY 50 MILLIGRAMS 939302 RxNorm TAKE 50 MILLIGRAMS ORAL DAILY Oxybutynin Chloride 5MG Oral Tablet 10/29/2021 Unknown ORAL EVERY EVENING 5 MILLIGRAMS 579927 RxNorm TAKE 5 MILLIGRAMS ORAL EVERY EVENING Turmeric 500 MG Oral Capsule 10/29/2021 Unknown ORAL DAILY 500 MG 8276638 RxNorm TAKE 500 MG ORAL DAILY Tylenol Arthritis 650MG Oral Tablet, Extended Release 10/29/2021 Unknown ORAL NEEDED 650 MILLIGRAMS 3865016 RxNorm TAKE 650 MILLIGRAMS ORAL NEEDED Vitamin D 5000 IU Oral Capsule 10/29/2021 Unknown ORAL TWICE A DAY 5000 IU RxNorm TAKE 5000 IU ORAL TWICE A DAY Xarelto 20MG Oral Tablet 10/29/2021 Unknown ORAL DAILY 20 MILLIGRAMS 4169443 RxNorm TAKE 20 MILLIGRAMS ORAL DAILY metFORMIN HCl 500MG Oral Tablet 10/29/2021 Unknown ORAL TWICE A DAY 500 MILLIGRAMS 490287 RxNorm TAKE 500 MILLIGRAMS ORAL TWICE A [...] PERISTOMAL VENTRAL HERNIA REPAIR WITH MESH 10/27 [id number] X 10/16/2024 Symbot ex [email or web address] Problems Problem Start Date Resolved Date Status Code Code 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 605352173 SNO MED-CT INCISIONAL HERNIA 11/26/2018 resolved 735613464 S NOMED-CT Allergies and Adverse Reactions Allergy Substance Reaction Severity Start Date Concern Status Co de Code System No Known Drug Allergies Moderate Active 192862205 SNOMED-CT Plan of Treatment Exposure 10/24/2020 LAB DRAW 15MIN 01/04/2023 CT CHEST/ABDOMEN/PELVIS W/ CONTRAST CT CHEST/ABDOMEN/PELVIS W/ CONTRAST 02/2022 LAB DRAW 15MIN 12/01/2021 PRE-OP COVID-19 TESTING 10/25/2021 CT ABDOMEN/PELVIS W/ CONTRAST 2 Encounters Encounter Diagnosis Start Date Code Code Sys tem 09/06/2022 [id number] SNOMED-CT Personal Care Team Section Performer Name Performer Role Active Date Inactive Da te
--- OUTSIDE RECORDS SUMMARY | 2024-03-02 15:44 | XMS_ITS ---
Author Name Unknown Address [address] [place] [address] [phone] Phone Organization Unknown Address [address] [place] [address] [phone] Phone Care Team Providers Care Wastewater Treatment Supervisor Name Role Phone LINDA ALTAMIRANO Attending Unavailable NEENA Moreira Primary Unavailable Results BUN/CREATININE RATIO FOR RAD IOLOGY* - Collect Date/Time: 01/04/2023 09:04 [facility] ID: [id number] [address] [place], [place], [address] LOINC: 3097-3 Test Value Unit Reference Range Code Code System Flag BUN 21 mg/dL L=6 H=25 3094-0 LOINC CREATININE 1.23 mg/dL L=0.67 H=1.17 2160-0 LOINC H BUN/CREATININE RATIO 17.1 3097-3 LOINC AGE 82 years eGFR (non-Afr.Amer) 56 mL/min 43641-3 LOINC eGFR (Afr-Slovak) 68 mL/min 35838-[address] CXR ABD PELVIS WITH IV AN D ORAL* - Completed: 01/04/2023 11:02 LOINC: [An error prevented this con tent from loading. This incident has been logged.] Social History Type Status Start Date End Date Code Code Syst em Smoking History Former smoker 09/16/[id number] Sex Male Medications Medication Start Date End Date Route Frequency Dose Code Code System Medication Instructions Home Meds Multivitamin Oral Tablet 11/26/2018 Unknown ORAL DAILY 1 unit(s) RxNorm TAKE 1 EACH ORAL DAILY oxyCODONE HCl 5MG Oral Tablet 10/29/2021 Unknown ORAL NEEDED EVERY 6 HOURS 1 TABLET [id number] RxNorm TAKE 1 TABLET ORAL NEEDED EVERY 6 HOURS FOR Pain Atorvastatin Calcium 20MG Oral Tablet 10/29/2021 Unknown ORAL BEDTIME 20 MILLIGRAMS 399758 RxNorm TAKE 20 MILLIGRAMS ORAL BEDTIME Finasteride 5MG Oral Tablet 10/29/2021 Unknown ORAL DAILY 5 MILLIGRAMS 554744 RxNorm TAKE 5 MILLIGRAMS ORAL DAILY Gabapentin 100MG Oral Capsule 10/29/2021 Unknown ORAL NEEDED THREE TIMES A DAY 300 MILLIGRAMS 475184 RxNorm TAKE 300 MILLIGRAMS ORAL NEEDED THREE TIMES A DAY Metoprolol Succinate 50MG Oral Tablet, Extended Release 10/29/2021 Unknown ORAL DAILY 50 MILLIGRAMS 016998 RxNorm TAKE 50 MILLIGRAMS ORAL DAILY Oxybutynin Chloride 5MG Oral Tablet 10/29/2021 Unknown ORAL EVERY EVENING 5 MILLIGRAMS 375171 RxNorm TAKE 5 MILLIGRAMS ORAL EVERY EVENING Turmeric 500 MG Oral Capsule 10/29/2021 Unknown ORAL DAILY 500 MG 4043524 RxNorm TAKE 500 MG ORAL DAILY Tylenol Arthritis 650MG Oral Tablet, Extended Release 10/29/2021 Unknown ORAL NEEDED 650 MILLIGRAMS 8852984 RxNorm TAKE 650 MILLIGRAMS ORAL NEEDED Vitamin D 5000 IU Oral Capsule 10/29/2021 Unknown ORAL TWICE A DAY 5000 IU RxNorm TAKE 5000 IU ORAL TWICE A DAY Xarelto 20MG Oral Tablet 10/29/2021 Unknown ORAL DAILY 20 MILLIGRAMS 3786356 RxNorm TAKE 20 MILLIGRAMS ORAL DAILY metFORMIN HCl 500MG Oral Tablet 10/29/2021 Unknown ORAL TWICE A DAY 500 MILLIGRAMS 145120 RxNorm TAKE 500 MILLIGRAMS ORAL TWICE A [...] PERISTOMAL VENTRAL HERNIA REPAIR WITH MESH 10/27 [id number] X 10/16/2024 Symbot ex [email or web address] Problems Problem Start Date Resolved Date Status Code Code 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 [id number] SNO MED-CT INCISIONAL HERNIA 11/26/2018 resolved 178544569 S NOMED-CT Allergies and Adverse Reactions Allergy Substance Reaction Severity Start Date Concern Status Co de Code System No Known Drug Allergies Moderate Active 776990805 SNOMED-CT Plan of Treatment Exposure 10/24/2020 LAB DRAW 15MIN 01/04/2023 CT CHEST/ABDOMEN/PELVIS W/ CONTRAST CT CHEST/ABDOMEN/PELVIS W/ CONTRAST 02/2022 LAB DRAW 15MIN 12/01/2021 PRE-OP COVID-19 TESTING 10/25/2021 CT ABDOMEN/PELVIS W/ CONTRAST 2 Encounters Encounter Diagnosis Start Date Code Code 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
--- OUTSIDE RECORDS SUMMARY | 2024-03-02 15:45 | XMS_ITS ---
Author Name Unknown Address [address] [place] [address] [phone] Phone Organization Unknown Address [address] [place] [address] [phone] Phone Care Team Providers Care Levers Lace Machine Operator Name Role Phone AVERY AMATO MD Attending Unavailable NEENA JACOME Primary Unavailable Social History Type Status Start Date End Date Code Code Syst em Smoking History Former smoker 09/16/[id number] Sex Male Medications Medication Start Date End Date Route Frequency Dose Code Code System Medication Instructions Home Meds Multivitamin Oral Tablet 11/26/2018 Unknown ORAL DAILY 1 unit(s) RxNorm TAKE 1 EACH ORAL DAILY Tylenol Arthritis 650MG Oral Tablet, Extended Release 11/26/2018 2 ORAL NEEDED EVERY 8 HOURS 1300 MILLIGRAMS 8765461 RxNorm TAKE 1300 MILLIGRAMS ORAL NEEDED EVERY 8 HOURS oxyCODONE HCl 5MG Oral Tablet 10/11/2019 2 ORAL NEEDED EVERY 3 HOURS 5 MILLIGRAMS 1820537 RxNorm TAKE 5 MILLIGRAMS ORAL NEEDED EVERY 3 HOURS Atorvastatin Calcium 20MG Oral Tablet 10/11/2019 2 ORAL BEDTIME 20 MILLIGRAMS 333144 RxNorm TAKE 20 MILLIGRAMS ORAL BEDTIME Flomax 0.4MG Oral Capsule 10/11/2019 2 ORAL DAILY 0.4 MILLIGRAMS 319552 RxNorm TAKE 0.4 MILLIGRAMS ORAL DAILY Gabapentin 100MG Oral Capsule 10/11/2019 2 ORAL THREE TIMES A DAY 200 MILLIGRAMS 915741 RxNorm TAKE 200 MILLIGRAMS ORAL THREE TIMES A DAY Metoprolol Succinate 50MG Oral Tablet, Extended Release 10/11/2019 2 ORAL DAILY 50 MILLIGRAMS 179673 RxNorm TAKE 50 MILLIGRAMS ORAL DAILY Xarelto 20MG Oral Tablet 10/11/2019 2 ORAL DAILY 20 MILLIGRAMS 3031189 RxNorm TAKE 20 MILLIGRAMS ORAL DAILY oxyCODONE HCl 5MG Oral Tablet 10/29/2021 Unknown ORAL NEEDED EVERY 6 HOURS 1 TABLET 2045512 RxNorm TAKE 1 TABLET ORAL NEEDED EVERY 6 HOURS FOR Pain Atorvastatin Calcium 20MG Oral Tablet 10/29/2021 Unknown ORAL BEDTIME 20 MILLIGRAMS 437882 RxNorm TAKE 20 MILLIGRAMS ORAL BEDTIME Finasteride 5MG Oral Tablet 10/29/2021 Unknown ORAL DAILY 5 MILLIGRAMS 225177 RxNorm TAKE 5 MILLIGRAMS ORAL DAILY Gabapentin 100MG Oral Capsule 10/29/2021 Unknown ORAL NEEDED THREE TIMES A DAY 300 MILLIGRAMS 728515 RxNorm TAKE 300 MILLIGRAMS ORAL NEEDED THREE TIMES A DAY Metoprolol Succinate 50MG Oral Tablet, Extended Release 10/29/2021 Unknown ORAL DAILY 50 MILLIGRAMS 947606 RxNorm TAKE 50 MILLIGRAMS ORAL DAILY Oxybutynin Chloride 5MG Oral Tablet 10/29/2021 Unknown ORAL EVERY EVENING 5 MILLIGRAMS 961453 RxNorm TAKE 5 MILLIGRAMS ORAL EVERY EVENING Turmeric 500 MG Oral Capsule 10/29/2021 Unknown ORAL DAILY 500 MG 0718038 RxNorm TAKE 500 MG ORAL DAILY Tylenol Arthritis 650MG Oral Tablet, Extended Release 10/29/2021 Unknown ORAL NEEDED 650 MILLIGRAMS 9005068 RxNorm TAKE 650 MILLIGRAMS ORAL NEEDED Vitamin D 5000 IU Oral Capsule 10/29/2021 Unknown ORAL TWICE A DAY 5000 IU RxNorm TAKE 5000 IU ORAL TWICE A DAY Xarelto 20MG Oral Tablet 10/29/2021 Unknown ORAL DAILY 20 MILLIGRAMS 2199207 RxNorm TAKE 20 MILLIGRAMS ORAL DAILY metFORMIN HCl 500MG Oral Tablet 10/29/2021 Unknown ORAL TWICE A DAY 500 MILLIGRAMS 344601 RxNorm TAKE 500 MILLIGRAMS ORAL TWICE A [...] PERISTOMAL VENTRAL HERNIA REPAIR WITH MESH 10/27 [id number] X 10/16/2024 Symbot ex [email or web address] Problems Problem Start Date Resolved Date Status Code Code 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
--- OUTSIDE RECORDS SUMMARY | 2024-03-02 15:45 | XMS_ITS ---
Author Name Unknown Address [address] [place] [address] [phone] Phone Organization Unknown Address [address] [place] [address] [phone] Phone Care Team Providers Care Masonry Contractor Administrator Name Role Phone IGNACIO Coates Attending Unavailable NEENA Moreira Primary Unavailable Social History Type Status Start Date End Date Code Code Syst em Smoking History Former smoker 09/16/[id number] Sex Male Medications Medication Start Date End Date Route Frequency Dose Code Code System Medication Instructions Home Meds Multivitamin Oral Tablet 11/26/2018 Unknown ORAL DAILY 1 unit(s) RxNorm TAKE 1 EACH ORAL DAILY oxyCODONE HCl 5MG Oral Tablet 10/29/2021 Unknown ORAL NEEDED EVERY 6 HOURS 1 TABLET 7588658 RxNorm TAKE 1 TABLET ORAL NEEDED EVERY 6 HOURS FOR Pain Atorvastatin Calcium 20MG Oral Tablet 10/29/2021 Unknown ORAL BEDTIME 20 MILLIGRAMS 791530 RxNorm TAKE 20 MILLIGRAMS ORAL BEDTIME Finasteride 5MG Oral Tablet 10/29/2021 Unknown ORAL DAILY 5 MILLIGRAMS 643144 RxNorm TAKE 5 MILLIGRAMS ORAL DAILY Gabapentin 100MG Oral Capsule 10/29/2021 Unknown ORAL NEEDED THREE TIMES A DAY 300 MILLIGRAMS 587745 RxNorm TAKE 300 MILLIGRAMS ORAL NEEDED THREE TIMES A DAY Metoprolol Succinate 50MG Oral Tablet, Extended Release 10/29/2021 Unknown ORAL DAILY 50 MILLIGRAMS 722674 RxNorm TAKE 50 MILLIGRAMS ORAL DAILY Oxybutynin Chloride 5MG Oral Tablet 10/29/2021 Unknown ORAL EVERY EVENING 5 MILLIGRAMS 885248 RxNorm TAKE 5 MILLIGRAMS ORAL EVERY EVENING Turmeric 500 MG Oral Capsule 10/29/2021 Unknown ORAL DAILY 500 MG 2958065 RxNorm TAKE 500 MG ORAL DAILY Tylenol Arthritis 650MG Oral Tablet, Extended Release 10/29/2021 Unknown ORAL NEEDED 650 MILLIGRAMS 9323314 RxNorm TAKE 650 MILLIGRAMS ORAL NEEDED Vitamin D 5000 IU Oral Capsule 10/29/2021 Unknown ORAL TWICE A DAY 5000 IU RxNorm TAKE 5000 IU ORAL TWICE A DAY Xarelto 20MG Oral Tablet 10/29/2021 Unknown ORAL DAILY 20 MILLIGRAMS 0547781 RxNorm TAKE 20 MILLIGRAMS ORAL DAILY metFORMIN HCl 500MG Oral Tablet 10/29/2021 Unknown ORAL TWICE A DAY 500 MILLIGRAMS 297484 RxNorm TAKE 500 MILLIGRAMS ORAL TWICE A [...] PERISTOMAL VENTRAL HERNIA REPAIR WITH MESH 10/27 [id number] X 10/16/2024 Symbot ex [email or web address] Problems Problem Start Date Resolved Date Status Code Code 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 [id number] SNO MED-CT INCISIONAL HERNIA 11/26/2018 resolved 471790285 S NOMED-CT Allergies and Adverse Reactions Allergy Substance Reaction Severity Start Date Concern Status Co de Code System No Known Drug Allergies Moderate Active 688754827 SNOMED-CT Plan of Treatment Exposure 10/24/2020 LAB DRAW 15MIN 01/04/2023 CT CHEST/ABDOMEN/PELVIS W/ CONTRAST CT CHEST/ABDOMEN/PELVIS W/ CONTRAST 02/2022 LAB DRAW 15MIN 12/01/2021 PRE-OP COVID-19 TESTING 10/25/2021 CT ABDOMEN/PELVIS W/ CONTRAST 2 Encounters Encounter Diagnosis Start Date Code Code Sys tem Paroxysmal atrial fibrillation 03/28/2023 786641321 SNOMED-CT Personal Care Team Section Performer Name Performer Role Active Date Inactive Da te
[2024-03-02 16:34] LABS: Hemoglobin A1C 6.2 % (<5.7)
== END 2024-03-02 15:36 | disposition home or self-care (01) ==
LOC: NCHCN 15:35
PROVIDERS: PCP Internal Medicine; Visit Provider Internal Medicine
DX: E11.9 Type 2 diabetes mellitus without complications (principal); D69.6 Thrombocytopenia, unspecified
CPT/HCPCS: 80053; 85027; 83036

== ENCOUNTER 2024-05-29 16:07 | Outpatient (REF) | payer MEDICARE, SELFPAY ==
--- OUTSIDE RECORDS SUMMARY | 2024-05-29 16:13 | XMS_ITS ---
Author Organization Unknown Address [address] [place] [address] [phone] Phone Care Team Providers Care Drug Safety Scientist Name Role Phone SARAH Parra Attending Unavailable NEENA Moreira Primary Unavailable Social History Type Status Start Date End Date Code Code Syst em Smoking History Former smoker 09/16/[address] Sex Male Medications Medication Start Date End Date Route Frequency Dose Code Code System Medication Instructions Home Meds Multivitamin Oral Tablet 11/26/2018 Unknown ORAL DAILY 1 unit(s) RxNorm TAKE 1 EACH ORAL DAILY Tylenol Arthritis 650MG Oral Tablet, Extended Release 11/26/2018 2 ORAL NEEDED EVERY 8 HOURS 1300 MILLIGRAMS 8922130 RxNorm TAKE 1300 MILLIGRAMS ORAL NEEDED EVERY 8 HOURS oxyCODONE HCl 5MG Oral Tablet 10/11/2019 2 ORAL NEEDED EVERY 3 HOURS 5 MILLIGRAMS 0527824 RxNorm TAKE 5 MILLIGRAMS ORAL NEEDED EVERY 3 HOURS Atorvastatin Calcium 20MG Oral Tablet 10/11/2019 2 ORAL BEDTIME 20 MILLIGRAMS 970448 RxNorm TAKE 20 MILLIGRAMS ORAL BEDTIME Flomax 0.4MG Oral Capsule 10/11/2019 2 ORAL DAILY 0.4 MILLIGRAMS 490717 RxNorm TAKE 0.4 MILLIGRAMS ORAL DAILY Gabapentin 100MG Oral Capsule 10/11/2019 2 ORAL THREE TIMES A DAY 200 MILLIGRAMS 416017 RxNorm TAKE 200 MILLIGRAMS ORAL THREE TIMES A DAY Metoprolol Succinate 50MG Oral Tablet, Extended Release 10/11/2019 2 ORAL DAILY 50 MILLIGRAMS 286684 RxNorm TAKE 50 MILLIGRAMS ORAL DAILY Xarelto 20MG Oral Tablet 10/11/2019 2 ORAL DAILY 20 MILLIGRAMS 4553941 RxNorm TAKE 20 MILLIGRAMS ORAL DAILY oxyCODONE HCl 5MG Oral Tablet 10/29/2021 Unknown ORAL NEEDED EVERY 6 HOURS 1 TABLET 0254103 RxNorm TAKE 1 TABLET ORAL NEEDED EVERY 6 HOURS FOR Pain Atorvastatin Calcium 20MG Oral Tablet 10/29/2021 Unknown ORAL BEDTIME 20 MILLIGRAMS 373898 RxNorm TAKE 20 MILLIGRAMS ORAL BEDTIME Finasteride 5MG Oral Tablet 10/29/2021 Unknown ORAL DAILY 5 MILLIGRAMS 971760 RxNorm TAKE 5 MILLIGRAMS ORAL DAILY Gabapentin 100MG Oral Capsule 10/29/2021 Unknown ORAL NEEDED THREE TIMES A DAY 300 MILLIGRAMS 462084 RxNorm TAKE 300 MILLIGRAMS ORAL NEEDED THREE TIMES A DAY Metoprolol Succinate 50MG Oral Tablet, Extended Release 10/29/2021 Unknown ORAL DAILY 50 MILLIGRAMS 536215 RxNorm TAKE 50 MILLIGRAMS ORAL DAILY Oxybutynin Chloride 5MG Oral Tablet 10/29/2021 Unknown ORAL EVERY EVENING 5 MILLIGRAMS 311672 RxNorm TAKE 5 MILLIGRAMS ORAL EVERY EVENING Turmeric 500 MG Oral Capsule 10/29/2021 Unknown ORAL DAILY 500 MG 1177380 RxNorm TAKE 500 MG ORAL DAILY Tylenol Arthritis 650MG Oral Tablet, Extended Release 10/29/2021 Unknown ORAL NEEDED 650 MILLIGRAMS 0275506 RxNorm TAKE 650 MILLIGRAMS ORAL NEEDED Vitamin D 5000 IU Oral Capsule 10/29/2021 Unknown ORAL TWICE A DAY 5000 IU RxNorm TAKE 5000 IU ORAL TWICE A DAY Xarelto 20MG Oral Tablet 10/29/2021 Unknown ORAL DAILY 20 MILLIGRAMS 7334343 RxNorm TAKE 20 MILLIGRAMS ORAL DAILY metFORMIN HCl 500MG Oral Tablet 10/29/2021 Unknown ORAL TWICE A DAY 500 MILLIGRAMS 048042 RxNorm TAKE 500 MILLIGRAMS ORAL TWICE A [...] PERISTOMAL VENTRAL HERNIA REPAIR WITH MESH 10/27 [id number] X 10/16/2024 Symbot ex [email or web address] Problems Problem Start Date Resolved Date Status Code Code 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 076753253 SNO MED-CT INCISIONAL HERNIA 11/26/2018 resolved 615828747 S NOMED-CT Allergies and Adverse Reactions Allergy Substance Reaction Severity Start Date Concern Status Co de Code System No Known Drug Allergies Moderate Active 692643342 SNOMED-CT Plan of Treatment Exposure 10/24/2020 LAB [...]
--- OUTSIDE RECORDS SUMMARY | 2024-05-29 16:13 | XMS_ITS ---
Author Organization Unknown Address [address] [place] [address] [phone] Phone Care Team Providers Care Transmission Mechanic Name Role Phone LINDA ALTAMIRANO Attending Unavailable NEENA Moreira Primary Unavailable Results CEA* - Collect Date/Time: 11:27 [facility] ID: [id number] [address] [place] [address], [id number] LOINC: 9-6 Test Value Unit Reference Range Code Code System Flag Carcinoembryonic Antigen 2.2 See Note COMPREHENSIVE METABOLIC PANE L (CMP) - Collect Date/Time: 09/11/2021 11:27 [facility] ID: [id number] [address] [place] [address], [address] LOINC: 74677-3 Test Value Unit Reference Range Code Code [...] H=34 2028-9 LOINC ANION GAP 7.7 mmol/L 45089-9 LOINC CALCIUM SERUM 9.4 mg/dL L=8.2 H=10.2 24313-2 LOINC BILIRUBIN TOTAL 0.6 mg/dL L=0.0 H=1.3 1975-2 LOINC ALK. PHOS. 57 U/L L=46 H=116 6768-6 LOINC SGOT (AST) 25 U/L L=15 H=37 1920-8 LOINC SGPT (ALT) 41 U/L L=12 H=78 1742-6 LOINC TOTAL PROTEIN 7.0 gm/dL L=6.0 H=8.0 2885-2 LOINC ALBUMIN 3.9 gm/dL L=3.4 H=5.0 1751-7 LOINC AGE 81 years eGFR (non-Afr.Amer.) 64 mL/min 73727-6 LOINC eGFR (Afr-Central African) 78 mL/min 76003-4 LOINC CBC W/ DIFFERENTIAL* - Colle ct Date/Time: 09/11/2021 11:27 [facility] ID: [id number] [address] [place] [address], 56 LOINC: 94374-5 Test Value Unit Reference Range Code Code System Flag WBC 7.16 th/cmm L=5.00 H=10.00 6690-2 LOINC NEUT % 52.0 % L=40.0 H=80.0 LYMPH % 33.5 % L=10.0 H=50.0 MONO % 9.6 % L=2.0 H=12.0 27314-6 LOINC EOS % 3.9 % L=0.0 H=8.0 BASO % 0.7 % L=0.0 H=3.0 IG % 0.3 % L=0.0 H=1.1 2514-8 LOINC NRBC % 0.0 % L=0.0 H=0.0 84063-0 LOINC NEUT abs count 3.7 th/cmm L=1.6 H=8.4 751-8 LOINC LYMPH abs count 2.4 th/cmm L=1.5 H=4.0 731-0 LOINC MONO abs count 0.7 th/cmm L=0.2 H=1.0 742-7 LOINC EOS abs count 0.3 th/cmm L=0.0 H=0.5 711-2 LOINC BASO abs count 0.1 th/cmm L=0.0 H=0.2 704-7 LOINC IG abs count 0.0 th/cmm L=0.0 H=0.1 60799-2 LOINC NRBC abs count 0.0 mil/cmm L=0.0 H=0.0 91333-3 LOINC RBC 4.79 mil/cmm L=4.30 H=6.20 789-8 [...] Syst em Smoking History Former smoker 09/16/[address] Sex Male Medications Medication Start Date End Date Route Frequency Dose Code Code System Medication Instructions Home Meds Multivitamin Oral Tablet 11/26/2018 Unknown ORAL DAILY 1 unit(s) RxNorm TAKE 1 EACH ORAL DAILY Tylenol Arthritis 650MG Oral Tablet, Extended Release 11/26/2018 2 ORAL NEEDED EVERY 8 HOURS 1300 MILLIGRAMS 3842088 RxNorm TAKE 1300 MILLIGRAMS ORAL NEEDED EVERY 8 HOURS oxyCODONE HCl 5MG Oral Tablet 10/11/2019 2 ORAL NEEDED EVERY 3 HOURS 5 MILLIGRAMS 7376542 RxNorm TAKE 5 MILLIGRAMS ORAL NEEDED EVERY 3 HOURS Atorvastatin Calcium 20MG Oral Tablet 10/11/2019 2 ORAL BEDTIME 20 MILLIGRAMS 114472 RxNorm TAKE 20 MILLIGRAMS ORAL BEDTIME Flomax 0.4MG Oral Capsule 10/11/2019 2 ORAL DAILY 0.4 MILLIGRAMS 140738 RxNorm TAKE 0.4 MILLIGRAMS ORAL DAILY Gabapentin 100MG Oral Capsule 10/11/2019 2 ORAL THREE TIMES A DAY 200 MILLIGRAMS 988415 RxNorm TAKE 200 MILLIGRAMS ORAL THREE TIMES A DAY Metoprolol Succinate 50MG Oral Tablet, Extended Release 10/11/2019 2 ORAL DAILY 50 MILLIGRAMS 715040 RxNorm TAKE 50 MILLIGRAMS ORAL DAILY Xarelto 20MG Oral Tablet 10/11/2019 2 ORAL DAILY 20 MILLIGRAMS 9320193 RxNorm TAKE 20 MILLIGRAMS ORAL DAILY oxyCODONE HCl 5MG Oral Tablet 10/29/2021 Unknown ORAL NEEDED EVERY 6 HOURS 1 TABLET 9048924 RxNorm TAKE 1 TABLET ORAL NEEDED EVERY 6 HOURS FOR Pain Atorvastatin Calcium 20MG Oral Tablet 10/29/2021 Unknown ORAL BEDTIME 20 MILLIGRAMS 632783 RxNorm TAKE 20 MILLIGRAMS ORAL BEDTIME Finasteride 5MG Oral Tablet 10/29/2021 Unknown ORAL DAILY 5 MILLIGRAMS 566023 RxNorm TAKE 5 MILLIGRAMS ORAL DAILY Gabapentin 100MG Oral Capsule 10/29/2021 Unknown ORAL NEEDED THREE TIMES A DAY 300 MILLIGRAMS 250914 RxNorm TAKE 300 MILLIGRAMS ORAL NEEDED THREE TIMES A DAY Metoprolol Succinate 50MG Oral Tablet, Extended Release 10/29/2021 Unknown ORAL DAILY 50 MILLIGRAMS 210799 RxNorm TAKE 50 MILLIGRAMS ORAL DAILY Oxybutynin Chloride 5MG Oral Tablet 10/29/2021 Unknown ORAL EVERY EVENING 5 MILLIGRAMS 504513 RxNorm TAKE 5 MILLIGRAMS ORAL EVERY EVENING Turmeric 500 MG Oral Capsule 10/29/2021 Unknown ORAL DAILY 500 MG 8292963 RxNorm TAKE 500 MG ORAL DAILY Tylenol Arthritis 650MG Oral Tablet, Extended Release 10/29/2021 Unknown ORAL NEEDED 650 MILLIGRAMS 0331163 RxNorm TAKE 650 MILLIGRAMS ORAL NEEDED Vitamin D 5000 IU Oral Capsule 10/29/2021 Unknown ORAL TWICE A DAY 5000 IU RxNorm TAKE 5000 IU ORAL TWICE A DAY Xarelto 20MG Oral Tablet 10/29/2021 Unknown ORAL DAILY 20 MILLIGRAMS 4831831 RxNorm TAKE 20 MILLIGRAMS ORAL DAILY metFORMIN HCl 500MG Oral Tablet 10/29/2021 Unknown ORAL TWICE A DAY 500 MILLIGRAMS 682380 RxNorm TAKE 500 MILLIGRAMS ORAL TWICE A [...] PERISTOMAL VENTRAL HERNIA REPAIR WITH MESH 10/27 [id number] X 10/16/2024 Symbot ex [email or web address] Problems Problem Start Date Resolved Date Status Code Code 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 128347548 SNO MED-CT INCISIONAL HERNIA 11/26/2018 resolved 999701113 S NOMED-CT Allergies and Adverse Reactions Allergy Substance Reaction Severity Start Date Concern Status Co de Code System No Known Drug Allergies Moderate Active 341363824 SNOMED-CT Plan of Treatment Exposure 10/24/2020 LAB DRAW 15MIN 01/04/2023 CT CHEST/ABDOMEN/PELVIS W/ CONTRAST CT CHEST/ABDOMEN/PELVIS W/ CONTRAST 02/2022 LAB DRAW 15MIN 12/01/2021 PRE-OP COVID-19 TESTING 10/25/2021 CT ABDOMEN/PELVIS W/ CONTRAST 2 Encounters Encounter Diagnosis Start Date Code Code 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
--- OUTSIDE RECORDS SUMMARY | 2024-05-29 16:13 | XMS_ITS ---
Author Organization Unknown Address [address] [place] [address] [phone] Phone Care Team Providers Care Director Of Analytical Development Name Role Phone SARAH Parra Attending Unavailable NEENA Moreira Primary Unavailable Results CT ABD + PELV W CONTRAST - C ompleted: 09/25/2021 08:50 LOINC: Radiation optimization: All CT scans at this facility use at least one of these dose optimization techniques: automated exposure control; mA and/or kV adjustment per patient size (includes targeted exams where dose is matched to clinical indication); or iterative reconstruction. CT SCAN OF THE ABDOMEN AND PELVIS WITH IV CONTRAST Compared to prior CT scan of August 2019. The visualized lung bases are clear. No pleural effusions. There is no ascites. No new ominous focal hepatic lesions. The 2 previously described exophytic findings off the posterior aspect of the right hepatic lobe remain unchanged. 1 of these is a calcified 1.9 x 1.4 cm structure. The other is an exophytic 1.0 x 0.6 cm structure which is also unchanged and therefore most probably benign. There is no obvious gallbladder pathology. CBD is not dilated. No new significant pancreatic findings. Spleen size remains normal. No splenic lesions. Splenic and portal veins are patent. No adrenal masses nor solid renal masses. A small cyst is noted in the inferior pole of the right kidney. There are 2 small nonobstructive calculi in the left kidney and a small cyst in the inferior pole of the left kidney remains unchanged. There are no calculi evident in the renal pelves. No hydronephrosis. No hydroureter. No calculi evident in the urinary bladder. The abdominal aorta is calcified. His lack of normal tapering of the distal abdominal aorta which appears slightly prominent at the aortic bifurcation and there is also arteriomegaly of the common iliac arteries again noted. Minimal change from the prior study. maximum diameter of the abdominal aorta is 2.9 cm. Maximum diameter of the common iliac arteries is 1.8 cm (right side). There is no retroperitoneal- paraaortic adenopathy. Anterior abdominal wall: There is now a right sided anterior abdominal wall hernia which contains nonedematous small bowel loops. There has been previous right hemicolectomy. There is no evidence of small bowel obstruction. No free fluid. There is abundant fecal material throughout the colon, and there is fecalization of the distal small bowel loops. However, there is no true bowel obstruction. No free air. No abscess. In the pelvis there are a few diverticuli but no diverticulitis. There is no intrapelvic nor inguinal adenopathy. Small fat-containing left inguinal hernia is unchanged. Prostate size is upper normal. Seminal vesicles are unremarkable. Osseous: No significant osseous lesions evident. Mild degenerative anterolisthesis of L5 upon S1 due to facet arthropathy. Moderate disc space narrowing L3-4. IMPRESSION: 1. In this patient who has had previous hemicolectomy there is no evidence of metastatic disease nor ascites in the abdomen and pelvis. No free air nor abscess. 2. There is a right anterior abdominal wall hernia sac now evident which contains a small bowel loop which does not appear edematous nor obstructed. This hernia is located 5 cm to the right of center. 3. Nonobstructive small calculi in the inferior pole of the left kidney. Small bilateral benign renal cysts. No solid renal masses. No hydronephrosis. 4. Stable benign appearing findings in the liver as described above. No new ominous hepatic lesions identified. Dictated by: HN PEPITO VUONG MD Transcribed by: [facility] [place] 09/25/21/10:10 D 09/25/2021 08:44:31 [id number] Electronically Reviewed and Signed By: PEPITO VUONG MD 09/25/21 13:00 Copy for: 185 HEALTH INFORMATION MGMT Social History Type Status Start Date End Date Code Code Syst em Smoking History Former smoker 09/16/[id number] Sex Male Medications Medication Start Date End Date Route Frequency Dose Code Code System Medication Instructions Home Meds Multivitamin Oral Tablet 11/26/2018 Unknown ORAL DAILY 1 unit(s) RxNorm TAKE 1 EACH ORAL DAILY Tylenol Arthritis 650MG Oral Tablet, Extended Release 11/26/2018 2 ORAL NEEDED EVERY 8 HOURS 1300 MILLIGRAMS [id number] RxNorm TAKE 1300 MILLIGRAMS ORAL NEEDED EVERY 8 HOURS oxyCODONE HCl 5MG Oral Tablet 10/11/2019 2 ORAL NEEDED EVERY 3 HOURS 5 MILLIGRAMS 2823196 RxNorm TAKE 5 MILLIGRAMS ORAL NEEDED EVERY 3 HOURS Atorvastatin Calcium 20MG Oral Tablet 10/11/2019 2 ORAL BEDTIME 20 MILLIGRAMS 199126 RxNorm TAKE 20 MILLIGRAMS ORAL BEDTIME Flomax 0.4MG Oral Capsule 10/11/2019 2 ORAL DAILY 0.4 MILLIGRAMS 135475 RxNorm TAKE 0.4 MILLIGRAMS ORAL DAILY Gabapentin 100MG Oral Capsule 10/11/2019 2 ORAL THREE TIMES A DAY 200 MILLIGRAMS 628062 RxNorm TAKE 200 MILLIGRAMS ORAL THREE TIMES A DAY Metoprolol Succinate 50MG Oral Tablet, Extended Release 10/11/2019 2 ORAL DAILY 50 MILLIGRAMS 100818 RxNorm TAKE 50 MILLIGRAMS ORAL DAILY Xarelto 20MG Oral Tablet 10/11/2019 2 ORAL DAILY 20 MILLIGRAMS 5517261 RxNorm TAKE 20 MILLIGRAMS ORAL DAILY oxyCODONE HCl 5MG Oral Tablet 10/29/2021 Unknown ORAL NEEDED EVERY 6 HOURS 1 TABLET 2464645 RxNorm TAKE 1 TABLET ORAL NEEDED EVERY 6 HOURS FOR Pain Atorvastatin Calcium 20MG Oral Tablet 10/29/2021 Unknown ORAL BEDTIME 20 MILLIGRAMS 058776 RxNorm TAKE 20 MILLIGRAMS ORAL BEDTIME Finasteride 5MG Oral Tablet 10/29/2021 Unknown ORAL DAILY 5 MILLIGRAMS 311197 RxNorm TAKE 5 MILLIGRAMS ORAL DAILY Gabapentin 100MG Oral Capsule 10/29/2021 Unknown ORAL NEEDED THREE TIMES A DAY 300 MILLIGRAMS 207331 RxNorm TAKE 300 MILLIGRAMS ORAL NEEDED THREE TIMES A DAY Metoprolol Succinate 50MG Oral Tablet, Extended Release 10/29/2021 Unknown ORAL DAILY 50 MILLIGRAMS 554140 RxNorm TAKE 50 MILLIGRAMS ORAL DAILY Oxybutynin Chloride 5MG Oral Tablet 10/29/2021 Unknown ORAL EVERY EVENING 5 MILLIGRAMS 111512 RxNorm TAKE 5 MILLIGRAMS ORAL EVERY EVENING Turmeric 500 MG Oral Capsule 10/29/2021 Unknown ORAL DAILY 500 MG 9398688 RxNorm TAKE 500 MG ORAL DAILY Tylenol Arthritis 650MG Oral Tablet, Extended Release 10/29/2021 Unknown ORAL NEEDED 650 MILLIGRAMS 9096124 RxNorm TAKE 650 MILLIGRAMS ORAL NEEDED Vitamin D 5000 IU Oral Capsule 10/29/2021 Unknown ORAL TWICE A DAY 5000 IU RxNorm TAKE 5000 IU ORAL TWICE A DAY Xarelto 20MG Oral Tablet 10/29/2021 Unknown ORAL DAILY 20 MILLIGRAMS 5039234 RxNorm TAKE 20 MILLIGRAMS ORAL DAILY metFORMIN HCl 500MG Oral Tablet 10/29/2021 Unknown ORAL TWICE A DAY 500 MILLIGRAMS 944315 RxNorm TAKE 500 MILLIGRAMS ORAL TWICE A [...] PERISTOMAL VENTRAL HERNIA REPAIR WITH MESH 10/27 [id number] X 10/16/2024 Symbot ex SYM12 Problems Problem Start Date Resolved Date Status Code Code 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 [id number] SNO MED-CT INCISIONAL HERNIA 11/26/2018 resolved 411893185 S NOMED-CT Allergies and Adverse Reactions Allergy Substance Reaction Severity Start Date Concern Status Co de Code System No Known Drug Allergies Moderate Active 257836272 SNOMED-CT Plan of Treatment Exposure 10/24/2020 LAB DRAW 15MIN 01/04/2023 CT CHEST/ABDOMEN/PELVIS W/ CONTRAST CT CHEST/ABDOMEN/PELVIS W/ CONTRAST 02/2022 LAB DRAW 15MIN 12/01/2021 PRE-OP COVID-19 TESTING 10/25/2021 CT ABDOMEN/PELVIS W/ CONTRAST 2 Encounters Encounter Diagnosis Start Date Code Code Sys tem Incisional hernia 09/25/2021 [id number] SNOMED-CT Personal Care Team Section Performer Name Performer Role Active Date Inactive Da te
--- OUTSIDE RECORDS SUMMARY | 2024-05-29 16:13 | XMS_ITS ---
Author Organization Unknown Address [address] [place] [address] [phone] Phone Care Team Providers Care Supervisor Delivery Department Name Role Phone AVERY Hale Attending Unavailable NEENA Moreira Primary Unavailable Results XR EXAM ABDOMEN 1 VIEW - Com pleted: 08/31/2021 09:36 LOINC: KUB Comparison KUB is 12/02/13. Comparison CT scan of the chest, abdomen and pelvis is 12/26/20. Peripherally calcified mass in the left upper quadrant is again seen and associated with the liver. Surgical clips are seen in both the upper left and upper right quadrant. There is a round calcification overlying the mid left 12th rib which does not lie in the kidney and can be seen in the mesenteric fat on the CT scan from 12/26/20 (series 11, image 152). There do appear to be some calcifications inferior to the left rib which are likely renal. No other urinary tract calculi are identified. There is a moderate amount of stool in the colon. Degenerative changes are seen in the spine and the hips bilaterally. IMPRESSION: Left nephrolithiasis. Dictated by: DOV BECKER MD Transcribed by: [facility] [place] 08/31/21/11:15 D 08/31/2021 10:08:06 [id number] Electronically Reviewed and Signed By: MENDEZ BECKER MD 08/31/21 13:54 Copy for: 185 HEALTH INFORMATION MGMT Social History Type Status Start Date End Date Code Code Syst em Smoking History Former smoker 09/16/[address] Sex Male Medications Medication Start Date End Date Route Frequency Dose Code Code System Medication Instructions Home Meds Multivitamin Oral Tablet 11/26/2018 Unknown ORAL DAILY 1 unit(s) RxNorm TAKE 1 EACH ORAL DAILY Tylenol Arthritis 650MG Oral Tablet, Extended Release 11/26/2018 2 ORAL NEEDED EVERY 8 HOURS 1300 MILLIGRAMS 2979696 RxNorm TAKE 1300 MILLIGRAMS ORAL NEEDED EVERY 8 HOURS oxyCODONE HCl 5MG Oral Tablet 10/11/2019 2 ORAL NEEDED EVERY 3 HOURS 5 MILLIGRAMS 5923584 RxNorm TAKE 5 MILLIGRAMS ORAL NEEDED EVERY 3 HOURS Atorvastatin Calcium 20MG Oral Tablet 10/11/2019 2 ORAL BEDTIME 20 MILLIGRAMS 896985 RxNorm TAKE 20 MILLIGRAMS ORAL BEDTIME Flomax 0.4MG Oral Capsule 10/11/2019 2 ORAL DAILY 0.4 MILLIGRAMS 712256 RxNorm TAKE 0.4 MILLIGRAMS ORAL DAILY Gabapentin 100MG Oral Capsule 10/11/2019 2 ORAL THREE TIMES A DAY 200 MILLIGRAMS 507510 RxNorm TAKE 200 MILLIGRAMS ORAL THREE TIMES A DAY Metoprolol Succinate 50MG Oral Tablet, Extended Release 10/11/2019 2 ORAL DAILY 50 MILLIGRAMS 835414 RxNorm TAKE 50 MILLIGRAMS ORAL DAILY Xarelto 20MG Oral Tablet 10/11/2019 2 ORAL DAILY 20 MILLIGRAMS 7857022 RxNorm TAKE 20 MILLIGRAMS ORAL DAILY oxyCODONE HCl 5MG Oral Tablet 10/29/2021 Unknown ORAL NEEDED EVERY 6 HOURS 1 TABLET 2368193 RxNorm TAKE 1 TABLET ORAL NEEDED EVERY 6 HOURS FOR Pain Atorvastatin Calcium 20MG Oral Tablet 10/29/2021 Unknown ORAL BEDTIME 20 MILLIGRAMS 146287 RxNorm TAKE 20 MILLIGRAMS ORAL BEDTIME Finasteride 5MG Oral Tablet 10/29/2021 Unknown ORAL DAILY 5 MILLIGRAMS 761946 RxNorm TAKE 5 MILLIGRAMS ORAL DAILY Gabapentin 100MG Oral Capsule 10/29/2021 Unknown ORAL NEEDED THREE TIMES A DAY 300 MILLIGRAMS 018856 RxNorm TAKE 300 MILLIGRAMS ORAL NEEDED THREE TIMES A DAY Metoprolol Succinate 50MG Oral Tablet, Extended Release 10/29/2021 Unknown ORAL DAILY 50 MILLIGRAMS 521336 RxNorm TAKE 50 MILLIGRAMS ORAL DAILY Oxybutynin Chloride 5MG Oral Tablet 10/29/2021 Unknown ORAL EVERY EVENING 5 MILLIGRAMS 628501 RxNorm TAKE 5 MILLIGRAMS ORAL EVERY EVENING Turmeric 500 MG Oral Capsule 10/29/2021 Unknown ORAL DAILY 500 MG 6028729 RxNorm TAKE 500 MG ORAL DAILY Tylenol Arthritis 650MG Oral Tablet, Extended Release 10/29/2021 Unknown ORAL NEEDED 650 MILLIGRAMS 4304625 RxNorm TAKE 650 MILLIGRAMS ORAL NEEDED Vitamin D 5000 IU Oral Capsule 10/29/2021 Unknown ORAL TWICE A DAY 5000 IU RxNorm TAKE 5000 IU ORAL TWICE A DAY Xarelto 20MG Oral Tablet 10/29/2021 Unknown ORAL DAILY 20 MILLIGRAMS 4582917 RxNorm TAKE 20 MILLIGRAMS ORAL DAILY metFORMIN HCl 500MG Oral Tablet 10/29/2021 Unknown ORAL TWICE A DAY 500 MILLIGRAMS 938732 RxNorm TAKE 500 MILLIGRAMS ORAL TWICE A [...] PERISTOMAL VENTRAL HERNIA REPAIR WITH MESH 10/27 [id number] X 10/16/2024 Symbot ex SYM12 Problems Problem Start Date Resolved Date Status Code Code 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 [id number] SNO MED-CT INCISIONAL HERNIA 11/26/2018 resolved 902885115 S NOMED-CT Allergies and Adverse Reactions Allergy Substance Reaction Severity Start Date Concern Status Co de Code System No Known Drug Allergies Moderate Active 892583718 SNOMED-CT Plan of Treatment Exposure 10/24/2020 LAB DRAW 15MIN 01/04/2023 CT CHEST/ABDOMEN/PELVIS W/ CONTRAST CT CHEST/ABDOMEN/PELVIS W/ CONTRAST 02/2022 LAB DRAW 15MIN 12/01/2021 PRE-OP COVID-19 TESTING 10/25/2021 CT ABDOMEN/PELVIS W/ CONTRAST 2 Encounters Encounter Diagnosis Start Date Code Code Sys tem Kidney stone 08/31/2021 83457158 SNOMED-CT Personal Care Team Section Performer Name Performer Role Active Date Inactive Da te
--- OUTSIDE RECORDS SUMMARY | 2024-05-29 16:14 | XMS_ITS ---
Author Organization Unknown Address [address] [place] [address] [phone] Phone Care Team Providers Care Machine Sole Leveler Name Role Phone SARAH Parra Attending Unavailable NEENA Moreira Primary Unavailable Social History Type Status Start Date End Date Code Code Syst em Smoking History Former smoker 09/16/[address] Sex Male Medications Medication Start Date End Date Route Frequency Dose Code Code System Medication Instructions Home Meds Multivitamin Oral Tablet 11/26/2018 Unknown ORAL DAILY 1 unit(s) RxNorm TAKE 1 EACH ORAL DAILY oxyCODONE HCl 5MG Oral Tablet 10/29/2021 Unknown ORAL NEEDED EVERY 6 HOURS 1 TABLET 9226915 RxNorm TAKE 1 TABLET ORAL NEEDED EVERY 6 HOURS FOR Pain Atorvastatin Calcium 20MG Oral Tablet 10/29/2021 Unknown ORAL BEDTIME 20 MILLIGRAMS 805862 RxNorm TAKE 20 MILLIGRAMS ORAL BEDTIME Finasteride 5MG Oral Tablet 10/29/2021 Unknown ORAL DAILY 5 MILLIGRAMS 889803 RxNorm TAKE 5 MILLIGRAMS ORAL DAILY Gabapentin 100MG Oral Capsule 10/29/2021 Unknown ORAL NEEDED THREE TIMES A DAY 300 MILLIGRAMS 395236 RxNorm TAKE 300 MILLIGRAMS ORAL NEEDED THREE TIMES A DAY Metoprolol Succinate 50MG Oral Tablet, Extended Release 10/29/2021 Unknown ORAL DAILY 50 MILLIGRAMS 275193 RxNorm TAKE 50 MILLIGRAMS ORAL DAILY Oxybutynin Chloride 5MG Oral Tablet 10/29/2021 Unknown ORAL EVERY EVENING 5 MILLIGRAMS 269892 RxNorm TAKE 5 MILLIGRAMS ORAL EVERY EVENING Turmeric 500 MG Oral Capsule 10/29/2021 Unknown ORAL DAILY 500 MG 3785766 RxNorm TAKE 500 MG ORAL DAILY Tylenol Arthritis 650MG Oral Tablet, Extended Release 10/29/2021 Unknown ORAL NEEDED 650 MILLIGRAMS 0855384 RxNorm TAKE 650 MILLIGRAMS ORAL NEEDED Vitamin D 5000 IU Oral Capsule 10/29/2021 Unknown ORAL TWICE A DAY 5000 IU RxNorm TAKE 5000 IU ORAL TWICE A DAY Xarelto 20MG Oral Tablet 10/29/2021 Unknown ORAL DAILY 20 MILLIGRAMS 1209670 RxNorm TAKE 20 MILLIGRAMS ORAL DAILY metFORMIN HCl 500MG Oral Tablet 10/29/2021 Unknown ORAL TWICE A DAY 500 MILLIGRAMS 084051 RxNorm TAKE 500 MILLIGRAMS ORAL TWICE A [...] PERISTOMAL VENTRAL HERNIA REPAIR WITH MESH 10/27 [id number] X 10/16/2024 Symbot ex SYM12 Problems Problem Start Date Resolved Date Status Code Code 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
--- OUTSIDE RECORDS SUMMARY | 2024-05-29 16:14 | XMS_ITS ---
Author Organization Unknown Address [address] [place] [address] [phone] Phone Care Team Providers Care Clay Products Glazer Name Role Phone Unavailable [employer]watch[employer] Unavailable SARAH Parra Attending Unavailable TESS Hubbard MACHINE TOOL DRESSER Unavailable NEENA Moreira Primary Unavailable Results CBC W/ DIFFERENTIAL* - Colle ct Date/Time: 10/29/2021 06:35 [facility] ID: [id number] [address] [place], [place], [address] LOINC: 29318-3 Test Value Unit Reference Range Code Code System Flag WBC 7.83 th/cmm L=5.00 H=10.00 6690-2 LOINC NEUT % 51.4 % L=40.0 H=80.0 LYMPH % 35.9 % L=10.0 H=50.0 MONO % 10.6 % L=2.0 H=12.0 40932-0 LOINC EOS % 1.0 % L=0.0 H=8.0 BASO % 0.6 % L=0.0 H=3.0 IG % 0.5 % L=0.0 H=1.1 2514-8 LOINC NRBC % 0.0 % L=0.0 H=0.0 35275-3 LOINC NEUT abs count 4.0 th/cmm L=1.6 H=8.4 751-8 LOINC LYMPH abs count 2.8 th/cmm L=1.5 H=4.0 731-0 LOINC MONO abs count 0.8 th/cmm L=0.2 H=1.0 742-7 LOINC EOS abs count 0.1 th/cmm L=0.0 H=0.5 711-2 LOINC BASO abs count 0.1 th/cmm L=0.0 H=0.2 704-7 LOINC IG abs count 0.0 th/cmm L=0.0 H=0.1 92069-7 LOINC NRBC abs count 0.0 mil/cmm L=0.0 H=0.0 41610-4 LOINC RBC 4.10 mil/cmm L=4.30 H=6.20 789-8 [...] CAPILLAR Y - Collect Date/Time: 10/28/2021 16:59 [facility] ID: [id number] [address] [place] [address], [id number] LOINC: 45588-5 Test Value Unit Reference Range Code Code System Flag GLUCOSE CAP 147 mg/dL L=70 H=116 H GLUCOSE FINGER/HEEL CAPILLAR Y - Collect Date/Time: 10/28/2021 12:04 [facility] ID: [id number] [address] [place] [address], [id number] LOINC: 67384-6 Test Value Unit Reference Range Code Code System Flag GLUCOSE CAP 111 mg/dL L=70 H=116 BASIC METABOLIC PANEL (BMP) - Collect Date/Time: 10/28/2021 06:20 [facility] ID: [id number] [address] [place] [address], [address] LOINC: 83117-6 Test Value Unit Reference Range Code Code [...] H=34 2028-9 LOINC ANION GAP 6.3 mmol/L 73234-7 LOINC CALCIUM SERUM 8.4 mg/dL L=8.2 H=10.2 88261-2 LOINC AGE 81 years eGFR (non-Afr.Amer.) 60 mL/min 36952-2 LOINC eGFR (Afr-Pakistani) 73 mL/min 05073-5 LOINC CBC W/ DIFFERENTIAL* - Colle ct Date/Time: 10/28/2021 06:20 [facility] ID: [id number] [address] [place], [place], [address] LOINC: 90763-3 Test Value Unit Reference Range Code Code System Flag WBC 11.09 th/cmm L=5.00 H=10.00 6690-2 LOINC H NEUT % 76.1 % L=40.0 H=80.0 LYMPH % 15.7 % L=10.0 H=50.0 MONO % 7.6 % L=2.0 H=12.0 41388-8 LOINC EOS % 0.0 % L=0.0 H=8.0 BASO % 0.1 % L=0.0 H=3.0 IG % 0.5 % L=0.0 H=1.1 2514-8 LOINC NRBC % 0.0 % L=0.0 H=0.0 18594-4 LOINC NEUT abs count 8.5 th/cmm L=1.6 H=8.4 751-8 LOINC H LYMPH abs count 1.7 th/cmm L=1.5 H=4.0 731-0 LOINC MONO abs count 0.8 th/cmm L=0.2 H=1.0 742-7 LOINC EOS abs count 0.0 th/cmm L=0.0 H=0.5 711-2 LOINC BASO abs count 0.0 th/cmm L=0.0 H=0.2 704-7 LOINC IG abs count 0.1 th/cmm L=0.0 H=0.1 84978-0 LOINC NRBC abs count 0.0 mil/cmm L=0.0 H=0.0 45696-6 LOINC RBC 4.07 mil/cmm L=4.30 H=6.20 789-8 [...] CAPILLAR Y - Collect Date/Time: 10/27/2021 21:16 [facility] ID: [id number] [address] [place] [address], [id number] LOINC: 33610-6 Test Value Unit Reference Range Code Code System Flag GLUCOSE CAP 189 mg/dL L=70 H=116 H GLUCOSE FINGER/HEEL CAPILLAR Y - Collect Date/Time: 10/27/2021 16:40 [facility] ID: [id number] [address] [place] [address], [id number] LOINC: 33840-1 Test Value Unit Reference Range Code Code System Flag GLUCOSE CAP 132 mg/dL L=70 H=116 H GLUCOSE FINGER/HEEL CAPILLAR Y - Collect Date/Time: 10/27/2021 14:22 [facility] ID: [id number] [address] [place], [place], [id number] LOINC: 22259-9 Test Value Unit Reference Range Code Code System Flag GLUCOSE CAP 112 mg/dL L=70 H=116 GLUCOSE FINGER/HEEL CAPILLAR Y - Collect Date/Time: 10/27/2021 09:52 [facility] ID: [id number] [address] [place], [place], [id number] LOINC: 45076-7 Test Value Unit Reference Range Code Code System Flag GLUCOSE CAP 114 mg/dL L=70 H=116 Social History Type Status Start Date End Date Code Code Syst em Smoking History Former smoker 09/16/[address] Sex Male Vital Signs Vital Sign Value Unit [place] Value [place] Unit Date/Time Recent/Initial? Code Code System Body Mass Index 28.13 kg/m2 10/16/2021 16:55 Initial 52893 -5 INC Systolic Blood Pressure 136 mm[Hg] [...] Saturation 97 % 2021 07:40 Most Recent 35781 -5 LOINC O2 Saturation 96 % 2021 15:34 Initial 16821 -5 LOINC Fraction of Inspired Oxygen 21 % 10/29/2021 04:46 Most Recent 3150- 0 LOINC Fraction of Inspired Oxygen 21 % 10/27/2021 20:10 Initial 3150- 0 INC Pulse 60.0 /min 10/29/2021 08:58 Most Recent 8867- 4 INC Pulse 55.0 /min 10/27/2021 15:34 Initial 8867- 4 LOINC Respiration 18 /min 10/29/19 22 07:40 Most Recent 9279- 1 LOINC Respiration 12 /min 10/27/19 15:34 Initial 9279- 1 INC Temperature 36.5 Kandis 97.7 F 10/29/19 22 07:40 Most Recent 8310- 5 INC Temperature 36.3 Kandis 97.3 F 10/27/19 15:34 Initial 8310- 5 [facility] Weight 83.91 kg 185.00 lbs 10/16/2021 16:55 Initial 21576 -7 [facility] Medications Medication Start Date End Date Route Frequency Dose Code Code System Medication Instructions Home Meds Multivitamin Oral Tablet 11/26/2018 Unknown ORAL DAILY 1 unit(s) RxNorm TAKE 1 EACH ORAL DAILY oxyCODONE HCl 5MG Oral Tablet 10/29/2021 Unknown ORAL NEEDED EVERY 6 HOURS 1 TABLET 1757064 RxNorm TAKE 1 TABLET ORAL NEEDED EVERY 6 HOURS FOR Pain Atorvastatin Calcium 20MG Oral Tablet 10/29/2021 Unknown ORAL BEDTIME 20 MILLIGRAMS 815431 RxNorm TAKE 20 MILLIGRAMS ORAL BEDTIME Finasteride 5MG Oral Tablet 10/29/2021 Unknown ORAL DAILY 5 MILLIGRAMS 976045 RxNorm TAKE 5 MILLIGRAMS ORAL DAILY Gabapentin 100MG Oral Capsule 10/29/2021 Unknown ORAL NEEDED THREE TIMES A DAY 300 MILLIGRAMS 235036 RxNorm TAKE 300 MILLIGRAMS ORAL NEEDED THREE TIMES A DAY Metoprolol Succinate 50MG Oral Tablet, Extended Release 10/29/2021 Unknown ORAL DAILY 50 MILLIGRAMS 691238 RxNorm TAKE 50 MILLIGRAMS ORAL DAILY Oxybutynin Chloride 5MG Oral Tablet 10/29/2021 Unknown ORAL EVERY EVENING 5 MILLIGRAMS 556658 RxNorm TAKE 5 MILLIGRAMS ORAL EVERY EVENING Turmeric 500 MG Oral Capsule 10/29/2021 Unknown ORAL DAILY 500 MG 1113842 RxNorm TAKE 500 MG ORAL DAILY Tylenol Arthritis 650MG Oral Tablet, Extended Release 10/29/2021 Unknown ORAL NEEDED 650 MILLIGRAMS 5363929 RxNorm TAKE 650 MILLIGRAMS ORAL NEEDED Vitamin D 5000 IU Oral Capsule 10/29/2021 Unknown ORAL TWICE A DAY 5000 IU RxNorm TAKE 5000 IU ORAL TWICE A DAY Xarelto 20MG Oral Tablet 10/29/2021 Unknown ORAL DAILY 20 MILLIGRAMS 0107460 RxNorm TAKE 20 MILLIGRAMS ORAL DAILY metFORMIN HCl 500MG Oral Tablet 10/29/2021 Unknown ORAL TWICE A DAY 500 MILLIGRAMS 547393 RxNorm TAKE 500 MILLIGRAMS ORAL TWICE A [...] Nonautologous Tissue Substitute, Open Approach 10/27/2021 completed [id number] Anesthesia, Hernia Repairs, Lower Abdomen; Ventral & Incisional Hernias 10/27/2021 completed 68254 CPT Implants Implanted LAURI Status Assigning Authority Procedure Date Lot Number Serial Number Manufacturing Date Expiration Date Distinct ID Code Brand Name Model Number Abdominal hernia surgical mesh, composite- polymer 0110 8845 2119 0344 1725 0131 10PU B018 3X Active FDA PERISTOMAL VENTRAL HERNIA REPAIR WITH MESH 10/27 [id number] X 10/16/2024 Symbot ex [id number] Problems Problem Start Date Resolved Date Status Code Code 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
--- OUTSIDE RECORDS SUMMARY | 2024-05-29 16:14 | XMS_ITS ---
Author Organization Unknown Address [address] [place] [address] [phone] Phone Care Team Providers Care Wire Walker Name Role Phone SARAH Parra Attending Unavailable NEENA Moreira Primary Unavailable Social History Type Status Start Date End Date Code Code Syst em Smoking History Former smoker 09/16/[id number] Sex Male Medications Medication Start Date End Date Route Frequency Dose Code Code System Medication Instructions Home Meds Multivitamin Oral Tablet 11/26/2018 Unknown ORAL DAILY 1 unit(s) RxNorm TAKE 1 EACH ORAL DAILY oxyCODONE HCl 5MG Oral Tablet 10/29/2021 Unknown ORAL NEEDED EVERY 6 HOURS 1 TABLET [id number] RxNorm TAKE 1 TABLET ORAL NEEDED EVERY 6 HOURS FOR Pain Atorvastatin Calcium 20MG Oral Tablet 10/29/2021 Unknown ORAL BEDTIME 20 MILLIGRAMS 552159 RxNorm TAKE 20 MILLIGRAMS ORAL BEDTIME Finasteride 5MG Oral Tablet 10/29/2021 Unknown ORAL DAILY 5 MILLIGRAMS 762548 RxNorm TAKE 5 MILLIGRAMS ORAL DAILY Gabapentin 100MG Oral Capsule 10/29/2021 Unknown ORAL NEEDED THREE TIMES A DAY 300 MILLIGRAMS 351782 RxNorm TAKE 300 MILLIGRAMS ORAL NEEDED THREE TIMES A DAY Metoprolol Succinate 50MG Oral Tablet, Extended Release 10/29/2021 Unknown ORAL DAILY 50 MILLIGRAMS 934637 RxNorm TAKE 50 MILLIGRAMS ORAL DAILY Oxybutynin Chloride 5MG Oral Tablet 10/29/2021 Unknown ORAL EVERY EVENING 5 MILLIGRAMS 238622 RxNorm TAKE 5 MILLIGRAMS ORAL EVERY EVENING Turmeric 500 MG Oral Capsule 10/29/2021 Unknown ORAL DAILY 500 MG 7354294 RxNorm TAKE 500 MG ORAL DAILY Tylenol Arthritis 650MG Oral Tablet, Extended Release 10/29/2021 Unknown ORAL NEEDED 650 MILLIGRAMS 2481580 RxNorm TAKE 650 MILLIGRAMS ORAL NEEDED Vitamin D 5000 IU Oral Capsule 10/29/2021 Unknown ORAL TWICE A DAY 5000 IU RxNorm TAKE 5000 IU ORAL TWICE A DAY Xarelto 20MG Oral Tablet 10/29/2021 Unknown ORAL DAILY 20 MILLIGRAMS 4938353 RxNorm TAKE 20 MILLIGRAMS ORAL DAILY metFORMIN HCl 500MG Oral Tablet 10/29/2021 Unknown ORAL TWICE A DAY 500 MILLIGRAMS 384785 RxNorm TAKE 500 MILLIGRAMS ORAL TWICE A [...] PERISTOMAL VENTRAL HERNIA REPAIR WITH MESH 10/27 [id number] X 10/16/2024 Symbot ex [email or web address] Problems Problem Start Date Resolved Date Status Code Code 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
--- OUTSIDE RECORDS SUMMARY | 2024-05-29 16:14 | XMS_ITS ---
Author Organization Unknown Address [address] [place] [address] [phone] Phone Care Team Providers Care Tilesetter Name Role Phone SARAH Parra Attending Unavailable NEENA Moreira Primary Unavailable Social History Type Status Start Date End Date Code Code Syst em Smoking History Former smoker 09/16/[id number] Sex Male Medications Medication Start Date End Date Route Frequency Dose Code Code System Medication Instructions Home Meds Multivitamin Oral Tablet 11/26/2018 Unknown ORAL DAILY 1 unit(s) RxNorm TAKE 1 EACH ORAL DAILY Tylenol Arthritis 650MG Oral Tablet, Extended Release 11/26/2018 2 ORAL NEEDED EVERY 8 HOURS 1300 MILLIGRAMS 3475806 RxNorm TAKE 1300 MILLIGRAMS ORAL NEEDED EVERY 8 HOURS oxyCODONE HCl 5MG Oral Tablet 10/11/2019 2 ORAL NEEDED EVERY 3 HOURS 5 MILLIGRAMS 2032476 RxNorm TAKE 5 MILLIGRAMS ORAL NEEDED EVERY 3 HOURS Atorvastatin Calcium 20MG Oral Tablet 10/11/2019 2 ORAL BEDTIME 20 MILLIGRAMS 591083 RxNorm TAKE 20 MILLIGRAMS ORAL BEDTIME Flomax 0.4MG Oral Capsule 10/11/2019 2 ORAL DAILY 0.4 MILLIGRAMS 790786 RxNorm TAKE 0.4 MILLIGRAMS ORAL DAILY Gabapentin 100MG Oral Capsule 10/11/2019 2 ORAL THREE TIMES A DAY 200 MILLIGRAMS 702783 RxNorm TAKE 200 MILLIGRAMS ORAL THREE TIMES A DAY Metoprolol Succinate 50MG Oral Tablet, Extended Release 10/11/2019 2 ORAL DAILY 50 MILLIGRAMS 525888 RxNorm TAKE 50 MILLIGRAMS ORAL DAILY Xarelto 20MG Oral Tablet 10/11/2019 2 ORAL DAILY 20 MILLIGRAMS 6159677 RxNorm TAKE 20 MILLIGRAMS ORAL DAILY oxyCODONE HCl 5MG Oral Tablet 10/29/2021 Unknown ORAL NEEDED EVERY 6 HOURS 1 TABLET 9377696 RxNorm TAKE 1 TABLET ORAL NEEDED EVERY 6 HOURS FOR Pain Atorvastatin Calcium 20MG Oral Tablet 10/29/2021 Unknown ORAL BEDTIME 20 MILLIGRAMS 191196 RxNorm TAKE 20 MILLIGRAMS ORAL BEDTIME Finasteride 5MG Oral Tablet 10/29/2021 Unknown ORAL DAILY 5 MILLIGRAMS 034545 RxNorm TAKE 5 MILLIGRAMS ORAL DAILY Gabapentin 100MG Oral Capsule 10/29/2021 Unknown ORAL NEEDED THREE TIMES A DAY 300 MILLIGRAMS 866028 RxNorm TAKE 300 MILLIGRAMS ORAL NEEDED THREE TIMES A DAY Metoprolol Succinate 50MG Oral Tablet, Extended Release 10/29/2021 Unknown ORAL DAILY 50 MILLIGRAMS 102145 RxNorm TAKE 50 MILLIGRAMS ORAL DAILY Oxybutynin Chloride 5MG Oral Tablet 10/29/2021 Unknown ORAL EVERY EVENING 5 MILLIGRAMS 152632 RxNorm TAKE 5 MILLIGRAMS ORAL EVERY EVENING Turmeric 500 MG Oral Capsule 10/29/2021 Unknown ORAL DAILY 500 MG 1685469 RxNorm TAKE 500 MG ORAL DAILY Tylenol Arthritis 650MG Oral Tablet, Extended Release 10/29/2021 Unknown ORAL NEEDED 650 MILLIGRAMS 7725650 RxNorm TAKE 650 MILLIGRAMS ORAL NEEDED Vitamin D 5000 IU Oral Capsule 10/29/2021 Unknown ORAL TWICE A DAY 5000 IU RxNorm TAKE 5000 IU ORAL TWICE A DAY Xarelto 20MG Oral Tablet 10/29/2021 Unknown ORAL DAILY 20 MILLIGRAMS 6321860 RxNorm TAKE 20 MILLIGRAMS ORAL DAILY metFORMIN HCl 500MG Oral Tablet 10/29/2021 Unknown ORAL TWICE A DAY 500 MILLIGRAMS 597792 RxNorm TAKE 500 MILLIGRAMS ORAL TWICE A [...] PERISTOMAL VENTRAL HERNIA REPAIR WITH MESH 10/27 [id number] X 10/16/2024 Symbot ex SYM12 Problems Problem Start Date Resolved Date Status Code Code 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
--- OUTSIDE RECORDS SUMMARY | 2024-05-29 16:15 | XMS_ITS ---
Author Organization Unknown Address [address] [place] [address] [phone] Phone Care Team Providers Care Medical Associate Name Role Phone SARAH Parra Attending Unavailable NEENA Moreira Primary Unavailable Social History Type Status Start Date End Date Code Code Syst em Smoking History Former smoker 09/16/[address] Sex Male Medications Medication Start Date End Date Route Frequency Dose Code Code System Medication Instructions Home Meds Multivitamin Oral Tablet 11/26/2018 Unknown ORAL DAILY 1 unit(s) RxNorm TAKE 1 EACH ORAL DAILY oxyCODONE HCl 5MG Oral Tablet 10/29/2021 Unknown ORAL NEEDED EVERY 6 HOURS 1 TABLET 6658633 RxNorm TAKE 1 TABLET ORAL NEEDED EVERY 6 HOURS FOR Pain Atorvastatin Calcium 20MG Oral Tablet 10/29/2021 Unknown ORAL BEDTIME 20 MILLIGRAMS 692651 RxNorm TAKE 20 MILLIGRAMS ORAL BEDTIME Finasteride 5MG Oral Tablet 10/29/2021 Unknown ORAL DAILY 5 MILLIGRAMS 070164 RxNorm TAKE 5 MILLIGRAMS ORAL DAILY Gabapentin 100MG Oral Capsule 10/29/2021 Unknown ORAL NEEDED THREE TIMES A DAY 300 MILLIGRAMS 698836 RxNorm TAKE 300 MILLIGRAMS ORAL NEEDED THREE TIMES A DAY Metoprolol Succinate 50MG Oral Tablet, Extended Release 10/29/2021 Unknown ORAL DAILY 50 MILLIGRAMS 895355 RxNorm TAKE 50 MILLIGRAMS ORAL DAILY Oxybutynin Chloride 5MG Oral Tablet 10/29/2021 Unknown ORAL EVERY EVENING 5 MILLIGRAMS 169047 RxNorm TAKE 5 MILLIGRAMS ORAL EVERY EVENING Turmeric 500 MG Oral Capsule 10/29/2021 Unknown ORAL DAILY 500 MG 8195023 RxNorm TAKE 500 MG ORAL DAILY Tylenol Arthritis 650MG Oral Tablet, Extended Release 10/29/2021 Unknown ORAL NEEDED 650 MILLIGRAMS 8866899 RxNorm TAKE 650 MILLIGRAMS ORAL NEEDED Vitamin D 5000 IU Oral Capsule 10/29/2021 Unknown ORAL TWICE A DAY 5000 IU RxNorm TAKE 5000 IU ORAL TWICE A DAY Xarelto 20MG Oral Tablet 10/29/2021 Unknown ORAL DAILY 20 MILLIGRAMS 4044267 RxNorm TAKE 20 MILLIGRAMS ORAL DAILY metFORMIN HCl 500MG Oral Tablet 10/29/2021 Unknown ORAL TWICE A DAY 500 MILLIGRAMS 034088 RxNorm TAKE 500 MILLIGRAMS ORAL TWICE A [...] PERISTOMAL VENTRAL HERNIA REPAIR WITH MESH 10/27 [id number] X 10/16/2024 Symbot ex SYM12 Problems Problem Start Date Resolved Date Status Code Code 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 [id number] SNO MED-CT INCISIONAL HERNIA 11/26/2018 resolved 507468615 S NOMED-CT Allergies and Adverse Reactions Allergy Substance Reaction Severity Start Date Concern Status Co de Code System No Known Drug Allergies Moderate Active 196844891 SNOMED-CT Plan of Treatment Exposure 10/24/2020 LAB DRAW 15MIN 01/04/2023 CT CHEST/ABDOMEN/PELVIS W/ CONTRAST CT CHEST/ABDOMEN/PELVIS W/ CONTRAST 02/2022 LAB DRAW 15MIN 12/01/2021 PRE-OP COVID-19 TESTING 10/25/2021 CT ABDOMEN/PELVIS W/ CONTRAST 2 Encounters Encounter Diagnosis Start Date Code Code Sys tem Follow-up visit 12/07/2021 [id number] SNOMED-CT Personal Care Team Section Performer Name Performer Role Active Date Inactive Da te
--- OUTSIDE RECORDS SUMMARY | 2024-05-29 16:15 | XMS_ITS ---
Author Organization Unknown Address [address] [place] [address] [phone] Phone Care Team Providers Care Hydro Station Operator Name Role Phone LINDA ALTAMIRANO Attending Unavailable NEENA Moreira Primary Unavailable Results CT CXR ABD PELVIS WITH IV AN D ORAL* - Completed: 12/20/2021 13:58 LOINC: Radiation optimization:?? Al l CT scans at this facility use at least one of these dose optimization techniques: automated exposure control; mA and/or kV adjustment per patient size (includes targeted exams where dose is matched to clinical indication); or iterative reconstruction. CT SCAN OF THE CHEST, ABDOMEN, AND PELVIS: Comparison is 09/25/2021 and 12/26/2020. CT OF THE ABDOMEN AND PELVIS: There has been no change in appearance of the two exophytic lesions arising from the posterior segment of the right lobe of the liver. There is again seen a partially calcified lesion and a hypodense lesion. These are stable. No new hepatic masses are identified. The portal, superior mesenteric, and splenic veins are patent. The gallbladder is unchanged. No acute abnormality. No biliary ductal dilatation is seen. The pancreas, spleen, and adrenal glands are unremarkable. The kidneys show normal and symmetric enhancement. There are tiny hypodensities seen in the kidneys. They are too small for further characterization, but likely reflect small cysts. Non-obstructing stones are seen in both kidneys. The urinary bladder is incompletely distended. There is thickening of the wall of the urinary bladder, likely reflecting the under distension. Cystitis is considered less likely. Reproductive organs are unremarkable. Note is made of a right hydrocele. There is atherosclerosis of the abdominal aorta, but no aneurysmal dilatation is present. No significant abdominal or pelvic adenopathy, ascites, or pneumoperitoneum. Since the prior examination, there has been a repair of the patient's right anterior abdominal wall hernia. There is a small amount of fluid seen within the rectus abdominus muscle and a subcutaneous fluid collection overlying the right anterior abdominal wall measuring 1.7 x 3.2 cm. There is infiltration of the surrounding fat. The soft tissues are otherwise unremarkable. The patient has had a subtotal colectomy. The bowel shows no evidence of obstruction or inflammation. No suspicious lytic or sclerotic lesions are seen in the bones. IMPRESSION: 1. No definite evidence of metastatic disease in the abdomen or pelvis. 2. Stable benign appearing lesions in the liver. 3. Interval anterior abdominal wall hernia repair. There is a small fluid collection in the subcutaneous tissues in the anterior abdominal wall. Differential considerations include resolving hematoma, seroma, or abscess. Please correlate clinically. No evidence of a recurrent anterior abdominal wall hernia. CT SCAN OF THE CHEST: The thyroid gland is unremarkable. The thoracic aorta is of normal caliber with mild atherosclerosis. Heart size is within normal limits. Coronary artery calcifications are seen. No pericardial effusion is present. There is no evidence of a pulmonary embolism. There is no pleural effusion. No thoracic adenopathy or pneumothorax is identified. The soft tissues are unremarkable. The tracheobronchial tree is unremarkable. Calcified granulomas are present. No noncalcified pulmonary nodules are seen. No infiltrates are present. No pneumothorax is identified. No suspicious lytic or sclerotic lesions are present. IMPRESSION: No evidence of metastatic disease of the chest. Dictated by: DOV BECKER MD Transcribed by: ZENA 12/20/21/14:16 [id number] Electronically Reviewed and Signed By: MENDEZ BECKER MD 12/20/21 14:33 Copy for: LINDA ALTAMIRANO via fax Copy for: NEENA Moreira via fax Copy for: [facility] Social History Type Status Start Date End Date Code Code Syst em Smoking History Former smoker 09/16/[id number] Sex Male Medications Medication Start Date End Date Route Frequency Dose Code Code System Medication Instructions Home Meds Multivitamin Oral Tablet 11/26/2018 Unknown ORAL DAILY 1 unit(s) RxNorm TAKE 1 EACH ORAL DAILY oxyCODONE HCl 5MG Oral Tablet 10/29/2021 Unknown ORAL NEEDED EVERY 6 HOURS 1 TABLET 0695949 RxNorm TAKE 1 TABLET ORAL NEEDED EVERY 6 HOURS FOR Pain Atorvastatin Calcium 20MG Oral Tablet 10/29/2021 Unknown ORAL BEDTIME 20 MILLIGRAMS 964308 RxNorm TAKE 20 MILLIGRAMS ORAL BEDTIME Finasteride 5MG Oral Tablet 10/29/2021 Unknown ORAL DAILY 5 MILLIGRAMS 982353 RxNorm TAKE 5 MILLIGRAMS ORAL DAILY Gabapentin 100MG Oral Capsule 10/29/2021 Unknown ORAL NEEDED THREE TIMES A DAY 300 MILLIGRAMS 282228 RxNorm TAKE 300 MILLIGRAMS ORAL NEEDED THREE TIMES A DAY Metoprolol Succinate 50MG Oral Tablet, Extended Release 10/29/2021 Unknown ORAL DAILY 50 MILLIGRAMS 322859 RxNorm TAKE 50 MILLIGRAMS ORAL DAILY Oxybutynin Chloride 5MG Oral Tablet 10/29/2021 Unknown ORAL EVERY EVENING 5 MILLIGRAMS 818245 RxNorm TAKE 5 MILLIGRAMS ORAL EVERY EVENING Turmeric 500 MG Oral Capsule 10/29/2021 Unknown ORAL DAILY 500 MG 6553124 RxNorm TAKE 500 MG ORAL DAILY Tylenol Arthritis 650MG Oral Tablet, Extended Release 10/29/2021 Unknown ORAL NEEDED 650 MILLIGRAMS 9015856 RxNorm TAKE 650 MILLIGRAMS ORAL NEEDED Vitamin D 5000 IU Oral Capsule 10/29/2021 Unknown ORAL TWICE A DAY 5000 IU RxNorm TAKE 5000 IU ORAL TWICE A DAY Xarelto 20MG Oral Tablet 10/29/2021 Unknown ORAL DAILY 20 MILLIGRAMS 2759585 RxNorm TAKE 20 MILLIGRAMS ORAL DAILY metFORMIN HCl 500MG Oral Tablet 10/29/2021 Unknown ORAL TWICE A DAY 500 MILLIGRAMS 261000 RxNorm TAKE 500 MILLIGRAMS ORAL TWICE A [...] PERISTOMAL VENTRAL HERNIA REPAIR WITH MESH 10/27 [id number] X 10/16/2024 Symbot ex SYM12 Problems Problem Start Date Resolved Date Status Code Code 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 651701715 SNO MED-CT INCISIONAL HERNIA 11/26/2018 resolved 960717648 S NOMED-CT Allergies and Adverse Reactions Allergy Substance Reaction Severity Start Date Concern Status Co de Code System No Known Drug Allergies Moderate Active 367831565 SNOMED-CT Plan of Treatment Exposure 10/24/2020 LAB DRAW 15MIN 01/04/2023 CT CHEST/ABDOMEN/PELVIS W/ CONTRAST CT CHEST/ABDOMEN/PELVIS W/ CONTRAST 02/2022 LAB DRAW 15MIN 12/01/2021 PRE-OP COVID-19 TESTING 10/25/2021 CT ABDOMEN/PELVIS W/ CONTRAST 2 Encounters Encounter Diagnosis Start Date Code Code 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
--- OUTSIDE RECORDS SUMMARY | 2024-05-29 16:16 | XMS_ITS ---
Author Organization Unknown Address [address] [place] [address] [phone] Phone Care Team Providers Care Concrete Tester Name Role Phone IGNACIO Coates Attending Unavailable NEENA Moreira Primary Unavailable Social History Type Status Start Date End Date Code Code Syst em Smoking History Former smoker 09/16/[address] Sex Male Medications Medication Start Date End Date Route Frequency Dose Code Code System Medication Instructions Home Meds Multivitamin Oral Tablet 11/26/2018 Unknown ORAL DAILY 1 unit(s) RxNorm TAKE 1 EACH ORAL DAILY oxyCODONE HCl 5MG Oral Tablet 10/29/2021 Unknown ORAL NEEDED EVERY 6 HOURS 1 TABLET 0647550 RxNorm TAKE 1 TABLET ORAL NEEDED EVERY 6 HOURS FOR Pain Atorvastatin Calcium 20MG Oral Tablet 10/29/2021 Unknown ORAL BEDTIME 20 MILLIGRAMS 759113 RxNorm TAKE 20 MILLIGRAMS ORAL BEDTIME Finasteride 5MG Oral Tablet 10/29/2021 Unknown ORAL DAILY 5 MILLIGRAMS 034112 RxNorm TAKE 5 MILLIGRAMS ORAL DAILY Gabapentin 100MG Oral Capsule 10/29/2021 Unknown ORAL NEEDED THREE TIMES A DAY 300 MILLIGRAMS 643063 RxNorm TAKE 300 MILLIGRAMS ORAL NEEDED THREE TIMES A DAY Metoprolol Succinate 50MG Oral Tablet, Extended Release 10/29/2021 Unknown ORAL DAILY 50 MILLIGRAMS 927041 RxNorm TAKE 50 MILLIGRAMS ORAL DAILY Oxybutynin Chloride 5MG Oral Tablet 10/29/2021 Unknown ORAL EVERY EVENING 5 MILLIGRAMS 457573 RxNorm TAKE 5 MILLIGRAMS ORAL EVERY EVENING Turmeric 500 MG Oral Capsule 10/29/2021 Unknown ORAL DAILY 500 MG 0214582 RxNorm TAKE 500 MG ORAL DAILY Tylenol Arthritis 650MG Oral Tablet, Extended Release 10/29/2021 Unknown ORAL NEEDED 650 MILLIGRAMS 7460657 RxNorm TAKE 650 MILLIGRAMS ORAL NEEDED Vitamin D 5000 IU Oral Capsule 10/29/2021 Unknown ORAL TWICE A DAY 5000 IU RxNorm TAKE 5000 IU ORAL TWICE A DAY Xarelto 20MG Oral Tablet 10/29/2021 Unknown ORAL DAILY 20 MILLIGRAMS 5566803 RxNorm TAKE 20 MILLIGRAMS ORAL DAILY metFORMIN HCl 500MG Oral Tablet 10/29/2021 Unknown ORAL TWICE A DAY 500 MILLIGRAMS 915229 RxNorm TAKE 500 MILLIGRAMS ORAL TWICE A [...] PERISTOMAL VENTRAL HERNIA REPAIR WITH MESH 10/27 [id number] X 10/16/2024 Symbot ex SYM12 Problems Problem Start Date Resolved Date Status Code Code 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
--- OUTSIDE RECORDS SUMMARY | 2024-05-29 16:16 | XMS_ITS ---
Author Organization Unknown Address [address] [place] [address] [phone] Phone Care Team Providers Care Truck Service Manager Name Role Phone NEENA Moreira Attending Unavailable Results XR KNEE 4V LT* - Completed: 08/13/2022 15:43 LOINC: [facility] [place], [place] [address] PACS TOP LIFT COMPRESSOR REPORT Patient Name: VIOLETTE MOTLEY Dilan MRN: Sex: : Age: [id number] M [id number] Account: Accession: Admit: StayType: [id number] 08/13/2022 O/P Ordered: Order ID: Submitted: Ordering Provider: 08/13/2022 14:27 [id number] [facility] AYAZ CHAUDHARY Completed: Technologist: Resulted: 08/13/2022 15:43 MLL 08/13/2022 18:48 Study Description: XR KNEE 4V LT* Study Reason: LT KNEE PAIN 2D digital imaging was performed. COMPARISON: No exams were available for comparison? FINDINGS: No evidence of fracture but there is a moderate-sized joint effusion. Also enthesophytes off the anterosuperior and anteroinferior aspect of the patella. Moderate degenerative changes in the knee joint. 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 IMPRESSION: Degenerative changes. Joint effusion. 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 Further imaging recommended Report Digitally Signed by Aleks Ellsworth on 08/13/2022 06:48 PM EST Social History Type Status Start Date End Date Code Code Syst em Smoking History Former smoker 09/16/[address] Sex Male Medications Medication Start Date End Date Route Frequency Dose Code Code System Medication Instructions Home Meds Multivitamin Oral Tablet 11/26/2018 Unknown ORAL DAILY 1 unit(s) RxNorm TAKE 1 EACH ORAL DAILY oxyCODONE HCl 5MG Oral Tablet 10/29/2021 Unknown ORAL NEEDED EVERY 6 HOURS 1 TABLET 1948501 RxNorm TAKE 1 TABLET ORAL NEEDED EVERY 6 HOURS FOR Pain Atorvastatin Calcium 20MG Oral Tablet 10/29/2021 Unknown ORAL BEDTIME 20 MILLIGRAMS 695406 RxNorm TAKE 20 MILLIGRAMS ORAL BEDTIME Finasteride 5MG Oral Tablet 10/29/2021 Unknown ORAL DAILY 5 MILLIGRAMS 681591 RxNorm TAKE 5 MILLIGRAMS ORAL DAILY Gabapentin 100MG Oral Capsule 10/29/2021 Unknown ORAL NEEDED THREE TIMES A DAY 300 MILLIGRAMS 529015 RxNorm TAKE 300 MILLIGRAMS ORAL NEEDED THREE TIMES A DAY Metoprolol Succinate 50MG Oral Tablet, Extended Release 10/29/2021 Unknown ORAL DAILY 50 MILLIGRAMS 888082 RxNorm TAKE 50 MILLIGRAMS ORAL DAILY Oxybutynin Chloride 5MG Oral Tablet 10/29/2021 Unknown ORAL EVERY EVENING 5 MILLIGRAMS 585495 RxNorm TAKE 5 MILLIGRAMS ORAL EVERY EVENING Turmeric 500 MG Oral Capsule 10/29/2021 Unknown ORAL DAILY 500 MG 7491180 RxNorm TAKE 500 MG ORAL DAILY Tylenol Arthritis 650MG Oral Tablet, Extended Release 10/29/2021 Unknown ORAL NEEDED 650 MILLIGRAMS 8461511 RxNorm TAKE 650 MILLIGRAMS ORAL NEEDED Vitamin D 5000 IU Oral Capsule 10/29/2021 Unknown ORAL TWICE A DAY 5000 IU RxNorm TAKE 5000 IU ORAL TWICE A DAY Xarelto 20MG Oral Tablet 10/29/2021 Unknown ORAL DAILY 20 MILLIGRAMS 1643502 RxNorm TAKE 20 MILLIGRAMS ORAL DAILY metFORMIN HCl 500MG Oral Tablet 10/29/2021 Unknown ORAL TWICE A DAY 500 MILLIGRAMS 274179 RxNorm TAKE 500 MILLIGRAMS ORAL TWICE A [...] PERISTOMAL VENTRAL HERNIA REPAIR WITH MESH 10/27 [id number] X 10/16/2024 Symbot ex SYM12 Problems Problem Start Date Resolved Date Status Code Code 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
--- OUTSIDE RECORDS SUMMARY | 2024-05-29 16:17 | XMS_ITS ---
Author Organization Unknown Address [address] [place] [address] [phone] Phone Care Team Providers Care Gift Shop Assistant Name Role Phone LORRIE Bauer Attending Unavailable NEENA Moreira Primary Unavailable Social History Type Status Start Date End Date Code Code Syst em Smoking History Former smoker 09/16/[id number] Sex Male Medications Medication Start Date End Date Route Frequency Dose Code Code System Medication Instructions Home Meds Multivitamin Oral Tablet 11/26/2018 Unknown ORAL DAILY 1 unit(s) RxNorm TAKE 1 EACH ORAL DAILY oxyCODONE HCl 5MG Oral Tablet 10/29/2021 Unknown ORAL NEEDED EVERY 6 HOURS 1 TABLET 3109882 RxNorm TAKE 1 TABLET ORAL NEEDED EVERY 6 HOURS FOR Pain Atorvastatin Calcium 20MG Oral Tablet 10/29/2021 Unknown ORAL BEDTIME 20 MILLIGRAMS 424354 RxNorm TAKE 20 MILLIGRAMS ORAL BEDTIME Finasteride 5MG Oral Tablet 10/29/2021 Unknown ORAL DAILY 5 MILLIGRAMS 238498 RxNorm TAKE 5 MILLIGRAMS ORAL DAILY Gabapentin 100MG Oral Capsule 10/29/2021 Unknown ORAL NEEDED THREE TIMES A DAY 300 MILLIGRAMS 390649 RxNorm TAKE 300 MILLIGRAMS ORAL NEEDED THREE TIMES A DAY Metoprolol Succinate 50MG Oral Tablet, Extended Release 10/29/2021 Unknown ORAL DAILY 50 MILLIGRAMS 322788 RxNorm TAKE 50 MILLIGRAMS ORAL DAILY Oxybutynin Chloride 5MG Oral Tablet 10/29/2021 Unknown ORAL EVERY EVENING 5 MILLIGRAMS 297848 RxNorm TAKE 5 MILLIGRAMS ORAL EVERY EVENING Turmeric 500 MG Oral Capsule 10/29/2021 Unknown ORAL DAILY 500 MG 0326570 RxNorm TAKE 500 MG ORAL DAILY Tylenol Arthritis 650MG Oral Tablet, Extended Release 10/29/2021 Unknown ORAL NEEDED 650 MILLIGRAMS 6621821 RxNorm TAKE 650 MILLIGRAMS ORAL NEEDED Vitamin D 5000 IU Oral Capsule 10/29/2021 Unknown ORAL TWICE A DAY 5000 IU RxNorm TAKE 5000 IU ORAL TWICE A DAY Xarelto 20MG Oral Tablet 10/29/2021 Unknown ORAL DAILY 20 MILLIGRAMS 5021742 RxNorm TAKE 20 MILLIGRAMS ORAL DAILY metFORMIN HCl 500MG Oral Tablet 10/29/2021 Unknown ORAL TWICE A DAY 500 MILLIGRAMS 963088 RxNorm TAKE 500 MILLIGRAMS ORAL TWICE A [...] PERISTOMAL VENTRAL HERNIA REPAIR WITH MESH 10/27 [id number] X 10/16/2024 Symbot ex [email or web address] Problems Problem Start Date Resolved Date Status Code Code 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 [id number] SNO MED-CT INCISIONAL HERNIA 11/26/2018 resolved 828127567 S NOMED-CT Allergies and Adverse Reactions Allergy Substance Reaction Severity Start Date Concern Status Co de Code System No Known Drug Allergies Moderate Active 625301908 SNOMED-CT Plan of Treatment Exposure 10/24/2020 LAB [...]
--- OUTSIDE RECORDS SUMMARY | 2024-05-29 16:17 | XMS_ITS ---
Author Organization Unknown Address [address] [place] [address] [phone] Phone Care Team Providers Care Senior Ux Developer Name Role Phone IGNACIO Coates Attending Unavailable NEENA Moreira Primary Unavailable Social History Type Status Start Date End Date Code Code Syst em Smoking History Former smoker 09/16/[address] Sex Male Medications Medication Start Date End Date Route Frequency Dose Code Code System Medication Instructions Home Meds Multivitamin Oral Tablet 11/26/2018 Unknown ORAL DAILY 1 unit(s) RxNorm TAKE 1 EACH ORAL DAILY oxyCODONE HCl 5MG Oral Tablet 10/29/2021 Unknown ORAL NEEDED EVERY 6 HOURS 1 TABLET 4972058 RxNorm TAKE 1 TABLET ORAL NEEDED EVERY 6 HOURS FOR Pain Atorvastatin Calcium 20MG Oral Tablet 10/29/2021 Unknown ORAL BEDTIME 20 MILLIGRAMS 757476 RxNorm TAKE 20 MILLIGRAMS ORAL BEDTIME Finasteride 5MG Oral Tablet 10/29/2021 Unknown ORAL DAILY 5 MILLIGRAMS 243960 RxNorm TAKE 5 MILLIGRAMS ORAL DAILY Gabapentin 100MG Oral Capsule 10/29/2021 Unknown ORAL NEEDED THREE TIMES A DAY 300 MILLIGRAMS 433679 RxNorm TAKE 300 MILLIGRAMS ORAL NEEDED THREE TIMES A DAY Metoprolol Succinate 50MG Oral Tablet, Extended Release 10/29/2021 Unknown ORAL DAILY 50 MILLIGRAMS 796929 RxNorm TAKE 50 MILLIGRAMS ORAL DAILY Oxybutynin Chloride 5MG Oral Tablet 10/29/2021 Unknown ORAL EVERY EVENING 5 MILLIGRAMS 092559 RxNorm TAKE 5 MILLIGRAMS ORAL EVERY EVENING Turmeric 500 MG Oral Capsule 10/29/2021 Unknown ORAL DAILY 500 MG 1144374 RxNorm TAKE 500 MG ORAL DAILY Tylenol Arthritis 650MG Oral Tablet, Extended Release 10/29/2021 Unknown ORAL NEEDED 650 MILLIGRAMS 0674400 RxNorm TAKE 650 MILLIGRAMS ORAL NEEDED Vitamin D 5000 IU Oral Capsule 10/29/2021 Unknown ORAL TWICE A DAY 5000 IU RxNorm TAKE 5000 IU ORAL TWICE A DAY Xarelto 20MG Oral Tablet 10/29/2021 Unknown ORAL DAILY 20 MILLIGRAMS 4936115 RxNorm TAKE 20 MILLIGRAMS ORAL DAILY metFORMIN HCl 500MG Oral Tablet 10/29/2021 Unknown ORAL TWICE A DAY 500 MILLIGRAMS 114572 RxNorm TAKE 500 MILLIGRAMS ORAL TWICE A [...] PERISTOMAL VENTRAL HERNIA REPAIR WITH MESH 10/27 [id number] X 10/16/2024 Symbot ex [email or web address] Problems Problem Start Date Resolved Date Status Code Code 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 [id number] SNO MED-CT INCISIONAL HERNIA 11/26/2018 resolved 217473081 S NOMED-CT Allergies and Adverse Reactions Allergy Substance Reaction Severity Start Date Concern Status Co de Code System No Known Drug Allergies Moderate Active 719748610 SNOMED-CT Plan of Treatment Exposure 10/24/2020 LAB DRAW 15MIN 01/04/2023 CT CHEST/ABDOMEN/PELVIS W/ CONTRAST CT CHEST/ABDOMEN/PELVIS W/ CONTRAST 02/2022 LAB DRAW 15MIN 12/01/2021 PRE-OP COVID-19 TESTING 10/25/2021 CT ABDOMEN/PELVIS W/ CONTRAST 2 Encounters Encounter Diagnosis Start Date Code Code Sys tem Paroxysmal atrial fibrillation 03/28/2023 810212302 SNOMED-CT Personal Care Team Section Performer Name Performer Role Active Date Inactive Da te
--- OUTSIDE RECORDS SUMMARY | 2024-05-29 16:17 | XMS_ITS ---
Author Organization Unknown Address [address] [place] [address] [phone] Phone Care Team Providers Care Metal Spray Operator Name Role Phone LINDA ALTAMIRANO Attending Unavailable NEENA Moreira Primary Unavailable Results BUN/CREATININE RATIO FOR RAD IOLOGY* - Collect Date/Time: 01/04/2023 09:04 [facility] ID: [id number] - [id number] [address] [place] [address], [address] LOINC: 3097-3 Test Value Unit Reference Range Code Code System Flag BUN 21 mg/dL L=6 H=25 3094-0 LOINC CREATININE 1.23 mg/dL L=0.67 H=1.17 2160-0 LOINC H BUN/CREATININE RATIO 17.1 3097-3 LOINC AGE 82 years eGFR (non-Afr.Amer) 56 mL/min 13531-5 LOINC eGFR (Afr-Singaporean) 68 mL/min 77640-[address] CXR ABD PELVIS WITH IV AN D ORAL* - Completed: 01/04/2023 11:02 LOINC: [facility] RADIOLOGY [place], [place] [address] PACS DINKEY OPERATOR REPORT Patient Name: VIOLETTE MOTLEY MRN: Sex: : Age: [id number] M [id number] Account: Accession: Admit: StayType: [id number] 01/04/2023 O/P Ordered: Order ID: Submitted: Ordering Provider: 01/04/2023 08:53 [id number] EVELIA FONSECA Completed: Technologist: Resulted: 01/04/2023 11:02 MLL 01/04/2023 11:12 Study Description: CT CXR ABD PELVIS WITH IV AND ORAL* Study Reason: MALIG NEOPLASM OF Comparison: 20 December 2021 Imaging Protocol: Axial computed tomography images with coronal and sagittal reformatted images were created and reviewed. Contrast Material: Intravenous: Contrast volume: mL Oral: FINDINGS: CHEST: Tracheobronchial tree: Patent where visualized. Pulmonary parenchyma: No consolidation or dominant measurable mass. No architectural distortion. Visualized thyroid gland: Unremarkable. Mediastinum and Suha: No dominant adenopathy or fluid collection. Pleura: No effusion or pneumothorax. Heart: The heart is not dilated. Moderate to severe coronary artery calcifications are seen. No pericardial effusion. Aorta: Thoracic aorta non-dilated. Pulmonary Arteries: Unremarkable. Tubes, Catheters, and Lines: None Soft tissues: Unremarkable. Bones:Unremarkable for age. ABDOMEN: Liver: Normal density. Stable calcified exophytic lesion posterior right lobe. Stable noncalcified exophytic lesion inferior right lobe no new lesions. Portal, Superior Mesenteric, and Splenic Veins: Unremarkable. Gallbladder and Biliary Tract: No radiodense calculus or dilation. Pancreas: Normal density, no abnormal calcifications or inflammatory process. Spleen: Normal. Adrenals: No masses seen. Kidneys: Normal size, contour and axis. Tiny nonobstructing renal calculi. No obstructive uropathy. No masses seen. Abdominal Aorta: Abdominal portion non-dilated. Atherosclerotic changes. Bowel: Right hemicolectomy. Anastomosis unremarkable. No obstruction or bowel wall thickening. Appendix is unremarkable. Peritoneal Cavity: No ascites, collection or mesenteric inflammatory response. No free air. Lymph Nodes: Within normal limits. Bones: Unremarkable. Soft Tissues: Unremarkable. Resolution of previously noted collection anterior abdominal wall. Minimal residual scarring. PELVIS: Bladder: Symmetric distention, no gross wall thickening. Reproductive Organs: Status post prostatectomy. Right hydrocele only partially visualized. Lymph Nodes: Within normal limits. Bones: Degenerative changes in the spine. IMPRESSION: 1. Stable liver lesions. No evidence of adenopathy.. 2. No evidence of metastatic disease in the chest the chest. Radiation Optimization: All CT scans at this facility use at least one of these dose optimization techniques: automated exposure control; mA and/or kV adjustment per patient size (includes targeted exams where dose is matched to clinical indication); or iterative reconstruction. Report Digitally Signed by Joanne Sparrow on 01/04/2023 11:12 AM EDT 01/04/[email or web address].to NEENA DRUMMOND via fax Social History Type Status Start Date End Date Code Code Syst em Smoking History Former smoker 09/16/[address] Sex Male Medications Medication Start Date End Date Route Frequency Dose Code Code System Medication Instructions Home Meds Multivitamin Oral Tablet 11/26/2018 Unknown ORAL DAILY 1 unit(s) RxNorm TAKE 1 EACH ORAL DAILY oxyCODONE HCl 5MG Oral Tablet 10/29/2021 Unknown ORAL NEEDED EVERY 6 HOURS 1 TABLET 1733140 RxNorm TAKE 1 TABLET ORAL NEEDED EVERY 6 HOURS FOR Pain Atorvastatin Calcium 20MG Oral Tablet 10/29/2021 Unknown ORAL BEDTIME 20 MILLIGRAMS 158244 RxNorm TAKE 20 MILLIGRAMS ORAL BEDTIME Finasteride 5MG Oral Tablet 10/29/2021 Unknown ORAL DAILY 5 MILLIGRAMS 068394 RxNorm TAKE 5 MILLIGRAMS ORAL DAILY Gabapentin 100MG Oral Capsule 10/29/2021 Unknown ORAL NEEDED THREE TIMES A DAY 300 MILLIGRAMS 028323 RxNorm TAKE 300 MILLIGRAMS ORAL NEEDED THREE TIMES A DAY Metoprolol Succinate 50MG Oral Tablet, Extended Release 10/29/2021 Unknown ORAL DAILY 50 MILLIGRAMS 890125 RxNorm TAKE 50 MILLIGRAMS ORAL DAILY Oxybutynin Chloride 5MG Oral Tablet 10/29/2021 Unknown ORAL EVERY EVENING 5 MILLIGRAMS 437904 RxNorm TAKE 5 MILLIGRAMS ORAL EVERY EVENING Turmeric 500 MG Oral Capsule 10/29/2021 Unknown ORAL DAILY 500 MG 3913276 RxNorm TAKE 500 MG ORAL DAILY Tylenol Arthritis 650MG Oral Tablet, Extended Release 10/29/2021 Unknown ORAL NEEDED 650 MILLIGRAMS 4872327 RxNorm TAKE 650 MILLIGRAMS ORAL NEEDED Vitamin D 5000 IU Oral Capsule 10/29/2021 Unknown ORAL TWICE A DAY 5000 IU RxNorm TAKE 5000 IU ORAL TWICE A DAY Xarelto 20MG Oral Tablet 10/29/2021 Unknown ORAL DAILY 20 MILLIGRAMS 0507063 RxNorm TAKE 20 MILLIGRAMS ORAL DAILY metFORMIN HCl 500MG Oral Tablet 10/29/2021 Unknown ORAL TWICE A DAY 500 MILLIGRAMS 967725 RxNorm TAKE 500 MILLIGRAMS ORAL TWICE A [...] PERISTOMAL VENTRAL HERNIA REPAIR WITH MESH 10/27 [id number] X 10/16/2024 Symbot ex SYM12 Problems Problem Start Date Resolved Date Status Code Code 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 358920028 SNO MED-CT INCISIONAL HERNIA 11/26/2018 resolved 254287325 S NOMED-CT Allergies and Adverse Reactions Allergy Substance Reaction Severity Start Date Concern Status Co de Code System No Known Drug Allergies Moderate Active 969265463 SNOMED-CT Plan of Treatment Exposure 10/24/2020 LAB DRAW 15MIN 01/04/2023 CT CHEST/ABDOMEN/PELVIS W/ CONTRAST CT CHEST/ABDOMEN/PELVIS W/ CONTRAST 02/2022 LAB DRAW 15MIN 12/01/2021 PRE-OP COVID-19 TESTING 10/25/2021 CT ABDOMEN/PELVIS W/ CONTRAST 2 Encounters Encounter Diagnosis Start Date Code Code Sys tem 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
--- OUTSIDE RECORDS SUMMARY | 2024-05-29 16:17 | XMS_ITS ---
Author Organization Unknown Address [address] [place] [address] [phone] Phone Care Team Providers Care Stakes Player Name Role Phone ROOMET MARYLOU Attending Unavailable NEENA Moreira Primary Unavailable Social History Type Status Start Date End Date Code Code Syst em Smoking History Former smoker 09/16/[address] Sex Male Medications Medication Start Date End Date Route Frequency Dose Code Code System Medication Instructions Home Meds Multivitamin Oral Tablet 11/26/2018 Unknown ORAL DAILY 1 unit(s) RxNorm TAKE 1 EACH ORAL DAILY oxyCODONE HCl 5MG Oral Tablet 10/29/2021 Unknown ORAL NEEDED EVERY 6 HOURS 1 TABLET 4719119 RxNorm TAKE 1 TABLET ORAL NEEDED EVERY 6 HOURS FOR Pain Atorvastatin Calcium 20MG Oral Tablet 10/29/2021 Unknown ORAL BEDTIME 20 MILLIGRAMS 361199 RxNorm TAKE 20 MILLIGRAMS ORAL BEDTIME Finasteride 5MG Oral Tablet 10/29/2021 Unknown ORAL DAILY 5 MILLIGRAMS 261149 RxNorm TAKE 5 MILLIGRAMS ORAL DAILY Gabapentin 100MG Oral Capsule 10/29/2021 Unknown ORAL NEEDED THREE TIMES A DAY 300 MILLIGRAMS 739559 RxNorm TAKE 300 MILLIGRAMS ORAL NEEDED THREE TIMES A DAY Metoprolol Succinate 50MG Oral Tablet, Extended Release 10/29/2021 Unknown ORAL DAILY 50 MILLIGRAMS 046054 RxNorm TAKE 50 MILLIGRAMS ORAL DAILY Oxybutynin Chloride 5MG Oral Tablet 10/29/2021 Unknown ORAL EVERY EVENING 5 MILLIGRAMS 480172 RxNorm TAKE 5 MILLIGRAMS ORAL EVERY EVENING Turmeric 500 MG Oral Capsule 10/29/2021 Unknown ORAL DAILY 500 MG 9221838 RxNorm TAKE 500 MG ORAL DAILY Tylenol Arthritis 650MG Oral Tablet, Extended Release 10/29/2021 Unknown ORAL NEEDED 650 MILLIGRAMS 3804717 RxNorm TAKE 650 MILLIGRAMS ORAL NEEDED Vitamin D 5000 IU Oral Capsule 10/29/2021 Unknown ORAL TWICE A DAY 5000 IU RxNorm TAKE 5000 IU ORAL TWICE A DAY Xarelto 20MG Oral Tablet 10/29/2021 Unknown ORAL DAILY 20 MILLIGRAMS 3060285 RxNorm TAKE 20 MILLIGRAMS ORAL DAILY metFORMIN HCl 500MG Oral Tablet 10/29/2021 Unknown ORAL TWICE A DAY 500 MILLIGRAMS 341336 RxNorm TAKE 500 MILLIGRAMS ORAL TWICE A [...] PERISTOMAL VENTRAL HERNIA REPAIR WITH MESH 10/27 [id number] X 10/16/2024 Symbot ex SYM12 Problems Problem Start Date Resolved Date Status Code Code 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 653188085 SNO MED-CT INCISIONAL HERNIA 11/26/2018 resolved 907791581 S NOMED-CT Allergies and Adverse Reactions Allergy Substance Reaction Severity Start Date Concern Status Co de Code System No Known Drug Allergies Moderate Active 581005068 SNOMED-CT Plan of Treatment Exposure 10/24/2020 LAB DRAW 15MIN 01/04/2023 CT CHEST/ABDOMEN/PELVIS W/ CONTRAST CT CHEST/ABDOMEN/PELVIS W/ CONTRAST 02/2022 LAB DRAW 15MIN 12/01/2021 PRE-OP COVID-19 TESTING 10/25/2021 CT ABDOMEN/PELVIS W/ CONTRAST 2 Encounters Encounter Diagnosis Start Date Code Code Sys tem Refusal of treatment by patient 10/23/2022 720337258 SNOMED-CT Personal Care Team Section Performer Name Performer Role Active Date Inactive Da te
--- OUTSIDE RECORDS SUMMARY | 2024-05-29 16:18 | XMS_ITS | Encounter Summary ---
Author Organization [facility] Address [address] [place] [address] Care Team Providers Care Parachute Crown Sewer Name Role Phone Nam Gonzalez MD Primary Care Provider Unav ailable Reason for Visit * Reason Onset Date Comments Other 11/17/2020 left pt msg to c jaja appt Encounter Details Date Type Department Care Team (Late st Contact Info) Description 11/17/2020 Telephone [facility] [address] [place] [address] [phone] [place] [id number] [facility] [address] [place] [address] Other (left pt msg to change appt) Social History Tobacco Use Types Packs/Day Years Used Date Smoking Tobacco: Former Smokeless Tobacco: Former Interpersonal Safety Answer Date Record ed Physically Hurt Never 04/17/2020 Verbally Threaten Not on file 04/17/2020 Sex and Gender Information Value Date Recorded Sex Assigned at Not on file Gender Identity Male 11/13/2019 8:44 EST Sexual Orientation Not on file documented as of this encounter Functional Status Functional Status Response Date of Assess ment Because of a physical, menta l, or emotional condition, does this person have difficulty doing errands alone such as visiting a doctor's office or shopping? No 11/16/2019 Cognitive Status Response Date of Assessm ent Because of a physical, menta l, or emotional condition, does this person have serious difficulty concentrating, remembering, or making decisions? No 11/16/2019 documented as of this encounter Miscellaneous Notes * Telephone Encounter - Faviola Romeo - 11/18/2020 1040 EST Left another message for PT to call office * Telephone Encounter - Carolina Law - 11/17/2020 1608 EST Left pt msg to call the office to reschedule appt with Dr Avilez. The appt is scheduled for 11/22/20. documented in this encounter Plan of Treatment Not on file documented as of this encounter Visit Diagnoses Not on filedocumented in this encounter Care Teams Parachute Crown Sewer Relationship Specialty Start Date End Date Nam Gonzalez MD PCP - General 07/21/15 12/28/20 documented as of this encounter
--- OUTSIDE RECORDS SUMMARY | 2024-05-29 16:18 | XMS_ITS | Encounter Summary ---
Author Organization [facility] Address [address] [place] [address] Care Team Providers Care Course Instructor Name Role Phone Nam Gonzalez MD Primary Care Provider Unav ailable Encounter Details Date Type Department Care Team (Late st Contact Info) Description 07/09/2018 Historical Results Only [facility] [place] [address] [place] [address] [phone] [place] [address] [facility] [address] [place] [phone] (Fax) Social History Tobacco Use Types Packs/Day Years Used Date Smoking Tobacco: Never Assessed Sex and Gender Information Value Date Recorded Sex Assigned at Not on file Gender Identity Male 11/13/2019 8:44 EST Sexual Orientation Not on file documented as of this encounter Plan of Treatment Not on file documented as of this encounter Procedures Procedure Name Priority Date/Time Associated Diagnosis Comments CEA Routine 07/09/2018 10:42 EDT CBC W/PLT & DIFF,POINT OF CARE - [facility] Routine 07/09/2018 10:22 EDT documented in this encounter Results * CEA (07/09/2018 10:42 EDT) CEA 1.1 () ng/mL 07/10/2018 20:49 EDT [facility] Comment: REFERENCE VALUE <=3.0 (Non-smokers) Some smokers may have elevated CEA, usually <5.0. ADDITIONAL INFORMATION The testing method is an immunoenzymatic assay manufactured by [employer] and performed on the [employer] DxI 800. ? Values obtained with different assay methods or kits may be different and cannot be used interchangeably. ? Test results cannot be interpreted as absolute evidence for the presence or absence of malignant disease. Test Performed by: [facility] [address] [place] [address] 07/09/2018 10:4 2 EDT 07/09/2018 13:53 EDT Bassam Timmons MD CHEMISTRY & BLOOD GA S ORDERABLES [facility] * (ABNORMAL) CBC W/PLT & DIFF,POINT OF CARE - [facility] (07/09/2018 10:22 EDT) ABSOLUTE NEUTROPHIL COUN - [facility] 2.8 1.7 - 7.0 10e3/uL 07/09/2018 10:40 EDT [facility] BASO # - [facility] 0.04 0.0 - 0.3 10e3/uL 07/09/2018 10:40 [facility] BASO % - [facility] 1 0 - 2 % 07/09/2018 10:40 EDT [facility] EOS # - [facility] 0.34 0.05 - 0.5 10e3/uL 07/09/2018 10:40 [facility] EOS % - [facility] 6(H) 0 - 5 % 07/[facility]2018 [facility] GRAN % - [facility] 45.9 40 - 80 % 07/09/2018 10:40 [facility] HEMATOCRIT - [facility] 41.7 36.0 - 52.0 % 07/09/2018 10[facility] HEMOGLOBIN - [facility] 14.1 13.7 - 17.5 g/dl 07/09/2018 10:40 EDT [facility] LYMPH # - [facility] 2.3 0.9 - 2.9 10e3/ul 07/09/2018 10:40 [facility] LYMPH% - [facility] 37.5 20 - 40 % 07/09/2018 10:40 [facility] MEAN CORPUSCULAR HGB - [facility] 31.0 26 - 34 pg 07/09/2018 10:40 T [facility] MEAN CORPUSCULAR HGB CONC - [facility] 33.8 31 - 36 g/dL 07/09/2018 10:40 [facility] MEAN CELL VOLUME - [facility] 91.6 77 - 100 fl 07/09/2018 10:40 [facility] MONO # - [facility] 0.6 0.3 - 0.9 10e3/uL 07/09/2018 10:40 [facility] MONO% - [facility] 10.4 0 - 12 % 07/09/2018 10:40 [facility] PLATELET COUNT 149(L) 150 - 400 10e3/ul 07/09/2018 10:40 [facility] RED BLOOD COUNT - [facility] 4.55 4.3 - 5.7 10e6/ul 07/09/2018 10:40 [facility] RED CELL DISTRI WIDTH - [facility] 12.9 11.8 - 15.6 % 07/09/2018 10:40 [facility] WHITE BLOOD COUNT - [facility] 6.1 3.5 - 10.5 10e3/ul 07/09/2018 10:40 [facility] 07/09/2018 10:2 2 EDT 07/09/2018 10:26 EDT Bassam Timmons MD CHEMISTRY & BLOOD GA S ORDERABLES [facility] documented in this encounter Visit Diagnoses Not on filedocumented in this encounter Care Teams Course Instructor Relationship Specialty Start Date End Date Nam Gonzalez MD PCP - General 07/21/15 12/28/20 documented as of this encounter
--- OUTSIDE RECORDS SUMMARY | 2024-05-29 16:18 | XMS_ITS | Clinical Summary ---
Author Organization [facility] Address [facility] [place] [address] Care Team Providers Care Pastry Chef Name Role Phone Unavailable Primary Care Provider Unavailabl e Social History Tobacco Use Types Packs/Day Years Used Date Smoking Tobacco: Never Assessed Sex and Gender Information Value Date Recorded Sex Assigned at Not on file Gender Identity Not on file Sexual Orientation Not on file Plan of Treatment Health Maintenance Due Date Last Done Comments Tdap adult 1959 Tetanus vaccine 1959 Zoster vaccine (1 of 2) 1990 Advance Directive 1995 Pneumoccocal Vaccine: 65+ (1 of 1 - PCV) 2005 Covid-19 Vaccine ( - 2022-24 season) 2024 Influenza (Flu) vaccine (1 o f 1 - Influenza standard series) 05/17/2024
--- OUTSIDE RECORDS SUMMARY | 2024-05-29 16:18 | XMS_ITS | Encounter Summary ---
Author Organization [facility] Address [address] [place] [address] Care Team Providers Care Plaster Foreman Name Role Phone Rayray Person [facility]- Primary Care Provider [phone] [phone] Reason for Visit * Reason Comments Follow-up Colon cancer Encounter Details Date Type Department Care Team (Late st Contact Info) Description 01/09/2023 14:00 EDT Office Visit [facility] Adult Hematology & Oncology [address] [place] [address] Suzan Cruz MD [address] [place] [address] [address] [place] [address] History of colon cancer (Primary Dx); Anemia, normocytic normochromic Social History Tobacco Use Types Packs/Day Years Used Date Smoking Tobacco: Former Smokeless Tobacco: Current Snuff, Chew Tobacco Cessation:Ready to Q uit: Not Asked; Counseling Given: Not Answered Interpersonal Safety Answer Date Record ed Physically Hurt Never 04/17/2020 Verbally Threaten Not on file 04/17/2020 Sex and Gender Information Value Date Recorded Sex Assigned at Not on file Gender Identity Male 11/13/2019 8:44 EST Sexual Orientation Not on file documented as of this encounter Last Filed Vital Signs Vital Sign Reading Time Taken Comments Blood Pressure 120/60 01/09/2023 1355 EDT Pulse 70 01/09/2023 1355 EDT Temperature - - Respiratory Rate - - Oxygen Saturation 96% 01/09/2023 1355 EDT Inhaled Oxygen Concentration - - Weight 90.3 kg (199 lb) 01/09/2023 1355 EDT Height - - Body Mass Index 29.39 12/25/2021 0954 EDT documented in this encounter Functional Status Functional Status Response [...] No 11/16/2019 documented as of this encounter Progress Notes * Suzan Cruz MD - 01/09/2023 1400 EDT Patient Active Problem List Diagnosis ??? 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 -Initial presentation with 4-5 day history of crampy abdominal pain and constipation. -01/10/18: CT abdomen pelvis. Circumferential soft tissue mass at the level of splenic flexure and mild ascites. CT chest negative. -Inpatient admission at [facility] from January 10-January 22, 2018 for obstructing left- sided colon cancer. -Exploratory laparotomy on January [address] Abdul. -First one was resection of obstructing colon cancer and transverse colostomy. -Cecum was injured during the time of obstruction and patient had to be emergently taken for laparotomy as he became septic. Right hemicolectomy with terminal ileostomy was performed. -Pathology consistent with well-differentiated adenocarcinoma. Tumor invades through the muscularispropria into pericolorectal tissue. All margins negative. No perineural invasion or lymphovascular invasion. 0/18 lymph nodes positive. -MMR profile normal Subjective Interim History: Complaing of difficult swallowing, food doesn't go down. He reports that this has been getting slightly worse but he weight has remained stable. No longer dizzy still on oxybutynin- not working He is not complaining today of significant change in his neuropathy. He denies any diarrhea or constipation, BRBR ort melena. He is off work right now and feels better but worried about his income. Review of Systems: Review of Systems Constitutional: Negative for chills and fever. HENT: Negative for ear pain, sinus pain and sore throat. Eyes: Negative for pain and discharge. Respiratory: Negative for cough, hemoptysis and shortness of breath. Cardiovascular: Negative for chest pain and palpitations. Gastrointestinal: Negative for abdominal pain, blood in stool, constipation, diarrhea, nausea and vomiting. Genitourinary: Positive for frequency. Negative for dysuria, hematuria and urgency. Musculoskeletal: Negative for back pain. Skin: Negative. Neurological: Positive for tingling. Negative for dizziness, speech change and headaches. Endo/Heme/Allergies: Negative. Psychiatric/Behavioral: Negative for depression. No family history on file. Current Outpatient Medications Medication Sig Dispense Refill Last Dose ??? acetaminophen (TYLENOL) 325 mg tablet Take 650 mg by mouth every 8 hours as needed. ??? atorvastatin (LIPITOR) 20 mg tablet Take 20 mg by mouth daily. ??? cholecalciferol, Vitamin D3, 1,000 unit tablet Take 1,000 Units by mouth daily. ??? Cyanocobalamin 1,000 mcg tablet extended release Take 1,000 mcg by mouth daily. ??? finasteride (PROSCAR) 5 mg tablet Take 5 mg by mouth every evening. ??? gabapentin (NEURONTIN) 100 mg capsule Take 100 mg by mouth. ??? gabapentin (NEURONTIN) 300 mg capsule TAKE 1 CAPSULE BY MOUTH THREE TIMES DAILY ??? metFORMIN (GLUCOPHAGE) 500 mg tablet Take 500 mg by mouth daily. ??? metoprolol (LOPRESSOR) 25 mg tablet Take 25 mg by mouth 2 times daily. ??? metoprolol SUCCinate (TOPROL-XL) 25 mg tablet Take 25 mg by mouth daily. ??? metoprolol XL (TOPROL-XL) 50 mg tablet Take 50 mg by mouth daily. ??? multivitamin (ONE DAILY MULTIVITAMIN) per tablet Take by mouth daily. ??? MYRBETRIQ 25 mg extended release tablet Take 25 mg by mouth daily. ??? oxybutynin (DITROPAN) 5 mg tablet Take 5 mg by mouth daily. ??? oxybutynin (DITROPAN-XL) 10 mg CR tablet Take 10 mg by mouth daily. ??? TAMSulosin (FLOMAX) 0.4 mg capsule take 1 capsule by mouth every night ??? TURMERIC ORAL Take 1,000 mg by mouth daily. ??? XARELTO 20 mg tablet tablet Take 20 mg by mouth daily. No current facility-administered medications for this visit. There were no vitals filed for this visit. Wt Readings from Last 3 Encounters: 06/25/22 85.7 kg (189 lb) 12/25/21 83.4 kg (183 lb 14.4 oz) 06/27/21 83.9 kg (185 lb) Physical Exam: Physical Exam Constitutional: He is oriented to person, place, and time. HENT: Head: Normocephalic and atraumatic. Eyes: EOM are normal. Cardiovascular: Regular rhythm. Pulmonary/Chest: Effort normal and breath sounds normal. Abdominal: Soft. There is no abdominal tenderness. Scars: previous laparoscopy, RUQ, previous hemicolectomy, upper midline.??Ascites:??none. Musculoskeletal: Cervical back: Normal range of motion and neck supple. Neurological: He is alert and oriented to person, place, and time. Skin: Skin is warm and dry. He is not diaphoretic. Psychiatric: He has a normal mood and affect. CT scan January 04, 2023 [facility]. The chest was unremarkable except for moderate to severe coronary artery calcifications. The abdomen revealed a normal density liver with stable calcified exophytic lesion posterior right lobe and a stable noncalcified exophytic lesion inferior right lobe no new lesions. Superior mesenteric and splenic veins are unremarkable. Gallbladder pancreas are unremarkable. Spleen is normal adrenals without masses kidneys tiny nonobstructive renal calculi. Status post right hemicolectomy no new mass obstruction or bowel wall thickening. The pelvis is unremarkable except for changes of prostatectomy a right hydrocele was only partially visualized no lymphadenopathy. Assessment & Plan 1. 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 Lymph nodes identified: 18 and all of them were negative. No evidence of lymphovascular invasion or perineural invasion. Microsatellite stable. S/p right hemicolectomy with ileostomy reversal. Clinically doing well with no symptoms concerning for recurrence. We reviewed blood work and reviewed recent CT scan with him which fails to reveal evidence of recurrence. 2. 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 Currently on gabapentin. 3. Dysphagia- worsening difficulty swallowing Plan: 1. Return for follow-up in 6 months no reason for further imaging unless he has symptoms 2. He will discuss with PCP regarding work up for swallowing issues, might begin with barium swallow patient is not No orders of the defined types were placed in this encounter. Hematology/Oncology [facility] CC: [facility] documented in this encounter Plan of Treatment Not on file documented as of this encounter Visit Diagnoses Diagnosis History of colon cancer- Primary Personal history of malignant neoplasm of large intestine Anemia, normocytic normochromic Anemia, unspecified documented in this encounter Discontinued Medications Medication Sig Discontinue Reason Start Date End Da te metoprolol SUCCinate (TOPROL-XL) 25 mg tablet Take 25 mg by mouth daily. Duplicate order 10/25/2022 01/09/2023 documented as of this encounter Historical Medications * This list may reflect changes made after this encounter. Medication Sig Dispensed Refills Start Date End Date METOPROLOL SUCCINATE ORAL Take 25 mg by mouth. added in this encounter Care Teams Plaster Foreman Relationship Specialty Start Date End Date [facility] [address] [place] [address] PCP - General 12/29/20 documented as of this encounter
--- OUTSIDE RECORDS SUMMARY | 2024-05-29 16:18 | XMS_ITS | Encounter Summary ---
Author Organization [facility] Address [address] [place] [address] Care Team Providers Care Subgrade Tester Name Role Phone Rayray Person [facility] Primary Care Provider [phone] Reason for Visit * Reason Comments Follow-up CT Scan Encounter Details Date Type Department Care Team (Late st Contact Info) Description 12/29/2020 11:30 EDT Office Visit [facility] Adult Hematology & Oncology [address] [place] [id number] [place] [address] [facility] [address] [place] [address] (Fax) Malignant neoplasm of splenic flexure (HCC-CMS) (Primary Dx) Social History Tobacco Use Types Packs/Day Years Used Date Smoking Tobacco: Former Smokeless Tobacco: Former Interpersonal Safety Answer Date Record ed Physically Hurt Never 04/17/2020 Verbally Threaten Not on file 04/17/2020 Sex and Gender Information Value Date Recorded Sex Assigned at Not on file Gender Identity Male 11/13/2019 8:44 EST Sexual Orientation Not on file COVID-19 Exposure Response Date Recorded In the last month, have you been in contact with someone who was confirmed or suspected to have Coronavirus / COVID-19? No / Unsure 12/29/2020 11:31 EDT documented as of this encounter Last Filed Vital Signs Vital Sign Reading Time Taken Comments Blood Pressure 106/72 12/29/2020 1130 EDT Pulse 71 12/29/2020 1130 EDT Temperature - - Respiratory Rate - - Oxygen Saturation 98% 12/29/2020 1130 EDT Inhaled Oxygen Concentration - - Weight 92.1 kg (203 lb) 12/29/2020 1130 EDT Height - - Body Mass Index 29.98 11/16/2019 1337 EST documented in this encounter Functional Status Functional [...] as of this encounter Progress Notes * Bassam Timmons MD - 12/29/2020 1130 EDT Patient Active Problem List Diagnosis ??? 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 -Initial presentation with 4-5 day history of crampy abdominal pain and constipation. -01/10/18: CT abdomen pelvis. Circumferential soft tissue mass at the level of splenic flexure and mild ascites. CT chest negative. -Inpatient admission at [facility] from January 10-January 22, 2018 for obstructing [...] positive. -MMR profile normal Subjective Interim History: Patient returns for 6 month follow-up. He had CT scans at [facility] in the interim. Says that he is feeling great. He has not felt this way in the last 5 years. Says that neuropathy in fingers he is getting better. Using Turmeric. Denies any abdominal pain. He does have some discomfort when he leans onto something with his abdominal wall hernia. Denies any chest pain or shortness ofbreath. Continues to stay active and works full-time. Denies any blood in stool. Review of Systems: Review of Systems Constitutional: Negative for chills and fever. HENT: Negative for ear pain, sinus pain and sore throat. Eyes: Negative for pain and discharge. Respiratory: Negative for cough, hemoptysis and shortness of breath. Cardiovascular: Negative for chest pain and palpitations. Gastrointestinal: Positive for abdominal pain. Negative for blood in stool, constipation, diarrhea,nausea and vomiting. Positive for abdominal distention. Genitourinary: Negative for dysuria and urgency. Musculoskeletal: Negative for back pain. Skin: Negative. Neurological: Negative for dizziness, speech change and headaches. Endo/Heme/Allergies: Negative. Psychiatric/Behavioral: Negative for depression. No family history on file. Social History Tobacco Use ??? Smoking status: Former Smoker ??? Smokeless tobacco: Former User Substance Use Topics ??? Alcohol use: Not on file ??? Drug use: Not on file Social History Social History Narrative Works full-time at [employer]. Current Outpatient Medications Medication Sig Dispense Refill Last Dose ??? acetaminophen (TYLENOL) 325 mg tablet Take 650 mg by mouth every 8 hours as needed. Taking ??? atorvastatin (LIPITOR) 20 mg tablet Take 20 mg by mouth daily. Taking ??? CAFFEINE ORAL Take 100 mg by mouth 2 times daily as needed. Taking ??? cholecalciferol, Vitamin D3, 1,000 unit tablet Take 1,000 Units by mouth daily. Taking ??? Cyanocobalamin 1,000 mcg tablet extended release Take 1,000 mcg by mouth daily. Taking ??? finasteride (PROSCAR) 5 mg tablet Take 5 mg by mouth every evening. Taking ??? gabapentin (NEURONTIN) 100 mg capsule Take 100 mg by mouth. Taking ??? gabapentin (NEURONTIN) 300 mg capsule TAKE 1 CAPSULE BY MOUTH THREE TIMES DAILY Taking ??? levalbuterol (XOPENEX HFA) 45 mcg/actuation inhaler INHALE 2 PUFFS BY MOUTH EVERY 6 HOURS NEEDED Taking ??? metFORMIN (GLUCOPHAGE) 500 mg tablet Take 500 mg by mouth daily. Taking ??? metoprolol (LOPRESSOR) 25 mg tablet Take 25 mg by mouth 2 times daily. Taking ??? metoprolol XL (TOPROL-XL) 50 mg tablet Take 50 mg by mouth daily. Taking ??? mometasone (NASONEX) 50 mcg/actuation nasal spray Instill 2 Sprays into both nostrils daily. Taking ??? multivitamin (ONE DAILY MULTIVITAMIN) per tablet Take by mouth daily. Taking ??? tamsulosin (FLOMAX) 0.4 mg capsule Take 0.4 mg by mouth daily. Taking ??? XARELTO 20 mg tablet tablet Take 20 mg by mouth daily. Taking No current facility-administered medications for this visit. Vitals: 12/29/20 1130 BP: 106/72 Pulse: 71 SpO2: 98% Weight: 92.1 kg (203 lb) Wt Readings from Last 3 Encounters: 12/29/20 92.1 kg (203 lb) 05/19/20 89.8 kg (198 lb) 11/16/19 88.9 kg (196 lb) Physical Exam: Physical Exam Constitutional: He is oriented to person, place, and time. HENT: Head: Normocephalic and atraumatic. Eyes: EOM are normal. Neck: Normal range of motion. Neck supple. Cardiovascular: Regular rhythm. Pulmonary/Chest: Effort normal and breath sounds normal. Abdominal: Soft. There is no abdominal tenderness. A hernia (right anterior abdomen) is present. Scars: previous laparoscopy, RUQ, previous hemicolectomy, upper midline.??Ascites:??none. Neurological: He is alert and oriented to person, place, and time. Skin: Skin is warm and dry. He is not diaphoretic. Psychiatric: He has a normal mood and affect. Assessment & Plan 1. 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 Lymph nodes identified: 18 and all of them were negative. No evidence of lymphovascular invasion or perineural invasion. Microsatellite stable. S/p right hemicolectomy with terminal ileostomy reversal. Discussed CT scan findings with the patient. Showed no evidence of recurrence. Will continue with current surveillance schedule which is tumor marker every 6 months and imaging once a year until year5. Plan: 1. Return for follow-up in 6 months. Blood work prior at [facility]. Bassam Timmons MD Hematology/Oncology [facility] documented in this encounter Plan of Treatment Not on file documented as of this encounter Visit Diagnoses Diagnosis Malignant neoplasm of splenic flexure (HCC-CMS)- Primary Malignant neoplasm of splenic flexure documented in this encounter Historical Medications * This list may reflect changes made after this encounter. Medication Sig Dispensed Refills Start Date End Date gabapentin (NEURONTIN) 300 mg capsule As needed 10/25/2020 finasteride (PROSCAR) 5 mg tablet Take 5 mg by mouth every evening. 10/31/2020 metFORMIN (GLUCOPHAGE) 500 mg tablet Take 500 mg by mouth daily. 10/12/2020 levalbuterol (XOPENEX HFA) 45 mcg/actuation inhaler INHALE 2 PUFFS BY MOUTH EVERY 6 HOURS NEEDED 12/25/2020 12/25/2021 added in this encounter Care Teams Subgrade Tester Relationship Specialty Start Date End Date Rayray Person [facility] [place] [address] PCP - General 12/29/20 documented as of this encounter
--- OUTSIDE RECORDS SUMMARY | 2024-05-29 16:18 | XMS_ITS | Encounter Summary ---
Author Organization [facility] Address [address] [place] [address] Care Team Providers Care Paper Handler Name Role Phone Rayray Person [facility]- Primary Care Provider [phone] Reason for Visit * Reason Onset Date Comments Appointment Related 01/11/2023 Encounter Details Date Type Department Care Team (Late st Contact Info) Description 01/11/2023 Telephone [facility] Adult Hematology & Oncology [address] [place] [phone] Suzan Cruz MD [address] [place] [address] [address] [place] [address] Appointment Related Social History Tobacco Use Types Packs/Day Years Used Date Smoking Tobacco: Former Smokeless Tobacco: Current Snuff, Chew Interpersonal Safety Answer Date Record ed Physically [...] encounter Miscellaneous Notes * Telephone Encounter - Jessica Alexis - 01/11/2023 1147 EDT Return in about 6 months (around 07/11/2023). documented in this encounter Plan of Treatment Not on file documented as of this encounter Visit Diagnoses Not on filedocumented in this encounter Care Teams Paper Handler Relationship Specialty Start Date End Date [facility] [address] [place] [address] PCP - General 12/29/20 documented as of this encounter
--- OUTSIDE RECORDS SUMMARY | 2024-05-29 16:18 | XMS_ITS | Encounter Summary ---
Author Organization [facility] Address [address] [place] [address] Care Team Providers Care Pin Maker Name Role Phone Rayray Person [facility] Primary Care Provider [phone] Reason for Visit * (Routine/Next Available) - Receiving Office to Obtain Authorization Specialty Diagnoses / Procedures Referred By Omari thakkar Referred To Contact Procedures CT OUTSIDE IMAGES CHEST ABDOMEN PELVIS Imaging, External Referral ID Status Reason Start Date Expiration Date Visits Requested Visits Authorized [id number] Receiving Office to Obtain Authorization 01/07/2023 1 1 Encounter Details Date Type Department Care Team (Latest Contact Info) Description 01/04/2023 - 01/04/2023 23:59 EDT Hospital Encounter [facility] Secondary Reads [place] Discharge Disposition: Home or Self Care Social History Tobacco Use Types Packs/Day Years [...] No 11/16/2019 documented as of this encounter Medications at Time of Discharge Medication Sig Dispensed Refills Start Date End Date acetaminophen (TYLENOL) 325 mg tablet Take 650 mg by mouth every 8 hours as needed. atorvastatin (LIPITOR) 20 mg tablet Take 20 mg by mouth daily. 08/06/2019 cholecalciferol, Vitamin D3, 1,000 unit tablet Take 1,000 Units by mouth 2 times daily. Cyanocobalamin 1,000 mcg tablet extended release Take 1,000 mcg by mouth daily. finasteride (PROSCAR) 5 mg tablet Take 5 mg by mouth every evening. 10/31/2020 gabapentin (NEURONTIN) 100 mg capsule Take 100 mg by mouth. As needed 09/22/2019 gabapentin (NEURONTIN) 300 mg capsule As needed 10/25/2020 metFORMIN (GLUCOPHAGE) 500 mg tablet Take 500 mg by mouth daily. 10/12/2020 metoprolol (LOPRESSOR) 25 mg tablet Take 25 mg by mouth 2 times daily. metoprolol XL (TOPROL-XL) 50 mg tablet Take 50 mg by mouth daily. 09/21/2019 multivitamin (TAB-A-SHALINI) tablet Take by mouth daily. MYRBETRIQ 25 mg extended release tablet Take 25 mg by mouth daily. 06/14/2022 oxybutynin (DITROPAN) 5 mg tablet Take 5 mg by mouth daily. 10/25/2022 oxybutynin (DITROPAN-XL) 10 mg CR tablet Take 10 mg by mouth daily. 10/22/2022 TAMSulosin (FLOMAX) 0.4 mg capsule take 1 capsule by mouth every night 10/25/2022 TURMERIC ORAL Take 1,000 mg by mouth daily. XARELTO 20 mg tablet tablet Take 20 mg by mouth daily. 09/24/2019 metoprolol SUCCinate (TOPROL-XL) 25 mg tablet Take 25 mg by mouth daily. 10/25/2022 01/09/2023 documented as of this encounter Discharge Disposition Disposition Code Departure Means Destination Home or Self Care documented in this encounter Plan of Treatment Not on file documented as of this encounter Procedures Procedure Name Priority Date/Time Associated Diagnosis Comments CT OUTSIDE IMAGES CHEST ABDOMEN PELVIS Routine 01/04/2023 11:04 EDT documented in this encounter Results * CT OUTSIDE IMAGES CHEST ABDOMEN PELVIS (01/04/2023 11:04 EDT) Narrative 01/07/2023 11:04 EDT This is a non-reportable exam. External Imaging IMG OTHER IMAGING OR DERABLES documented in this encounter Visit Diagnoses Not on filedocumented in this encounter Care Teams Pin Maker Relationship Specialty Start Date End Date [facility] [address] [place] [address] PCP - General 12/29/20 documented as of this encounter
--- OUTSIDE RECORDS SUMMARY | 2024-05-29 16:18 | XMS_ITS | Encounter Summary ---
Author Organization [facility] Address [address] [place] [address] Care Team Providers Care Food And Nutrition Professor Name Role Phone Rayray Person [facility]- Primary Care Provider [phone] Reason for Visit * Reason Onset Date Comments Other 12/30/2020 call/would like appt update Encounter Details Date Type Department Care Team (Late st Contact Info) Description 12/30/2020 Telephone [facility] Adult Hematology & Oncology [address] [place] [address] Lea Garcia, JO[address] [facility] [place] [facility] [address] [place] [address] Other (call/would like appt update) Social History Tobacco Use Types Packs/Day Years [...] 11:31 EDT documented as of this encounter Functional Status [...] encounter Miscellaneous Notes * Telephone Encounter - Florence Crouch MA - 01/11/2021 1434 EDT Faxed to [facility] 01/11/21 14:34 * Telephone Encounter - Florence Crouch MA - 01/11/2021 1240 EDT Spoke with Anushka and relayed Assessment and Plan from most recent note. 6 month follow-up appointment scheduled for 07/03/21 with labs prior as indicated in note. Patient would like labs drawn at [facility]. ET can you please review pended lab orders and sign if correct? I will fax them to [facility] once completed. * Telephone Encounter - Florence Crouch MA - 01/09/2021 0844 EDT Note still not complete. I plan to call patient to follow-up when note has been signed. 01/09/21 8:45 * Telephone Encounter - Florence Crouch MA - 12/30/2020 1338 EDT Lea please see request. If you are busy I am happy to relay a message * Telephone Encounter - Carolina Law - 12/30/2020 1321 EDT Terry Velez had an appt with Dr Timmons on 12/29/20 and he was unable to tell her anything that was discussed at the appt. She is aware Dr Timmons is on vacation and would like to have Lea call her to give her an update. documented in this encounter Plan of Treatment Not on file documented as of this encounter Visit Diagnoses Diagnosis Malignant neoplasm of splenic flexure (HCC-CMS)- Primary Malignant neoplasm of splenic flexure documented in this encounter Care Teams Food And Nutrition Professor Relationship Specialty Start Date End Date [facility] [address] [place] [address] PCP - General 12/29/20 documented as of this encounter
--- OUTSIDE RECORDS SUMMARY | 2024-05-29 16:18 | XMS_ITS | Encounter Summary ---
Author Organization [facility] Address [address] [place] [address] Care Team Providers Care Valuation Manager Name Role Phone Nam Gonzalez MD Primary Care Provider Unav ailable Reason for Referral * Radiology Services (Routine) - Closed Specialty Diagnoses / Procedures Referred By Mahsaac t Referred To Contact Radiology Diagnoses Malignant neoplasm of splenic flexure (HCC-CMS) Procedures CT [place]OM[place] [address] [facility] [address] [place] [address] Phone: Fax: [address] [address] Referral ID Status Reason Start Date Expiration Date Visits Re quested Visits Authorized [id number] Closed 11/04/2019 01/02/2020 1 1 * Radiology Services (Routine) - Specialty Report Received Specialty Diagnoses / Procedures Referred By Contac t Referred To Contact Radiology Diagnoses Malignant neoplasm of splenic flexure (HCC-CMS) Procedures [place] [address] [facility] [address] [place] [address] Phone: Fax: [address] [address] Referral ID Status Reason Start Date Expiration Date V isits Requested Visits Authorized [id number] Specialty Report Received 11/04/2001 01/02/2020 1 1 Reason for Visit * Reason Onset Date Comments CT Scan 09/30/2019 Patient schedule d on 11/08/19 Encounter Details Date Type Department Care Team (Late st Contact Info) Description 09/30/2019 Telephone [facility] Adult Hematology & Oncology [address] [place] [address] [place] [address] [facility] [address] [place] [address] (Fax) CT Scan (Patient scheduled on 11/08/19) Social History Tobacco Use Types Packs/Day Years Used Date Smoking Tobacco: Never Assessed Sex and Gender Information Value Date Recorded Sex Assigned at Not on file Gender Identity Male 11/13/2019 8:44 EST Sexual Orientation Not on file documented as of this encounter Miscellaneous Notes * Telephone Encounter - Florence Crouch MA - 09/30/[address] scheduled for 11/08/19 documented in this encounter Plan of Treatment Scheduled Orders Name Type Priority Associated Diagnoses Orde r Schedule CT CHEST W CONTRAST Imaging Routine Malignant Neoplasm of Splenic Flexure (HCC-CMS) Ordered: 09/30/2019 CT ABDOMEN PELVIS W CONTRAST Imaging Routine Malignant Neoplasm of Splenic Flexure (HCC-CMS) Ordered: 09/30/2019 COMPLETE BLOOD COUNT Lab STAT Malignant Neoplasm of Splenic Flexure (HCC-CMS) Ordered: 09/30/2019 COMPREHENSIVE METABOLIC PANEL (CMP) Lab STAT Malignant Neoplasm of Splenic Flexure (HCC-CMS) Ordered: 09/30/2019 documented as of this encounter Visit Diagnoses Diagnosis Malignant neoplasm of splenic flexure (HCC-CMS)- Primary Malignant neoplasm of splenic flexure documented in this encounter Care Teams Valuation Manager Relationship Specialty Start Date End Date Nam Gonzalez MD PCP - General 07/21/15 12/28/20 documented as of this encounter
--- OUTSIDE RECORDS SUMMARY | 2024-05-29 16:18 | XMS_ITS | Encounter Summary ---
Author Organization [facility] Address [address] [place] [address] Care Team Providers Care Exchange Mechanic Name Role Phone Rayray Person [facility] Primary Care Provider [phone] Reason for Visit * Reason Comments Follow-up Encounter Details Date Type Department Care Team (Late st Contact Info) Description 12/25/2021 10:00 EDT Office Visit [facility] Adult Hematology & Oncology [address] [place] [address] [phone] [place] [address] [facility] [address] [place] [address] (Fax) Malignant neoplasm of splenic flexure (HCC-CMS) (Primary Dx); Neuropathy Social History Tobacco Use Types Packs/Day Years [...] Sign Reading Time Taken Comments Blood Pressure 132/76 12/25/2021 0954 EDT Pulse 56 12/25/2021 0954 EDT Temperature - - Respiratory Rate 20 12/25/2021 0954 EDT Oxygen Saturation 97% 12/25/2021 0954 EDT Inhaled Oxygen Concentration - - Weight 83.4 kg (183 lb 14.4 oz) 12/25/2021 0954 EDT Height 175.3 cm (5' 9) 12/25/2021 0954 EDT Body Mass Index 27.16 12/25/2021 0954 EDT documented in this encounter [...] Progress Notes * Bassam Timmons MD - 12/25/2021 1000 EDT Patient Active Problem List Diagnosis ??? 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 -Initial presentation with 4-5 day history of crampy abdominal pain and constipation. -01/10/18: CT abdomen pelvis. Circumferential soft tissue mass at the level of splenic flexure and mild ascites. CT chest negative. -Inpatient admission at [facility] from January 10-January 22, 2018 [...] 6 month follow-up. He had CT scans in the interim. States that he is feeling really well. Says that he might have lost around 5 lbs over the last couple of months. Appetite is good. He had the abdominal wall hernia repaired 2 months ago. Pain has resolved. 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 Associated with pain. Has been using gabapentin but trying to cut down on that. Denies any issues with BMs. Denies any blood in stool. Continues to stay active and works full-time. Review of Systems: Review of Systems Constitutional: [...] History Social History Narrative Works full-time at [employer]. Current Outpatient Medications Medication Sig Dispense Refill Last Dose ??? acetaminophen (TYLENOL) 325 mg tablet Take 650 mg by mouth every 8 hours as needed. Taking ??? atorvastatin (LIPITOR) 20 mg tablet Take 20 mg by mouth daily. Taking ??? cholecalciferol, Vitamin D3, 1,000 unit [...] BY MOUTH THREE TIMES DAILY Taking ??? metFORMIN (GLUCOPHAGE) 500 mg tablet Take 500 mg by mouth daily. Taking ??? metoprolol (LOPRESSOR) 25 mg tablet Take 25 mg by mouth 2 times daily. Taking ??? metoprolol XL (TOPROL-XL) 50 mg tablet Take 50 mg by mouth daily. Taking ??? multivitamin (ONE DAILY MULTIVITAMIN) per tablet Take by mouth daily. Taking ??? oxybutynin (DITROPAN) 5 mg tablet TAKE 1 TABLET BY MOUTH EVERY NIGHT Taking ??? XARELTO 20 mg tablet tablet Take 20 mg by mouth daily. Taking No current facility-administered medications for this visit. Vitals: 12/25/21 0954 BP: 132/76 BP Cuff Location: Left arm BP Patient Position: Sitting BP Cuff Sizes: Adult, regular Pulse: 56 Resp: 20 SpO2: 97% Weight: 83.4 kg (183 lb 14.4 oz) Height: 175.3 cm (69) Wt Readings from Last 3 Encounters: 12/25/21 83.4 kg (183 lb 14.4 oz) 06/27/21 83.9 kg (185 lb) 12/29/20 92.1 kg (203 lb) Physical Exam: Physical Exam Constitutional: He [...] stable. S/p right hemicolectomy with ileostomy reversal. Discussed CT findings with the patient. There was no definite evidence of any metastatic disease inthe chest, abdomen or pelvis. Interval anterior abdominal wall hernia repair noted. Stable benign-appearing lesions in the liver. 2. 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 Currently on gabapentin. Plan: 1. Return for follow-up in [address] scans in 1 year. No orders of the defined types were placed in this encounter. Bassam Timmons MD Hematology/Oncology [facility] documented in this encounter Plan of Treatment Not on file documented as of this encounter Visit Diagnoses Diagnosis Malignant neoplasm of splenic flexure (HCC-CMS)- Primary Malignant neoplasm of splenic flexure Neuropathy Mononeuritis of unspecified site documented in this encounter Discontinued Medications Medication Sig Discontinue Reason Start Date End Da te CAFFEINE ORAL Take 100 mg by mouth 2 times daily as needed. 12/25/2021 levalbuterol (XOPENEX HFA) 45 mcg/actuation inhaler INHALE 2 PUFFS BY MOUTH EVERY 6 HOURS NEEDED 12/25/2020 12/25/2021 mometasone (NASONEX) 50 mcg/actuation nasal spray Instill 2 Sprays into both nostrils daily. 12/25/2021 oxyCODONE (ROXICODONE) 10 mg immediate release tablet 10/02/2021 12/25/2021 tamsulosin (FLOMAX) 0.4 mg capsule Take 0.4 mg by mouth daily. 08/25/2019 12/25/2021 documented as of this encounter Historical Medications * This list may reflect changes made after this encounter. Medication Sig Dispensed Refills Start Date End Date oxyCODONE (ROXICODONE) 10 mg immediate release tablet 10/02/2021 12/25/2021 oxybutynin (DITROPAN) 5 mg tablet TAKE 1 TABLET BY MOUTH EVERY NIGHT 10/23/2021 06/25/2022 added in this encounter Care Teams Exchange Mechanic Relationship Specialty Start Date End Date [facility] [address] [facility] [place] [address] PCP - General 12/29/20 documented as of this encounter
--- OUTSIDE RECORDS SUMMARY | 2024-05-29 16:18 | XMS_ITS ---
Author Organization Unknown Address [address] [place] [phone] Phone Care Team Providers Care Brake Lining Finisher Asbestos Name Role Phone IGNACIO Coates Attending Unavailable NEENA Moreira Primary Unavailable Social History Type Status Start Date End Date Code Code Syst em Smoking History Former smoker 09/16/[address] Sex Male Medications Medication Start Date End Date Route Frequency Dose Code Code System Medication Instructions Home Meds Multivitamin Oral Tablet 11/26/2018 Unknown ORAL DAILY 1 unit(s) RxNorm TAKE 1 EACH ORAL DAILY oxyCODONE HCl 5MG Oral Tablet 10/29/2021 Unknown ORAL NEEDED EVERY 6 HOURS 1 TABLET [id number] RxNorm TAKE 1 TABLET ORAL NEEDED EVERY 6 HOURS FOR Pain Atorvastatin Calcium 20MG Oral Tablet 10/29/2021 Unknown ORAL BEDTIME 20 MILLIGRAMS [id number] RxNorm TAKE 20 MILLIGRAMS ORAL BEDTIME Finasteride 5MG Oral Tablet 10/29/2021 Unknown ORAL DAILY 5 MILLIGRAMS [id number] RxNorm TAKE 5 MILLIGRAMS ORAL DAILY Gabapentin 100MG Oral Capsule 10/29/2021 Unknown ORAL NEEDED THREE TIMES A DAY 300 MILLIGRAMS 287483 RxNorm TAKE 300 MILLIGRAMS ORAL NEEDED THREE TIMES A DAY Metoprolol Succinate 50MG Oral Tablet, Extended Release 10/29/2021 Unknown ORAL DAILY 50 MILLIGRAMS [id number] RxNorm TAKE 50 MILLIGRAMS ORAL DAILY Oxybutynin Chloride 5MG Oral Tablet 10/29/2021 Unknown ORAL EVERY EVENING 5 MILLIGRAMS [id number] RxNorm TAKE 5 MILLIGRAMS ORAL EVERY EVENING Turmeric 500 MG Oral Capsule 10/29/2021 Unknown ORAL DAILY 500 MG [id number] RxNorm TAKE 500 MG ORAL DAILY Tylenol Arthritis 650MG Oral Tablet, Extended Release 10/29/2021 Unknown ORAL NEEDED 650 MILLIGRAMS [id number] RxNorm TAKE 650 MILLIGRAMS ORAL NEEDED Vitamin D 5000 IU Oral Capsule 10/29/2021 Unknown ORAL TWICE A DAY 5000 IU RxNorm TAKE 5000 IU ORAL TWICE A DAY Xarelto 20MG Oral Tablet 10/29/2021 Unknown ORAL DAILY 20 MILLIGRAMS [id number] RxNorm TAKE 20 MILLIGRAMS ORAL DAILY metFORMIN HCl 500MG Oral Tablet 10/29/2021 Unknown ORAL TWICE A DAY 500 MILLIGRAMS [id number] RxNorm TAKE 500 MILLIGRAMS ORAL TWICE A [...] PERISTOMAL VENTRAL HERNIA REPAIR WITH MESH 10/27 [id number] X 10/16/2024 Symbot ex [id number] Problems Problem Start Date Resolved Date Status Code Code 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 [id number] SNO MED-CT INCISIONAL HERNIA 11/26/2018 resolved [id number] S NOMED-CT Allergies and Adverse Reactions Allergy Substance Reaction Severity Start Date Concern Status Co de Code System No Known Drug Allergies Moderate Active [id number] SNOMED-CT Plan of Treatment Exposure 10/24/2020 LAB DRAW 15MIN 01/04/2023 CT CHEST/ABDOMEN/PELVIS W/ CONTRAST CT CHEST/ABDOMEN/PELVIS W/ CONTRAST 02/2022 LAB DRAW 15MIN 12/01/2021 PRE-OP COVID-19 TESTING 10/25/2021 CT ABDOMEN/PELVIS W/ CONTRAST 2 Encounters Encounter Diagnosis Start Date Code Code Sys tem Paroxysmal atrial fibrillation 03/27/2024 [id number] SNOMED-CT Personal Care Team Section Performer Name Performer Role Active Date Inactive Da te
--- OUTSIDE RECORDS SUMMARY | 2024-05-29 16:18 | XMS_ITS | Encounter Summary ---
Author Organization [facility] Address [address] [place] [address] Care Team Providers Care Labor Delivery Rn Name Role Phone Nam Gonzalez MD Primary Care Provider Unav ailable Reason for Visit * Reason Comments Follow-up Encounter Details Date Type Department Care Team (Late st Contact Info) Description 05/19/2020 10:00 EDT Office Visit [facility] Adult Hematology & Oncology [address] [place] [address] [phone] [place] [address] [facility] [address] [place] [address] (Fax) Malignant neoplasm of splenic flexure (HCC-CMS) [...] Sign Reading Time Taken Comments Blood Pressure 142/84 05/19/2020 1012 EDT Pulse 59 05/19/2020 1012 EDT Temperature - - Respiratory Rate - - Oxygen Saturation 98% 05/19/2020 1012 EDT Inhaled Oxygen Concentration - - Weight 89.8 kg (198 lb) 05/19/2020 1012 EDT Height - - Body Mass Index 29.24 11/16/2019 1337 EST documented in this encounter [...] Progress Notes * Bassam Timmons MD - 05/19/2020 1000 EDT Patient Active Problem List Diagnosis ??? 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 -Initial presentation with 4-5 day history of crampy abdominal pain and constipation. -01/10/18: CT abdomen pelvis. Circumferential soft tissue mass at the level of splenic flexure and mild ascites. CT chest negative. -Inpatient admission at [place] [facility] from January 10-January 22, 2018 for [...] History: Patient returns for 6 month follow-up. Says that his abdominal pain is much better. Staying active and working 8-10 hours a day. Denies any chest pain or SOB. Reports having a bad spell of diarrhea 3-4 weeks ago and lasted for 1 week. Doing well currently. Denies any blood in stool. Review of [...] History Social History Narrative Works full-time at [employer]. Current Outpatient Medications Medication Sig Dispense Refill Last Dose ??? acetaminophen (TYLENOL) 325 mg tablet Take 650 mg by mouth every 8 hours as needed. Taking ??? atorvastatin (LIPITOR) 20 mg tablet Take 20 mg by mouth daily. Not Taking ??? CAFFEINE ORAL Take 100 mg by mouth 2 times daily as needed. Taking ??? cholecalciferol, Vitamin D3, 1,000 unit tablet Take 1,000 Units by mouth daily. Taking ??? Cyanocobalamin 1,000 mcg tablet extended release Take 1,000 mcg by mouth daily. Taking ??? gabapentin (NEURONTIN) 100 mg capsule Take 100 mg by mouth. Taking ??? metoprolol (LOPRESSOR) 25 mg tablet Take 25 mg by mouth 2 times daily. Not Taking ??? metoprolol XL (TOPROL-XL) 50 mg tablet Take 50 mg by mouth daily. Not Taking ??? mometasone (NASONEX) 50 mcg/actuation nasal spray Instill 2 Sprays into both nostrils daily. Not Taking ??? multivitamin (ONE DAILY MULTIVITAMIN) per tablet Take by mouth daily. Taking ??? tamsulosin (FLOMAX) 0.4 mg capsule Take 0.4 mg by mouth daily. Taking ??? XARELTO 20 mg tablet tablet Take 20 mg by mouth daily. Taking No current facility-administered medications for this visit. Vitals: 05/19/20 1012 BP: (!) 142/84 Pulse: 59 SpO2: 98% Weight: 89.8 kg (198 lb) Wt Readings from Last 3 Encounters: 05/19/20 89.8 kg (198 lb) 11/16/19 88.9 [...] He has a normal mood and affect. Imaging 11/12/19 CT c/a/p showed: 1. No evidence of metastatic disease of the chest, abdomen or pelvis in a patient with reported history of colon carcinoma. 2. Question right lower quadrant ostomy versus hernia containing non obstructed small bowel, new since CT of 08/21/19. There is associated thickening of the abdominal wall musculature and fat stranding which may represent inflammation or post-surgical changes. Assessment & Plan 1. 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 Lymph nodes identified: 18 and all of them were negative. No evidence of lymphovascular invasion or perineural invasion. Microsatellite stable. S/p right hemicolectomy with terminal ileostomy reversal. Clinically doing well with no symptoms concerning for recurrence. Will follow-up blood work today. If unremarkable, plan on CT scans in 6 months from now. Surveillance schedule will be tumor marker every 6 months and imaging once a year until year 5. Plan: 1. Return for follow-up in [address] scans prior at [facility]. Other Orders Placed This Visit Procedures ??? CT ABDOMEN PELVIS W CONTRAST ??? CT CHEST W CONTRAST ??? CEA ??? Complete Blood Count and Differential Bassam Timmons MD Hematology/Oncology [facility] Cc: , * Kusum Luna RN - 05/19/2020 1000 EDT Procedures: - Venipuncture Performed by: KUSUM LUNA RN Site Collected: Right Antecubital Space Volume Withdrawn: STT: 8.5ml and Lavender Top: 3.0ml Patient Response:Patient tolerated venipuncture well and Butterfly used Number of attempts: 1 Collected on: 05/19/20 11:06 Ordering Provider:Bassam Timmons MD Suspicion of Abuse: no - If yes, please document evidence: - Assessed on: 05/19/20 11:06 - Assessed by: KUSUM LUNA RN documented in this encounter Plan of Treatment Scheduled Orders Name Type Priority Associated Diagnoses Orde r Schedule COMPLETE BLOOD COUNT AND DIFFERENTIAL Lab Routine Malignant Neoplasm of Splenic Flexure (HCC-CMS) Ordered: 05/19/2020 documented as of this encounter Procedures Procedure Name Priority Date/Time Associated Diagnosis Comments COMPLETE BLOOD COUNT WITH DIFFERENTIAL (AUTO) Routine 05/19/2020 10:50 EDT Malignant neoplasm of splenic flexure (HCC-CMS) CEA Routine 05/19/2020 10:50 EDT Malignant neoplasm of splenic flexure (HCC-CMS) documented in this encounter Results * (ABNORMAL) COMPLETE BLOOD COUNT WITH DIFFERENTIAL (AUTO) (05/19/2020 10:50 EDT) Gran # 2.3 2.2 - 8.85 10e3/uL 05/19/2020 14:20 EDT [facility] BASO # - [facility] 0.06 0.01 - 0.11 10e/uL 05/19/2020 14:20 EDT [facility] BASO % - [facility] 1 0 - 2 % 05/19/2020 14:20 [facility] EOS # - [facility] 0.40 0.03 - 0.61 10e3/ul 05/19/2020 14:20 EDT [facility] EOS % - [facility] 8(H) 0 - 5 % [facility] 43.3 40 - 80 % [facility] - [facility] 41.2 39.5 - 50.2 % 05/19/2020 14:20 [facility] HEMOGLOBIN - [facility] 13.3(L) 13.8 - 17.3 g/dl 05/19/2020 14:20 [facility] IG# - [facility] 0.02 0 - 0.7 10e3/uL 05/19/2020 14:20 [facility] IG% - [facility] 0.4 0 - 0.9 % 05/19/2020 14:20 [facility] LYMPH # - [facility] 1.9 1.09 - 3.3 10e3/ul 05/19/2020 14:20 [facility] LYMPH% - [facility] 35.6 20 - 40 % 05/19/2020 14:20 [facility] MEAN CORPUSCULAR HGB - [facility] 30.9 27.6 - 33.0 pg 05/19/2020 14:20 [facility] MEAN CORPUSCULAR HGB CONC - [facility] 32.3(L) 32.8 - 36.4 g/dL 05/19/2020 14:20 [facility] MEAN CELL VOLUME - [facility] 95.8(H) 81 - 95 fl 05/19/2020 14:20 [facility] MONO # - [facility] 0.6 0.1 - 0.8 10e3/uL 05/19/2020 14:20 [facility] MONO% - [facility] 11.9 0 - 12 % 05/19/2020 14:20 [facility] PLATELET COUNT 112(L) 141 - 377 10e3/ul 05/19/2020 14:20 [facility] RED BLOOD COUNT - [facility] 4.30(L) 4.36 - 5.78 10e3/ul 05/19/2020 14:20 [facility] RED CELL DISTRI WIDTH - [facility] 12.2 <14.2 % 05/19/2020 14:20 [facility] WHITE BLOOD COUNT - [facility] 5.2 4.0 - 10.4 10e3/ul 05/19/2020 14:20 [facility] 05/19/2020 10:5 0 EDT 05/19/2020 13:54 EDT Bassam Timmons MD HEMATOLOGY & PF4 ORD ERABLES Performing Organization Address [facility]/ZIP Co de Phone Number [facility] [address] [place] [address] * CEA (05/19/2020 10:50 EDT) CEA 1.9 () ng/mL 05/20/2020 19:21 EDT [facility] Comment: REFERENCE VALUE <=3.0 (Non-smokers) Some smokers may have elevated CEA, usually <5.0. ADDITIONAL INFORMATION The testing method is an immunoenzymatic assay manufactured by [employer]. and performed on the 800razorsI 800. ? Values obtained with different assay methods or kits may be different and cannot be used interchangeably. ? Test results cannot be interpreted as absolute evidence for the presence or absence of malignant disease. Test Performed by: [facility] [address] [place] [address] Frame Pulley Mortising Machine Operator: Bentley Rich M.D. Ph.D.; CLIA# [id number] Blood VENOUS BLOOD / Unknown 05/19/2020 10:50 EDT 05/19/2020 13:54 EDT Bassam Timmons MD CHEMISTRY & BLOOD GA S ORDERABLES Performing Organization Address [facility]/ZIP Co de Phone Number [facility] [address] [place] [address] documented in this encounter Visit Diagnoses Diagnosis Malignant neoplasm of splenic flexure (HCC-CMS)- Primary Malignant neoplasm of splenic flexure documented in this encounter Care Teams Labor Delivery Rn Relationship Specialty Start Date End Date Nam Gonzalez MD PCP - General 07/21/15 12/28/20 documented as of this encounter
--- OUTSIDE RECORDS SUMMARY | 2024-05-29 16:18 | XMS_ITS | Encounter Summary ---
Author Organization [facility] Address [address] [place] [address] Care Team Providers Care Motion Picture Director Name Role Phone Rayray Person [facility] Primary Care Provider [phone] [phone] Reason for Visit * Reason Comments Follow-up Encounter Details Date Type Department Care Team (Late st Contact Info) Description 06/27/2021 11:00 EDT Office Visit [facility] Adult Hematology & Oncology [address] [place] [address] [id number] [place] [address] [facility] [address] [place] [address] (Fax) Malignant neoplasm of splenic flexure (HCC-CMS) [...] Sign Reading Time Taken Comments Blood Pressure 110/74 06/27/2021 1036 EDT Pulse 67 06/27/2021 1036 EDT Temperature - - Respiratory Rate - - Oxygen Saturation 98% 06/27/2021 1036 EDT Inhaled Oxygen Concentration - - Weight 83.9 kg (185 lb) 06/27/2021 1036 EDT Height - - Body Mass Index 27.32 11/16/2019 1337 EST documented in this encounter [...] Progress Notes * Bassam Timmons MD - 06/27/2021 1100 EDT Patient Active Problem List Diagnosis ??? 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 -Initial presentation with 4-5 day history of crampy abdominal pain and constipation. -01/10/18: CT abdomen pelvis. Circumferential soft tissue mass at the level of splenic flexure and mild ascites. CT chest negative. -Inpatient admission at [facility] from January 10-January 22, 2018 [...] returns for 6 month follow-up. Says that he lost 20 lbs intentionally overthe last few months. 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 Associated with pain. Taking gabapentin which has been helping. Denies any issues with BMs. Denies any blood in stool. Says that his hernia has been bothering a little more. Has an appointment with . Continues to stay active and works full-time. [...] History Social History Narrative Works full-time at [employer]. Current Outpatient Medications Medication Sig Dispense Refill [...] current facility-administered medications for this visit. Vitals: 06/27/21 1036 BP: 110/74 Pulse: 67 SpO2: 98% Weight: 83.9 kg (185 lb) Wt Readings from Last 3 Encounters: 06/27/21 83.9 kg (185 lb) 12/29/20 92.1 kg (203 lb) 05/19/20 89.8 kg (198 lb) Physical Exam: Physical Exam Constitutional: He [...] well with no symptoms concerning for recurrence. Blood work from today pending. Will continue with current surveillance schedule which is tumor marker every 6 months and imaging once a year until year 5. 2. 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 Currently on gabapentin. Plan: 1. Follow-up blood work. 2. Return for follow-up in [address] scans prior at [facility]. Other Orders Placed This Visit Procedures ??? CT ABDOMEN PELVIS W CONTRAST ??? CT CHEST W CONTRAST ??? Complete Blood Count and Differential ??? Comprehensive Metabolic Panel (CMP) ??? CEA ??? Complete Blood Count and Differential ??? Comprehensive Metabolic Panel (CMP) ??? CEA Bassam Timmons MD Hematology/Oncology [facility]/ CC: [facility]. * Britney Roberson RN - 06/27/2021 1100 EDT Suspicion of Abuse: no - If yes, please document evidence: - Assessed on: 06/27/21 12:32 - Assessed by: BRITNEY ROBERSON RN Procedures: - Venipuncture Performed by: BRITNEY ROBERSON RN Site Collected: Right Antecubital Space Volume Withdrawn: STT: 8.5ml and Lavender Top: 3.0ml Patient Response:Patient tolerated venipuncture well Number of attempts: Collected on: 06/27/21 12:33 Ordering Provider:Bassam Timmons MD documented in this encounter Miscellaneous Notes * Addendum Note - Divina Segura - 06/27/2021 1100 EDTAddended by: DIVINA SEGURA on: 11/17/2021 12:19 Modules accepted: Orders * Addendum Note - Divina Segura - 06/27/2021 1100 EDTAddended by: DIVINA SEGURA on: 11/17/2021 12:20 Modules accepted: Orders documented in this encounter Plan of Treatment Scheduled Orders Name Type Priority Associated Diagnoses Orde r Schedule COMPLETE BLOOD COUNT AND DIFFERENTIAL Lab Routine Malignant neoplasm of splenic flexure (HCC-CMS) Ordered: 06/27/2021 documented as of this encounter Procedures Procedure Name Priority Date/Time Associated Diagnosis Comments COMPLETE BLOOD COUNT WITH DIFFERENTIAL (AUTO) Routine 06/27/2021 14:10 EDT Malignant neoplasm of splenic flexure (HCC-CMS) CEA Routine 06/27/2021 14:10 EDT Malignant neoplasm of splenic flexure (HCC-CMS) COMPREHENSIVE METABOLIC PANEL (CMP) Routine 06/27/2021 14:10 EDT Malignant neoplasm of splenic flexure (HCC-CMS) documented in this encounter Results * (ABNORMAL) COMPLETE BLOOD COUNT WITH DIFFERENTIAL (AUTO) (06/27/2021 14:10 EDT) ABSOLUTE NEUTROPHIL COUN - [facility] 3.0 2.2 - 8.85 10e3/uL 06/27/2021 15:20 [facility] BASO # - [facility] 0.05 0.01 - 0.11 10e/uL 06/27/2021 15:20 [facility] BASO % - [facility] 1 0 - 2 % 06/27/2021 15:20 [facility] EOS # - [facility] 0.24 0.03 - 0.61 10e3/ul 06/27/2021 15:20 [facility] EOS % - [facility] 4 0 - 5 % 06/27/2021 15:20 [facility] GRAN % - [facility] 52.3 40 - 80 % 06/27/2021 15:20 [facility] HEMATOCRIT - [facility] 41.8 39.5 - 50.2 % 06/27/2021 15:20 [facility] HEMOGLOBIN - [facility] 13.8 13.8 - 17.3 g/dl 06/27/2021 15:20 [facility] IG# - [facility] 0.02 0 - 0.7 10e3/uL 06/27/2021 15:20 [facility] IG% - [facility] 0.3 0 - 0.9 % 06/27/2021 15:20 [facility] LYMPH # - [facility] 1.8 1.09 - 3.3 10e3/ul 06/27/2021 15:20 [facility] LYMPH% - [facility] 31.2 20 - 40 % 06/27/2021 15:20 [facility] MEAN CORPUSCULAR HGB - [facility] 31.5 27.6 - 33.0 pg 06/27/2021 15:20 [facility] MEAN CORPUSCULAR HGB CONC - [facility] 33.0 32.8 - 36.4 g/dL 06/27/2021 15:20 EDT [facility] MEAN CELL VOLUME - [facility] 95.4(H) 81 - 95 fl 06/27/2021 15:20 EDT [facility] MONO # - CV 0.7 0.1 - 0.8 10e3/uL 06/27/2021 15:20 EDT [facility] MONO% - [facility] 11.2 0 - 12 % 06/27/2021 15:20 EDT [facility] PLATELET COUNT 117(L) 141 - 377 10e3/ul 06/27/2021 15:20 EDT [facility] RED BLOOD COUNT - [facility] 4.38 4.36 - 5.78 10e6/ul 06/27/2021 15:20 EDT [facility] RED CELL DISTRI WIDTH - CV 12.5 <14.2 % 06/27/2021 15:20 EDT [facility] WHITE BLOOD COUNT - [facility] 5.8 4.0 - 10.4 10e3/ul 06/27/2021 15:20 EDT [facility] 06/27/2021 14:1 0 EDT 06/27/2021 15:12 EDT Bassam Timmons MD HEMATOLOGY & PF4 ORD ERABLES [facility] [address] [place] [address] * CEA (06/27/2021 14:10 EDT) CEA 2.4 () ng/mL 06/28/2021 16:00 EDT [facility] Comment: REFERENCE VALUE <=3.0 (Non-smokers) Some smokers may have elevated CEA, usually <5.0. ADDITIONAL INFORMATION The testing method is an immunoenzymatic assay manufactured by [employer] and performed on the [employer] DxI 800. ? Values obtained with different assay methods or kits may be different and cannot be used interchangeably. ? Test results cannot be interpreted as absolute evidence for the presence or absence of malignant disease. Test Performed by: [facility] [address] [place] [address] Electrophysiology Technician: Bentley Rich M.D. Ph.D.; CLIA# [id number] Blood VENOUS BLOOD / Unknown 06/27/2021 14:10 EDT 06/27/2021 15:12 EDT Bassam Timmons MD CHEMISTRY & BLOOD GA S ORDERABLES [facility] [address] [place] [address] * (ABNORMAL) COMPREHENSIVE METABOLIC PANEL (CMP) (06/27/2021 14:10 EDT) Albumin % 4.2 3.4 - 4.9 g/dL [facility]/27[facility]2021 [facility]AL[facility]OSPHATASE - [facility] 51 38 - 126 U/L 06/27/2021 17:59 [facility] BILIRUBIN TOTAL 0.7 0.2 - 1.3 mg/dL 06/27/2021 17:59 [facility] BUN - [facility] 23 10 - 26 mg/dL 06/27/2021 17:59 [facility] CALCIUM - [facility] 9.7 8.5 - 10.5 mg/dL 06/27/2021 17:59 [facility] Chloride 104 96 - 110 mmol/L 06/27/2021 17:59 [facility] CO2 Total 27 21 - 32 mEq/L 06/27/2021 17:59 [facility] CREATININE 0.88 0.66 - 1.25 mg/dL 06/27/2021 17:59 [facility] eGFR >60 06/27/2021 17:59 EDT [facility] Comment: Chronic renal impairment is defined as GFR <60 Multiply result by 1.210 for patients. Anion Gap 11 0 - 18 06/27/2021 17:59 EDT [facility] GLUCOSE - [facility] 129(H) 70 - 100 mg/dL 06/27/2021 17:59 [facility] Potassium 4.4 3.5 - 5.0 mEq/L 06/27/2021 17:59 EDT [facility] Sodium 142 136 - 145 mEq/L 06/27/2021 [facility] TOTAL PROTEIN - [facility] 6.5 6.2 - 8.2 gm/dL 06/27/2021 17:59 [facility] Comment: Total protein samples collected with heparin can demonstrate a 6-10% positive bias. ??Interpret total protein result with caution. SGOT/AST - [facility] 37 17 - 59 U/L 06/27/2021 17:59 [facility] SGPT/ALT - [facility] 27 0 - 50 U/L 17:59 [facility] Blood VENOUS BLOOD / Unknown 06/27/2021 14:10 EDT 06/27/2021 15:12 EDT Bassam Timmons MD CHEMISTRY & BLOOD GA S ORDERABLES [facility] [address] [place] [address] documented in this encounter Visit Diagnoses Diagnosis Malignant neoplasm of splenic flexure (HCC-CMS)- Primary Malignant neoplasm of splenic flexure Neuropathy Mononeuritis of unspecified site documented in this encounter Care Teams Motion Picture Director Relationship Specialty Start Date End Date Naya [facility] [address] [facility] [place] [address] PCP - General 12/29/20 documented as of this encounter
--- OUTSIDE RECORDS SUMMARY | 2024-05-29 16:18 | XMS_ITS | Encounter Summary ---
Author Organization [facility] Address [address] [place] [address] Care Team Providers Care Waiter/Waitress Second Class Name Role Phone Rayray Person [facility]- Primary Care Provider [phone] Reason for Referral * Consult (See Order Priority) - Specialty Report Received Specialty Diagnoses / Procedures [facility] Referred To Contact Diagnoses Malignant neoplasm of splenic flexure (HCC-CMS) [place] [address] [place] [address] Phone: Fax: [address] [address] Referral ID Status Reason Start Date Expiration Date Visits Requested Visits Authorized [id number] Specialty Report Received Specialty Services Required 2 1 1 Question Answer Scheduling Comments (optional ? describe specific scheduling needs if applicable): Referral to neurology at [facility]. Progressive numbness in left lower extremity and diziness Reason for Request: Referral to neurology at [facility]. Progressive numbness in left lower extremity and diziness Reason for Visit * Reason Comments Follow-up Encounter Details Date Type Department Care Team (Late st Contact Info) Description 06/25/2022 11:30 EDT Office Visit [facility] Adult Hematology & Oncology [address] [place] [id number] [place] [address] [place] [address] Malignant neoplasm of splenic flexure (HCC-CMS) (Primary [...] Sign Reading Time Taken Comments Blood Pressure 126/62 06/25/2022 1129 EDT Pulse 60 06/25/2022 1129 EDT Temperature - - Respiratory Rate - - Oxygen Saturation 96% 06/25/2022 1129 EDT Inhaled Oxygen Concentration - - Weight 85.7 kg (189 lb) 06/25/2022 1129 EDT Height - - Body Mass Index 27.91 12/25/2021 0954 EDT documented in this encounter [...] Progress Notes * Bassam Timmons MD - 06/25/2022 1130 EDT Patient Active Problem List Diagnosis ??? 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 -Initial presentation with 4-5 day history of crampy abdominal pain and constipation. -01/10/18: CT abdomen pelvis. Circumferential soft tissue mass at the level of splenic flexure and mild ascites. CT chest negative. -Inpatient admission at [facility] from January 10-January 22, 2018 for [...] Patient returns for 6 month follow-up. He denies any blood in stool or abdominal pain. He continues to have nocturia and waking 4-5 times a night. Oxybutynin was discontinued recently and he was started on Myrbetriq. He is also complaining of intermittent dizziness which started 2 months ago. He is concerned about a stroke. He does have neuropathy in his feet but reports having progressive numbness in his left neck that has extended proximally above the knee. Continues to stay active and works full-time. [...] Smoking status: Former Smoker ??? Smokeless tobacco: Current User Types: Snuff, Chew Substance Use Topics ??? Alcohol use: Not on file ??? Drug use: Not on file Social History Social History Narrative Works full-time at [employer]. Current Outpatient Medications Medication Sig Dispense Refill [...] tablet Take by mouth daily. Taking ??? MYRBETRIQ 25 mg extended release tablet Take 25 mg by mouth daily. Taking ??? TURMERIC ORAL Take 1,000 mg by mouth daily. Taking ??? XARELTO 20 mg tablet tablet Take 20 mg by mouth daily. Taking No current facility-administered medications for this visit. Vitals: 06/25/22 1129 BP: 126/62 BP Cuff Location: Left arm Pulse: 60 SpO2: 96% Weight: 85.7 kg (189 lb) Wt Readings from Last 3 Encounters: 06/25/22 [...] well with no symptoms concerning for recurrence. CBC reviewed from today. Hemoglobin 13.7. Ferritin and TIBC pending. 2. 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 Currently on gabapentin. 3. Intermittent dizziness and progressive left lower extremity numbness. Unlikely brain metastasis.He is agreeable to neurology referral. Plan: 1. Return for follow-up in [address] scans prior. 2. Referral to neurology. Other Orders Placed This Visit Procedures ??? CT CHEST W CONTRAST ??? CT ABDOMEN PELVIS W CONTRAST ??? Complete Blood Count and Differential ??? CEA ??? Complete Blood Count and Differential ??? Ferritin ??? IBC ??? Amb Consult/Follow Up Neurology Bassam Timmons MD Hematology/Oncology [facility] CC: [facility] * Noemi Irene RN - 06/25/2022 1130 EDT Procedures: - Venipuncture Performed by: NOEMI IRENE RN Site Collected: Right Antecubital Space Volume Withdrawn: LAV EDTA 3.0 mL and [place] SST 8.5 mL Patient Response:Patient tolerated venipuncture well Number of attempts: 1 Ordering Provider:Bassam Timmons MD documented in this encounter Plan of Treatment Scheduled Orders Name Type Priority Associated Diagnoses Orde r Schedule COMPLETE BLOOD COUNT AND DIFFERENTIAL Lab STAT Malignant neoplasm of splenic flexure (HCC-CMS) Expected: 06/25/2022 (Approximate), Expires: 06/25/2023 Scheduled Referrals Name Type Priority Associated Diagnoses Order Schedule AMB CONS/FOLLOW UP NEUROLOGY Outpatient Referral Routine/Next Available Malignant neoplasm of splenic flexure (HCC-CMS) Neuropathy Expected: 07/26/2022 (Approximate), Expires: 06/25/2023 documented as of this encounter Procedures Procedure Name Priority Date/Time Associated Diagnosis Comments IBC Routine 06/25/2022 12:03 EDT Malignant neoplasm of splenic flexure (HCC-CMS) FERRITIN Routine 06/25/2022 12:03 EDT Malignant neoplasm of splenic flexure (HCC-CMS) CEA Routine 06/25/2022 11:38 EDT Malignant neoplasm of splenic flexure (HCC-CMS) COMPLETE BLOOD COUNT AND DIFFERENTIAL Routine 06/25/2022 11:24 EDT Malignant neoplasm of splenic flexure (HCC-CMS) documented in this encounter Results * IBC (06/25/2022 12:03 EDT) Pathologist [facility] Iron Binding Capacity 343 240 - 450 ??g/dL 06/25/2022 13:31 EDT [facility] Blood VENOUS BLOOD / Unknown Venipuncture / Unknown 06/25/2022 12:03 EDT 06/25/2022 12:03 EDT Bassam Timmons MD CHEMISTRY & BLOOD GA S ORDERABLES Performing Organization Address [facility] Co de Phone Number [facility] [address] [place] [address] * FERRITIN (06/25/2022 12:03 EDT) [facility] Ferritin 83 18 - 464 ng/mL 06/25/2022 14:02 EDT [facility] Blood VENOUS BLOOD / Unknown Venipuncture / Unknown 06/25/2022 12:03 EDT 06/25/2022 12:03 EDT Narrative [facility] - 06/25/2022 14:02 EDT The results of this assay can be falsely lowered due to the consumption of Biotin. Bassam Timmons MD CHEMISTRY & BLOOD GA S ORDERABLES [facility] [address] [place] [address] * CEA (06/25/2022 11:38 EDT) Pathologist [facility] CEA 2.1 See Note ng/mL 06/25/2022 22:31 EDT [facility] Comment: % Distribution of CEA (ng/mL): ??0.0 - 2.5 in 98.2% of Nonsmokers and 87.3% of Smokers ??2.6 - 5 in 1.8% of Nonsmokers and 8% of Smokers ??5.1 - 10.1 in 4.7% of Smokers NOTE: Serum CEA concentration should not be interpeted as absolute evidence for the presence or absence of malignant disease. ?? Assayed on [employer] Centaur XPT using chemiluminescent technology. ??Values obtained by different assay methods cannot be used interchangeably. Blood VENOUS BLOOD / Unknown Venipuncture / Unknown 06/25/2022 11:38 EDT 06/25/2022 11:38 EDT Bassam Timmons MD CHEMISTRY & BLOOD GA S ORDERABLES [facility] [address] [place] [address] * (ABNORMAL) COMPLETE BLOOD COUNT AND DIFFERENTIAL (06/25/2022 11:24 EDT) Pathologist [facility] WBC 5.89 4.00 - 10.40 K/cmm 06/25/2022 11:53 [facility] RBC 4.38 4.36 - 5.78 M/cmm 06/25/2022 11:53 [facility] Hemoglobin 13.7(L) 13.8 - 17.3 gm/dL 06/25/2022 11:53 [facility] HCT 40.9 39.5 - 50.2 % 06/25/2022 11:53 [facility] MCV 93 81 - 95 fl 06/25/2022 11:53 [facility] MCH 31.3 27.6 - 33.0 pg 06/25/2022 11:53 [facility] MCHC 33.5 32.8 - 36.4 gm/dL 06/25/2022 11:53 [facility] RDW-CV 12.0 <14.2 % 06/25/2022 11:53 [facility] RDW-SD 41.3 <46.0 fl 06/25/2022 11:53 [facility] PLT 159 141 - 377 K/cmm 06/25/2022 11:53 [facility] MPV 10.6 9.5 - 12.7 fl 06/25/2022 11:53 [facility] % Neutrophils 50.8 % 06/25/2022 11:53 [facility] % Lymphocytes 32.8 % 06/25/2022 11:53 [facility] % Monocytes 9.8 % 06/25/2022 11:53 [facility] % Eosinophils 5.6 % 06/25/2022 11:53 [facility] % Basophils 0.7 % 06/25/2022 11:53 [facility] % Immature Grans 0.3 % 06/25/20 11:53 [facility] Absolute Neutrophils 2.99 2.20 - 8.85 K/cmm 06/25/2022 11:53 [facility] Absolute Lymphocytes 1.93 1.09 - 3.30 K/cmm 06/25/2022 11:53 [facility] Absolute Monocytes 0.58 0.10 - 0.80 K/cmm 06/25/2022 11:53 [facility] Absolute Eosinophils 0.33 0.03 - 0.61 K/cmm 06/25/2022 11:53 [facility] ABS Basophils 0.04 0.01 - 0.11 K/cmm 06/25/2022 11:53 [facility] Absolute Immature Grans 0.02 0.00 - 0.06 K/cmm 06/25/2022 11:53 [facility] Type of Differential: Auto 06/25/2022 11:53 [facility] Blood VENOUS BLOOD / Unknown Venipuncture / Unknown 06/25/2022 11:24 EDT 06/25/2022 11:50 EDT Bassam Timmons MD PACKAGES & DNA PROBE ORDERABLES [facility] [address] [place] [address] documented in this encounter Visit Diagnoses Diagnosis Malignant neoplasm of splenic flexure (HCC-CMS)- Primary Malignant neoplasm of splenic flexure Neuropathy Mononeuritis of unspecified site documented in this encounter Discontinued Medications Medication Sig Discontinue Reason Start Date End Da te oxybutynin (DITROPAN) 5 mg tablet TAKE 1 TABLET BY MOUTH EVERY NIGHT 10/23/2021 06/25/2022 documented as of this encounter Historical Medications * This list may reflect changes made after this encounter. Medication Sig Dispensed Refills Start Date End Date MYRBETRIQ 25 mg extended release tablet Take 25 mg by mouth daily. 06/14/2022 TURMERIC ORAL Take 1,000 mg by mouth daily. added in this encounter Care Teams Waiter/Waitress Second Class Relationship Specialty Start Date End Date Naya [facility] [address] [place] [address] PCP - General 12/29/20 documented as of this encounter
--- OUTSIDE RECORDS SUMMARY | 2024-05-29 16:18 | XMS_ITS | Encounter Summary ---
Author Organization [facility] Address [address] [place] [address] Care Team Providers Care Almond Blancher Operator Name Role Phone Rayray Person [facility]- Primary Care Provider [phone] Reason for Visit * Reason Onset Date Comments Other 02/09/2021 CT question Encounter Details Date Type Department Care Team (Late st Contact Info) Description 02/09/2021 Telephone [facility] Adult Hematology & Oncology [address] [place] [address] [phone] [place] [address] [facility] [address] [place] [address] (Fax) Other (CT question) Social History Tobacco Use Types Packs/Day Years [...] encounter Miscellaneous Notes * Telephone Encounter - [place] Law - 02/10/2021 1505 EDT Left [facility] the message regarding the CT. * Telephone Encounter - Lupis Zuleta RN - 02/09/[address] Timmons, he will not need a CT scan until next year. Please verify with [facility] what CT order they are looking for. * Telephone Encounter - [place] Law - 02/09/2021 1159 EDT [facility] Dept called to have a CT order faxed to them-they said it was misplaced. I did notsee a CT referral for [facility]. Dr Timmons last note, 12/29/20, the plan is to have a 6 mo f/u with labs done prior at [facility]. For imaging it says to have done once a year and pt had a CT chest/abd/pelvis on 12/26/20. Does pt need a CT now? documented in this encounter Plan of Treatment Not on file documented as of this encounter Visit Diagnoses Not on filedocumented in this encounter Care Teams Almond Blancher Operator Relationship Specialty Start Date End Date [facility] [address] [place] [id number] PCP - General 12/29/20 documented as of this encounter
--- OUTSIDE RECORDS SUMMARY | 2024-05-29 16:18 | XMS_ITS | Encounter Summary ---
Author Organization [facility] Address [address] [place] [address] Care Team Providers Care Senior Chemical Process Engineer Name Role Phone Rayray Person [facility]- Primary Care Provider [phone] Reason for Visit * Reason Onset Date Comments Labs Only 11/17/2021 Encounter Details Date Type Department Care Team (Late st Contact Info) Description 11/17/2021 Telephone [facility] - [facility] Adult Hematology & Oncology [address] [place] [address] Leila Ann, RN Labs Only Social History Tobacco Use Types Packs/Day Years [...] encounter Miscellaneous Notes * Telephone Encounter - Court Ricardo - 11/17/2021 1337 EST noted * Telephone Encounter - Leila Ann RN - 11/17/2021 1233 EST Lab needed prior to CT w/ contrast placed. Court - Can you please fax labs to [facility] documented in this encounter Plan of Treatment Not on file documented as of this encounter Visit Diagnoses Diagnosis Malignant neoplasm of splenic flexure (HCC-CMS)- Primary Malignant neoplasm of splenic flexure documented in this encounter Care Teams Senior Chemical Process Engineer Relationship Specialty Start Date End Date [facility] [address] [place] [address] PCP - General 12/29/20 documented as of this encounter
--- OUTSIDE RECORDS SUMMARY | 2024-05-29 16:18 | XMS_ITS | Encounter Summary ---
Author Organization [facility] Address [address] [place] [address] Care Team Providers Care Senior Project Accountant Name Role Phone Rayray Person [facility] Primary Care Provider [phone] Encounter Details Date Type Department Care Team (Latest Contact Info) Description 12/29/2020 Travel Social History Tobacco Use Types Packs/Day Years [...] No 11/16/2019 documented as of this encounter Plan of Treatment Not on file documented as of this encounter Visit Diagnoses Not on filedocumented in this encounter Care Teams Senior Project Accountant Relationship Specialty Start Date End Date Naya, Rayray [facility] [address] [facility] [place] [id number] PCP - General 12/29/20 documented as of this encounter
--- OUTSIDE RECORDS SUMMARY | 2024-05-29 16:18 | XMS_ITS | Encounter Summary ---
Author Organization [facility] Address [address] [place] [address] Care Team Providers Care Academic Adviser Name Role Phone Nam Gonzalez MD Primary Care Provider Unav ailable Reason for Visit * Reason Onset Date Comments Orders (Non Pre-visit) 11/17/2020 Encounter Details Date Type Department Care Team (Late st Contact Info) Description 11/17/2020 Telephone [facility] [place] [address] [place] [phone] [place] [phone] [facility] [address] [place] [address] (Fax) Orders (Non Pre-visit) Social History Tobacco Use Types Packs/Day Years [...] * Telephone Encounter - Court Ricardo - 11/17/2020 1319 EST Lab orders faxed to [facility] * Telephone Encounter - Cydney Roberson RN - 11/17/2020 1240 EST Orders added. * Telephone Encounter - Court Ricardo - 11/17/2020 1221 EST Patient is scheduled for CT on 11/21/20 at [facility]. Patient will need order for BUN Creatinine GFR faxed to [facility]. TE to Nurse to add order. Thank you documented in this encounter Plan of Treatment Not on file documented as of this encounter Visit Diagnoses Diagnosis Malignant neoplasm of splenic flexure (HCC-CMS)- Primary Malignant neoplasm of splenic flexure documented in this encounter Care Teams Academic Adviser Relationship Specialty Start Date End Date Nam Gonzalez MD PCP - General 07/21/15 12/28/20 documented as of this encounter
--- OUTSIDE RECORDS SUMMARY | 2024-05-29 16:18 | XMS_ITS | Clinical Summary ---
Author Organization [facility] Address [address] [place] [address] Care Team Providers Care Pediatric Audiologist Name Role Phone Rayray Person [facility] Primary Care Provider [phone] [phone] Allergies Active Allergy Reactions Criticality Noted Date Comments Levonorgestrel-Ethinyl Estrad 05/08/2019 Other reaction(s): Unknown Medications Medication Sig Dispensed Refills Start Date End Date Status XARELTO 20 mg tablet tablet Take 20 mg by mouth daily. 09/24/2019 Active metoprolol (LOPRESSOR) 25 mg tablet Take 25 mg by mouth 2 times daily. Active metoprolol XL (TOPROL-XL) 50 mg tablet Take 50 mg by mouth daily. 09/21/2019 Active gabapentin (NEURONTIN) 100 mg capsule Take 100 mg by mouth. As needed 09/22/2019 Active Cyanocobalamin 1,000 mcg tablet extended release Take 1,000 mcg by mouth daily. Active atorvastatin (LIPITOR) 20 mg tablet Take 20 mg by mouth daily. 08/06/2019 Active cholecalciferol, Vitamin D3, 1,000 unit tablet Take 1,000 Units by mouth 2 times daily. Active acetaminophen (TYLENOL) 325 mg tablet Take 650 mg by mouth every 8 hours as needed. Active multivitamin (TAB-A-SHALINI) tablet Take by mouth daily. Active metFORMIN (GLUCOPHAGE) 500 mg tablet Take 500 mg by mouth daily. 10/12/2020 Active finasteride (PROSCAR) 5 mg tablet Take 5 mg by mouth every evening. 10/31/2020 Active gabapentin (NEURONTIN) 300 mg capsule As needed 10/25/2020 Active TURMERIC ORAL Take 1,000 mg by mouth daily. Active MYRBETRIQ 25 mg extended release tablet Take 25 mg by mouth daily. 06/14/2022 Active oxybutynin (DITROPAN) 5 mg tablet Take 5 mg by mouth daily. 10/25/2022 Active oxybutynin (DITROPAN-XL) 10 mg CR tablet Take 10 mg by mouth daily. 10/22/2022 Active TAMSulosin (FLOMAX) 0.4 mg capsule take 1 capsule by mouth every night 10/25/2022 Active METOPROLOL SUCCINATE ORAL Take 25 mg by mouth. 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 Tumor invades through the muscularis propria into pericolorectal tissue. All margins negative. No perineural invasion or lymphovascular invasion. 0/18 lymph nodes positive. -MMR profile normal Ureteral calculus 11/13/2019 Immunizations Name Administration Dates Next Due Covid-19 mRNA Vaccine (MODER NA COVID-19) PF 0.5 ml IM (12 yrs+) 08/22/2021,02/10/2021 Covid-19 mRNA Vaccine (PFIZE R COVID-19) PF 0.3 ml IM (12 yrs+) 03/21/2021 Influenza Vaccine Quad High Dose (FLUZONE HIGH DOSE) PF 0.7 ml IM (65 yrs+) 08/07/2021 Pneumococcal Conjugate Vacci ne 13-Valent (PCV13) (PREVNAR-13) 0.5 mL IM (6 wks+) 10/26/2015 Tdap Vaccine =>7YO IM 12/26/2012 Zostavax (Zoster Vaccine, Live) SQ 02/19/2012 Social History Tobacco Use Types Packs/Day Years [...] 8:44 EST Sexual Orientation Not on file Obstetrics History Last Filed Vital Signs Vital Sign Reading Time Taken Comments Blood Pressure 120/60 01/09/2023 1355 EDT Pulse 70 01/09/2023 1355 EDT Temperature 36.7 ??C (98.1 ??F) 11/27/2020 1119 EDT Respiratory Rate 20 12/25/2021 0954 EDT Oxygen Saturation 96% 01/09/2023 1355 EDT Inhaled Oxygen Concentration - - Weight 90.3 kg (199 lb) 01/09/2023 1355 EDT Height 175.3 cm (5' 9) 12/25/2021 0954 EDT Body Mass Index 29.39 12/25/2021 0954 EDT Plan of Treatment Health Maintenance Due Date Last Done Comments RSV Immunization ( o r 60+ Years) (1 - 1-dose 60+ series) 2000 Fall Risk Screening 2005 COVID-19 Vaccine ( season) 2024 08/22/2021, 03/21/2021, 02/10/2021 Care Teams Pediatric Audiologist Relationship Specialty Start Date End Date [facility] [address] [place] [address] PCP - General 12/29/20
--- OUTSIDE RECORDS SUMMARY | 2024-05-29 16:18 | XMS_ITS | Encounter Summary ---
Author Organization [facility] Address [address] [place] [address] Care Team Providers Care Poured Pipe Maker Name Role Phone Nam Gonzalez MD Primary Care Provider Unav ailable Reason for Visit * Reason Onset Date Comments Results 08/25/2019 Encounter Details Date Type Department Care Team (Late st Contact Info) Description 08/25/2019 Telephone [facility] - [facility] Adult Hematology & Oncology [address] [place] [address] Modesta Cortez RN Results Social History Tobacco Use Types Packs/Day Years Used Date Smoking Tobacco: Never Assessed Sex and Gender Information Value Date Recorded Sex Assigned at Not on file Gender Identity Male 11/13/2019 8:44 EST Sexual Orientation Not on file documented as of this encounter Miscellaneous Notes * Telephone Encounter - Modesta Cortez RN - 08/25/2019 1410 EST Called pt, informed him of above, as requested. He verbalized his understanding and agrees with theplan. * Telephone Encounter - Modesta Cortez RN - 08/25/2019 0926 EST ----- Message from Bassam Timmons MD sent at 08/25/2019 12:42 EST ----- Please let him know that tumor marker is within normal limits. I will see him back in October withCT scans prior. These I believe were already ordered at [facility]. Thank you. documented in this encounter Plan of Treatment Not on file documented as of this encounter Visit Diagnoses Not on filedocumented in this encounter Care Teams Poured Pipe Maker Relationship Specialty Start Date End Date Nam Gonzalez MD PCP - General 07/21/15 12/28/20 documented as of this encounter
--- OUTSIDE RECORDS SUMMARY | 2024-05-29 16:18 | XMS_ITS | Encounter Summary ---
Author Organization [facility] Address [address] [place] [address] Care Team Providers Care Lode Miner Blasting Name Role Phone Nam Gonzalez MD Primary Care Provider Unav ailable Encounter Details Date Type Department Care Team (Late st Contact Info) Description 01/19/2019 Historical Results Only [facility] - Main [address] [id number] [place] [id number] [facility] [address] [place] [address] (Fax) Social History Tobacco Use Types Packs/Day Years Used Date Smoking Tobacco: Never Assessed Sex and Gender Information Value Date Recorded Sex Assigned at Not on file Gender Identity Male 11/13/2019 8:44 EST Sexual Orientation Not on file documented as of this encounter Plan of Treatment Not on file documented as of this encounter Procedures Procedure Name Priority Date/Time Associated Diagnosis Comments CBC W/PLT & DIFF,POINT [place] C[place] [facility] Routine 01/19/2019 11:23 EDT CEA Routine 01/19/2019 11:23 EDT documented in this encounter Results * (ABNORMAL) CBC W/PLT & DIFF,POINT OF CARE - [facility] (01/19/2019 11:23 EDT) ABSOLUTE NEUTROPHIL COUN - [facility] 2.6 1.7 - 7.0 10e3/uL 01/19/2019 14:06 EDT [facility] BASO # - [facility] 0.04 0.0 - 0.3 10e3/uL 01/19/2019 14:06 [facility] BASO % - [facility] 1 0 - 2 % 01/19/2019 14:06 [facility] EOS # - [facility] 0.33 0.05 - 0.5 10e3/uL 01/19/2019 14:06 [facility] EOS % - [facility] 5 0 - 5 % 01/19/2019 14:06 [facility] GRAN % - [facility] 42.0 40 - 80 % 01/19/2019 14:06 [facility] HEMATOCRIT - [facility] 42.6 36.0 - 52.0 % 01/19/2019 14:06 [facility] HEMOGLOBIN - [facility] 14.6 13.7 - 17.5 g/dl 01/19/2019 14:06 [facility] LYMPH # - [facility] 2.5 0.9 - 2.9 10e3/ul 01/19/2019 14:06 [facility] LYMPH% - [facility] 40.5(H) 20 - 40 % 01/19/2019 14:06 [facility] MEAN CORPUSCULAR HGB - [facility] 31.8 26 - 34 pg 01/19/2019 14:06 [facility] MEAN CORPUSCULAR HGB CONC - [facility] 34.3 31 - 36 g/dL 01/19/2019 14:06 [facility] MEAN CELL VOLUME - CV 92.8 77 - 100 fl 01/19/2019 14:06 [facility] MONO # - [facility] 0.7 0.3 - 0.9 10e3/uL 01/19/2019 14:06 [facility] MONO% - [facility] 11.6 0 - 12 % 01/19/2019 14:06 [facility] PLATELET COUNT 166 150 - 400 10e3/ul 01/19/2019 14:06 [facility] RED BLOOD COUNT - [facility] 4.59 4.3 - 5.7 10e6/ul 01/19/2019 14:06 [facility] RED CELL DISTRI WIDTH - [facility] 12.5 11.8 - 15.6 % 01/19/2019 14:06 EDT [facility] WHITE BLOOD COUNT - [facility] 6.2 3.5 - 10.5 10e3/ul 01/19/2019 14:06 EDT [facility] 01/19/2019 11:2 3 EDT 01/19/2019 11:35 EDT Bassam Timmons MD CHEMISTRY & BLOOD GA S ORDERABLES Performing Organization Address [facility]/ZIP Co de Phone Number [facility] * CEA (01/19/2019 11:23 EDT) CEA 1.6 () ng/mL 01/20/2019 16:51 EDT [facility] Comment: REFERENCE VALUE <=3.0 (Non-smokers) Some smokers may have elevated CEA, usually <5.0. ADDITIONAL INFORMATION The testing method is an immunoenzymatic assay manufactured by [employer] and performed on the [employer] Thera DxI 800. ? Values obtained with different assay methods or kits may be different and cannot be used interchangeably. ? Test results cannot be interpreted as absolute evidence for the presence or absence of malignant disease. Test Performed by: [facility] - [address] [address] 01/19/2019 11:2 3 EDT 01/19/2019 16:31 EDT Bassam Timmons MD CHEMISTRY & BLOOD GA S ORDERABLES Performing Organization Address [facility]/ZIP Co de Phone Number [facility] documented in this encounter Visit Diagnoses Not on filedocumented in this encounter Care Teams Lode Miner Blasting Relationship Specialty Start Date End Date Nma Gonzalez MD PCP - General 07/21/15 12/28/20 documented as of this encounter
--- OUTSIDE RECORDS SUMMARY | 2024-05-29 16:18 | XMS_ITS | Encounter Summary ---
Author Organization [facility] Address [address] [place] [address] Care Team Providers Care Public Information Coordinator Name Role Phone Nam Gonzalez MD Primary Care Provider Unav ailable Reason for Visit * Reason Comments Cough Shortness of Breath Encounter Details Date Type Department Care Team (Late st Contact Info) Description 11/27/2020 11:30 EDT Office Visit [facility] Acute Respiratory Clinic [address] [place], [place] [id number] Niraj Swanson, STENCIL PRINTER [address] [facility] [address] [place], [place] [id number] Shortness of breath (Primary Dx) Social History Tobacco Use Types [...] Sign Reading Time Taken Comments Blood Pressure 138/80 11/27/2020 1119 EDT Pulse 82 11/27/2020 1119 EDT Temperature 36.7 ??C (98.1 ??F) 11/27/2020 1 119 EDT Respiratory Rate 24 11/27/2020 1119 EDT Noted to be labored Oxygen Saturation 96% 11/27/2020 111 9 EDT Inhaled Oxygen Concentration - - Weight - - Height - - Body Mass Index - - documented in this encounter Functional Status Functional [...] No 11/16/2019 documented as of this encounter Patient Instructions * Patient Instructions* Niraj Swanson NP - 11/27/2020 11:30 EDT Your symptoms today are concerning for a serious issue which needs to be evaluated in the EmergencyDepartment today. You have declined an ambulance. I have told you that there is a risk for driving yourself to the Emergency Department and you communicate your understanding of this to me. I will call [facility] Emergency Department and tell them you are coming to be evaluated. documented in this encounter Progress Notes * Bianca Linares RN - 11/27/2020 1130 EDT Reason patient is referred to [facility]: Cough CC: productive cough, worse when lying down, chest tightness, R sided-pain, SOB, GARZON on R side; pt audibly wheezing HPI: Sx x2wks Cough? 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 Shortness of breath Violette is a 80-year-old male presenting for worsening shortness of breath. He appeared in minor distress. His evaluation here was brief given his present symptoms, and recommendation for patient to be evaluated in the emergency department was given. He agreed to emergency department evaluation, but declined EMS. We did not start patient on oxygen as he stabilized around 96%. During ambulation he was significantly short of breath, with oxygen dropping to the low 90s. He was discharged in a wheelchair to his vehicle. Report was called to Varsha, charge nurse in the [facility] emergency department. Differential diagnosis includes pneumonia, severe reactive airway, pulmonary embolism, cardiac stress. Reason for referral to [facility]: shortness of breath Where patient was examined: Exam room 1 HPI: Violette presents alone to the acute respiratory clinic for evaluation of worsening shortness of breath. He reports approximately 2 weeks of cold symptoms. Starting with headache and a cough. He was sent home from work at [employer]. He did obtain a Covid test which was negative approximately 1 weekago. 3 days ago he felt like he had a sudden deterioration, before that symptoms have been slowly improving. He reports progressive shortness of breath, especially with laying down and at night. His coughis productive of clear phlegm. He denies any specific fever history. He endorses some right-sided chest discomfort, not there all the time, but worse with coughing. He denies history of pulmonary disease. Chews tobacco -- takes a week to go through a pouch. Remote smoking history. He has recently had a chest CT at [facility] as part of his monitoring for history of malignant neoplasm of splenic flexure, first diagnosed in 2017, and at last visit in May 2020 thought to be in remission. He takes Xarelto daily. I have reviewed current problem list and current medications. ROS: See HPI for details ROS Objective: Examination: Vitals: BP 138/80 Pulse 82 Temp 36.7 ??C (98.1 ??F) Resp 24 Comment: Noted to be labored SpO2 96% There is no height or weight on file to calculate BMI. Physical Exam Vitals signs and nursing note reviewed. Constitutional: General: He is in acute distress. Appearance: He is ill-appearing. He is not toxic-appearing or diaphoretic. Cardiovascular: Rate and Rhythm: Normal rate and regular rhythm. Heart sounds: Heart sounds are distant. Pulmonary: Effort: Tachypnea, accessory muscle usage and respiratory distress (Minor) present. Breath sounds: No stridor. Wheezing (Audible) present. Comments: Obvious labored breathing Skin: General: Skin is warm and dry. Comments: Dusky Neurological: Mental Status: He is alert. Psychiatric: Mood and Affect: Mood normal. Behavior: Behavior normal. Data reviewed (past results):Reviewed and/or ordered active problem list, medication list, notes from last encounter This note may be in part documented using Sp[employer] dictation software. Please forgive any errors or typos that may result from use of dictation. documented in this encounter Plan of Treatment Not on file documented as of this encounter Procedures Procedure Name Priority Date/Time Associated Diagnosis Comments XR CHEST 1 VIEW 11/27/2020 14:03 EDT EKG 12-LEAD 11/27/2020 12:03 EDT documented in this encounter Results * XR CHEST 1 VIEW (11/27/2020 14:03 EDT) Anatomical Region Laterality Modality Computed Radiogr aphy 11/27/2020 14:0 3 EDT Narrative 11/27/2020 14:03 EDT ? EXAM: RADIOLOGY/CHEST-PORTABLE ?EX. D/ (1344) ? CLINICAL INFORMATION: ? sob/cough - airborne prec ? PROCEDURE INFORMATION: ? Exam: XR Chest ? Exam date and time: 11/27/2020 12:20 PM ? Age: 80 years old ? Clinical indication: Cough and shortness of breath; Additional ? info: Sob/cough - airborne prec ? TECHNIQUE: ? Imaging protocol: XR of the chest ? Views: 1 view. ? COMPARISON: ? CT CXR/ABD/PELVIS WITH CONTRAST 11/12/2019 9:38 AM ? FINDINGS: ? Lungs: Unremarkable. No consolidation. ? Pleural spaces: Unremarkable. No pleural effusion. No ? pneumothorax. ? Heart/Mediastinum: Unremarkable. No cardiomegaly. ? Bones/joints: ??Degenerative changes in the spine, shoulders. ??No ? acute bony abnormality identified. ? IMPRESSION: ? No acute findings. ? REPORT SIGNED IN OTHER VENDOR SYSTEM 11/27/2020 ?Reported By: Ivette Warner MD ? CC: ? Transcribed Date/Time: 11/27/2020 (1403) ? Incident Commander: ? Printed Date/Time: 11/27/2020 (1403) ? PAGE 1 ? Signed Report ? Procedure Note Ivette Warner MD - 11/27/2020 EXAM: RADIOLOGY/CHEST-PORTABLE EX. D/ (1344) CLINICAL INFORMATION: sob/cough - airborne prec PROCEDURE INFORMATION: Exam: XR Chest Exam date and time: 11/27/2020 12:20 PM Age: 80 years old Clinical indication: Cough and shortness of breath; Additional info: Sob/cough - airborne prec TECHNIQUE: Imaging protocol: XR of the chest Views: 1 view. COMPARISON: CT CXR/ABD/PELVIS WITH CONTRAST 11/12/2019 9:38 AM FINDINGS: Lungs: Unremarkable. No consolidation. Pleural spaces: Unremarkable. No pleural effusion. No pneumothorax. Heart/Mediastinum: Unremarkable. No cardiomegaly. Bones/joints: Degenerative changes in the spine, shoulders. No acute bony abnormality identified. IMPRESSION: No acute findings. REPORT SIGNED IN OTHER VENDOR SYSTEM 11/27/2020 Reported By: Ivette Warner MD CC: Transcribed Date/Time: 11/27/2020 (5303) Incident Commander: Printed Date/Time: 11/27/2020 (7429) PAGE 1 Signed Report Naveed Johnson MD IMG DIAGNOSTIC IMAGI NG ORDERABLES * EKG 12-LEAD (11/27/2020 12:03 EDT) 11/27/2020 12:0 3 EDT [facility] - 11/27/2020 12:03 EDT ? [facility] ? Test Date: ?2020-11-27 12:03:10 Pat Name: ? VIOLETTE BEARDEN ? Department: ?Room: ? Gender: ? M ?Mysql Dba: ?? : ?1940 ? Requested By: Order Number: ?Reading : ?? Jamilah Berkowitz MD ? Measurements Intervals ?[place] ? Rate: ? 72 ? P: ?79 [place]: ? 164 ?QRS: ?56 QRSD: ? 90 ? T: ?65 QT: ? 392 ? QTc: ?429 ? Interpretive Statements Normal sinus rhythm Normal ECG No previous ECG available for comparison Electronically Signed On 11-27-2020 19:24:32 EDT by Jamilah Berkowitz MD [email or web address] Procedure Note Jamilah Berkowitz MD - 11/27/2020 [facility] Test Date: 2020-11-27 12:03:10 Pat Name: VIOLETTE BEARDEN Department: Room: Gender: M Mysql Dba: : 1940 Requested By: Order Number: Reading MD: Jamilah Berkowitz MD Measurements Intervals [place] Rate: 72 P: 79 [place]: 164 QRS: 56 QRSD: 90 T: 65 QT: 392 QTc: 429 Interpretive Statements Normal sinus rhythm Normal ECG No previous ECG available for comparison Electronically Signed On 11-27-2020 19:24:32 EDT by Jamilah Berkowitz MD [email or web address] Naveed Johnson MD CARDIAC ECG ORDERABL ES Performing Organization Address City/State/[facility] Co de Phone Number [facility] [address] [place] [phone] documented in this encounter Visit Diagnoses Diagnosis Shortness of breath- Primary documented in this encounter Care Teams Public Information Coordinator Relationship Specialty Start Date End Date Nam Gonzalez MD PCP - General 07/21/15 12/28/20 documented as of this encounter
--- OUTSIDE RECORDS SUMMARY | 2024-05-29 16:18 | XMS_ITS | Encounter Summary ---
Author Organization [facility] Address [address] [place] [address] Care Team Providers Care Radon Inspector Name Role Phone Rayray Person [facility]- Primary Care Provider +1 [phone] Reason for Visit * Reason Onset Date Comments Orders (Non Pre-visit) 12/20/2022 Encounter Details Date Type Department Care Team (Late st Contact Info) Description 12/20/2022 Telephone [facility] [place] Adult Hematology & Oncology [address] [place] [address] [phone] Suzan Cruz MD [address] [place] [address] [address] [place] [address] Orders (Non Pre-visit) Social History Tobacco Use [...] * Telephone Encounter - Jessica Alexis - 12/26/2022 1102 EDT Faxed * Telephone Encounter - Florence Beltrán RN - 12/26/2022 1042 EDT Jessica- Order attached for BUN. Thank you * Telephone Encounter - Jessica Alexis - 12/26/2022 1033 EDT Dilcia from [facility] is calling to inform that she did get the order for Creainine, but is also asking if we can put a BUN order in * Telephone Encounter - Florence Beltrán RN - 12/20/2022 1420 EDT Order placed for Creatinine. Thank you * Telephone Encounter - Ivette Schultz - 12/20/2022 1302 EDT Need orders for labs creatine and GFR to be faxed to [facility] lab. Patient is scheduled for CT check in 8:45 for 9:00 to drink liquid for a 11:00 scan on 01/04/23. Also need to reschedule appointment on 12/[address] with Suzan Cruz Send back to Ivette Titus once orders are in. Thanks/ documented in this encounter Plan of Treatment Not on file documented as of this encounter Visit Diagnoses Diagnosis Malignant neoplasm of splenic flexure (HCC-CMS)- Primary Malignant neoplasm of splenic flexure documented in this encounter Care Teams Radon Inspector Relationship Specialty Start Date End Date [facility] [address] [facility] [place] [address] PCP - General 12/29/20 documented as of this encounter
--- OUTSIDE RECORDS SUMMARY | 2024-05-29 16:18 | XMS_ITS | Encounter Summary ---
Author Organization [facility] Address [address] [place] [address] Care Team Providers Care Router Operator Name Role Phone Rayray Person [facility]- Primary Care Provider [phone] [phone] Reason for Visit * Reason Onset Date Comments Appointment Related 11/28/2023 Coordination Of Care 11/28/2023 Encounter Details Date Type Department Care Team (Late st Contact Info) Description 11/28/2023 Telephone [facility] [place] [facility] [place] [facility] [place] On[place] [address] [place] [phone] Bruce Driver MD [address] [place] [address] [address] [place] [address] Appointment Related; Coordination Of Care Social History Tobacco Use Types Packs/Day [...] encounter Miscellaneous Notes * Telephone Encounter - Susan Melgar - 11/29/2023 1501 EDT Terry lost his job and is working on getting insurance but is not sure what he can afford to get.For now he is putting all appointment on hold. * Telephone Encounter - Susan Melgar - 11/28/2023 1627 EDT Was a no show for today's visit. I spoke with him this afternoon but he was not home. I will call him again tomorrow to reschedule. documented in this encounter Plan of Treatment Not on file documented as of this encounter Visit Diagnoses Not on filedocumented in this encounter Care Teams Router Operator Relationship Specialty Start Date End Date [facility] [address] [place] [address] PCP - General 12/29/20 documented as of this encounter
--- OUTSIDE RECORDS SUMMARY | 2024-05-29 16:18 | XMS_ITS | Encounter Summary ---
Author Organization [facility] Address [address] [place] [address] Care Team Providers Care Scale Adjuster Name Role Phone Nam Gonzalez MD Primary Care Provider Unav ailable Encounter Details Date Type Department Care Team (Latest Contact Info) Description 11/16/2019 Travel Social History Tobacco Use Types Packs/Day Years Used Date Smoking Tobacco: Former Smokeless Tobacco: Former Sex and Gender Information Value Date Recorded [...] on filedocumented in this encounter Care Teams Scale Adjuster Relationship Specialty Start Date End Date Nam Gonzalez MD PCP - General 07/21/15 12/28/20 documented as of this encounter
--- OUTSIDE RECORDS SUMMARY | 2024-05-29 16:18 | XMS_ITS | Encounter Summary ---
Author Organization [facility] Address [address] [place] [address] Care Team Providers Care Case Finisher Name Role Phone Nam Gonzalez MD Primary Care Provider Unav ailable Encounter Details Date Type Department Care Team (Late st Contact Info) Description 04/28/2019 Results Only Imaging [facility] [phone] Unknown, Provider, Social History Tobacco Use Types Packs/Day Years Used Date Smoking Tobacco: Never Assessed Sex and Gender Information Value Date Recorded Sex Assigned at Not on file Gender Identity Male 11/13/2019 8:44 EST Sexual Orientation Not on file documented as of this encounter Plan of Treatment Pending Results Name Type Priority Associated Diagnoses Date /Time OUTSIDE IMAGES - CT BODY Imaging 04/28/2019 14:42 EDT documented as of this encounter Visit Diagnoses Not on filedocumented in this encounter Care Teams Case Finisher Relationship Specialty Start Date End Date Nam Gonzalez MD PCP - General 07/21/15 12/28/20 documented as of this encounter
--- OUTSIDE RECORDS SUMMARY | 2024-05-29 16:18 | XMS_ITS | Encounter Summary ---
Author Organization [facility] Address [facility] [place] [address] Care Team Providers Care Neon Sign Mechanic Name Role Phone Unavailable Primary Care Provider Unavailabl e Encounter Details Date Type Department Care Team (Latest Contact Info) Description 01/10/2018 - 01/10/2018 11:59 PM EDT Hospital Encounter Radiology Library at [facility] [place] [phone] Ricci Zambrano MD [facility] [place] [address] Discharge Disposition: Home Social History Tobacco Use Types Packs/Day Years Used Date Smoking Tobacco: Never Assessed Sex and Gender Information Value Date Recorded Sex Assigned at Not on file Gender Identity Not on file Sexual Orientation Not on file documented as of this encounter Plan of Treatment Not on file documented as of this encounter Procedures Procedure Name Priority Date/Time Associated Diagnosis Comments FILM LIBRARY STORAGE ONLY CT ABDOMEN AND PELVIS Routine 01/10/2018 12:00 AM EDT documented in this encounter Results * Film Library- Storage Only CT Abdomen & Pelvis (01/10/2018 12:00 AM EDT) Narrative RAD - 01/10/2018 8:06 PM EDT This exam is for storage only and is auto-finalizing. Ricci Zambrano MD IMG FILM LIBRARY O RDERABLES [place], [place] documented in this encounter Visit Diagnoses Not on filedocumented in this encounter
--- OUTSIDE RECORDS SUMMARY | 2024-05-29 16:18 | XMS_ITS | Encounter Summary ---
Author Organization [facility] Address [address] [place] [address] Care Team Providers Care Machine Shop Helper Name Role Phone Nam Gonzalez MD Primary Care Provider Iggy osborne Naya [facility]- Primary Care Provider [phone] [phone] Encounter Details Date Type Department Care Team (Late st Contact Info) Description 08/21/2019 Lab Requisition [facility] Pathology & Laboratory Medicine - [address] [address] Unknown, Provider, Social History Tobacco Use Types [...] Priority Date/Time Associated Diagnosis Comments CEA Routine 08/21/2019 10:11 EST documented in this encounter Results * CEA (08/21/2019 10:11 EST) CEA 1.7 See Note ng/mL 08/24/2019 11:09 EST [facility] Comment: % Distribution of [...] used interchangeably. Blood VENOUS BLOOD / Unknown 08/21/2019 10:11 EST 08/21/2019 23:40 EST Provider Unknown CHEMISTRY & BLOOD GA S ORDERABLES Performing Organization Address City/State/[facility] Co de Phone Number [facility] [address] [place] [address] documented in this encounter Visit Diagnoses Not on filedocumented in this encounter Care Teams Machine Shop Helper Relationship Specialty Start Date End Date Nam Gonzalez MD PCP - General 07/21/15 12/28/20 [facility] [address] [place] [id number] PCP - General 12/29/20 documented as of this encounter
--- OUTSIDE RECORDS SUMMARY | 2024-05-29 16:18 | XMS_ITS | Encounter Summary ---
Author Organization [facility] Address [address] [place] [address] Care Team Providers Care Corporate Aircraft Mechanic Name Role Phone Nam Gonzalez MD Primary Care Provider Unav ailable Encounter Details Date Type Department Care Team (Late st Contact Info) Description 11/27/2020 Results Only [facility] [place] [address] [place] [address] Naveed Johnson MD [address] [place] [phone] Social History Tobacco Use Types Packs/Day Years [...] Procedure Name Priority Date/Time Associated Diagnosis Comments FLU/COVID KENDELL(FLUVID) Routine 11/27/2020 14:10 EDT NT-PROBNP SERPL-MCNC - [facility] Routine 11/27/2020 12:55 EDT SPEC W/O ORDERS - [facility] Routine 12:55 EDT LACTIC ACID SEPSIS REFLEX - [facility] Routine 11/27/2020 12:55 EDT COMPLETE BLOOD COUNT WITH DIFFERENTIAL (AUTO) Routine 11/27/2020 12:55 EDT THYROID CASCADE Routine 11/27/2020 12:55 EDT TROPONIN I Routine 11/27/2020 12:55 EDT MAGNESIUM Routine 11/27/2020 12:55 EDT COMPREHENSIVE METABOLIC PANEL (CMP) Routine 11/27/2020 12:55 EDT documented in this encounter Results * FLU/COVID KENDELL(FLUVID) (11/27/2020 14:10 EDT) SARS-CoV-2 RT-PCR Not Detected 11/27 14:27 EDT [facility] Comment: This assay is designed to detect the RNA of SARS-CoV-2 using nucleic acid amplification. ??A Not Detected result does not preclude the possibility of SARS-CoV-2 infection since the adequacy of sample collection and/or low viral burden may result in the presence of viral nucleic acids below the analytical sensitivity of this test method. ??Test results should not be used as the sole basis for treatment or other management decisions and must be used with other clinical, epidemiological and laboratory data in making the diagnosis. This test has not been FDA cleared or approved. ??This test has been authorized by FDA under an EUA for use by authorized laboratories. ??This test has been authorized only for detection of nucleic acid from 2019-nCoV, not for any other viruses or pathogens. ??This test is only authorized for the duration of the declaration that circumstances exist justifying the authorization of emergency use of in vitro diagnostic tests for detection and / or diagnosis of 2019-nCoV under section 564(b) (1) of Act, 21 U.S.C 360bbb-3(b)(1) unless the authorization is terminated or revoked sooner. Performed on the [employer] GeneXpert Instrument at [facility] [address] Result called to REY RIVAS/ED 11/27/20 1427: Result called by DEVIKA INFLUENZA A PCR - [facility] Negative 11/27/2020 14:27 EDT [facility] INFLUENZA B PCR - [facility] Negative 11/27/2020 14:27 EDT [facility] RSV PCR - [facility] Negative 11/27/2020 14:27 EDT [facility] 11/27/2020 14:1 0 EDT 11/27/2020 14:10 EDT Narrative [facility] - 11/27/2020 14:27 EDT FLUVID PATIENT STATUS: A [facility] 1 FLUVID Naveed Johnson MD MICROBIOLOGY - GENER AL ORDERABLES Performing Organization Address City/[facility]/ZIP Co de Phone Number [facility] [address] [place] [address] * THYROID CASCADE (11/27/2020 12:55 EDT) Pathologist [facility] TSH 1.72 0.46 - 4.68 uIU/mL 11/27/2020 13:48 EDT [facility] 11/27/2020 12:5 5 EDT 11/27/2020 13:00 EDT Naveed Johnson MD CHEMISTRY & BLOOD GA S ORDERABLES Performing Organization Address [facility]/ZIP Co de Phone Number [facility] [address] [place] [address] * SPEC W/O ORDERS - [facility] (11/27/2020 12:55 EDT) SPEC W/O ORDERS - [facility] SEE NOTE 11/27/2020 13:34 EDT [facility] Comment: ?Emergency Room Specimen(s) without Orders These specimens will be discarded in 4 hours: ONE SET OF BLOOD CULTURES 11/27/2020 12:5 5 EDT 11/27/2020 13:34 EDT Naveed Johnson MD CHEMISTRY & BLOOD GA S ORDERABLES Performing Organization Address [facility] de Phone Number [facility] [address] [place] [address] * TROPONIN I (11/27/2020 12:55 EDT) [facility] Troponin I (ng/mL) <0.034 0.000 - 0.034 ng/mL 11/27/2020 13:31 EDT [facility] Comment: Interpretation comments: ??Cutoff for a positive troponin result is set at the 99th percentile of the upper reference limit. ??Elevated troponin must always be interpreted in the context of the clinical presentation. ?Serial troponin testing 3-6 hr from baseline is favored over relying on a single troponin level. ?? The results of this assay can be falsely lowered due to the consumption of Biotin. 11/27/2020 12:5 5 EDT 11/27/2020 13:00 EDT Naveed Johnson MD CHEMISTRY & BLOOD GA S ORDERABLES Performing Organization Address [facility] Number [facility] [address] [place] [address] * MAGNESIUM (11/27/2020 12:55 EDT) [facility] Magnesium 2.00 1.7 - 2.8 mg/dL 11/27/2020 13:26 EDT [facility] 11/27/2020 12:5 5 EDT 11/27/2020 13:00 EDT Naveed Johnson MD CHEMISTRY & BLOOD GA S ORDERABLES Performing Organization Address [facility] Phone Number [facility] [address] [place] [address] * (ABNORMAL) COMPREHENSIVE METABOLIC PANEL (CMP) (11/27/2020 12:55 EDT) Albumin % 4.3 3.4 - 4.9 g/dL 11/27/2020 13:26 [facility] ALKALINE PHOSPHATASE - [facility] 66 38 - 126 U/L 11/27/2020 13:26 [facility] BILIRUBIN TOTAL 0.6 0.2 - 1.3 mg/dL 11/27/2020 13:26 [facility] BUN - [facility] 21 10 - 26 mg/dL 11/27/2020 13:26 [facility] CALCIUM - [facility] 9.6 8.5 - 10.5 mg/dL 11/27/2020 13:26 [facility] Chloride 105 96 - 110 mmol/L 11/27/2020 13:26 [facility] CO2 Total 29 21 - 32 mEq/L 11/27/2020 13:26 [facility] CREATININE 0.88 0.66 - 1.25 mg/dL 11/27/2020 13:26 [facility] eGFR >60 11/27/2020 13:26 [facility] Comment: Chronic renal impairment is defined as GFR <60 Multiply result by 1.210 for patients. Anion Gap 8 0 - 18 11/27/2020 13:26 [facility] GLUCOSE - [facility] 180(H) 70 - 100 mg/dL 11/27/2020 13:26 [facility] Potassium 4.4 3.5 - 5.0 mEq/L 11/27/2020 13:26 [facility] Sodium 142 136 - 145 mEq/L 11/27/2020 13:26 [facility] TOTAL PROTEIN - [facility] 6.6 6.2 - 8.2 gm/dL 11/27/2020 13:26 [facility] SGOT/AST - [facility] 35 17 - 59 U/L 11/27/2020 13:26 [facility] SGPT/ALT - [facility] 36 0 - 50 U/L 13:26 [facility] 11/27/2020 12:5 5 EDT 11/27/2020 13:00 EDT Naveed Johnson MD CHEMISTRY & BLOOD GA S ORDERABLES Performing Organization Address [facility] Co de Phone Number [facility] [address] [place] [address] * NT-PROBNP SERPL-[facility] - [facility] (11/27/2020 12:55 EDT) [facility] NT-pro BNP 43 <300 pg/mL 11/27/2020 13:26 EDT [facility] Comment: NT-proBNP values less than 300 pg/ml have a 99% negative predictive value for excluding acute congestive heart failure. A diagnostic NT-proBNP cutoff of 900 pg/ml has been suggested in adults over 50 years of age in the absence of renal failure. A cutoff of 1200 pg/ml for patients with eGFR <60 yields a diagnostic sensitivity and specificity of 89% and 72% for acute congestive failure. (OCD Steve Ku, PhD, [employer] Collabor[employer] of NT-proBNP (ICON) Study The results of this assay can be falsely lowered due to the consumption of Biotin. 11/27/2020 12:5 5 EDT 11/27/2020 13:00 EDT Naveed Johnson MD CHEMISTRY & BLOOD GA S ORDERABLES Performing Organization Address [facility] Phone Number [facility] [address] [place] [address] * (ABNORMAL) LACTIC ACID SEPSIS REFLEX - [facility] (11/27/2020 12:55 EDT) [facility] LACTIC ACID [facility] 2.5(HH) <2.0 mmol/L 11/27/2020 13:22 EDT [facility] Comment: Result called to REY RIVAS/LUKE 11/27/20 1322 Result called by KT 11/27/2020 12:5 5 EDT 11/27/2020 12:58 EDT Naveed Johnson MD CHEMISTRY & BLOOD GA S ORDERABLES Performing Organization Address City/[facility]/ZIP Co de Phone Number [facility] [address] [place] [address] [place] [address] * (ABNORMAL) COMPLETE BLOOD COUNT WITH DIFFERENTIAL (AUTO) (11/27/2020 12:55 EDT) ABSOLUTE NEUTROPHIL COUN - [facility] 4.1 2.2 - 8.85 10e3/uL 11/27/2020 13:09 [facility] BASO # - [facility] 0.08 0.01 - 0.11 10e/uL 11/27/2020 13:09 [facility] BASO % - [facility] 1 0 - 2 % 11/27/2020 13:09 [facility] EOS # - [facility] 0.77(H) 0.03 - 0.61 10e3/ul 11/27/2020 13:09 [facility] EOS % - [facility] 10(H) 0 - 5 % 11/27/2020 13:09 [facility] GRAN % - [facility] 51.6 40 - 80 % 11/27/2020 13:09 [facility] HEMATOCRIT - [facility] 45.9 39.5 - 50.2 % 11/27/2020 13:09 [facility] HEMOGLOBIN - [facility] 15.1 13.8 - 17.3 g/dl 11/27/2020 13:09 [facility] IG# - [facility] 0.03 0 - 0.7 10e3/uL 11/27/2020 13:09 [facility] IG% - [facility] 0.4 0 - 0.9 % 11/27/2020 13:09 [facility] LYMPH # - [facility] 2.3 1.09 - 3.3 10e3/ul 11/27/2020 13:09 [facility] LYMPH% - [facility] 28.1 20 - 40 % 11/27/2020 13:09 [facility] MEAN CORPUSCULAR HGB - [facility] 30.9 27.6 - 33.0 pg 11/27/2020 13:09 [facility] MEAN CORPUSCULAR HGB CONC - [facility] 32.9 32.8 - 36.4 g/dL 11/27/2020 13:09 [facility] MEAN CELL VOLUME - [facility] 93.9 81 - 95 fl 11/27/2020 13:09 [facility] MONO # - [facility] 0.7 0.1 - 0.8 10e3/uL 11/27/2020 13:09 [facility] MONO% - [facility] 9.3 0 - 12 % 11/27/2020 13:09 [facility] PLATELET COUNT 156 141 - 377 10e3/ul 11/27/2020 13:09 [facility] RED BLOOD COUNT - [facility] 4.89 4.36 - 5.78 10e6/ul 11/27/2020 13:09 [facility] RED CELL DISTRI WIDTH - [facility] 11.5 <14.2 % 11/27/2020 13:09 [facility] WHITE BLOOD COUNT - [facility] 8.0 4.0 - 10.4 10e3/ul 11/27/2020 13:09 [facility] 11/27/2020 12:5 5 EDT 11/27/2020 13:00 EDT Naveed Johnson MD HEMATOLOGY & PF4 ORD ERABLES [facility] [address] [place] [address] documented in this encounter Visit Diagnoses Not on filedocumented in this encounter Care Teams Corporate Aircraft Mechanic Relationship Specialty Start Date End Date Nam Gonzalez MD PCP - General 07/21/15 12/28/20 documented as of this encounter
--- OUTSIDE RECORDS SUMMARY | 2024-05-29 16:18 | XMS_ITS | Referral Summary ---
Author Organization [facility] Address [address] [place] [address] Care Team Providers Care Road Roller Operator Name Role Phone [facility] Primary Care Provider [phone] [phone] Allergies Active Allergy Reactions Criticality Noted Date [...] ascites. CT chest negative. -Inpatient admission at [facility] from January 10-January 22, 2018 [...] 8:44 EST Sexual Orientation Not on file Last Filed Vital Signs Vital Sign Reading [...] Body Mass Index 29.39 12/25/2021 0954 EDT Functional Status Functional Status Response Date of [...] concentrating, remembering, or making decisions? No 11/16/2019 Plan of Treatment Not on file Care Teams Road Roller Operator Relationship Specialty Start Date End [facility] [address] [place] [address] PCP - General 12/29/20
--- OUTSIDE RECORDS SUMMARY | 2024-05-29 16:18 | XMS_ITS | Encounter Summary ---
Author Organization [facility] Address [address] [place] [address] Care Team Providers Care Electrical Manager Name Role Phone Nam Gonzalez MD Primary Care Provider Iggy osborne Naya [facility] [place] [place]- Primary Care Provider [phone] [phone] Encounter Details Date Type Department Care Team (Late st Contact Info) Description 12/22/2020 Lab Requisition [facility] Pathology & Laboratory Medicine - [address] [id number] Outr Resulting Lab, Provider Social History Tobacco Use Types Packs/Day Years [...] Procedure Name Priority Date/Time Associated Diagnosis Comments ZZCOVID-19 TEST [facility] PCR Today 12/21/2020 16:00 EDT COVID-19 TESTING Routine 12/21/2020 16:0 0 EDT documented in this encounter Results * COVID-19 TEST [facility] PCR (12/21/2020 16:00 EDT) Swab ENTIRE NASOPHARYNX / Unknown 12/21/2020 16:00 EDT 12/22/2020 16:57 EDT Provider Outr Resulting Lab MICROBIOLOGY - GENERAL ORDERABLES Performing Organization Address City/[facility]/ZIP Co de Phone Number [facility] [address] [place] [address] * COVID-19 TESTING (12/21/2020 16:00 EDT) COVID-19 rt-PCR Result Negative Negative 12/23/2020 15:47 EDT [facility] Comment: This test has not been FDA cleared or approved. This test has been authorized by FDA under an EUA for use by authorized laboratories. This test has been authorized only for detection of nucleic acid from 2019-nCoV, not for any other viruses or pathogens. This test is only authorized for the duration of the declaration that circumstances exist justifying the authorization of emergency use of in vitro diagnostic tests for detection and/or diagnosis of 2019-nCoV under section 564(b)(1) of Act, 21 U.S.C ?? 360bbb-3(b) (1), unless the authorization is terminated or revoked sooner. Negative results do not preclude 2019-nCoV infection and should not be used as the sole basis for treatment or other patient management decisions. Negative results must be combined with clinical observations, patient history, and epidemiological information. Testing was performed using the joseph SARS-CoV-2 assay ([employer] on the Joseph 6800 System Performing Lab [facility] [address] [facility] 12/23/2020 15:47 EDT [facility] Swab 12/21/2020 16:0 0 EDT 12/22/2020 16:57 EDT Provider Outr Resulting Lab MICROBIOLOGY - GENERAL ORDERABLES [facility] [address] [place] [address] documented in this encounter Visit Diagnoses Not on filedocumented in this encounter Care Teams Electrical Manager Relationship Specialty Start Date End Date Nam Gonzalez MD PCP - General 07/21/15 12/28/20 [facility] [address] [place] [address] PCP - General 12/29/20 documented as of this encounter
--- OUTSIDE RECORDS SUMMARY | 2024-05-29 16:18 | XMS_ITS | Encounter Summary ---
Author Organization Health system Address [address] [place] [address] Care Team Providers Care Director Student Union Name Role Phone Nam Gonzalez MD Primary Care Provider Unav ailable Reason for Referral * Radiology Services (Routine) - Specialty Report Received Specialty Diagnoses / Procedures Referred By Contac t Referred To Contact Diagnostic Radiology Diagnoses Malignant neoplasm of splenic flexure (HCC-CMS) Procedures [place] [address] [address] [place] [address] Phone: Fax: [address] [address] Referral ID Status Reason Start Date Expiration Date V isits Requested Visits Authorized [id number] Specialty Report Received 11/16/2019 1 1 * Radiology Services (Routine) - Specialty Report Received Specialty Diagnoses / Procedures Referred By Contac t Referred To Contact Diagnostic Radiology Diagnoses Malignant neoplasm of splenic flexure (HCC-CMS) Procedures [place] [address] [address] [place] [address] Phone: Fax: Referral ID Status Reason Start Date Expiration Date V isits Requested Visits Authorized [id number] Specialty Report Received 11/16/2019 1 1 Reason for Visit * Reason Comments Follow-up Encounter Details Date Type Department Care Team (Late st Contact Info) Description 11/16/2019 13:30 EST Office Visit [facility] Adult Hematology & Oncology [address] [place] [id number] [place] [address] [facility] [address] [place] [address] (Fax) Malignant neoplasm of splenic flexure (HCC-CMS) [...] Sign Reading Time Taken Comments Blood Pressure 138/82 11/16/2019 1337 EST Pulse 76 11/16/2019 1337 EST Temperature - - Respiratory Rate - - Oxygen Saturation 96% 11/16/2019 1337 EST Inhaled Oxygen Concentration - - Weight 88.9 kg (196 lb) 11/16/2019 1337 EST Height 175.3 cm (5' 9) 11/16/2019 1337 EST Body Mass Index 28.94 11/16/2019 1337 EST documented in this encounter [...] Progress Notes * Bassam Timmons MD - 11/16/2019 1330 EST Patient Active Problem List Diagnosis ??? 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 -Initial presentation with 4-5 day history of crampy abdominal pain and constipation. -01/10/18: CT abdomen pelvis. Circumferential soft tissue mass at the level of splenic flexure and mild ascites. CT chest negative. -Inpatient admission at [facility] from January 10-January 22, 2018 for [...] normal Subjective Interim History: Patient returns for follow-up. Here to discuss the results of his recent CT scan. Had surgery for his hernia 5 weeks ago. Complains of having abdominal pain x 1 month following this, though states that it has been slowly improving and currently rates it a 1/100 in intensity. Continues to have abdominal distention and describes the sensation as one tectonic plate going one over the other. Plans on doing sit-ups and exercises soon. Endorses having normal BMs. Denies having any constipation or blood in stool. Will be going back to work on 11/19/19 s/p surgery. Review of Systems: Review of Systems Constitutional: [...] History Social History Narrative Works full-time at [employer]. Current Outpatient Medications Medication Sig Dispense Refill Last Dose ??? acetaminophen (TYLENOL) 325 mg tablet Take 650 mg by mouth every 8 hours as needed. Taking ??? atorvastatin (LIPITOR) 20 mg tablet Take 20 mg by mouth daily. Taking ??? CAFFEINE ORAL Take 100 mg by mouth 2 times daily as needed. Not Taking ??? cholecalciferol, Vitamin D3, 1,000 unit tablet Take 1,000 Units by mouth daily. Not Taking ??? Cyanocobalamin 1,000 mcg tablet extended release Take 1,000 mcg by mouth daily. Not Taking ??? gabapentin (NEURONTIN) 100 mg capsule [...] current facility-administered medications for this visit. Vitals: 11/16/19 1337 BP: 138/82 Pulse: 76 SpO2: 96% Weight: 88.9 kg (196 lb) Height: 175.3 cm (69) Wt Readings from Last 3 Encounters: 11/16/19 88.9 kg (196 lb) Physical Exam: Physical Exam Constitutional: He is oriented to person, place, and time. HENT: Head: Normocephalic and atraumatic. Eyes: EOM are normal. Neck: Normal range of motion. Neck supple. Cardiovascular: Regular rhythm. Pulmonary/Chest: Effort normal and breath sounds normal. Abdominal: Soft. There is no tenderness. Scars: previous laparoscopy, RUQ, previous hemicolectomy, [...] inflammation or post-surgical changes. 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 Lymph nodes identified: 18 and all of them were negative. No evidence of lymphovascular invasion or perineural invasion. Microsatellite stable. S/p right hemicolectomy with terminal ileostomy reversal. CEA level in August 2019 was wnl at 1.7. Reviewed CT scan results with patient. Showed no evidence of disease recurrence. There is associated thickening of the abdominal wall musculature and fat stranding which may represent inflammation orpost-surgical changes. S/p hernia repair surgery approx 5 weeks ago. Will extend surveillance schedule to tumor marker every 6 months and imaging once a year until year5. Plan: 1. Return for follow-up in [address] scans in 1 year. Other Orders Placed This Visit Procedures ??? CT CHEST W CONTRAST ??? CT ABDOMEN W CONTRAST ??? CEA Bassam Timmons MD Hematology/Oncology [facility] Cc: , Scribe attestation: By time stamping my name below, I attest that this documentation has been prepared under the direction and in the presence of the provider listed as the provider on this encounter, Bibi Avery 11/17/19 8:01 documented in this encounter Plan of Treatment Scheduled Orders Name Type Priority Associated Diagnoses Orde r Schedule CT CHEST W CONTRAST Imaging Routine Malignant Neoplasm of Splenic Flexure (HCC-CMS) Ordered: 11/16/2019 CT ABDOMEN W CONTRAST Imaging Routine Malignant Neoplasm of Splenic Flexure (HCC-CMS) Ordered: 11/16/2019 documented as of this encounter Visit Diagnoses Diagnosis Malignant neoplasm of splenic flexure (HCC-CMS)- Primary Malignant neoplasm of splenic flexure documented in this encounter Historical Medications * This list may reflect changes made after this encounter. Medication Sig Dispensed Refills Start Date End Date multivitamin (TAB-A-SHALINI) tablet Take by mouth daily. acetaminophen (TYLENOL) 325 mg tablet Take 650 mg by mouth every 8 hours as needed. cholecalciferol, Vitamin D3, 1,000 unit tablet Take 1,000 Units by mouth 2 times daily. atorvastatin (LIPITOR) 20 mg tablet Take 20 mg by mouth daily. 08/06/2019 Cyanocobalamin 1,000 mcg tablet extended release Take 1,000 mcg by mouth daily. gabapentin (NEURONTIN) 100 mg capsule Take 100 mg by mouth. As needed 09/22/2019 metoprolol XL (TOPROL-XL) 50 mg tablet Take 50 mg by mouth daily. 09/21/2019 metoprolol (LOPRESSOR) 25 mg tablet Take 25 mg by mouth 2 times daily. XARELTO 20 mg tablet tablet Take 20 mg by mouth daily. 09/24/2019 CAFFEINE ORAL Take 100 mg by mouth 2 times daily as needed. 12/25/2021 mometasone (NASONEX) 50 mcg/actuation nasal spray Instill 2 Sprays into both nostrils daily. 12/25/2021 tamsulosin (FLOMAX) 0.4 mg capsule Take 0.4 mg by mouth daily. 08/25/2019 12/25/2021 added in this encounter Care Teams Director Student Union Relationship Specialty Start Date End Date Nam Gonzalez MD PCP - General 07/21/15 12/28/20 documented as of this encounter
--- OUTSIDE RECORDS SUMMARY | 2024-05-29 16:18 | XMS_ITS | Encounter Summary ---
Author Organization [facility] Address [address] [place] [address] Care Team Providers Care Remittance Clerk Name Role Phone [facility] Primary Care Provider [phone] Encounter Details Date Type Department Care Team (Late st Contact Info) Description 09/11/2021 Lab Requisition [facility] Pathology & Laboratory Medicine - [facility] [address] [place], [place] [address] Outr Resulting Lab, Provider Social History Tobacco [...] Priority Date/Time Associated Diagnosis Comments CEA Routine 09/11/2021 11:27 EST documented in this encounter Results * CEA (09/11/2021 11:27 EST) CEA 2.2 See Note ng/mL 09/11/2021 22:20 EST [facility] Comment: % Distribution of CEA (ng/mL): ??0.0 - 2.5 in 98.2% of Nonsmokers and 87.3% of Smokers ??2.6 - 5 in 1.8% of Nonsmokers and 8% of Smokers ??5.1 - 10.1 in 4.7% of Smokers NOTE: Serum CEA concentration should not be interpeted as absolute evidence for the presence or absence of malignant disease. ?? Assayed on Siemens Statuslyaur XPT using chemiluminescent technology. ??Values obtained by different assay methods cannot be used interchangeably. Blood VENOUS BLOOD / Unknown 09/11/2021 11:27 EST 09/11/2021 21:05 EST Provider Outr Resulting Lab CHEMISTRY & BLOOD GAS ORDERABLES Performing Organization Address City/State/[facility] Co de Phone Number [facility] [address] [place] [address] documented in this encounter Visit Diagnoses Not on filedocumented in this encounter Care Teams Remittance Clerk Relationship Specialty Start Date End Date Naya [facility] [address] [facility] [place] [address] PCP - General 12/29/20 documented as of this encounter
--- OUTSIDE RECORDS SUMMARY | 2024-05-29 16:18 | XMS_ITS | Encounter Summary ---
Author Organization [facility] Address [address] [place] [address] Care Team Providers Care Insecticide Supervisor Name Role Phone [facility]- Primary Care Provider [phone] Reason for Visit * Reason Onset Date Comments Appointment Related 09/19/2023 Encounter Details Date Type Department Care Team (Late st Contact Info) Description 09/19/2023 Telephone [facility] Oncology [address] [place] [phone] Bruce Driver MD [address] [place] [address] [address] [place] [address] Appointment Related Social History Tobacco [...] * Telephone Encounter - Susan Melgar - 09/19/2023 1629 EST No show for today's visit. Mobile phone is no longer in service so I left a message on Nemo's cell phone asking Terry to call us. documented in this encounter Plan of Treatment Not on file documented as of this encounter Visit Diagnoses Not on filedocumented in this encounter Care Teams Insecticide Supervisor Relationship Specialty Start Date End Date Denise [facility] [address] [facility] [place] [address] PCP - General 12/29/20 documented as of this encounter
--- OUTSIDE RECORDS SUMMARY | 2024-05-29 16:19 | XMS_ITS | Encounter Summary ---
Author Organization [facility] Address [address] [place] [address] Care Team Providers Care Radio Personality Name Role Phone Nam Gonzalez MD Primary Care Provider Unav ailable Encounter Details Date Type Department Care Team (Latest Contact Info) Description 01/11/2018 11:15 EDT - 01/11/2018 23:59 EDT Hospital Encounter [address] [address] Unknown, Provider, Discharge Disposition: Home or Self Care Social History Tobacco Use Types Packs/Day Years Used Date Smoking Tobacco: Never Assessed Sex and Gender Information Value Date Recorded Sex Assigned at Not on file Gender Identity Male 11/13/2019 8:44 EST Sexual Orientation Not on file documented as of this encounter Discharge Disposition Disposition Code Departure Means Destination Home or Self Longterm documented in this encounter Plan of Treatment Not on file documented as of this encounter Visit Diagnoses Not on filedocumented in this encounter Care Teams Radio Personality Relationship Specialty Start Date End Date Nam Gonzalez MD PCP - General 07/21/15 12/28/20 documented as of this encounter
--- OUTSIDE RECORDS SUMMARY | 2024-05-29 16:19 | XMS_ITS | Encounter Summary ---
Author Organization [facility] Address [address] [place] [address] Care Team Providers Care Hvac Installation Technician Name Role Phone Unavailable Primary Care Provider Unavailabl e Encounter Details Date Type Department Care Team (Latest Contact Info) Description 12/08/2007 17:03 EDT Hospital Encounter [facility] [address] [place] [address] Jacky Moise MD [address] [place] [phone] Discharge Disposition: Auto Discharge Social History Tobacco Use Types Packs/Day Years Used Date Smoking Tobacco: Never Assessed Sex and Gender Information Value Date Recorded Sex Assigned at Not on file Gender Identity Male 11/13/2019 8:44 EST Sexual Orientation Not on file documented as of this encounter Discharge Disposition Disposition Code Departure Means Destination Auto Discharge documented in this encounter Plan of Treatment Not on file documented as of this encounter Procedures Procedure Name Priority Date/Time Associated Diagnosis Comments CT LUMBAR SPINE WO CONTRAST 12/08/2007 17:39 EDT documented in this encounter Results * CT LUMBAR SPINE WO CONTRAST (12/08/2007 17:39 EDT) Anatomical Region Laterality Modality Other 12/08/2007 17:3 9 EDT Narrative 02/27/2009 13:48 EDT severe low back pain, xrays were concerned for a fracture CT Lumbar Spine Without Contrast: ??December 08, 2007 5:39:00 PM Signs and Symptoms: ??Severe low back pain, x-rays were concerned for a fracture. Comparison: Lumbar spine films on 11/04/07 and MRI from [facility] on 09/23/07. Technique: Axial noncontrast CT images of the lumbar spine were obtained with coronal and sagittal reformations. Findings: The lumbar vertebral body heights are well maintained. There is approximately 5 mm of anterolisthesis of L5 on S1. No pars defect is identified. There is loss of disc space height at L2-L3, L3-4, L4-L5 and L5-S1 consistent with disc degeneration. L2-L3: There is global disc bulge and mild facet degeneration. L2-L3: There is global disc bulge, facet and ligamentum flavum hypertrophy and central and bilateral lateral recess narrowing. The neuroforamina are patent. L3-L4: There is global disc bulge, facet and ligamentum flavum hypertrophy with central and bilateral lateral recess narrowing. Both neuroforamina appear mildly narrowed. L4-L5: There is global disc bulge and facet and ligamentum flavum hypertrophy with bilateral lateral recess narrowing. There is bilateral neural foraminal narrowing. L5-S1: There is global disc bulge and severe facet and ligamentum flavum hypertrophy. The central canal and lateral recesses are patent. The neuroforamina are elongated due to listhesis, but do not appear significantly narrowed. There is vacuum phenomena within the sacroiliac joints bilaterally. There is also sclerosis and osteophyte formation present consistent with osteoarthropathy. Impression: 1. Grade 1 anterolisthesis of L5 on S1. This appears to be degenerative due to severe facet arthropathy at this level. A pars defect is not identified. 2. 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 3. Multilevel central lateral recess narrowing. This is better characterized on the outside MRI images. 4. Bilateral sacroiliac osteoarthropathy. Procedure Note Megan Martinez MD - 02/27/2009 severe low back pain, xrays were concerned for a fracture CT Lumbar Spine Without Contrast: December 08, 2007 5:39:00 PM Signs and Symptoms: Severe low back pain, x-rays were concerned for a fracture. Comparison: Lumbar spine films on 11/04/07 and MRI from [facility] on 09/23/07. Technique: Axial noncontrast CT images of the lumbar spine were obtained with coronal and sagittal reformations. Findings: The lumbar vertebral body heights are well maintained. There is approximately 5 mm of anterolisthesis of L5 on S1. No pars defect is identified. There is loss of disc space height at L2-L3, L3-4, L4-L5 and L5-S1 consistent with disc degeneration. L2-L3: There is global disc bulge and mild facet degeneration. L2-L3: There is global disc bulge, facet and ligamentum flavum hypertrophy and central and bilateral lateral recess narrowing. The neuroforamina are patent. L3-L4: There is global disc bulge, facet and ligamentum flavum hypertrophy with central and bilateral lateral recess narrowing. Both neuroforamina appear mildly narrowed. L4-L5: There is global disc bulge and facet and ligamentum flavum hypertrophy with bilateral lateral recess narrowing. There is bilateral neural foraminal narrowing. L5-S1: There is global disc bulge and severe facet and ligamentum flavum hypertrophy. The central canal and lateral recesses are patent. The neuroforamina are elongated due to listhesis, but do not appear significantly narrowed. There is vacuum phenomena within the sacroiliac joints bilaterally. There is also sclerosis and osteophyte formation present consistent with osteoarthropathy. Impression: 1. Grade 1 anterolisthesis of L5 on S1. This appears to be degenerative due to severe facet arthropathy at this level. A pars defect is not identified. 2. 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 3. Multilevel central lateral recess narrowing. This is better characterized on the outside MRI images. 4. Bilateral sacroiliac osteoarthropathy. Jacky Moise MD IMG CT ORDERABLES documented in this encounter Visit Diagnoses Not on filedocumented in this encounter
--- OUTSIDE RECORDS SUMMARY | 2024-05-29 16:19 | XMS_ITS ---
Author Organization Unknown Address [address] [place], [place] [id number] Phone Care Team Providers Care Application Systems Engineer Name Role Phone AVERY AMATO MD Attending Unavailable FRANCISCO CONLEY CRNA Unavailable NEENA JACOME Primary Unavailable Results GLUCOSE FINGER/HEEL CAPILLAR Y - Collect Date/Time: 05/24/2021 09:48 [facility] ID: [id number] - [id number] [address] [place], [place], [address] LOINC: 67039-8 Test Value Unit Reference Range Code Code System Flag GLUCOSE CAP 115 mg/dL L=70 H=116 Social History Type Status Start Date End Date Code Code Syst em Smoking History Former smoker 09/16/[address] Sex Male Vital Signs Vital Sign Value Unit Hand Value Hand Unit Date/Time Recent/Initial? Code Code System Systolic Blood Pressure 114 mm[Hg] 05/24/2021 11:30 Initial 8480-6 LOINC Diastolic Blood Pressure 73 mm[Hg] 05/24/2021 11:30 Initial 8462-4 LOINC O2 Saturation 96 % 2020 11:30 Initial 52185- 5 LOINC Pulse 45.0 /min 05/24/2021 11:30 Initial 8867-4 LOINC Respiration 11 /min 05/24/20 11:30 Initial 9279-1 LOINC Temperature 36.1 Kandis 97.0 F 05/24/20 21 11:30 Initial 8310-5 LOINC Medications Medication Start Date End Date Route Frequency Dose Code Code System Medication Instructions Home Meds Multivitamin Oral Tablet 11/26/2018 Unknown ORAL DAILY 1 unit(s) RxNorm TAKE 1 EACH ORAL DAILY Tylenol Arthritis 650MG Oral Tablet, Extended Release 11/26/2018 2 ORAL NEEDED EVERY 8 HOURS 1300 MILLIGRAMS 3139150 RxNorm TAKE 1300 MILLIGRAMS ORAL NEEDED EVERY 8 HOURS oxyCODONE HCl 5MG Oral Tablet 10/11/2019 2 ORAL NEEDED EVERY 3 HOURS 5 MILLIGRAMS 7504887 RxNorm TAKE 5 MILLIGRAMS ORAL NEEDED EVERY 3 HOURS Atorvastatin Calcium 20MG Oral Tablet 10/11/2019 2 ORAL BEDTIME 20 MILLIGRAMS 552816 RxNorm TAKE 20 MILLIGRAMS ORAL BEDTIME Flomax 0.4MG Oral Capsule 10/11/2019 2 ORAL DAILY 0.4 MILLIGRAMS 788738 RxNorm TAKE 0.4 MILLIGRAMS ORAL DAILY Gabapentin 100MG Oral Capsule 10/11/2019 2 ORAL THREE TIMES A DAY 200 MILLIGRAMS 299344 RxNorm TAKE 200 MILLIGRAMS ORAL THREE TIMES A DAY Metoprolol Succinate 50MG Oral Tablet, Extended Release 10/11/2019 2 ORAL DAILY 50 MILLIGRAMS 926820 RxNorm TAKE 50 MILLIGRAMS ORAL DAILY Xarelto 20MG Oral Tablet 10/11/2019 2 ORAL DAILY 20 MILLIGRAMS 4165166 RxNorm TAKE 20 MILLIGRAMS ORAL DAILY oxyCODONE HCl 5MG Oral Tablet 10/29/2021 Unknown ORAL NEEDED EVERY 6 HOURS 1 TABLET 1177234 RxNorm TAKE 1 TABLET ORAL NEEDED EVERY 6 HOURS FOR Pain Atorvastatin Calcium 20MG Oral Tablet 10/29/2021 Unknown ORAL BEDTIME 20 MILLIGRAMS 094289 RxNorm TAKE 20 MILLIGRAMS ORAL BEDTIME Finasteride 5MG Oral Tablet 10/29/2021 Unknown ORAL DAILY 5 MILLIGRAMS 529142 RxNorm TAKE 5 MILLIGRAMS ORAL DAILY Gabapentin 100MG Oral Capsule 10/29/2021 Unknown ORAL NEEDED THREE TIMES A DAY 300 MILLIGRAMS 110029 RxNorm TAKE 300 MILLIGRAMS ORAL NEEDED THREE TIMES A DAY Metoprolol Succinate 50MG Oral Tablet, Extended Release 10/29/2021 Unknown ORAL DAILY 50 MILLIGRAMS 047734 RxNorm TAKE 50 MILLIGRAMS ORAL DAILY Oxybutynin Chloride 5MG Oral Tablet 10/29/2021 Unknown ORAL EVERY EVENING 5 MILLIGRAMS 699085 RxNorm TAKE 5 MILLIGRAMS ORAL EVERY EVENING Turmeric 500 MG Oral Capsule 10/29/2021 Unknown ORAL DAILY 500 MG 5647324 RxNorm TAKE 500 MG ORAL DAILY Tylenol Arthritis 650MG Oral Tablet, Extended Release 10/29/2021 Unknown ORAL NEEDED 650 MILLIGRAMS 0109074 RxNorm TAKE 650 MILLIGRAMS ORAL NEEDED Vitamin D 5000 IU Oral Capsule 10/29/2021 Unknown ORAL TWICE A DAY 5000 IU RxNorm TAKE 5000 IU ORAL TWICE A DAY Xarelto 20MG Oral Tablet 10/29/2021 Unknown ORAL DAILY 20 MILLIGRAMS 0878356 RxNorm TAKE 20 MILLIGRAMS ORAL DAILY metFORMIN HCl 500MG Oral Tablet 10/29/2021 Unknown ORAL TWICE A DAY 500 MILLIGRAMS 662117 RxNorm TAKE 500 MILLIGRAMS ORAL TWICE A DAY Hospital Discharge Instructions Should you have any questions prior to discharge, please contact a member of your healthcare team. If you have left the hospital and have any questions, please contact your primary care physician. Reason For Referral No Data Found Procedures Procedure Name Date Status Code Code Syste m Lithotripsy, Extracorporeal Shock Wave 05/24/2021 complete d 33269 CPT Cystourethroscopy (Sep Proc) 05/24/2021 completed 22468 CPT Anesthesia, Lithotripsy, Ext racorporeal Shock Wave; w/o Water Bath 05/24/2021 completed 28063 CPT Implants Implanted LAURI Status Assigning Authority Procedure Date Lot Number Serial Number Manufacturing Date Expiration Date Distinct ID Code Brand Name Model Number Abdominal hernia surgical mesh, composite- polymer 0110 8845 2119 0344 1725 0131 10PU B018 3X Active FDA PERISTOMAL VENTRAL HERNIA REPAIR WITH MESH 10/27 [id number] X 10/16/2024 Symbot ex [id number] Problems Problem Start Date Resolved Date Status Code Code 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 582158892 SNO MED-CT INCISIONAL HERNIA 11/26/2018 resolved 841969918 S NOMED-CT Allergies and Adverse Reactions Allergy Substance Reaction Severity Start Date Concern Status Co de Code System No Known Drug Allergies Moderate Active 839521602 SNOMED-CT Plan of Treatment Exposure 10/24/2020 LAB DRAW 15MIN 01/04/2023 CT CHEST/ABDOMEN/PELVIS W/ CONTRAST CT CHEST/ABDOMEN/PELVIS W/ CONTRAST 02/2022 LAB DRAW 15MIN 12/01/2021 PRE-OP COVID-19 TESTING 10/25/2021 CT ABDOMEN/PELVIS W/ CONTRAST 2 Encounters Encounter Diagnosis Start Date Code Code Sys tem Calculus of kidney 05/24/2021 SNOMED-CT Personal Care Team Section Performer Name Performer Role Active Date Inactive Da te
--- OUTSIDE RECORDS SUMMARY | 2024-05-29 16:19 | XMS_ITS | Encounter Summary ---
Author Organization [facility] Address [address] [place] [address] Care Team Providers Care Dispensing Lead Name Role Phone Unavailable Primary Care Provider Unavailabl e Encounter Details Date Type Department Care Team (Late st Contact Info) Description 01/16/2008 Before PRISM Converted Visit (Maple) [facility] - Maple conversion [address] [place] [address] Jacky Moise MD [address] [place] [phone] Social History Tobacco Use Types Packs/Day Years Used Date Smoking Tobacco: Never Assessed Sex and Gender Information Value Date Recorded Sex Assigned at Not on file Gender Identity Male 11/13/2019 8:44 EST Sexual Orientation Not on file documented as of this encounter Progress Notes * Jacky Moise - 06/17/2009 0943 EDT DIVISION OF NEUROSURGERY PROGRESS/FOLLOWUP NOTE - 01/16/2008 Nam Gonzalez MD [facility] [address], [address] [place] [address] Gonzalez: Terry Bearden was back to see me. This gentleman, as you may recall, suffered from fairly severelow back and left lower extremity pain. The left lower extremity was the largest of his pain complaints. He had to refrain from his typical activities, but he reports to me that over the past month or more and over the past week, he has improved significantly. He has less pain. He has more mobility. He is still nervous about activities as he has remained somewhat sedentary during this timeframe. He did undergo the EMG. 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 It was unclear if he had a radiculopathy or not. His CT scan showed no evidence of fracture just significant facet disease at multiple levels. I reviewed his MRI scan again, and he does have lateral recess stenosis on the left greater than right, specifically L3-4 but also some at L4-5. He has a mild degenerative spondylolisthesis at L5-S1. I tend to think it might be the L3-4 level that actually was causing his pain on the left. He has improved and we will just follow him conservatively for the time being. I will see him back sometime later this summer to see how he is doing. Thank you for involving me in his care. Sincerely, Signed by Jacky Moise MD 01/27/2008 07:29 Jacky Moise MD Human Resources File Clerk [facility] Division of Neurological Surgery - Jacky Moise MD - BETH Job ID: [id number] Doc ID: [id number] cc: Nam Gonzalez MD documented in this encounter Plan of Treatment Not on file documented as of this encounter Visit Diagnoses Not on filedocumented in this encounter
--- OUTSIDE RECORDS SUMMARY | 2024-05-29 16:19 | XMS_ITS | Encounter Summary ---
Author Organization [facility] Address [address] [place] [address] Care Team Providers Care Railroad Auditor Name Role Phone Nam Gonzalez MD Primary Care Provider Unav ailable Encounter Details Date Type Department Care Team (Late st Contact Info) Description 01/10/2018 Results Only Imaging [facility]- PRISM [phone] Unknown, Provider, Social History Tobacco Use Types Packs/Day Years Used Date Smoking Tobacco: Never Assessed Sex and Gender Information Value Date Recorded Sex Assigned at Not on file Gender Identity Male 11/13/2019 8:44 EST Sexual Orientation Not on file documented as of this encounter Plan of Treatment Pending Results Name Type Priority Associated Diagnoses Date /Time OUTSIDE IMAGES - CT BODY Imaging 01/10/2018 19:36 EDT documented as of this encounter Visit Diagnoses Not on filedocumented in this encounter Care Teams Railroad Auditor Relationship Specialty Start Date End Date Nam Gonzalez MD PCP - General 07/21/15 12/28/20 documented as of this encounter
--- OUTSIDE RECORDS SUMMARY | 2024-05-29 16:19 | XMS_ITS | Encounter Summary ---
Author Organization [facility] Address [address] [place] [address] Care Team Providers Care Transit Mixer Driver Name Role Phone Unavailable Primary Care Provider Unavailabl e Encounter Details Date Type Department Care Team (Late st Contact Info) Description 11/21/2007 Before PRISM Converted Visit (Maple) [facility] - Maple conversion [address] [place] [address] Jacky Moise MD [address] [place] [phone] Social History Tobacco Use Types Packs/Day Years Used Date Smoking Tobacco: Never Assessed Sex and Gender Information Value Date Recorded Sex Assigned at Not on file Gender Identity Male 11/13/2019 8:44 EST Sexual Orientation Not on file documented as of this encounter Progress Notes * Jacky Moise - 06/08/2009 5151 EDT DIVISION OF NEUROSURGERY PROGRESS/FOLLOWUP NOTE - 11/21/2007 Nam Gonzalez MD [facility] [address], [address] [place] [phone] Gonzalez: Terry Bearden was in to see us. He last saw Susana Lovelace, with whom I reviewed his MRI scan.In summary, Mr. Bearden suffered an injury that is described in [place]. He fell hard on his feet and experienced severe low back pain that radiated around into his abdomen in the periumbilicalregion. He felt as if there was a tire around his waist. The pain was severe and unremitting for many months. Gradually it dissipated, and he was left with a newer onset of pain radiating down the left leg.This pain is a little bit less descriptive in that it does not follow a clear dermatomal pattern. It radiates down toward his foot and into the sole of his foot. It can be uncomfortable for himto walk and stand. He feels that this leg is weaker. He reports that he had significant loss of muscle mass in the left quadriceps, but this is improving over the past month to two. Unfortunately, his pain continues. I have reviewed his MRI scan as well as the more recent plain x-rays. He failed to show up for his EMG appointment as he had not been aware of when it was. He thought he was here for the EMG today. The MRI reveals significant facet arthropathy on the left at L5-S1. There is lateral recess stenosis at L4-5 bilaterally, perhaps left greater than right. The EMG is not of optimal quality, and the viewer is difficult to work with. I will get this loaded onto our system for better review. In the meantime, I would also like to obtain a CT scan to rule out any fracture. The x-rays were concerning for a potential fracture. He also has some slight listhesis of L5 on S1 on these x-rays as well. The EMG is to be rescheduled and after all of this is done, I will see him back, and hopefullybe able to get to the bottom of things. I failed to outline his exam. Although his strength appears full in all muscle groups, his bulk of the left quadriceps is lower, and he has an absent left knee jerk. The remainder of his exam is unremarkable. I look forward to seeing him back. It was a pleasure to see and evaluate him. Sincerely, Signed by Jacky Moise MD 12/08/2007 11:17 Jacky Moise MD Negative Assembler [facility] Division of Neurological Surgery D: - Jacky Moise MD - BB Job ID: [id number] Doc ID: [id number] cc: Nam Gonzalez MD documented in this encounter Plan of Treatment Not on file documented as of this encounter Visit Diagnoses Not on filedocumented in this encounter
--- OUTSIDE RECORDS SUMMARY | 2024-05-29 16:19 | XMS_ITS | Encounter Summary ---
Author Organization [facility] Address [address] [place] [address] Care Team Providers Care Oyster Unloader Name Role Phone Unavailable Primary Care Provider Unavailabl e Encounter Details Date Type Department Care Team (Late st Contact Info) Description 11/04/2007 15:31 EST Hospital Encounter [address] [address] Susana Lovelace PA-C [address] [place] [address], [address] [place] [phone] Discharge Disposition: Auto Discharge Social History Tobacco [...] Procedure Name Priority Date/Time Associated Diagnosis Comments L SPINE 4 OR MORE VIEWS 11/04/2007 16:02 EST documented in this encounter Results * L SPINE 4 OR MORE VIEWS (11/04/2007 16:02 EST) Anatomical Region Laterality Modality Other 11/04/2007 16:0 2 EST Narrative 03/07/2009 6:26 EDT leg pain, low back pain L SPINE 4 VIEWS ??Nov 04, 2007 4:02:00 PM Clinical History: leg pain, low back pain Comparison: None Findings: Narrowing of the intervertebral disc spaces at all levels is noted. Mild calcification of the air is seen. There are no traumatic fractures seen. The flexion-extension views show no significant instability. 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 An MRI or a CT scan is recommended for further evaluation. Procedure Note Marcus Underwood MD - 03/07/2009 leg pain, low back pain L SPINE 4 VIEWS Nov 04, 2007 4:02:00 PM Clinical History: leg pain, low back pain Comparison: None Findings: Narrowing of the intervertebral disc spaces at all levels is noted. Mild calcification of the air is seen. There are no traumatic fractures seen. The flexion-extension views show no significant instability. 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 An MRI or a CT scan is recommended for further evaluation. Susana Lovelace PA-C [facility] DI[facility] TIC IMAGING ORDERABLES documented in this encounter Visit Diagnoses Not on filedocumented in this encounter
--- OUTSIDE RECORDS SUMMARY | 2024-05-29 16:19 | XMS_ITS | Encounter Summary ---
Author Organization [facility] Address [address] [place] [address] Care Team Providers Care Die Turner Name Role Phone Unavailable Primary Care Provider Unavailabl e Encounter Details Date Type Department Care Team (Late st Contact Info) Description 11/01/2005 13:36 EST Hospital Encounter [address] [address] Terry Buatista MD [address] [place] [address], [facility] [address] [place] [phone] Discharge Disposition: Auto Discharge Social History Tobacco [...] Date/Time Associated Diagnosis Comments COMPLETE BLOOD COUNT Routine 11/01/2005 13:38 EST documented in this encounter Results * (ABNORMAL) HEMAGRAM (11/01/2005 13:38 EST) WBC 7.45 4.0 - 10.4 K/cmm [facility] RBC 5.08 4.36 - 5.78 M/cmm [facility] Hemoglobin 15.8 13.8 - 17.3 gm/dl [facility] HCT 46.3 39.5 - 50.2 % [facility] MCV 91 81 - 95 fl [facility] MCH 31.1 27.6 - 33.0 pg [facility] MCHC 34.1 32.8 - 36.4 gm/dl [facility] PLT 209 141 - 320 K/cmm [facility] RDW-CV 11.3(L) 11.8 - 14.1 % [facility] Comment:Performed at [facility], [place], [place] 11/01/2005 13:3 8 EST 11/01/2005 13:40 EST Terry Bautista MD HEMATOLOGY & P F4 ORDERABLES [facility] [address] [place] [address] documented in this encounter Visit Diagnoses Not on filedocumented in this encounter
--- OUTSIDE RECORDS SUMMARY | 2024-05-29 16:19 | XMS_ITS | Encounter Summary ---
Author Organization [facility] Address [address] [place] [address] Care Team Providers Care Mechanical Manufacturing Engineer Name Role Phone Unavailable Primary Care Provider Unavailabl e Encounter Details Date Type Department Care Team (Latest Contact Info) Description 11/21/2007 11:55 EST - 11/21/2007 11:59 EST Hospital En[place] [facility] [address] [place] [address] Jacky Moise MD [address] [place] [phone] Discharge Disposition: Auto Discharge Social History Tobacco [...]
--- OUTSIDE RECORDS SUMMARY | 2024-05-29 16:19 | XMS_ITS | Encounter Summary ---
Author Organization [facility] Address [address] [place] [address] Care Team Providers Care Reel Man Name Role Phone Nam Gonzalez MD Primary Care Provider Unav ailable Encounter Details Date Type Department Care Team (Late st Contact Info) Description 01/11/2018 Results Only [facility] [phone] Syl Aguilar, DO [address] [place], [place] [id number] Social History Tobacco Use Types Packs/Day Years Used Date Smoking Tobacco: Never Assessed Sex and Gender Information Value Date Recorded Sex Assigned at Not on file Gender Identity Male 11/13/2019 8:44 EST Sexual Orientation Not on file documented as of this encounter Plan of Treatment Not on file documented as of this encounter Procedures Procedure Name Priority Date/Time Associated Diagnosis Comments CYTOPATHOLOGY Routine 01/11/2018 0:00 EDT documented in this encounter Results * CYTOPATHOLOGY (01/11/2018 0:00 EDT) Pathology Report: CYTOPATHOLOGY REPORT Reports generated via electronic interface contain original data; however they are lacking the format of the original report. Caution should be taken when reading/interpret ing unformatted reports. Name: ? VIOLETTE BEARDEN ? Accession #: ? [id number] : ? 1940 (Age: 77) ??M ?Collect Date: ? 01/11/2018 Location: ? [facility] ? Receive Date: ? 01/13/2018 Provider: ? SYL AGUILAR DO Copy to: ? CYTOLOGIC DIAGNOSIS: ASCITIC FLUID, CYTOLOGIC EVALUATION: - Negative for malignant cells. - Abundant red blood cells, reactive mesothelial cells and histiocytes. Document reviewed and electronically signed by: ? CHARLIE PERKINS MD Report Date: ??01/14/2018 10:57 By the signature above, the attending physician certifies that he/she has personally conducted a gross and/or microscopic examination of the described specimens and rendered or confirmed the above diagnosis. Specimen Type: ? Ascitic Fluid Clinical History: ? Obstructing colon cancer ? Gross Description: ? 10ccs of opaque brick red fluid (etoh added) were received and processed by selective cellular enhancement technique. ? End of Report [facility] 01/11/2018 01/13/2018 14: 10 EDT Syl Aguilar DO PATHOLOGY ORDERABLES [facility] [address] [place] [address] documented in this encounter Visit Diagnoses Not on filedocumented in this encounter Care Teams Reel Man Relationship Specialty Start Date End Date Nam Gonzalez MD PCP - General 07/21/15 12/28/20 documented as of this encounter
--- OUTSIDE RECORDS SUMMARY | 2024-05-29 16:19 | XMS_ITS | Encounter Summary ---
Author Organization [facility] Address [address] [place] [address] Care Team Providers Care Iron Installer Name Role Phone Nam Gonzalez MD Primary Care Provider Unav ailable Encounter Details Date Type Department Care Team (Late st Contact Info) Description 01/30/2018 Results Only Imaging [facility]- PRISM [phone] Unknown, Provider, Social History Tobacco Use Types Packs/Day Years Used Date Smoking Tobacco: Never Assessed Sex and Gender Information Value Date Recorded Sex Assigned at Not on file Gender Identity Male 11/13/2019 8:44 EST Sexual Orientation Not on file documented as of this encounter Plan of Treatment Pending Results Name Type Priority Associated Diagnoses Date /Time OUTSIDE IMAGES - OTHER CHEST Imaging 01/30/2018 12:20 EDT OUTSIDE IMAGES - OTHER CHEST Imaging 01/30/2018 12:20 EDT OUTSIDE IMAGES - OTHER CHEST Imaging 01/30/2018 12:20 EDT OUTSIDE IMAGES - OTHER CHEST Imaging 01/30/2018 12:20 EDT documented as of this encounter Visit Diagnoses Not on filedocumented in this encounter Care Teams Iron Installer Relationship Specialty Start Date End Date Nam Gonzalez MD PCP - General 07/21/15 12/28/20 documented as of this encounter
--- OUTSIDE RECORDS SUMMARY | 2024-05-29 16:19 | XMS_ITS ---
Author Organization Unknown Address [address] [place] [phone] Phone Care Team Providers Care Cosmetics Machine Operator Name Role Phone AVERY AMATO MD Attending Unavailable NEENA JACOME Primary Unavailable Social History Type Status Start Date End Date Code Code Syst em Smoking History Former smoker 09/16/[id number] Sex Male Medications Medication Start Date End Date Route Frequency Dose Code Code System Medication Instructions Home Meds Multivitamin Oral Tablet 11/26/2018 Unknown ORAL DAILY 1 unit(s) RxNorm TAKE 1 EACH ORAL DAILY Tylenol Arthritis 650MG Oral Tablet, Extended Release 11/26/2018 2 ORAL NEEDED EVERY 8 HOURS 1300 MILLIGRAMS [id number] RxNorm TAKE 1300 MILLIGRAMS ORAL NEEDED EVERY 8 HOURS oxyCODONE HCl 5MG Oral Tablet 10/11/2019 2 ORAL NEEDED EVERY 3 HOURS 5 MILLIGRAMS [id number] RxNorm TAKE 5 MILLIGRAMS ORAL NEEDED EVERY 3 HOURS Atorvastatin Calcium 20MG Oral Tablet 10/11/2019 2 ORAL BEDTIME 20 MILLIGRAMS [id number] RxNorm TAKE 20 MILLIGRAMS ORAL BEDTIME Flomax 0.4MG Oral Capsule 10/11/2019 2 ORAL DAILY 0.4 MILLIGRAMS 776094 RxNorm TAKE 0.4 MILLIGRAMS ORAL DAILY Gabapentin 100MG Oral Capsule 10/11/2019 2 ORAL THREE TIMES A DAY 200 MILLIGRAMS 979505 RxNorm TAKE 200 MILLIGRAMS ORAL THREE TIMES A DAY Metoprolol Succinate 50MG Oral Tablet, Extended Release 10/11/2019 2 ORAL DAILY 50 MILLIGRAMS [id number] RxNorm TAKE 50 MILLIGRAMS ORAL DAILY Xarelto 20MG Oral Tablet 10/11/2019 ORAL DAILY 20 MILLIGRAMS [id number] RxNorm TAKE 20 MILLIGRAMS ORAL DAILY oxyCODONE HCl 5MG Oral Tablet 10/29/2021 Unknown ORAL NEEDED EVERY 6 HOURS 1 TABLET [id number] RxNorm TAKE 1 TABLET ORAL NEEDED EVERY 6 HOURS FOR Pain Atorvastatin Calcium 20MG Oral Tablet 10/29/2021 Unknown ORAL BEDTIME 20 MILLIGRAMS [id number] RxNorm TAKE 20 MILLIGRAMS ORAL BEDTIME Finasteride 5MG Oral Tablet 10/29/2021 Unknown ORAL DAILY 5 MILLIGRAMS 992425 RxNorm TAKE 5 MILLIGRAMS ORAL DAILY Gabapentin 100MG Oral Capsule 10/29/2021 Unknown ORAL NEEDED THREE TIMES A DAY 300 MILLIGRAMS 399261 RxNorm TAKE 300 MILLIGRAMS ORAL NEEDED THREE TIMES A DAY Metoprolol Succinate 50MG Oral Tablet, Extended Release 10/29/2021 Unknown ORAL DAILY 50 MILLIGRAMS 137956 RxNorm TAKE 50 MILLIGRAMS ORAL DAILY Oxybutynin Chloride 5MG Oral Tablet 10/29/2021 Unknown ORAL EVERY EVENING 5 MILLIGRAMS 323952 RxNorm TAKE 5 MILLIGRAMS ORAL EVERY EVENING Turmeric 500 MG Oral Capsule 10/29/2021 Unknown ORAL DAILY 500 MG [id number] RxNorm TAKE 500 MG ORAL DAILY Tylenol Arthritis 650MG Oral Tablet, Extended Release 10/29/2021 Unknown ORAL NEEDED 650 MILLIGRAMS 0260299 RxNorm TAKE 650 MILLIGRAMS ORAL NEEDED Vitamin D 5000 IU Oral Capsule 10/29/2021 Unknown ORAL TWICE A DAY 5000 IU RxNorm TAKE 5000 IU ORAL TWICE A DAY Xarelto 20MG Oral Tablet 10/29/2021 Unknown ORAL DAILY 20 MILLIGRAMS 1238851 RxNorm TAKE 20 MILLIGRAMS ORAL DAILY metFORMIN HCl 500MG Oral Tablet 10/29/2021 Unknown ORAL TWICE A DAY 500 MILLIGRAMS 358319 RxNorm TAKE 500 MILLIGRAMS ORAL TWICE A [...] PERISTOMAL VENTRAL HERNIA REPAIR WITH MESH 10/27 [id number] X 10/16/2024 Symbot ex SYM12 Problems Problem Start Date Resolved Date Status Code Code 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 [id number] SNO MED-CT INCISIONAL HERNIA 11/26/2018 resolved [id number] S NOMED-CT Allergies and Adverse Reactions Allergy Substance Reaction Severity Start Date Concern Status Co de Code System No Known Drug Allergies Moderate Active [id number] SNOMED-CT Plan of Treatment Exposure 10/24/2020 LAB DRAW 15MIN 01/04/2023 CT CHEST/ABDOMEN/PELVIS W/ CONTRAST CT CHEST/ABDOMEN/PELVIS W/ CONTRAST 02/2022 LAB DRAW 15MIN 12/01/2021 PRE-OP COVID-19 TESTING 10/25/2021 CT ABDOMEN/PELVIS W/ CONTRAST 2 Personal Care Team Section Performer Name Performer Role Active Date Inactive Da te
--- OUTSIDE RECORDS SUMMARY | 2024-05-29 16:19 | XMS_ITS | Encounter Summary ---
Author Organization [facility] Address [address] [place] [address] Care Team Providers Care Automatic Coil Machine Operator Name Role Phone Nam Gonzalez MD Primary Care Provider Unav ailable Encounter Details Date Type Department Care Team (Latest Contact Info) Description 06/25/2016 13:48 EDT - 06/25/2016 23:59 EDT Hospital Encounter [facility] [address] [place] [address] Unknown, Provider, Discharge Disposition: Home or Self Care Social History Tobacco Use Types Packs/Day Years Used Date Smoking Tobacco: Never Assessed Sex and Gender Information Value Date Recorded Sex Assigned at Not on file Gender Identity Male 11/13/2019 8:44 EST Sexual Orientation Not on file documented as of this encounter Discharge Disposition Disposition Code Departure Means Destination Home or Self Long-Term documented in this encounter Plan of Treatment Not on file documented as of this encounter Visit Diagnoses Not on filedocumented in this encounter Care Teams Automatic Coil Machine Operator Relationship Specialty Start Date End Date Nam Gonzalez MD PCP - General 07/21/15 12/28/20 documented as of this encounter
--- OUTSIDE RECORDS SUMMARY | 2024-05-29 16:19 | XMS_ITS | Encounter Summary ---
Author Organization [facility] Address [address] [place] [address] Care Team Providers Care Stonecutter Name Role Phone Unavailable Primary Care Provider Unavailabl e Encounter Details Date Type Department Care Team (Late st Contact Info) Description 01/16/2008 12:18 EDT Hospital Encounter [facility] [address] [place] [address] Jacky Moise MD [address] [place] [phone] Social History Tobacco Use Types Packs/Day [...] 11:31 EDT documented as of this encounter Plan of Treatment Not on file documented as of this encounter Visit Diagnoses Not on filedocumented in this encounter
--- OUTSIDE RECORDS SUMMARY | 2024-05-29 16:19 | XMS_ITS | Encounter Summary ---
Author Organization [facility] Address [address] [place] [address] Care Team Providers Care Melt House Centrifugal Operator Name Role Phone Unavailable Primary Care Provider Unavailabl e Encounter Details Date Type Department Care Team (Latest Contact Info) Description 12/31/2007 13:08 EDT Hospital Encounter [facility] [address] [place] [address] Kenneth Oleary MD Unknown, Provider, Discharge Disposition: Auto Discharge Social History Tobacco [...]
--- OUTSIDE RECORDS SUMMARY | 2024-05-29 16:19 | XMS_ITS | Encounter Summary ---
Author Organization [facility] Address [address] [place] [address] Care Team Providers Care Recreation Assistant Name Role Phone Nam Gonzalez MD Primary Care Provider Unav ailable Encounter Details Date Type Department Care Team (Late st Contact Info) Description 06/25/2016 Historical Results Only [facility] Radiology Results [address] [place], [place] [address] Melly Petersen, [address] [place] [address] Social History Tobacco Use Types Packs/Day Years Used Date Smoking Tobacco: Never Assessed Sex and Gender Information Value Date Recorded Sex Assigned at Not on file Gender Identity Male 11/13/2019 8:44 EST Sexual Orientation Not on file documented as of this encounter Plan of Treatment Not on file documented as of this encounter Procedures Procedure Name Priority Date/Time Associated Diagnosis Comments XR FOOT RIGHT 1-2 VIEWS 06/25/2016 17:10 EDT XR ANKLE RIGHT 2 VIEWS 06/25/2016 17:10 EDT documented in this encounter Results * XR ANKLE RIGHT 2 VIEWS (06/25/2016 17:10 EDT) Anatomical Region Laterality Modality Lower Extremities, Ankle Right Other 06/25/2016 17:1 0 EDT Narrative 06/25/2016 17:16 EDT ? EXAM: RADIOLOGY/ANKLE RIGHT - 2 VIEW ?EX. D/ (1653) ? CLINICAL INFORMATION: ? M76.61 ACHILLES TENDINITIS OF (R) LOWER ? EXTREMITY. 3 VIEWS WB ? INDICATION: M76.61 ACHILLES TENDINITIS OF (R) LOWER: EXTREMITY. 3 ? VIEWS WB ??RIGHT POSTERIOR HEEL PAIN ? TECHNIQUE: 2 views right foot. 2 views right ankle. ? COMPARISON: None. ? Right foot: There is a mild hallux valgus alignment. Early great toe ? MTP joint space narrowing is seen with marginal osteophyte formation. ? Similar findings are seen throughout the interphalangeal joints, most ? advanced at the 3rd ray DIP joint. There is a oblique lucency through ? the proximal head of the lateral 5th metatarsal. ? Right ankle: Early ankle joint space narrowing is seen. Small ? marginal osteophytes are seen. There is some subarticular sclerosis ? at the posterior subtalar joint. Joint space narrowing spans the mid ? foot. The Achilles tendon shadow appears thickened and irregular. ? IMPRESSION: ? 1. Early polyarticular osteoarthritis. ? 2. Lucency through the lateral surface of the proximal head of the ? 5th metatarsal bone. In the setting of pain or trauma, this could ? reflect a fracture. Please correlate clinically, and obtain MRI if ? clinically indicated. ? 3. Thickening and irregularity of the distal Achilles shadow. This is ? consistent with Achilles tendinosis or tear. If clinically indicated ? this could be further assessed with MRI. ? REPORT SIGNED IN OTHER VENDOR SYSTEM 06/25/2016 ?Reported By: Kelechi Rai MD ? CC: ? Transcribed Date/Time: 06/25/2016 (171) ? Product Accountant: ? Printed Date/Time: 02/27/2019 (4368) ? PAGE 1 ? Signed Report ? Procedure Note Kelechi Rai MD - 07/22/2019 EXAM: RADIOLOGY/ANKLE RIGHT - 2 VIEW EX. D/ (2358) CLINICAL INFORMATION: M76.61 ACHILLES TENDINITIS OF (R) LOWER EXTREMITY. 3 VIEWS WB INDICATION: M76.61 ACHILLES TENDINITIS OF (R) LOWER: EXTREMITY. 3 VIEWS WB RIGHT POSTERIOR HEEL PAIN TECHNIQUE: 2 views right foot. 2 views right ankle. COMPARISON: None. Right foot: There is a mild hallux valgus alignment. Early greattoe MTP joint space narrowing is seen with marginal osteophyteformation. Similar findings are seen throughout the interphalangeal joints,most advanced at the 3rd ray DIP joint. There is a oblique lucencythrough the proximal head of the lateral 5th metatarsal. Right ankle: Early ankle joint space narrowing is seen. Small marginal osteophytes are seen. There is some subarticular sclerosis at the posterior subtalar joint. Joint space narrowing spans themid foot. The Achilles tendon shadow appears thickened and irregular. IMPRESSION: 1. Early polyarticular osteoarthritis. 2. Lucency through the lateral surface of the proximal head of the 5th metatarsal bone. In the setting of pain or trauma, this could reflect a fracture. Please correlate clinically, and obtain MRI if clinically indicated. 3. Thickening and irregularity of the distal Achilles shadow. Thisis consistent with Achilles tendinosis or tear. If clinicallyindicated this could be further assessed with MRI. REPORT SIGNED IN OTHER VENDOR SYSTEM 06/25/2016 Reported By: Kelechi Rai MD CC: Transcribed Date/Time: 06/25/2016 (171) Product Accountant: Printed Date/Time: 02/27/2019 (1382) PAGE 1 Signed Report Melly Petersen DPArielle IMG DIAGNOSTIC NERY GING ORDERABLES * XR FOOT RIGHT 1-2 VIEWS (06/25/2016 17:10 EDT) Anatomical Region Laterality Modality Lower Extremities Right Other 06/25/2016 17:1 0 EDT Narrative 06/25/2016 17:16 EDT ? EXAM: RADIOLOGY/[id number] ?EX. D/ (1653) ? CLINICAL INFORMATION: ? M76.61 ACHILLES TENDINITIS OF (R) LOWER ? EXTREMITY. 3 VIEWS WB ? INDICATION: M76.61 ACHILLES TENDINITIS OF (R) LOWER: EXTREMITY. 3 ? VIEWS WB ??RIGHT POSTERIOR HEEL PAIN ? TECHNIQUE: 2 views right foot. 2 views right ankle. ? COMPARISON: None. ? Right foot: There is a mild hallux valgus alignment. Early great toe ? MTP joint space narrowing is seen with marginal osteophyte formation. ? Similar findings are seen throughout the interphalangeal joints, most ? advanced at the 3rd ray DIP joint. There is a oblique lucency through ? the proximal head of the lateral 5th metatarsal. ? Right ankle: Early ankle joint space narrowing is seen. Small ? marginal osteophytes are seen. There is some subarticular sclerosis ? at the posterior subtalar joint. Joint space narrowing spans the mid ? foot. The Achilles tendon shadow appears thickened and irregular. ? IMPRESSION: ? 1. Early polyarticular osteoarthritis. ? 2. Lucency through the lateral surface of the proximal head of the ? 5th metatarsal bone. In the setting of pain or trauma, this could ? reflect a fracture. Please correlate clinically, and obtain MRI if ? clinically indicated. ? 3. Thickening and irregularity of the distal Achilles shadow. This is ? consistent with Achilles tendinosis or tear. If clinically indicated ? this could be further assessed with MRI. ? REPORT SIGNED IN OTHER VENDOR SYSTEM 06/25/2016 ?Reported By: Kelechi Rai MD ? CC: ? Transcribed Date/Time: 06/25/2016 (1716) ? Product Accountant: SCR ? Printed Date/Time: 02/27/2019 (0855) ? PAGE 1 ? Signed Report ? Procedure Note Kelechi Rai MD - 07/22/2019 EXAM: RADIOLOGY/[id number] EX. D/ (1653) CLINICAL INFORMATION: M76.61 ACHILLES TENDINITIS OF (R) LOWER EXTREMITY. 3 VIEWS WB INDICATION: M76.61 ACHILLES TENDINITIS OF (R) LOWER: EXTREMITY. 3 VIEWS WB RIGHT POSTERIOR HEEL PAIN TECHNIQUE: 2 views right foot. 2 views right ankle. COMPARISON: None. Right foot: There is a mild hallux valgus alignment. Early greattoe MTP joint space narrowing is seen with marginal osteophyteformation. Similar findings are seen throughout the interphalangeal joints,most advanced at the 3rd ray DIP joint. There is a oblique lucencythrough the proximal head of the lateral 5th metatarsal. Right ankle: Early ankle joint space narrowing is seen. Small marginal osteophytes are seen. There is some subarticular sclerosis at the posterior subtalar joint. Joint space narrowing spans themid foot. The Achilles tendon shadow appears thickened and irregular. IMPRESSION: 1. Early polyarticular osteoarthritis. 2. Lucency through the lateral surface of the proximal head of the 5th metatarsal bone. In the setting of pain or trauma, this could reflect a fracture. Please correlate clinically, and obtain MRI if clinically indicated. 3. Thickening and irregularity of the distal Achilles shadow. Thisis consistent with Achilles tendinosis or tear. If clinicallyindicated this could be further assessed with MRI. REPORT SIGNED IN OTHER VENDOR SYSTEM 06/25/2016 Reported By: Kelechi Rai MD CC: Transcribed Date/Time: 06/25/2016 (1716) Product Accountant: Printed Date/Time: 02/27/2019 (3621) PAGE 1 Signed Report Melly Petersen DPM IMG DIAGNOSTIC NERY GING ORDERABLES documented in this encounter Visit Diagnoses Not on filedocumented in this encounter Care Teams Recreation Assistant Relationship Specialty Start Date End Date Nam Gonzalez MD PCP - General 07/21/15 12/28/20 documented as of this encounter
--- OUTSIDE RECORDS SUMMARY | 2024-05-29 16:19 | XMS_ITS | Encounter Summary ---
Author Organization [facility] Address [address] [place] [address] Care Team Providers Care Certified Public Accountant Name Role Phone Unavailable Primary Care Provider Unavailabl e Encounter Details Date Type Department Care Team (Late st Contact Info) Description 10/07/2007 Before PRISM Converted Visit (Maple) [facility] - Maple conversion [address] [place] [address] Susana Lovelace PA-C [address] [facility], [address] [place] [phone] Social History Tobacco Use Types Packs/Day Years Used Date Smoking Tobacco: Never Assessed Sex and Gender Information Value Date Recorded Sex Assigned at Not on file Gender Identity Male 11/13/2019 8:44 EST Sexual Orientation Not on file documented as of this encounter Consult Notes * Susana Lovelace PA - 07/27/2009 1157 EST DIVISION OF NEUROSURGERY CONSULTATION - 10/07/2007 Nam Gonzalez MD [facility] [address] [place] [address] Gonzalez: At your request, I saw Terry Bearden in our neurosurgical clinic in consultation for low back pain and left leg pain. Mr.. Bearden dates his back pain and leg pain back to about a year ago when he was jumping off a platform and landed hard on both feet. He experienced an immediate sharppain in his right groin as well as pain in his low back. This seemed to improve over the next few weeks. However, over the past few months he has developed left lateral leg pain. This is most intense in his left lateral calf, but also goes into the instepportion of the sole of his left foot. He denies any right-sided pains. He describes his pains as crushing, sharp, cramping, burning and pins and needles. On his best day his pain is a 6/10. On his worst day it is a 10/10. Most of his pain is in his leg with a very small percentage in his low back. He has had no conservative treatment, either physical therapy or epidural injections. He does say that some of his pain seems to be improving a bit. When he elevates his knee, his pain seems to decrease a little bit. It increases with any kind of movement including walking, standing, sitting, reclining, riding and driving. His toes are not involved. Hedenies any bowel or bladder incontinence. Review of systems: A review of systems sheet was filled out by the patient and is significant for the above-mentioned symptoms. In addition, the patient indicates arthritis, loss of memory, headaches, numbing sensations, blurred vision, high blood pressure, high cholesterol, hearing loss, nasal congestion and drainage, double vision, eye injuries, glaucoma and cataracts. The remaining systems were reviewed and are negative. Past medical illnesses: The patient states that he is quite healthy with no ongoing medical illnesses. Past surgical history: The patient had a vasectomy in 2006, two herniorrhaphies in 1994 and 2000, cataract in his right eye repaired. Current medications: 1. Ibuprofen. 2. Joint flex. The patient denies any allergies to medication. Family medical history: The patient indicates cancer and heart disease in his family medical history. Social history: The patient lives with his and children. He does not smoke and never has. He chews tobacco. He drinks socially. He states that he is not at risk for AIDS. He enjoys fishing, hunting and gardening. He is currently retired. Physical exam: Vital signs were blood pressure 146/84, pulse 80, respirations 16. The patient is awake, alert and oriented. He appears his stated age of 67. He relates his story without embellishment. He is in no apparent distress. He rises from a seated position without difficulty and can climb easily onto an exam table. His gait is somewhat antalgic. Tandem gait, heel walking and toe walking are well performed butdo produce pain. Motion at the waist is somewhat limited secondary to pain with rotation, flexion/extension and lateral bending. Straight leg raise is positive on the left. Strength is 5/5 throughout his upper and lower extremities. Bulk and tone are normal. Deep tendon reflexes are 2+ at biceps, triceps, brachioradialis, Achilles and patella. The left patella reflex was 1+ whereas the others were 2+. Sensation is grossly intact in upper and lower extremities. There is no clonus. Babinski is downgoing. Radiographic evidence: The patient has had an MRI scan, which was reviewed with Dr. Moise. 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 There is a very mild L3-4 foraminal stenosis as well. Impression: Left leg pain in an L5 radiculopathy. Plan: I have reviewed the patients history, physical and radiographic evidence with Dr. Moise. There does appear to be some foraminal stenosis at L4-5, which may be impinging the L5 nerve root. We will order an EMG test as well as some flexion/extension x-rays to further tease out the pattern of the patientpain. Dr. Moise will then see the patient back in consultation. I have discussed all thiswith the patient, and he is in agreement with this plan. Thank you for involving us in this patients care. Sincerely, Supervising Physician Signed by Jacky Moise MD 10/21/2007 18:11 REBA Sorto Jacky Moise MD Senior Etl Developer [facility] Division of Neurological Surgery - REBA Sorto - BB Job ID: [id number] Doc ID: [id number] cc: Nam Gonzalez MD - RE[facility] Sorto - [place] Job ID: [id number] Doc ID: [id number] cc: Nam Gonzalez MD documented in this encounter Plan of Treatment Not on file documented as of this encounter Visit Diagnoses Not on filedocumented in this encounter
--- OUTSIDE RECORDS SUMMARY | 2024-05-29 16:19 | XMS_ITS | Encounter Summary ---
Author Organization [facility] Address [address] [place] [address] Care Team Providers Care Book Sewing Machine Operator Name Role Phone Unavailable Primary Care Provider Unavailabl e Encounter Details Date Type Department Care Team (Late st Contact Info) Description 11/12/2005 12:52 EST Hospital Encounter [facility] Perioperative Services- [address] [address] Terry Bautista MD [address] [place] [address], [address] [place] [phone] Discharge Disposition: Home or Self Care Social History Tobacco Use Types Packs/Day Years Used Date Smoking Tobacco: Never Assessed Sex and Gender Information Value Date Recorded Sex Assigned at Not on file Gender Identity Male 11/13/2019 8:44 EST Sexual Orientation Not on file documented as of this encounter Discharge Disposition Disposition Code Departure Means Destination Home or Self Care documented in this encounter OR Notes * OR Surgeon - Terry Bautista MD - 11/12/2005 0000 EST PROCEDURE REPORT PT TYPE: OPPROC PT LOC: [id number] SERVICE DATE: 11/12/2005 SURGEON: Rahul Bautista MD, Ayleen Bautista MD, Ayleen Bautista MD, FACS ACCURACY EXPERT: REBA Stewart PREOPERATIVE DIAGNOSIS: Right spermatocele. POSTOPERATIVE DIAGNOSIS: Right spermatocele. PROCEDURE: Right spermatocelectomy. ANESTHESIA: Laryngeal mask airway with local block. INDICATIONS: The patient is a gentleman with a history of a symptomatic right spermatocele. NARRATIVE: The patient was taken to the operating room and underwent LMA anesthesia. He was placed in the supine position and underwent a scrotal shave, Betadine prep, and sterile draping in the usual fashion. Intraoperative examination demonstrated a large right spermatocele measuring about three cm in size. Prior to this, the patients site and ID was identified. Next, a right hemiscrotal incision was then made. Due to the large size of spermatocele, we dissected through dartos fascia until we found the wall of the spermatocele. This was then opened, decompressed, and then the entire spermatocele cavity was then removed, excised, and then the base was cauterized. Excellent hemostasis had been achieved. All bleeders had been cauterized. The dartos fascia was then reapproximated using interrupted 3-0 chromic sutures. The skin was then closed using interrupted 3-0 chromic sutures. COMPLICATIONS: There were no complications. Signed by Terry Bautista MD, FACS 12/24/2005 13:40 Rahul Bautista MD, Ayleen Bautista MD, FACS Terry Bautista MD, FACS - Terry Bautista MD, FACS P - ss Job ID: [id number] Document ID: [id number] cc: MD Terry Sandhu MD, FACS documented in this encounter Plan of Treatment Not on file documented as of this encounter Visit Diagnoses Not on filedocumented in this encounter
--- OUTSIDE RECORDS SUMMARY | 2024-05-29 16:19 | XMS_ITS | Encounter Summary ---
Author Organization [facility] Address [address] [place] [address] Care Team Providers Care Lecturer Of Portuguese Name Role Phone Unavailable Primary Care Provider Unavailabl e Encounter Details Date Type Department Care Team (Late st Contact Info) Description 10/07/2007 8:23 EST - 10/07/2007 11:59 EST Hospital Encounter [address] [address] Susana Lovelace PA-C [address] [place] [address], [address] [place] [id number] Discharge Disposition: Auto Discharge Social History Tobacco [...]
--- OUTSIDE RECORDS SUMMARY | 2024-05-29 16:19 | XMS_ITS | Encounter Summary ---
Author Organization [facility] Address [address] [place] [address] Care Team Providers Care Bank Compliance Officer Name Role Phone Nam Gonzalez MD Primary Care Provider Unav ailable Encounter Details Date Type Department Care Team (Late st Contact Info) Description 02/25/[address] [facility] - Main [address] [id number] [place] [address] [facility] [address] [place] [address] (Fax) Social History Tobacco Use Types Packs/Day [...] CBC W/PLT & DIFF,POINT OF CARE - [facility] Routine 02/25/2018 16:06 EDT CEA Routine 02/25/2018 16:06 EDT documented in this encounter Results * (ABNORMAL) CBC W/PLT & DIFF,POINT OF CARE - [facility] (02/25/2018 16:06 EDT) ABSOLUTE NEUTROPHIL COUN - [facility] 3.4 1.7 - 7.0 10e3/uL 02/25/2018 16:15 EDT [facility] BASO # - [facility] 0.07 0.0 - 0.3 10e3/uL 02/25/2018 16:15 [facility] BASO % - [facility] 1 0 - 2 % 02/25/2018 16:15 [facility] EOS # - [facility] 0.55(H) 0.05 - 0.5 10e3/uL 02/25/2018 16:15 [facility] EOS % - [facility] 7(H) 0 - 5 % 02/25/2018 16:15 [facility] GRAN % - [facility] 41.6 40 - 80 % 02/25/2018 16:15 [facility] HEMATOCRIT - [facility] 40.9 36.0 - 52.0 % 02/25/2018 16:15 [facility] HEMOGLOBIN - [facility] 13.5(L) 13.7 - 17.5 g/dl 02/25/2018 16:15 [facility] LYMPH # - [facility] 3.2(H) 0.9 - 2.9 10e3/ul 02/25/2018 16:15 [facility] LYMPH% - [facility] 39.8 20 - 40 % 02/25/2018 16:15 [facility] MEAN CORPUSCULAR HGB - CV 29.7 26 - 34 pg 02/25/2018 16:15 [facility] MEAN CORPUSCULAR HGB CONC - [facility] 33.0 31 - 36 g/dL 02/25/2018 16:15 [facility] MEAN CELL VOLUME - CV 90.1 77 - 100 fl 02/25/2018 16:15 [facility] MONO # - [facility] 0.9 0.3 - 0.9 10e3/uL 02/25/2018 16:15 [facility] MONO% - [facility] 10.9 0 - 12 % 02/25/2018 16:15 [facility] PLATELET COUNT 216 150 - 400 10e3/ul 02/25/2018 16:15 [facility] RED BLOOD COUNT - [facility] 4.54 4.3 - 5.7 10e6/ul 02/25/2018 16:15 [facility] RED CELL DISTRI WIDTH - [facility] 14.3 11.8 - 15.6 % 02/25/2018 16:15 EDT [facility] WHITE BLOOD COUNT - [facility] 8.1 3.5 - 10.5 10e3/ul 02/25/2018 16:15 EDT [facility] 02/25/2018 16:0 6 EDT 02/25/2018 16:12 EDT Bassam Timmons MD CHEMISTRY & BLOOD GA S ORDERABLES Performing Organization Address City/[facility]/ZIP Co de Phone Number [facility] * CEA (02/25/2018 16:06 EDT) CEA 0.9 () ng/mL 02/27/2018 15:24 EDT [facility] Comment: REFERENCE VALUE <=3.0 (Non-smokers) Some smokers may have elevated CEA, usually <5.0. ADDITIONAL INFORMATION The testing method is an immunoenzymatic assay manufactured by [employer] and performed on the [employer] DxI 800. ? Values obtained with different assay methods or kits may be different and cannot be used interchangeably. ? Test results cannot be interpreted as absolute evidence for the presence or absence of malignant disease. Test Performed by: [facility] [address] [place] [address] 02/25/2018 16:0 6 EDT 02/25/2018 18:05 EDT Bassam Timmons MD CHEMISTRY & BLOOD GA S ORDERABLES Performing Organization Address City/[facility]/ZIP Co de Phone Number [facility] documented in this encounter Visit Diagnoses Not on filedocumented in this encounter Care Teams Bank Compliance Officer Relationship Specialty Start Date End Date aNm Gonzalez MD PCP - General 07/21/15 12/28/20 documented as of this encounter
[2024-05-29 21:57] LABS: HCT 43.3 % (40.0-50.0); HGB 14.2 g/dL (13.5-17.5); MCH 31.5 pg (27.0-33.0); MCHC 32.8 % (32.0-36.0); MCV 96 fL (80-95); RBC 4.51 10^6/uL (4.36-5.78); RDW 12.2 % (11.8-14.1); RDW-SD 42.7 fL; WBC 6.71 10^3/uL (4.4-10.8)
[2024-05-29 22:23] LABS: ALT 39 U/L (16-63); AST 37 U/L (15-37); Albumin 3.9 g/dL (3.4-5.0); Alkaline Phosphatase 66 U/L (46-116); Anion Gap 6.9 mmol/L (3-11); BUN 20 mg/dL (7-18); Bilirubin, Total 0.81 mg/dL (0.2-1.0); CO2 30.1 mmol/L (21.0-32.0); CREATININE 1.1 mg/dL (0.70-1.30); Calcium 9.9 mg/dL (8.5-10.1); Chloride 104 mmol/L (98-107); Estimated GFR 66.19 (mL/min/1.73m2); Glucose 96 mg/dL (74-106); Potassium 4.6 mmol/L (3.5-5.1); Sodium 141 mmol/L (136-145); TSH (W/Ref FT4) 1.54 uIU/mL (0.36-3.74); Total Protein 6.9 g/dL (6.4-8.2)
== END 2024-05-29 16:08 | disposition home or self-care (01) ==
LOC: NCHCN 16:07
PROVIDERS: PCP Internal Medicine; Visit Provider Internal Medicine
DX: E11.9 Type 2 diabetes mellitus without complications (principal); D69.6 Thrombocytopenia, unspecified; R53.83 Other fatigue
CPT/HCPCS: 80053; 85027; 83036; 84443

== ENCOUNTER 2024-07-23 21:47 | Outpatient (REF) | payer MEDICARE, SELFPAY ==
--- OUTSIDE RECORDS SUMMARY | 2024-07-23 21:48 | XMS_ITS ---
Author Organization Unknown ALLERGIES AND ADVERSE REACTIONS No information ASSESSMENT No information CHIEF COMPLAINT No information MEDICATIONS No information OBJECTIVE DATA No information PHYSICAL EXAMINATION No information TREATMENT PLAN Planned Care Start Date Provider Encounter for Check-up [id number] PROBLEMS No information RESULTS No information REVIEW OF SYSTEMS No information SUBJECTIVE DATA No information VITAL SIGNS No information
--- OUTSIDE RECORDS SUMMARY | 2024-07-23 21:49 | XMS_ITS ---
Author Organization Unknown Address [address] [place] [phone] Phone Care Team Providers Care Electrical Test Engineer Name Role Phone SARAH Parra Attending Unavailable [...] by: HN PEPITO VUONG MD Transcribed by: [facility] 09/25/21/10:10 D 09/25/2021 08:44:31 [id number] Electronically Reviewed and Signed By: PEPITO VUONG MD 09/25/21 13:00 Copy for: 185 HEALTH INFORMATION MGMT Social History Type Status Start Date End Date Code Code Syst em Smoking History Former smoker 09/16/[id number] Sex Male Medications Medication Start Date End Date Route Frequency Dose Code Code System Medication Instructions Home Meds Multivitamin Oral Tablet 11/26/2018 Unknown ORAL DAILY 1 unit(s) RxNorm TAKE 1 EACH ORAL DAILY Tylenol Arthritis 650MG Oral Tablet, Extended Release 11/26/2018 2 ORAL NEEDED EVERY 8 HOURS 1300 MILLIGRAMS 6613161 RxNorm TAKE 1300 MILLIGRAMS ORAL NEEDED EVERY 8 HOURS oxyCODONE HCl 5MG Oral Tablet 10/11/2019 2 ORAL NEEDED EVERY 3 HOURS 5 MILLIGRAMS 2200243 RxNorm TAKE 5 MILLIGRAMS ORAL NEEDED EVERY 3 HOURS Atorvastatin Calcium 20MG Oral Tablet 10/11/2019 2 ORAL BEDTIME 20 MILLIGRAMS 843066 RxNorm TAKE 20 MILLIGRAMS ORAL BEDTIME Flomax 0.4MG Oral Capsule 10/11/2019 2 ORAL DAILY 0.4 MILLIGRAMS 542418 RxNorm TAKE 0.4 MILLIGRAMS ORAL DAILY Gabapentin 100MG Oral Capsule 10/11/2019 2 ORAL THREE TIMES A DAY 200 MILLIGRAMS 183275 RxNorm TAKE 200 MILLIGRAMS ORAL THREE TIMES A DAY Metoprolol Succinate 50MG Oral Tablet, Extended Release 10/11/2019 2 ORAL DAILY 50 MILLIGRAMS 831712 RxNorm TAKE 50 MILLIGRAMS ORAL DAILY Xarelto 20MG Oral Tablet 10/11/2019 2 ORAL DAILY 20 MILLIGRAMS 0773683 RxNorm TAKE 20 MILLIGRAMS ORAL DAILY oxyCODONE HCl 5MG Oral Tablet 10/29/2021 Unknown ORAL NEEDED EVERY 6 HOURS 1 TABLET 8409507 RxNorm TAKE 1 TABLET ORAL NEEDED EVERY 6 HOURS FOR Pain Atorvastatin Calcium 20MG Oral Tablet 10/29/2021 Unknown ORAL BEDTIME 20 MILLIGRAMS 571179 RxNorm TAKE 20 MILLIGRAMS ORAL BEDTIME Finasteride 5MG Oral Tablet 10/29/2021 Unknown ORAL DAILY 5 MILLIGRAMS 660334 RxNorm TAKE 5 MILLIGRAMS ORAL DAILY Gabapentin 100MG Oral Capsule 10/29/2021 Unknown ORAL NEEDED THREE TIMES A DAY 300 MILLIGRAMS 620195 RxNorm TAKE 300 MILLIGRAMS ORAL NEEDED THREE TIMES A DAY Metoprolol Succinate 50MG Oral Tablet, Extended Release 10/29/2021 Unknown ORAL DAILY 50 MILLIGRAMS 579998 RxNorm TAKE 50 MILLIGRAMS ORAL DAILY Oxybutynin Chloride 5MG Oral Tablet 10/29/2021 Unknown ORAL EVERY EVENING 5 MILLIGRAMS 461464 RxNorm TAKE 5 MILLIGRAMS ORAL EVERY EVENING Turmeric 500 MG Oral Capsule 10/29/2021 Unknown ORAL DAILY 500 MG 8457798 RxNorm TAKE 500 MG ORAL DAILY Tylenol Arthritis 650MG Oral Tablet, Extended Release 10/29/2021 Unknown ORAL NEEDED 650 MILLIGRAMS 3401991 RxNorm TAKE 650 MILLIGRAMS ORAL NEEDED Vitamin D 5000 IU Oral Capsule 10/29/2021 Unknown ORAL TWICE A DAY 5000 IU RxNorm TAKE 5000 IU ORAL TWICE A DAY Xarelto 20MG Oral Tablet 10/29/2021 Unknown ORAL DAILY 20 MILLIGRAMS 4466603 RxNorm TAKE 20 MILLIGRAMS ORAL DAILY metFORMIN HCl 500MG Oral Tablet 10/29/2021 Unknown ORAL TWICE A DAY 500 MILLIGRAMS 964016 RxNorm TAKE 500 MILLIGRAMS ORAL TWICE A [...] PERISTOMAL VENTRAL HERNIA REPAIR WITH MESH 10/27 [id number] 10/16/2024 Symbot ex SYM12 Problems Problem Start Date Resolved Date Status Code Code 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 [id number] SNO MED-CT INCISIONAL HERNIA 11/26/2018 resolved 869395559 S NOMED-CT Allergies and Adverse Reactions Allergy Substance Reaction Severity Start Date Concern Status Co de Code System No Known Drug Allergies Moderate Active 493824603 SNOMED-CT Plan of Treatment Exposure 10/24/2020 LAB DRAW 15MIN 01/04/2023 CT CHEST/ABDOMEN/PELVIS W/ CONTRAST CT CHEST/ABDOMEN/PELVIS W/ CONTRAST 02/2022 LAB DRAW 15MIN 12/01/2021 PRE-OP COVID-19 TESTING 10/25/2021 CT ABDOMEN/PELVIS W/ CONTRAST 2 Encounters Encounter Diagnosis Start Date Code Code Sys tem Incisional hernia 09/25/2021 [id number] SNOMED-CT Personal Care Team Section Performer Name Performer Role Active Date Inactive Da te
--- OUTSIDE RECORDS SUMMARY | 2024-07-23 21:49 | XMS_ITS ---
Author Organization Unknown Address [address] [place] [address] [phone] Phone Care Team Providers Care Wood Sash And Frame Carpenter Name Role Phone AVERY Hale Attending Unavailable [...] Dictated by: DOV BECKER MD Transcribed by: [facility] 08/31/21/11:15 D 08/31/2021 10:08:06 [id number] Electronically Reviewed and Signed By: MENDEZ BECKER MD 08/31/21 13:54 Copy for: 185 HEALTH INFORMATION MGMT Social History Type Status Start Date End Date Code Code Syst em Smoking History Former smoker 09/16/[id number] Sex Male Medications Medication Start Date End Date Route Frequency Dose Code Code System Medication Instructions Home Meds Multivitamin Oral Tablet 11/26/2018 Unknown ORAL DAILY 1 unit(s) RxNorm TAKE 1 EACH ORAL DAILY Tylenol Arthritis 650MG Oral Tablet, Extended Release 11/26/2018 2 ORAL NEEDED EVERY 8 HOURS 1300 MILLIGRAMS 4220550 RxNorm TAKE 1300 MILLIGRAMS ORAL NEEDED EVERY 8 HOURS oxyCODONE HCl 5MG Oral Tablet 10/11/2019 2 ORAL NEEDED EVERY 3 HOURS 5 MILLIGRAMS 6623329 RxNorm TAKE 5 MILLIGRAMS ORAL NEEDED EVERY 3 HOURS Atorvastatin Calcium 20MG Oral Tablet 10/11/2019 2 ORAL BEDTIME 20 MILLIGRAMS 433462 RxNorm TAKE 20 MILLIGRAMS ORAL BEDTIME Flomax 0.4MG Oral Capsule 10/11/2019 2 ORAL DAILY 0.4 MILLIGRAMS 965594 RxNorm TAKE 0.4 MILLIGRAMS ORAL DAILY Gabapentin 100MG Oral Capsule 10/11/2019 2 ORAL THREE TIMES A DAY 200 MILLIGRAMS 707358 RxNorm TAKE 200 MILLIGRAMS ORAL THREE TIMES A DAY Metoprolol Succinate 50MG Oral Tablet, Extended Release 10/11/2019 2 ORAL DAILY 50 MILLIGRAMS 698086 RxNorm TAKE 50 MILLIGRAMS ORAL DAILY Xarelto 20MG Oral Tablet 10/11/2019 2 ORAL DAILY 20 MILLIGRAMS 4250700 RxNorm TAKE 20 MILLIGRAMS ORAL DAILY oxyCODONE HCl 5MG Oral Tablet 10/29/2021 Unknown ORAL NEEDED EVERY 6 HOURS 1 TABLET 6324937 RxNorm TAKE 1 TABLET ORAL NEEDED EVERY 6 HOURS FOR Pain Atorvastatin Calcium 20MG Oral Tablet 10/29/2021 Unknown ORAL BEDTIME 20 MILLIGRAMS 247538 RxNorm TAKE 20 MILLIGRAMS ORAL BEDTIME Finasteride 5MG Oral Tablet 10/29/2021 Unknown ORAL DAILY 5 MILLIGRAMS 510360 RxNorm TAKE 5 MILLIGRAMS ORAL DAILY Gabapentin 100MG Oral Capsule 10/29/2021 Unknown ORAL NEEDED THREE TIMES A DAY 300 MILLIGRAMS 478460 RxNorm TAKE 300 MILLIGRAMS ORAL NEEDED THREE TIMES A DAY Metoprolol Succinate 50MG Oral Tablet, Extended Release 10/29/2021 Unknown ORAL DAILY 50 MILLIGRAMS 441624 RxNorm TAKE 50 MILLIGRAMS ORAL DAILY Oxybutynin Chloride 5MG Oral Tablet 10/29/2021 Unknown ORAL EVERY EVENING 5 MILLIGRAMS 332384 RxNorm TAKE 5 MILLIGRAMS ORAL EVERY EVENING Turmeric 500 MG Oral Capsule 10/29/2021 Unknown ORAL DAILY 500 MG 9737059 RxNorm TAKE 500 MG ORAL DAILY Tylenol Arthritis 650MG Oral Tablet, Extended Release 10/29/2021 Unknown ORAL NEEDED 650 MILLIGRAMS 8154182 RxNorm TAKE 650 MILLIGRAMS ORAL NEEDED Vitamin D 5000 IU Oral Capsule 10/29/2021 Unknown ORAL TWICE A DAY 5000 IU RxNorm TAKE 5000 IU ORAL TWICE A DAY Xarelto 20MG Oral Tablet 10/29/2021 Unknown ORAL DAILY 20 MILLIGRAMS 6305483 RxNorm TAKE 20 MILLIGRAMS ORAL DAILY metFORMIN HCl 500MG Oral Tablet 10/29/2021 Unknown ORAL TWICE A DAY 500 MILLIGRAMS 753059 RxNorm TAKE 500 MILLIGRAMS ORAL TWICE A [...] PERISTOMAL VENTRAL HERNIA REPAIR WITH MESH 10/27 [id number] X 10/16/2024 Symbot ex SYM12 Problems Problem Start Date Resolved Date Status Code Code 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 [id number] SNO MED-CT INCISIONAL HERNIA 11/26/2018 resolved 736346132 S NOMED-CT Allergies and Adverse Reactions Allergy Substance Reaction Severity Start Date Concern Status Co de Code System No Known Drug Allergies Moderate Active 458780608 SNOMED-CT Plan of Treatment Exposure 10/24/2020 LAB DRAW 15MIN 01/04/2023 CT CHEST/ABDOMEN/PELVIS W/ CONTRAST CT CHEST/ABDOMEN/PELVIS W/ CONTRAST 02/2022 LAB DRAW 15MIN 12/01/2021 PRE-OP COVID-19 TESTING 10/25/2021 CT ABDOMEN/PELVIS W/ CONTRAST 2 Encounters Encounter Diagnosis Start Date Code Code Sys tem Kidney stone 08/31/2021 65934828 SNOMED-CT Personal Care Team Section Performer Name Performer Role Active Date Inactive Da te
--- OUTSIDE RECORDS SUMMARY | 2024-07-23 21:49 | XMS_ITS ---
Author Organization Unknown Address [address] [place] [address] [phone] Phone Care Team Providers Care Pari Mutuel Clerk Name Role Phone SARAH Parra Attending Unavailable NEENA Moreira Primary Unavailable Social History Type Status Start Date End Date Code Code Syst em Smoking History Former smoker 09/16/[address] Sex Male Medications Medication Start Date End Date Route Frequency Dose Code Code System Medication Instructions Home Meds Multivitamin Oral Tablet 11/26/2018 Unknown ORAL DAILY 1 unit(s) RxNorm TAKE 1 EACH ORAL DAILY Tylenol Arthritis 650MG Oral Tablet, Extended Release 11/26/2018 2 ORAL NEEDED EVERY 8 HOURS 1300 MILLIGRAMS 5146433 RxNorm TAKE 1300 MILLIGRAMS ORAL NEEDED EVERY 8 HOURS oxyCODONE HCl 5MG Oral Tablet 10/11/2019 2 ORAL NEEDED EVERY 3 HOURS 5 MILLIGRAMS 3040590 RxNorm TAKE 5 MILLIGRAMS ORAL NEEDED EVERY 3 HOURS Atorvastatin Calcium 20MG Oral Tablet 10/11/2019 2 ORAL BEDTIME 20 MILLIGRAMS 962854 RxNorm TAKE 20 MILLIGRAMS ORAL BEDTIME Flomax 0.4MG Oral Capsule 10/11/2019 2 ORAL DAILY 0.4 MILLIGRAMS 354366 RxNorm TAKE 0.4 MILLIGRAMS ORAL DAILY Gabapentin 100MG Oral Capsule 10/11/2019 2 ORAL THREE TIMES A DAY 200 MILLIGRAMS 181136 RxNorm TAKE 200 MILLIGRAMS ORAL THREE TIMES A DAY Metoprolol Succinate 50MG Oral Tablet, Extended Release 10/11/2019 2 ORAL DAILY 50 MILLIGRAMS 813276 RxNorm TAKE 50 MILLIGRAMS ORAL DAILY Xarelto 20MG Oral Tablet 10/11/2019 2 ORAL DAILY 20 MILLIGRAMS 9233554 RxNorm TAKE 20 MILLIGRAMS ORAL DAILY oxyCODONE HCl 5MG Oral Tablet 10/29/2021 Unknown ORAL NEEDED EVERY 6 HOURS 1 TABLET 7651983 RxNorm TAKE 1 TABLET ORAL NEEDED EVERY 6 HOURS FOR Pain Atorvastatin Calcium 20MG Oral Tablet 10/29/2021 Unknown ORAL BEDTIME 20 MILLIGRAMS 617387 RxNorm TAKE 20 MILLIGRAMS ORAL BEDTIME Finasteride 5MG Oral Tablet 10/29/2021 Unknown ORAL DAILY 5 MILLIGRAMS 720161 RxNorm TAKE 5 MILLIGRAMS ORAL DAILY Gabapentin 100MG Oral Capsule 10/29/2021 Unknown ORAL NEEDED THREE TIMES A DAY 300 MILLIGRAMS 010554 RxNorm TAKE 300 MILLIGRAMS ORAL NEEDED THREE TIMES A DAY Metoprolol Succinate 50MG Oral Tablet, Extended Release 10/29/2021 Unknown ORAL DAILY 50 MILLIGRAMS 274605 RxNorm TAKE 50 MILLIGRAMS ORAL DAILY Oxybutynin Chloride 5MG Oral Tablet 10/29/2021 Unknown ORAL EVERY EVENING 5 MILLIGRAMS 049682 RxNorm TAKE 5 MILLIGRAMS ORAL EVERY EVENING Turmeric 500 MG Oral Capsule 10/29/2021 Unknown ORAL DAILY 500 MG 0147072 RxNorm TAKE 500 MG ORAL DAILY Tylenol Arthritis 650MG Oral Tablet, Extended Release 10/29/2021 Unknown ORAL NEEDED 650 MILLIGRAMS 9928867 RxNorm TAKE 650 MILLIGRAMS ORAL NEEDED Vitamin D 5000 IU Oral Capsule 10/29/2021 Unknown ORAL TWICE A DAY 5000 IU RxNorm TAKE 5000 IU ORAL TWICE A DAY Xarelto 20MG Oral Tablet 10/29/2021 Unknown ORAL DAILY 20 MILLIGRAMS 6177567 RxNorm TAKE 20 MILLIGRAMS ORAL DAILY metFORMIN HCl 500MG Oral Tablet 10/29/2021 Unknown ORAL TWICE A DAY 500 MILLIGRAMS 955963 RxNorm TAKE 500 MILLIGRAMS ORAL TWICE A [...] PERISTOMAL VENTRAL HERNIA REPAIR WITH MESH 10/27 [id number] X 10/16/2024 Symbot ex SYM12 Problems Problem Start Date Resolved Date Status Code Code 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
--- OUTSIDE RECORDS SUMMARY | 2024-07-23 21:49 | XMS_ITS ---
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 PHOS. 57 U/L L=46 H=116 6768-6 LOINC SGOT (AST) 25 U/L L=15 H=37 1920-8 LOINC SGPT (ALT) 41 U/L L=12 H=78 1742-6 LOINC TOTAL PROTEIN 7.0 gm/dL L=6.0 H=8.0 2885-2 LOINC ALBUMIN 3.9 gm/dL L=3.4 H=5.0 1751-7 LOINC AGE 81 years eGFR (non-Afr.Amer.) 64 mL/min 86372-3 LOINC eGFR (Afr-Ecuadorean) 78 mL/min 14535-2 LOINC CBC W/ DIFFERENTIAL* - Colle ct Date/Time: 09/11/2021 11:27 [facility] ID: [id number] [address] [place], [place], 56 LOINC: 22153-8 Test Value Unit Reference Range Code Code System Flag WBC 7.16 th/cmm L=5.00 H=10.00 6690-2 LOINC NEUT % 52.0 % L=40.0 H=80.0 LYMPH % 33.5 % L=10.0 H=50.0 MONO % 9.6 % L=2.0 H=12.0 83082-8 LOINC EOS % 3.9 % L=0.0 H=8.0 BASO % 0.7 % L=0.0 H=3.0 IG % 0.3 % L=0.0 H=1.1 2514-8 LOINC NRBC % 0.0 % L=0.0 H=0.0 85686-0 LOINC NEUT abs count 3.7 th/cmm L=1.6 H=8.4 751-8 LOINC LYMPH abs count 2.4 th/cmm L=1.5 H=4.0 731-0 LOINC MONO abs count 0.7 th/cmm L=0.2 H=1.0 742-7 LOINC EOS abs count 0.3 th/cmm L=0.0 H=0.5 711-2 LOINC BASO abs count 0.1 th/cmm L=0.0 H=0.2 704-7 LOINC IG abs count 0.0 th/cmm L=0.0 H=0.1 61313-1 LOINC NRBC abs count 0.0 mil/cmm L=0.0 H=0.0 38567-1 LOINC RBC 4.79 mil/cmm L=4.30 H=6.20 789-8 [...] Syst em Smoking History Former smoker 09/16/[address] Sex Male Medications Medication Start Date End Date Route Frequency Dose Code Code System Medication Instructions Home Meds Multivitamin Oral Tablet 11/26/2018 Unknown ORAL DAILY 1 unit(s) RxNorm TAKE 1 EACH ORAL DAILY Tylenol Arthritis 650MG Oral Tablet, Extended Release 11/26/2018 2 ORAL NEEDED EVERY 8 HOURS 1300 MILLIGRAMS 9082303 RxNorm TAKE 1300 MILLIGRAMS ORAL NEEDED EVERY 8 HOURS oxyCODONE HCl 5MG Oral Tablet 10/11/2019 2 ORAL NEEDED EVERY 3 HOURS 5 MILLIGRAMS 6078310 RxNorm TAKE 5 MILLIGRAMS ORAL NEEDED EVERY 3 HOURS Atorvastatin Calcium 20MG Oral Tablet 10/11/2019 2 ORAL BEDTIME 20 MILLIGRAMS 407693 RxNorm TAKE 20 MILLIGRAMS ORAL BEDTIME Flomax 0.4MG Oral Capsule 10/11/2019 2 ORAL DAILY 0.4 MILLIGRAMS 892305 RxNorm TAKE 0.4 MILLIGRAMS ORAL DAILY Gabapentin 100MG Oral Capsule 10/11/2019 2 ORAL THREE TIMES A DAY 200 MILLIGRAMS 548191 RxNorm TAKE 200 MILLIGRAMS ORAL THREE TIMES A DAY Metoprolol Succinate 50MG Oral Tablet, Extended Release 10/11/2019 2 ORAL DAILY 50 MILLIGRAMS 753575 RxNorm TAKE 50 MILLIGRAMS ORAL DAILY Xarelto 20MG Oral Tablet 10/11/2019 2 ORAL DAILY 20 MILLIGRAMS 6391554 RxNorm TAKE 20 MILLIGRAMS ORAL DAILY oxyCODONE HCl 5MG Oral Tablet 10/29/2021 Unknown ORAL NEEDED EVERY 6 HOURS 1 TABLET 0404050 RxNorm TAKE 1 TABLET ORAL NEEDED EVERY 6 HOURS FOR Pain Atorvastatin Calcium 20MG Oral Tablet 10/29/2021 Unknown ORAL BEDTIME 20 MILLIGRAMS 353361 RxNorm TAKE 20 MILLIGRAMS ORAL BEDTIME Finasteride 5MG Oral Tablet 10/29/2021 Unknown ORAL DAILY 5 MILLIGRAMS 163340 RxNorm TAKE 5 MILLIGRAMS ORAL DAILY Gabapentin 100MG Oral Capsule 10/29/2021 Unknown ORAL NEEDED THREE TIMES A DAY 300 MILLIGRAMS 870386 RxNorm TAKE 300 MILLIGRAMS ORAL NEEDED THREE TIMES A DAY Metoprolol Succinate 50MG Oral Tablet, Extended Release 10/29/2021 Unknown ORAL DAILY 50 MILLIGRAMS 640458 RxNorm TAKE 50 MILLIGRAMS ORAL DAILY Oxybutynin Chloride 5MG Oral Tablet 10/29/2021 Unknown ORAL EVERY EVENING 5 MILLIGRAMS 235412 RxNorm TAKE 5 MILLIGRAMS ORAL EVERY EVENING Turmeric 500 MG Oral Capsule 10/29/2021 Unknown ORAL DAILY 500 MG 8372347 RxNorm TAKE 500 MG ORAL DAILY Tylenol Arthritis 650MG Oral Tablet, Extended Release 10/29/2021 Unknown ORAL NEEDED 650 MILLIGRAMS 9765879 RxNorm TAKE 650 MILLIGRAMS ORAL NEEDED Vitamin D 5000 IU Oral Capsule 10/29/2021 Unknown ORAL TWICE A DAY 5000 IU RxNorm TAKE 5000 IU ORAL TWICE A DAY Xarelto 20MG Oral Tablet 10/29/2021 Unknown ORAL DAILY 20 MILLIGRAMS 2012544 RxNorm TAKE 20 MILLIGRAMS ORAL DAILY metFORMIN HCl 500MG Oral Tablet 10/29/2021 Unknown ORAL TWICE A DAY 500 MILLIGRAMS 283243 RxNorm TAKE 500 MILLIGRAMS ORAL TWICE A [...] PERISTOMAL VENTRAL HERNIA REPAIR WITH MESH 10/27 [id number] X 10/16/2024 Symbot ex SYM12 Problems Problem Start Date Resolved Date Status Code Code 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 241535662 SNO MED-CT INCISIONAL HERNIA 11/26/2018 resolved 066482420 S NOMED-CT Allergies and Adverse Reactions Allergy Substance Reaction Severity Start Date Concern Status Co de Code System No Known Drug Allergies Moderate Active 059759833 SNOMED-CT Plan of Treatment Exposure 10/24/2020 LAB DRAW 15MIN 01/04/2023 CT CHEST/ABDOMEN/PELVIS W/ CONTRAST CT CHEST/ABDOMEN/PELVIS W/ CONTRAST 02/2022 LAB DRAW 15MIN 12/01/2021 PRE-OP COVID-19 TESTING 10/25/2021 CT ABDOMEN/PELVIS W/ CONTRAST 2 Encounters Encounter Diagnosis Start Date Code Code 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
--- OUTSIDE RECORDS SUMMARY | 2024-07-23 21:50 | XMS_ITS ---
Author Organization Unknown Address [address] [place] [address] [phone] Phone Care Team Providers Care Space Systems Operations Superintendent Name Role Phone SARAH Parra Attending Unavailable NEENA Moreira Primary Unavailable Social History Type Status Start Date End Date Code Code Syst em Smoking History Former smoker 09/16/[id number] Sex Male Medications Medication Start Date End Date Route Frequency Dose Code Code System Medication Instructions Home Meds Multivitamin Oral Tablet 11/26/2018 Unknown ORAL DAILY 1 unit(s) RxNorm TAKE 1 EACH ORAL DAILY oxyCODONE HCl 5MG Oral Tablet 10/29/2021 Unknown ORAL NEEDED EVERY 6 HOURS 1 TABLET 0272835 RxNorm TAKE 1 TABLET ORAL NEEDED EVERY 6 HOURS FOR Pain Atorvastatin Calcium 20MG Oral Tablet 10/29/2021 Unknown ORAL BEDTIME 20 MILLIGRAMS 515381 RxNorm TAKE 20 MILLIGRAMS ORAL BEDTIME Finasteride 5MG Oral Tablet 10/29/2021 Unknown ORAL DAILY 5 MILLIGRAMS 849685 RxNorm TAKE 5 MILLIGRAMS ORAL DAILY Gabapentin 100MG Oral Capsule 10/29/2021 Unknown ORAL NEEDED THREE TIMES A DAY 300 MILLIGRAMS 268505 RxNorm TAKE 300 MILLIGRAMS ORAL NEEDED THREE TIMES A DAY Metoprolol Succinate 50MG Oral Tablet, Extended Release 10/29/2021 Unknown ORAL DAILY 50 MILLIGRAMS 320608 RxNorm TAKE 50 MILLIGRAMS ORAL DAILY Oxybutynin Chloride 5MG Oral Tablet 10/29/2021 Unknown ORAL EVERY EVENING 5 MILLIGRAMS 731981 RxNorm TAKE 5 MILLIGRAMS ORAL EVERY EVENING Turmeric 500 MG Oral Capsule 10/29/2021 Unknown ORAL DAILY 500 MG 1162429 RxNorm TAKE 500 MG ORAL DAILY Tylenol Arthritis 650MG Oral Tablet, Extended Release 10/29/2021 Unknown ORAL NEEDED 650 MILLIGRAMS 1109575 RxNorm TAKE 650 MILLIGRAMS ORAL NEEDED Vitamin D 5000 IU Oral Capsule 10/29/2021 Unknown ORAL TWICE A DAY 5000 IU RxNorm TAKE 5000 IU ORAL TWICE A DAY Xarelto 20MG Oral Tablet 10/29/2021 Unknown ORAL DAILY 20 MILLIGRAMS 2277609 RxNorm TAKE 20 MILLIGRAMS ORAL DAILY metFORMIN HCl 500MG Oral Tablet 10/29/2021 Unknown ORAL TWICE A DAY 500 MILLIGRAMS 533393 RxNorm TAKE 500 MILLIGRAMS ORAL TWICE A [...] PERISTOMAL VENTRAL HERNIA REPAIR WITH MESH 10/27 [id number] X 10/16/2024 Symbot ex SYM12 Problems Problem Start Date Resolved Date Status Code Code 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 940170336 SNO MED-CT INCISIONAL HERNIA 11/26/2018 resolved 232745865 S NOMED-CT Allergies and Adverse Reactions Allergy Substance Reaction Severity Start Date Concern Status Co de Code System No Known Drug Allergies Moderate Active 022444295 SNOMED-CT Plan of Treatment Exposure 10/24/2020 LAB [...]
--- OUTSIDE RECORDS SUMMARY | 2024-07-23 21:50 | XMS_ITS ---
Author Organization Unknown Address [address] [place] [address] [phone] Phone Care Team Providers Care Hospital Administrator Name Role Phone SARAH Parra Attending Unavailable NEENA Moreira Primary Unavailable Social History Type Status Start Date End Date Code Code Syst em Smoking History Former smoker 09/16/[address] Sex Male Medications Medication Start Date End Date Route Frequency Dose Code Code System Medication Instructions Home Meds Multivitamin Oral Tablet 11/26/2018 Unknown ORAL DAILY 1 unit(s) RxNorm TAKE 1 EACH ORAL DAILY oxyCODONE HCl 5MG Oral Tablet 10/29/2021 Unknown ORAL NEEDED EVERY 6 HOURS 1 TABLET 7628206 RxNorm TAKE 1 TABLET ORAL NEEDED EVERY 6 HOURS FOR Pain Atorvastatin Calcium 20MG Oral Tablet 10/29/2021 Unknown ORAL BEDTIME 20 MILLIGRAMS 901439 RxNorm TAKE 20 MILLIGRAMS ORAL BEDTIME Finasteride 5MG Oral Tablet 10/29/2021 Unknown ORAL DAILY 5 MILLIGRAMS 711449 RxNorm TAKE 5 MILLIGRAMS ORAL DAILY Gabapentin 100MG Oral Capsule 10/29/2021 Unknown ORAL NEEDED THREE TIMES A DAY 300 MILLIGRAMS 857955 RxNorm TAKE 300 MILLIGRAMS ORAL NEEDED THREE TIMES A DAY Metoprolol Succinate 50MG Oral Tablet, Extended Release 10/29/2021 Unknown ORAL DAILY 50 MILLIGRAMS 213665 RxNorm TAKE 50 MILLIGRAMS ORAL DAILY Oxybutynin Chloride 5MG Oral Tablet 10/29/2021 Unknown ORAL EVERY EVENING 5 MILLIGRAMS 432461 RxNorm TAKE 5 MILLIGRAMS ORAL EVERY EVENING Turmeric 500 MG Oral Capsule 10/29/2021 Unknown ORAL DAILY 500 MG 4011569 RxNorm TAKE 500 MG ORAL DAILY Tylenol Arthritis 650MG Oral Tablet, Extended Release 10/29/2021 Unknown ORAL NEEDED 650 MILLIGRAMS 5767572 RxNorm TAKE 650 MILLIGRAMS ORAL NEEDED Vitamin D 5000 IU Oral Capsule 10/29/2021 Unknown ORAL TWICE A DAY 5000 IU RxNorm TAKE 5000 IU ORAL TWICE A DAY Xarelto 20MG Oral Tablet 10/29/2021 Unknown ORAL DAILY 20 MILLIGRAMS 2280973 RxNorm TAKE 20 MILLIGRAMS ORAL DAILY metFORMIN HCl 500MG Oral Tablet 10/29/2021 Unknown ORAL TWICE A DAY 500 MILLIGRAMS 357483 RxNorm TAKE 500 MILLIGRAMS ORAL TWICE A [...] PERISTOMAL VENTRAL HERNIA REPAIR WITH MESH 10/27 [id number] X 10/16/2024 Symbot ex SYM12 Problems Problem Start Date Resolved Date Status Code Code 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 645427003 SNO MED-CT INCISIONAL HERNIA 11/26/2018 resolved 438069987 S NOMED-CT Allergies and Adverse Reactions Allergy Substance Reaction Severity Start Date Concern Status Co de Code System No Known Drug Allergies Moderate Active 144552148 SNOMED-CT Plan of Treatment Exposure 10/24/2020 LAB DRAW 15MIN 01/04/2023 CT CHEST/ABDOMEN/PELVIS W/ CONTRAST CT CHEST/ABDOMEN/PELVIS W/ CONTRAST 02/2022 LAB DRAW 15MIN 12/01/2021 PRE-OP COVID-19 TESTING 10/25/2021 CT ABDOMEN/PELVIS W/ CONTRAST 2 Personal Care Team Section Performer Name Performer Role Active Date Inactive Da te
--- OUTSIDE RECORDS SUMMARY | 2024-07-23 21:50 | XMS_ITS ---
Author Organization Unknown Address [address] [place] [address] [phone] Phone Care Team Providers Care Fitter Armament Name Role Phone SARAH Parra Attending Unavailable NEENA Moreira Primary Unavailable Social History Type Status Start Date End Date Code Code Syst em Smoking History Former smoker 09/16/[address] Sex Male Medications Medication Start Date End Date Route Frequency Dose Code Code System Medication Instructions Home Meds Multivitamin Oral Tablet 11/26/2018 Unknown ORAL DAILY 1 unit(s) RxNorm TAKE 1 EACH ORAL DAILY Tylenol Arthritis 650MG Oral Tablet, Extended Release 11/26/2018 2 ORAL NEEDED EVERY 8 HOURS 1300 MILLIGRAMS 7243501 RxNorm TAKE 1300 MILLIGRAMS ORAL NEEDED EVERY 8 HOURS oxyCODONE HCl 5MG Oral Tablet 10/11/2019 2 ORAL NEEDED EVERY 3 HOURS 5 MILLIGRAMS 7632398 RxNorm TAKE 5 MILLIGRAMS ORAL NEEDED EVERY 3 HOURS Atorvastatin Calcium 20MG Oral Tablet 10/11/2019 2 ORAL BEDTIME 20 MILLIGRAMS 192017 RxNorm TAKE 20 MILLIGRAMS ORAL BEDTIME Flomax 0.4MG Oral Capsule 10/11/2019 2 ORAL DAILY 0.4 MILLIGRAMS 800946 RxNorm TAKE 0.4 MILLIGRAMS ORAL DAILY Gabapentin 100MG Oral Capsule 10/11/2019 2 ORAL THREE TIMES A DAY 200 MILLIGRAMS 820735 RxNorm TAKE 200 MILLIGRAMS ORAL THREE TIMES A DAY Metoprolol Succinate 50MG Oral Tablet, Extended Release 10/11/2019 2 ORAL DAILY 50 MILLIGRAMS 243633 RxNorm TAKE 50 MILLIGRAMS ORAL DAILY Xarelto 20MG Oral Tablet 10/11/2019 2 ORAL DAILY 20 MILLIGRAMS 5531089 RxNorm TAKE 20 MILLIGRAMS ORAL DAILY oxyCODONE HCl 5MG Oral Tablet 10/29/2021 Unknown ORAL NEEDED EVERY 6 HOURS 1 TABLET 4942728 RxNorm TAKE 1 TABLET ORAL NEEDED EVERY 6 HOURS FOR Pain Atorvastatin Calcium 20MG Oral Tablet 10/29/2021 Unknown ORAL BEDTIME 20 MILLIGRAMS 551062 RxNorm TAKE 20 MILLIGRAMS ORAL BEDTIME Finasteride 5MG Oral Tablet 10/29/2021 Unknown ORAL DAILY 5 MILLIGRAMS 311795 RxNorm TAKE 5 MILLIGRAMS ORAL DAILY Gabapentin 100MG Oral Capsule 10/29/2021 Unknown ORAL NEEDED THREE TIMES A DAY 300 MILLIGRAMS 973251 RxNorm TAKE 300 MILLIGRAMS ORAL NEEDED THREE TIMES A DAY Metoprolol Succinate 50MG Oral Tablet, Extended Release 10/29/2021 Unknown ORAL DAILY 50 MILLIGRAMS 851223 RxNorm TAKE 50 MILLIGRAMS ORAL DAILY Oxybutynin Chloride 5MG Oral Tablet 10/29/2021 Unknown ORAL EVERY EVENING 5 MILLIGRAMS 415957 RxNorm TAKE 5 MILLIGRAMS ORAL EVERY EVENING Turmeric 500 MG Oral Capsule 10/29/2021 Unknown ORAL DAILY 500 MG 0826060 RxNorm TAKE 500 MG ORAL DAILY Tylenol Arthritis 650MG Oral Tablet, Extended Release 10/29/2021 Unknown ORAL NEEDED 650 MILLIGRAMS 4612721 RxNorm TAKE 650 MILLIGRAMS ORAL NEEDED Vitamin D 5000 IU Oral Capsule 10/29/2021 Unknown ORAL TWICE A DAY 5000 IU RxNorm TAKE 5000 IU ORAL TWICE A DAY Xarelto 20MG Oral Tablet 10/29/2021 Unknown ORAL DAILY 20 MILLIGRAMS 2703130 RxNorm TAKE 20 MILLIGRAMS ORAL DAILY metFORMIN HCl 500MG Oral Tablet 10/29/2021 Unknown ORAL TWICE A DAY 500 MILLIGRAMS 953582 RxNorm TAKE 500 MILLIGRAMS ORAL TWICE A [...] PERISTOMAL VENTRAL HERNIA REPAIR WITH MESH 10/27 [id number] X 10/16/2024 Symbot ex SYM12 Problems Problem Start Date Resolved Date Status Code Code 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 112076190 SNO MED-CT INCISIONAL HERNIA 11/26/2018 resolved 500546554 S NOMED-CT Allergies and Adverse Reactions Allergy Substance Reaction Severity Start Date Concern Status Co de Code System No Known Drug Allergies Moderate Active 645600005 SNOMED-CT Plan of Treatment Exposure 10/24/2020 LAB [...]
--- OUTSIDE RECORDS SUMMARY | 2024-07-23 21:50 | XMS_ITS ---
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 WORKER Unavailable NEENA Moreira Primary Unavailable Results CBC W/ DIFFERENTIAL* - Colle ct Date/Time: 10/29/2021 06:35 [facility] ID: [id number] [address] [place], [place], [address] LOINC: 39276-3 Test Value Unit Reference Range Code Code System Flag WBC 7.83 th/cmm L=5.00 H=10.00 6690-2 LOINC NEUT % 51.4 % L=40.0 H=80.0 LYMPH % 35.9 % L=10.0 H=50.0 MONO % 10.6 % L=2.0 H=12.0 13393-2 LOINC EOS % 1.0 % L=0.0 H=8.0 BASO % 0.6 % L=0.0 H=3.0 IG % 0.5 % L=0.0 H=1.1 2514-8 LOINC NRBC % 0.0 % L=0.0 H=0.0 19521-3 LOINC NEUT abs count 4.0 th/cmm L=1.6 H=8.4 751-8 LOINC LYMPH abs count 2.8 th/cmm L=1.5 H=4.0 731-0 LOINC MONO abs count 0.8 th/cmm L=0.2 H=1.0 742-7 LOINC EOS abs count 0.1 th/cmm L=0.0 H=0.5 711-2 LOINC BASO abs count 0.1 th/cmm L=0.0 H=0.2 704-7 LOINC IG abs count 0.0 th/cmm L=0.0 H=0.1 04425-1 LOINC NRBC abs count 0.0 mil/cmm L=0.0 H=0.0 69413-3 LOINC RBC 4.10 mil/cmm L=4.30 H=6.20 789-8 [...] Date/Time: 10/28/2021 16:59 [facility] ID: [id number] [address] [place] [address], [id number] LOINC: 58311-0 Test Value Unit Reference Range Code Code System Flag GLUCOSE CAP 147 mg/dL L=70 H=116 H GLUCOSE FINGER/HEEL CAPILLAR Y - Collect Date/Time: 10/28/2021 12:04 [facility] ID: [id number] [address] [place] [address], [id number] LOINC: 91702-9 Test Value Unit Reference Range Code Code System Flag GLUCOSE CAP 111 mg/dL L=70 H=116 BASIC METABOLIC PANEL (BMP) - Collect Date/Time: 10/28/2021 06:20 [facility] ID: [id number] [address] [place] [address], [address] LOINC: 37388-1 Test Value Unit Reference Range Code Code [...] H=34 2028-9 LOINC ANION GAP 6.3 mmol/L 43189-2 LOINC CALCIUM SERUM 8.4 mg/dL L=8.2 H=10.2 76463-0 LOINC AGE 81 years eGFR (non-Afr.Amer.) 60 mL/min 65318-7 LOINC eGFR (Afr-Kosovan) 73 mL/min 73689-3 LOINC CBC W/ DIFFERENTIAL* - Colle ct Date/Time: 10/28/2021 06:20 [facility] ID: [id number] [address] [place], [place], [address] LOINC: 32168-6 Test Value Unit Reference Range Code Code System Flag WBC 11.09 th/cmm L=5.00 H=10.00 6690-2 LOINC H NEUT % 76.1 % L=40.0 H=80.0 LYMPH % 15.7 % L=10.0 H=50.0 MONO % 7.6 % L=2.0 H=12.0 84509-9 LOINC EOS % 0.0 % L=0.0 H=8.0 BASO % 0.1 % L=0.0 H=3.0 IG % 0.5 % L=0.0 H=1.1 2514-8 LOINC NRBC % 0.0 % L=0.0 H=0.0 79102-1 LOINC NEUT abs count 8.5 th/cmm L=1.6 H=8.4 751-8 LOINC H LYMPH abs count 1.7 th/cmm L=1.5 H=4.0 731-0 LOINC MONO abs count 0.8 th/cmm L=0.2 H=1.0 742-7 LOINC EOS abs count 0.0 th/cmm L=0.0 H=0.5 711-2 LOINC BASO abs count 0.0 th/cmm L=0.0 H=0.2 704-7 LOINC IG abs count 0.1 th/cmm L=0.0 H=0.1 07200-9 LOINC NRBC abs count 0.0 mil/cmm L=0.0 H=0.0 59384-6 LOINC RBC 4.07 mil/cmm L=4.30 H=6.20 789-8 [...] Date/Time: 10/27/2021 21:16 [facility] ID: [id number] [address] [place] [address], [id number] LOINC: 22569-7 Test Value Unit Reference Range Code Code System Flag GLUCOSE CAP 189 mg/dL L=70 H=116 H GLUCOSE FINGER/HEEL CAPILLAR Y - Collect Date/Time: 10/27/2021 16:40 [facility] ID: [id number] [address] [place] [address], [id number] LOINC: 14242-8 Test Value Unit Reference Range Code Code System Flag GLUCOSE CAP 132 mg/dL L=70 H=116 H GLUCOSE FINGER/HEEL CAPILLAR Y - Collect Date/Time: 10/27/2021 14:22 [facility] ID: [id number] [address] [place], [place], [phone] LOINC: 03443-9 Test Value Unit Reference Range Code Code System Flag GLUCOSE CAP 112 mg/dL L=70 H=116 GLUCOSE FINGER/HEEL CAPILLAR Y - Collect Date/Time: 10/27/2021 09:52 [facility] ID: [id number] [address] [place], [place], [id number] LOINC: 16516-5 Test Value Unit Reference Range Code Code System Flag GLUCOSE CAP 114 mg/dL L=70 H=116 Social History Type Status Start Date End Date Code Code Syst em Smoking History Former smoker 09/16/[address] Sex Male Vital Signs Vital Sign Value Unit [place] Value [place] Unit Date/Time Recent/Initial? Code Code System Body Mass Index 28.13 kg/m2 10/16/2021 16:55 Initial 69330 -5 INC Systolic Blood Pressure 136 mm[Hg] [...] Saturation 97 % 2021 07:40 Most Recent 35516 -5 LOINC O2 Saturation 96 % 2021 15:34 Initial 94439 -5 LOINC Fraction of Inspired Oxygen 21 [...] 97.3 F 10/27/19 15:34 Initial 8310- 5 [facility] Weight 83.91 kg 185.00 lbs 10/16/2021 16:55 Initial 08920 -7 [facility] Medications Medication Start Date End Date Route Frequency Dose Code Code System Medication Instructions Home Meds Multivitamin Oral Tablet 11/26/2018 Unknown ORAL DAILY 1 unit(s) RxNorm TAKE 1 EACH ORAL DAILY oxyCODONE HCl 5MG Oral Tablet 10/29/2021 Unknown ORAL NEEDED EVERY 6 HOURS 1 TABLET 0228121 RxNorm TAKE 1 TABLET ORAL NEEDED EVERY 6 HOURS FOR Pain Atorvastatin Calcium 20MG Oral Tablet 10/29/2021 Unknown ORAL BEDTIME 20 MILLIGRAMS 106080 RxNorm TAKE 20 MILLIGRAMS ORAL BEDTIME Finasteride 5MG Oral Tablet 10/29/2021 Unknown ORAL DAILY 5 MILLIGRAMS 544308 RxNorm TAKE 5 MILLIGRAMS ORAL DAILY Gabapentin 100MG Oral Capsule 10/29/2021 Unknown ORAL NEEDED THREE TIMES A DAY 300 MILLIGRAMS 937185 RxNorm TAKE 300 MILLIGRAMS ORAL NEEDED THREE TIMES A DAY Metoprolol Succinate 50MG Oral Tablet, Extended Release 10/29/2021 Unknown ORAL DAILY 50 MILLIGRAMS 636748 RxNorm TAKE 50 MILLIGRAMS ORAL DAILY Oxybutynin Chloride 5MG Oral Tablet 10/29/2021 Unknown ORAL EVERY EVENING 5 MILLIGRAMS 391215 RxNorm TAKE 5 MILLIGRAMS ORAL EVERY EVENING Turmeric 500 MG Oral Capsule 10/29/2021 Unknown ORAL DAILY 500 MG 0155532 RxNorm TAKE 500 MG ORAL DAILY Tylenol Arthritis 650MG Oral Tablet, Extended Release 10/29/2021 Unknown ORAL NEEDED 650 MILLIGRAMS 4205505 RxNorm TAKE 650 MILLIGRAMS ORAL NEEDED Vitamin D 5000 IU Oral Capsule 10/29/2021 Unknown ORAL TWICE A DAY 5000 IU RxNorm TAKE 5000 IU ORAL TWICE A DAY Xarelto 20MG Oral Tablet 10/29/2021 Unknown ORAL DAILY 20 MILLIGRAMS 5956579 RxNorm TAKE 20 MILLIGRAMS ORAL DAILY metFORMIN HCl 500MG Oral Tablet 10/29/2021 Unknown ORAL TWICE A DAY 500 MILLIGRAMS 623994 RxNorm TAKE 500 MILLIGRAMS ORAL TWICE A [...] Nonautologous Tissue Substitute, Open Approach 10/27/2021 completed [id number] Anesthesia, Hernia Repairs, Lower Abdomen; Ventral & Incisional Hernias 10/27/2021 completed [id number] CPT Implants Implanted LAURI Status Assigning Authority Procedure Date Lot Number Serial Number Manufacturing Date Expiration Date Distinct ID Code Brand Name Model Number Abdominal hernia surgical mesh, composite- polymer 0110 8845 2119 0344 1725 0131 10PU B018 3X Active FDA PERISTOMAL VENTRAL HERNIA REPAIR WITH MESH 10/27 [id number] X 10/16/2024 Symbot ex SYM12 Problems Problem Start Date Resolved Date Status Code Code 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
--- OUTSIDE RECORDS SUMMARY | 2024-07-23 21:51 | XMS_ITS ---
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 Name Role Phone SARAH Parra Attending Unavailable NEENA Moreira Primary Unavailable Social History Type Status Start Date End Date Code Code Syst em Smoking History Former smoker 09/16/[address] Sex Male Medications Medication Start Date End Date Route Frequency Dose Code Code System Medication Instructions Home Meds Multivitamin Oral Tablet 11/26/2018 Unknown ORAL DAILY 1 unit(s) RxNorm TAKE 1 EACH ORAL DAILY oxyCODONE HCl 5MG Oral Tablet 10/29/2021 Unknown ORAL NEEDED EVERY 6 HOURS 1 TABLET 4031402 RxNorm TAKE 1 TABLET ORAL NEEDED EVERY 6 HOURS FOR Pain Atorvastatin Calcium 20MG Oral Tablet 10/29/2021 Unknown ORAL BEDTIME 20 MILLIGRAMS 301985 RxNorm TAKE 20 MILLIGRAMS ORAL BEDTIME Finasteride 5MG Oral Tablet 10/29/2021 Unknown ORAL DAILY 5 MILLIGRAMS 678855 RxNorm TAKE 5 MILLIGRAMS ORAL DAILY Gabapentin 100MG Oral Capsule 10/29/2021 Unknown ORAL NEEDED THREE TIMES A DAY 300 MILLIGRAMS 883051 RxNorm TAKE 300 MILLIGRAMS ORAL NEEDED THREE TIMES A DAY Metoprolol Succinate 50MG Oral Tablet, Extended Release 10/29/2021 Unknown ORAL DAILY 50 MILLIGRAMS 189020 RxNorm TAKE 50 MILLIGRAMS ORAL DAILY Oxybutynin Chloride 5MG Oral Tablet 10/29/2021 Unknown ORAL EVERY EVENING 5 MILLIGRAMS 163303 RxNorm TAKE 5 MILLIGRAMS ORAL EVERY EVENING Turmeric 500 MG Oral Capsule 10/29/2021 Unknown ORAL DAILY 500 MG 0554797 RxNorm TAKE 500 MG ORAL DAILY Tylenol Arthritis 650MG Oral Tablet, Extended Release 10/29/2021 Unknown ORAL NEEDED 650 MILLIGRAMS 3875123 RxNorm TAKE 650 MILLIGRAMS ORAL NEEDED Vitamin D 5000 IU Oral Capsule 10/29/2021 Unknown ORAL TWICE A DAY 5000 IU RxNorm TAKE 5000 IU ORAL TWICE A DAY Xarelto 20MG Oral Tablet 10/29/2021 Unknown ORAL DAILY 20 MILLIGRAMS 7142083 RxNorm TAKE 20 MILLIGRAMS ORAL DAILY metFORMIN HCl 500MG Oral Tablet 10/29/2021 Unknown ORAL TWICE A DAY 500 MILLIGRAMS 387704 RxNorm TAKE 500 MILLIGRAMS ORAL TWICE A [...] PERISTOMAL VENTRAL HERNIA REPAIR WITH MESH 10/27 [id number] X 10/16/2024 Symbot ex SYM12 Problems Problem Start Date Resolved Date Status Code Code 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
--- OUTSIDE RECORDS SUMMARY | 2024-07-23 21:51 | XMS_ITS ---
Author Organization Unknown Address [address] [place] [address] [phone] Phone Care Team Providers Care Activity Leader Name Role Phone LINDA ALTAMIRANO Attending Unavailable NEENA Moreira Primary Unavailable Results COMPREHENSIVE METABOLIC PANE L (CMP) - Collect Date/Time: 12/01/2021 08:13 [facility] ID: [id number] [address] [place], [place], [address] LOINC: 29949-6 Test Value Unit Reference Range Code Code [...] H=34 2028-9 LOINC ANION GAP 5.4 mmol/L 96163-7 LOINC CALCIUM SERUM 9.6 mg/dL L=8.2 H=10.2 80253-4 LOINC BILIRUBIN TOTAL 0.8 mg/dL L=0.0 H=1.3 1975-2 LOINC ALK. PHOS. 63 U/L L=46 H=116 6768-6 LOINC SGOT (AST) 25 U/L L=15 H=37 1920-8 LOINC SGPT (ALT) 35 U/L L=12 H=78 1742-6 LOINC TOTAL PROTEIN 7.6 gm/dL L=6.0 H=8.0 2885-2 LOINC ALBUMIN 4.3 gm/dL L=3.4 H=5.0 1751-7 LOINC AGE 81 years eGFR (non-Afr.Amer.) 62 mL/min 36516-8 LOINC eGFR (Afr-Chinese) 75 mL/min 84423-5 LOINC CBC W/ DIFFERENTIAL* - Colle ct Date/Time: 12/01/2021 08:13 [facility] ID: [id number] [address] [place], [place], [address] LOINC: 48053-7 Test Value Unit Reference Range Code Code System Flag WBC 7.53 th/cmm L=5.00 H=10.00 6690-2 LOINC NEUT % 42.4 % L=40.0 H=80.0 LYMPH % 37.2 % L=10.0 H=50.0 MONO % 11.8 % L=2.0 H=12.0 92968-4 LOINC EOS % 6.2 % L=0.0 H=8.0 BASO % 1.2 % L=0.0 H=3.0 IG % 1.2 % L=0.0 H=1.1 2514-8 LOINC H NRBC % 0.0 % L=0.0 H=0.0 85165-5 LOINC NEUT abs count 3.2 th/cmm L=1.6 H=8.4 751-8 LOINC LYMPH abs count 2.8 th/cmm L=1.5 H=4.0 731-0 LOINC MONO abs count 0.9 th/cmm L=0.2 H=1.0 742-7 LOINC EOS abs count 0.5 th/cmm L=0.0 H=0.5 711-2 LOINC BASO abs count 0.1 th/cmm L=0.0 H=0.2 704-7 LOINC IG abs count 0.1 th/cmm L=0.0 H=0.1 53030-8 LOINC NRBC abs count 0.0 mil/cmm L=0.0 H=0.0 72385-9 LOINC RBC 4.72 mil/cmm L=4.30 H=6.20 789-8 [...] Syst em Smoking History Former smoker 09/16/[address] Sex Male Medications Medication Start Date End Date Route Frequency Dose Code Code System Medication Instructions Home Meds Multivitamin Oral Tablet 11/26/2018 Unknown ORAL DAILY 1 unit(s) RxNorm TAKE 1 EACH ORAL DAILY oxyCODONE HCl 5MG Oral Tablet 10/29/2021 Unknown ORAL NEEDED EVERY 6 HOURS 1 TABLET 3515912 RxNorm TAKE 1 TABLET ORAL NEEDED EVERY 6 HOURS FOR Pain Atorvastatin Calcium 20MG Oral Tablet 10/29/2021 Unknown ORAL BEDTIME 20 MILLIGRAMS 444215 RxNorm TAKE 20 MILLIGRAMS ORAL BEDTIME Finasteride 5MG Oral Tablet 10/29/2021 Unknown ORAL DAILY 5 MILLIGRAMS 297927 RxNorm TAKE 5 MILLIGRAMS ORAL DAILY Gabapentin 100MG Oral Capsule 10/29/2021 Unknown ORAL NEEDED THREE TIMES A DAY 300 MILLIGRAMS 037729 RxNorm TAKE 300 MILLIGRAMS ORAL NEEDED THREE TIMES A DAY Metoprolol Succinate 50MG Oral Tablet, Extended Release 10/29/2021 Unknown ORAL DAILY 50 MILLIGRAMS 465272 RxNorm TAKE 50 MILLIGRAMS ORAL DAILY Oxybutynin Chloride 5MG Oral Tablet 10/29/2021 Unknown ORAL EVERY EVENING 5 MILLIGRAMS 568648 RxNorm TAKE 5 MILLIGRAMS ORAL EVERY EVENING Turmeric 500 MG Oral Capsule 10/29/2021 Unknown ORAL DAILY 500 MG 1352684 RxNorm TAKE 500 MG ORAL DAILY Tylenol Arthritis 650MG Oral Tablet, Extended Release 10/29/2021 Unknown ORAL NEEDED 650 MILLIGRAMS 3226420 RxNorm TAKE 650 MILLIGRAMS ORAL NEEDED Vitamin D 5000 IU Oral Capsule 10/29/2021 Unknown ORAL TWICE A DAY 5000 IU RxNorm TAKE 5000 IU ORAL TWICE A DAY Xarelto 20MG Oral Tablet 10/29/2021 Unknown ORAL DAILY 20 MILLIGRAMS 1418938 RxNorm TAKE 20 MILLIGRAMS ORAL DAILY metFORMIN HCl 500MG Oral Tablet 10/29/2021 Unknown ORAL TWICE A DAY 500 MILLIGRAMS 810324 RxNorm TAKE 500 MILLIGRAMS ORAL TWICE A [...] PERISTOMAL VENTRAL HERNIA REPAIR WITH MESH 10/27 [id number] X 10/16/2024 Symbot ex SYM12 Problems Problem Start Date Resolved Date Status Code Code 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 806087510 SNO MED-CT INCISIONAL HERNIA 11/26/2018 resolved [id number] S NOMED-CT Allergies and Adverse Reactions Allergy Substance Reaction Severity Start Date Concern Status Co de Code System No Known Drug Allergies Moderate Active [id number] SNOMED-CT Plan of Treatment Exposure 10/24/2020 LAB DRAW 15MIN 01/04/2023 CT CHEST/ABDOMEN/PELVIS W/ CONTRAST CT CHEST/ABDOMEN/PELVIS W/ CONTRAST 02/2022 LAB DRAW 15MIN 12/01/2021 PRE-OP COVID-19 TESTING 10/25/2021 CT ABDOMEN/PELVIS W/ CONTRAST Encounters Encounter Diagnosis Start Date Code Code 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
--- OUTSIDE RECORDS SUMMARY | 2024-07-23 21:52 | XMS_ITS ---
Author Organization Unknown Address [address] [place] [address] [phone] Phone Care Team Providers Care Car Shakeout Operator Name Role Phone LINDA ALTAMIRANO Attending [...] DOV BECKER MD Transcribed by: ZENA 12/20/21/14:16 [id number] Electronically Reviewed and Signed By: MENDEZ BECKER MD 12/20/21 14:33 Copy for: LINDA ALTAMIRANO via fax Copy for: NEENA Moreira via fax Copy for: [facility] Social History Type Status Start Date End Date Code Code Syst em Smoking History Former smoker 09/16/[id number] Sex Male Medications Medication Start Date End Date Route Frequency Dose Code Code System Medication Instructions Home Meds Multivitamin Oral Tablet 11/26/2018 Unknown ORAL DAILY 1 unit(s) RxNorm TAKE 1 EACH ORAL DAILY oxyCODONE HCl 5MG Oral Tablet 10/29/2021 Unknown ORAL NEEDED EVERY 6 HOURS 1 TABLET [id number] RxNorm TAKE 1 TABLET ORAL NEEDED EVERY 6 HOURS FOR Pain Atorvastatin Calcium 20MG Oral Tablet 10/29/2021 Unknown ORAL BEDTIME 20 MILLIGRAMS 341189 RxNorm TAKE 20 MILLIGRAMS ORAL BEDTIME Finasteride 5MG Oral Tablet 10/29/2021 Unknown ORAL DAILY 5 MILLIGRAMS 781132 RxNorm TAKE 5 MILLIGRAMS ORAL DAILY Gabapentin 100MG Oral Capsule 10/29/2021 Unknown ORAL NEEDED THREE TIMES A DAY 300 MILLIGRAMS 517164 RxNorm TAKE 300 MILLIGRAMS ORAL NEEDED THREE TIMES A DAY Metoprolol Succinate 50MG Oral Tablet, Extended Release 10/29/2021 Unknown ORAL DAILY 50 MILLIGRAMS 179201 RxNorm TAKE 50 MILLIGRAMS ORAL DAILY Oxybutynin Chloride 5MG Oral Tablet 10/29/2021 Unknown ORAL EVERY EVENING 5 MILLIGRAMS 071588 RxNorm TAKE 5 MILLIGRAMS ORAL EVERY EVENING Turmeric 500 MG Oral Capsule 10/29/2021 Unknown ORAL DAILY 500 MG 7080099 RxNorm TAKE 500 MG ORAL DAILY Tylenol Arthritis 650MG Oral Tablet, Extended Release 10/29/2021 Unknown ORAL NEEDED 650 MILLIGRAMS 5829390 RxNorm TAKE 650 MILLIGRAMS ORAL NEEDED Vitamin D 5000 IU Oral Capsule 10/29/2021 Unknown ORAL TWICE A DAY 5000 IU RxNorm TAKE 5000 IU ORAL TWICE A DAY Xarelto 20MG Oral Tablet 10/29/2021 Unknown ORAL DAILY 20 MILLIGRAMS 2142384 RxNorm TAKE 20 MILLIGRAMS ORAL DAILY metFORMIN HCl 500MG Oral Tablet 10/29/2021 Unknown ORAL TWICE A DAY 500 MILLIGRAMS 750850 RxNorm TAKE 500 MILLIGRAMS ORAL TWICE A [...] PERISTOMAL VENTRAL HERNIA REPAIR WITH MESH 10/27 [id number] X 10/16/2024 Symbot ex SYM12 Problems Problem Start Date Resolved Date Status Code Code 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 [id number] SNO MED-CT INCISIONAL HERNIA 11/26/2018 resolved 764641819 S NOMED-CT Allergies and Adverse Reactions Allergy Substance Reaction Severity Start Date Concern Status Co de Code System No Known Drug Allergies Moderate Active 365505167 SNOMED-CT Plan of Treatment Exposure 10/24/2020 LAB DRAW 15MIN 01/04/2023 CT CHEST/ABDOMEN/PELVIS W/ CONTRAST CT CHEST/ABDOMEN/PELVIS W/ CONTRAST 02/2022 LAB DRAW 15MIN 12/01/2021 PRE-OP COVID-19 TESTING 10/25/2021 CT ABDOMEN/PELVIS W/ CONTRAST 2 Encounters Encounter Diagnosis Start Date Code Code 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
--- OUTSIDE RECORDS SUMMARY | 2024-07-23 21:52 | XMS_ITS ---
Author Organization Unknown Address [address] [place] [address] [phone] Phone Care Team Providers Care Math And Science Division Chair Name Role Phone IGNACIO Coates Attending Unavailable NEENA Moreira Primary Unavailable Social History Type Status Start Date End Date Code Code Syst em Smoking History Former smoker 09/16/[address] Sex Male Medications Medication Start Date End Date Route Frequency Dose Code Code System Medication Instructions Home Meds Multivitamin Oral Tablet 11/26/2018 Unknown ORAL DAILY 1 unit(s) RxNorm TAKE 1 EACH ORAL DAILY oxyCODONE HCl 5MG Oral Tablet 10/29/2021 Unknown ORAL NEEDED EVERY 6 HOURS 1 TABLET 0065977 RxNorm TAKE 1 TABLET ORAL NEEDED EVERY 6 HOURS FOR Pain Atorvastatin Calcium 20MG Oral Tablet 10/29/2021 Unknown ORAL BEDTIME 20 MILLIGRAMS 400869 RxNorm TAKE 20 MILLIGRAMS ORAL BEDTIME Finasteride 5MG Oral Tablet 10/29/2021 Unknown ORAL DAILY 5 MILLIGRAMS 894250 RxNorm TAKE 5 MILLIGRAMS ORAL DAILY Gabapentin 100MG Oral Capsule 10/29/2021 Unknown ORAL NEEDED THREE TIMES A DAY 300 MILLIGRAMS 931621 RxNorm TAKE 300 MILLIGRAMS ORAL NEEDED THREE TIMES A DAY Metoprolol Succinate 50MG Oral Tablet, Extended Release 10/29/2021 Unknown ORAL DAILY 50 MILLIGRAMS 837576 RxNorm TAKE 50 MILLIGRAMS ORAL DAILY Oxybutynin Chloride 5MG Oral Tablet 10/29/2021 Unknown ORAL EVERY EVENING 5 MILLIGRAMS 119011 RxNorm TAKE 5 MILLIGRAMS ORAL EVERY EVENING Turmeric 500 MG Oral Capsule 10/29/2021 Unknown ORAL DAILY 500 MG 6272612 RxNorm TAKE 500 MG ORAL DAILY Tylenol Arthritis 650MG Oral Tablet, Extended Release 10/29/2021 Unknown ORAL NEEDED 650 MILLIGRAMS 7933683 RxNorm TAKE 650 MILLIGRAMS ORAL NEEDED Vitamin D 5000 IU Oral Capsule 10/29/2021 Unknown ORAL TWICE A DAY 5000 IU RxNorm TAKE 5000 IU ORAL TWICE A DAY Xarelto 20MG Oral Tablet 10/29/2021 Unknown ORAL DAILY 20 MILLIGRAMS 2918894 RxNorm TAKE 20 MILLIGRAMS ORAL DAILY metFORMIN HCl 500MG Oral Tablet 10/29/2021 Unknown ORAL TWICE A DAY 500 MILLIGRAMS 296955 RxNorm TAKE 500 MILLIGRAMS ORAL TWICE A [...] PERISTOMAL VENTRAL HERNIA REPAIR WITH MESH 10/27 [id number] X 10/16/2024 Symbot ex SYM12 Problems Problem Start Date Resolved Date Status Code Code 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 [id number] SNO MED-CT INCISIONAL HERNIA 11/26/2018 resolved 294880713 S NOMED-CT Allergies and Adverse Reactions Allergy Substance Reaction Severity Start Date Concern Status Co de Code System No Known Drug Allergies Moderate Active 939005538 SNOMED-CT Plan of Treatment Exposure 10/24/2020 LAB [...]
--- OUTSIDE RECORDS SUMMARY | 2024-07-23 21:52 | XMS_ITS ---
Author Organization Unknown Address [address] [place] [address] [phone] Phone Care Team Providers Care Underlay Stitcher Name Role Phone SARAH Parra Attending Unavailable NEENA Moreira Primary Unavailable Social History Type Status Start Date End Date Code Code Syst em Smoking History Former smoker 09/16/[address] Sex Male Medications Medication Start Date End Date Route Frequency Dose Code Code System Medication Instructions Home Meds Multivitamin Oral Tablet 11/26/2018 Unknown ORAL DAILY 1 unit(s) RxNorm TAKE 1 EACH ORAL DAILY oxyCODONE HCl 5MG Oral Tablet 10/29/2021 Unknown ORAL NEEDED EVERY 6 HOURS 1 TABLET 9217038 RxNorm TAKE 1 TABLET ORAL NEEDED EVERY 6 HOURS FOR Pain Atorvastatin Calcium 20MG Oral Tablet 10/29/2021 Unknown ORAL BEDTIME 20 MILLIGRAMS 149119 RxNorm TAKE 20 MILLIGRAMS ORAL BEDTIME Finasteride 5MG Oral Tablet 10/29/2021 Unknown ORAL DAILY 5 MILLIGRAMS 187663 RxNorm TAKE 5 MILLIGRAMS ORAL DAILY Gabapentin 100MG Oral Capsule 10/29/2021 Unknown ORAL NEEDED THREE TIMES A DAY 300 MILLIGRAMS 466228 RxNorm TAKE 300 MILLIGRAMS ORAL NEEDED THREE TIMES A DAY Metoprolol Succinate 50MG Oral Tablet, Extended Release 10/29/2021 Unknown ORAL DAILY 50 MILLIGRAMS 403162 RxNorm TAKE 50 MILLIGRAMS ORAL DAILY Oxybutynin Chloride 5MG Oral Tablet 10/29/2021 Unknown ORAL EVERY EVENING 5 MILLIGRAMS 178416 RxNorm TAKE 5 MILLIGRAMS ORAL EVERY EVENING Turmeric 500 MG Oral Capsule 10/29/2021 Unknown ORAL DAILY 500 MG 5816673 RxNorm TAKE 500 MG ORAL DAILY Tylenol Arthritis 650MG Oral Tablet, Extended Release 10/29/2021 Unknown ORAL NEEDED 650 MILLIGRAMS 7779432 RxNorm TAKE 650 MILLIGRAMS ORAL NEEDED Vitamin D 5000 IU Oral Capsule 10/29/2021 Unknown ORAL TWICE A DAY 5000 IU RxNorm TAKE 5000 IU ORAL TWICE A DAY Xarelto 20MG Oral Tablet 10/29/2021 Unknown ORAL DAILY 20 MILLIGRAMS 5375068 RxNorm TAKE 20 MILLIGRAMS ORAL DAILY metFORMIN HCl 500MG Oral Tablet 10/29/2021 Unknown ORAL TWICE A DAY 500 MILLIGRAMS 191618 RxNorm TAKE 500 MILLIGRAMS ORAL TWICE A [...] PERISTOMAL VENTRAL HERNIA REPAIR WITH MESH 10/27 [id number] X 10/16/2024 Symbot ex SYM12 Problems Problem Start Date Resolved Date Status Code Code 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 003610338 SNO MED-CT INCISIONAL HERNIA 11/26/2018 resolved 862945409 S NOMED-CT Allergies and Adverse Reactions Allergy Substance Reaction Severity Start Date Concern Status Co de Code System No Known Drug Allergies Moderate Active 659394813 SNOMED-CT Plan of Treatment Exposure 10/24/2020 LAB DRAW 15MIN 01/04/2023 CT CHEST/ABDOMEN/PELVIS W/ CONTRAST CT CHEST/ABDOMEN/PELVIS W/ CONTRAST 02/2022 LAB DRAW 15MIN 12/01/2021 PRE-OP COVID-19 TESTING 10/25/2021 CT ABDOMEN/PELVIS W/ CONTRAST 2 Encounters Encounter Diagnosis Start Date Code Code Sys tem Follow-up visit 12/07/2021 [id number] SNOMED-CT Personal Care Team Section Performer Name Performer Role Active Date Inactive Da te
--- OUTSIDE RECORDS SUMMARY | 2024-07-23 21:52 | XMS_ITS ---
Author Organization Unknown Address [address] [place] [address] [phone] Phone Care Team Providers Care Gas Treater Name Role Phone YONY GUAMANIE Attending Unavailable NEENA Moreira Primary Unavailable Social History Type Status Start Date End Date Code Code Syst em Smoking History Former smoker 09/16/[address] Sex Male Medications Medication Start Date End Date Route Frequency Dose Code Code System Medication Instructions Home Meds Multivitamin Oral Tablet 11/26/2018 Unknown ORAL DAILY 1 unit(s) RxNorm TAKE 1 EACH ORAL DAILY oxyCODONE HCl 5MG Oral Tablet 10/29/2021 Unknown ORAL NEEDED EVERY 6 HOURS 1 TABLET 7665487 RxNorm TAKE 1 TABLET ORAL NEEDED EVERY 6 HOURS FOR Pain Atorvastatin Calcium 20MG Oral Tablet 10/29/2021 Unknown ORAL BEDTIME 20 MILLIGRAMS 262259 RxNorm TAKE 20 MILLIGRAMS ORAL BEDTIME Finasteride 5MG Oral Tablet 10/29/2021 Unknown ORAL DAILY 5 MILLIGRAMS 931299 RxNorm TAKE 5 MILLIGRAMS ORAL DAILY Gabapentin 100MG Oral Capsule 10/29/2021 Unknown ORAL NEEDED THREE TIMES A DAY 300 MILLIGRAMS 871028 RxNorm TAKE 300 MILLIGRAMS ORAL NEEDED THREE TIMES A DAY Metoprolol Succinate 50MG Oral Tablet, Extended Release 10/29/2021 Unknown ORAL DAILY 50 MILLIGRAMS 960123 RxNorm TAKE 50 MILLIGRAMS ORAL DAILY Oxybutynin Chloride 5MG Oral Tablet 10/29/2021 Unknown ORAL EVERY EVENING 5 MILLIGRAMS 694500 RxNorm TAKE 5 MILLIGRAMS ORAL EVERY EVENING Turmeric 500 MG Oral Capsule 10/29/2021 Unknown ORAL DAILY 500 MG 2258529 RxNorm TAKE 500 MG ORAL DAILY Tylenol Arthritis 650MG Oral Tablet, Extended Release 10/29/2021 Unknown ORAL NEEDED 650 MILLIGRAMS 7664086 RxNorm TAKE 650 MILLIGRAMS ORAL NEEDED Vitamin D 5000 IU Oral Capsule 10/29/2021 Unknown ORAL TWICE A DAY 5000 IU RxNorm TAKE 5000 IU ORAL TWICE A DAY Xarelto 20MG Oral Tablet 10/29/2021 Unknown ORAL DAILY 20 MILLIGRAMS 8771245 RxNorm TAKE 20 MILLIGRAMS ORAL DAILY metFORMIN HCl 500MG Oral Tablet 10/29/2021 Unknown ORAL TWICE A DAY 500 MILLIGRAMS 091507 RxNorm TAKE 500 MILLIGRAMS ORAL TWICE A [...] PERISTOMAL VENTRAL HERNIA REPAIR WITH MESH 10/27 [id number] X 10/16/2024 Symbot ex SYM12 Problems Problem Start Date Resolved Date Status Code Code 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 536863081 SNO MED-CT INCISIONAL HERNIA 11/26/2018 resolved 961520385 S NOMED-CT Allergies and Adverse Reactions Allergy Substance Reaction Severity Start Date Concern Status Co de Code System No Known Drug Allergies Moderate Active 342193620 SNOMED-CT Plan of Treatment Exposure 10/24/2020 LAB DRAW 15MIN 01/04/2023 CT CHEST/ABDOMEN/PELVIS W/ CONTRAST CT CHEST/ABDOMEN/PELVIS W/ CONTRAST 02/2022 LAB DRAW 15MIN 12/01/2021 PRE-OP COVID-19 TESTING 10/25/2021 CT ABDOMEN/PELVIS W/ CONTRAST 2 Encounters Encounter Diagnosis Start Date Code Code Sys tem 09/06/2022 [id number] SNOMED-CT Personal Care Team Section Performer Name Performer Role Active Date Inactive Da te
--- OUTSIDE RECORDS SUMMARY | 2024-07-23 21:52 | XMS_ITS ---
Author Organization Unknown Address [address] [place] [address] [phone] Phone Care Team Providers Care Collection Manager Name Role Phone NEENA Moreira Attending Unavailable Results XR KNEE 4V LT* - Completed: 08/13/2022 15:43 LOINC: [facility] [place], [place] [address] PACS CANNERY TENDER ENGINEER REPORT Patient Name: VIOLETTE MOTLEY Dilan MRN: Sex: : Age: [id number] M 1940 82 Account: Accession: Admit: StayType: [id number] 08/13/2022 O/P Ordered: Order ID: Submitted: Ordering Provider: 08/13/2022 14:27 [id number] [facility] AYAZ CHAUDHARY Completed: Technologist: Resulted: 08/13/2022 15:43 [...] Syst em Smoking History Former smoker 09/16/[address] Sex Male Medications Medication Start Date End Date Route Frequency Dose Code Code System Medication Instructions Home Meds Multivitamin Oral Tablet 11/26/2018 Unknown ORAL DAILY 1 unit(s) RxNorm TAKE 1 EACH ORAL DAILY oxyCODONE HCl 5MG Oral Tablet 10/29/2021 Unknown ORAL NEEDED EVERY 6 HOURS 1 TABLET 6818531 RxNorm TAKE 1 TABLET ORAL NEEDED EVERY 6 HOURS FOR Pain Atorvastatin Calcium 20MG Oral Tablet 10/29/2021 Unknown ORAL BEDTIME 20 MILLIGRAMS 547227 RxNorm TAKE 20 MILLIGRAMS ORAL BEDTIME Finasteride 5MG Oral Tablet 10/29/2021 Unknown ORAL DAILY 5 MILLIGRAMS 922287 RxNorm TAKE 5 MILLIGRAMS ORAL DAILY Gabapentin 100MG Oral Capsule 10/29/2021 Unknown ORAL NEEDED THREE TIMES A DAY 300 MILLIGRAMS 996458 RxNorm TAKE 300 MILLIGRAMS ORAL NEEDED THREE TIMES A DAY Metoprolol Succinate 50MG Oral Tablet, Extended Release 10/29/2021 Unknown ORAL DAILY 50 MILLIGRAMS 682587 RxNorm TAKE 50 MILLIGRAMS ORAL DAILY Oxybutynin Chloride 5MG Oral Tablet 10/29/2021 Unknown ORAL EVERY EVENING 5 MILLIGRAMS 035732 RxNorm TAKE 5 MILLIGRAMS ORAL EVERY EVENING Turmeric 500 MG Oral Capsule 10/29/2021 Unknown ORAL DAILY 500 MG 9492665 RxNorm TAKE 500 MG ORAL DAILY Tylenol Arthritis 650MG Oral Tablet, Extended Release 10/29/2021 Unknown ORAL NEEDED 650 MILLIGRAMS 5420627 RxNorm TAKE 650 MILLIGRAMS ORAL NEEDED Vitamin D 5000 IU Oral Capsule 10/29/2021 Unknown ORAL TWICE A DAY 5000 IU RxNorm TAKE 5000 IU ORAL TWICE A DAY Xarelto 20MG Oral Tablet 10/29/2021 Unknown ORAL DAILY 20 MILLIGRAMS 6738836 RxNorm TAKE 20 MILLIGRAMS ORAL DAILY metFORMIN HCl 500MG Oral Tablet 10/29/2021 Unknown ORAL TWICE A DAY 500 MILLIGRAMS 472638 RxNorm TAKE 500 MILLIGRAMS ORAL TWICE A [...] PERISTOMAL VENTRAL HERNIA REPAIR WITH MESH 10/27 [id number] X 10/16/2024 Symbot ex SYM12 Problems Problem Start Date Resolved Date Status Code Code 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 072548602 SNO MED-CT INCISIONAL HERNIA 11/26/2018 resolved 980824952 S NOMED-CT Allergies and Adverse Reactions Allergy Substance Reaction Severity Start Date Concern Status Co de Code System No Known Drug Allergies Moderate Active 484659220 SNOMED-CT Plan of Treatment Exposure 10/24/2020 LAB [...]
--- OUTSIDE RECORDS SUMMARY | 2024-07-23 21:53 | XMS_ITS ---
Author Organization Unknown Address [address] [place] [address] [phone] Phone Care Team Providers Care Financial Advisor Trainee Name Role Phone LINDA ALTAMIRANO Attending Unavailable NEENA Moreira Primary Unavailable Results BUN/CREATININE RATIO FOR RAD IOLOGY* - Collect Date/Time: 01/04/2023 09:04 [facility] ID: [id number] - [id number] [address] [place] [address], [address] LOINC: 3097-3 Test Value Unit Reference Range Code Code System Flag BUN 21 mg/dL L=6 H=25 3094-0 LOINC CREATININE 1.23 mg/dL L=0.67 H=1.17 2160-0 LOINC H BUN/CREATININE RATIO 17.1 3097-3 LOINC AGE 82 years eGFR (non-Afr.Amer) 56 mL/min 19064-9 LOINC eGFR (Afr-Japanese) 68 mL/min 30281-[address] CXR ABD PELVIS WITH IV AN D ORAL* - Completed: 01/04/2023 11:02 LOINC: [facility] [place], [place] [address] PACS MANAGER MARKET INTELLIGENCE REPORT Patient Name: VIOLETTE MOTLEY MRN: Sex: : Age: [id number] M 1940 82 Account: Accession: Admit: StayType: [id number] 01/04/2023 O/P Ordered: Order ID: Submitted: Ordering Provider: 01/04/2023 08:53 [id number] EVELIA FONSECA Completed: Technologist: Resulted: 01/04/2023 11:02 [...] Syst em Smoking History Former smoker 09/16/[address] Sex Male Medications Medication Start Date End Date Route Frequency Dose Code Code System Medication Instructions Home Meds Multivitamin Oral Tablet 11/26/2018 Unknown ORAL DAILY 1 unit(s) RxNorm TAKE 1 EACH ORAL DAILY oxyCODONE HCl 5MG Oral Tablet 10/29/2021 Unknown ORAL NEEDED EVERY 6 HOURS 1 TABLET 6225730 RxNorm TAKE 1 TABLET ORAL NEEDED EVERY 6 HOURS FOR Pain Atorvastatin Calcium 20MG Oral Tablet 10/29/2021 Unknown ORAL BEDTIME 20 MILLIGRAMS 388268 RxNorm TAKE 20 MILLIGRAMS ORAL BEDTIME Finasteride 5MG Oral Tablet 10/29/2021 Unknown ORAL DAILY 5 MILLIGRAMS 290368 RxNorm TAKE 5 MILLIGRAMS ORAL DAILY Gabapentin 100MG Oral Capsule 10/29/2021 Unknown ORAL NEEDED THREE TIMES A DAY 300 MILLIGRAMS 950074 RxNorm TAKE 300 MILLIGRAMS ORAL NEEDED THREE TIMES A DAY Metoprolol Succinate 50MG Oral Tablet, Extended Release 10/29/2021 Unknown ORAL DAILY 50 MILLIGRAMS 687938 RxNorm TAKE 50 MILLIGRAMS ORAL DAILY Oxybutynin Chloride 5MG Oral Tablet 10/29/2021 Unknown ORAL EVERY EVENING 5 MILLIGRAMS 464345 RxNorm TAKE 5 MILLIGRAMS ORAL EVERY EVENING Turmeric 500 MG Oral Capsule 10/29/2021 Unknown ORAL DAILY 500 MG 9545851 RxNorm TAKE 500 MG ORAL DAILY Tylenol Arthritis 650MG Oral Tablet, Extended Release 10/29/2021 Unknown ORAL NEEDED 650 MILLIGRAMS 2873064 RxNorm TAKE 650 MILLIGRAMS ORAL NEEDED Vitamin D 5000 IU Oral Capsule 10/29/2021 Unknown ORAL TWICE A DAY 5000 IU RxNorm TAKE 5000 IU ORAL TWICE A DAY Xarelto 20MG Oral Tablet 10/29/2021 Unknown ORAL DAILY 20 MILLIGRAMS 4863124 RxNorm TAKE 20 MILLIGRAMS ORAL DAILY metFORMIN HCl 500MG Oral Tablet 10/29/2021 Unknown ORAL TWICE A DAY 500 MILLIGRAMS 223824 RxNorm TAKE 500 MILLIGRAMS ORAL TWICE A [...] PERISTOMAL VENTRAL HERNIA REPAIR WITH MESH 10/27 [id number] X 10/16/2024 Symbot ex SYM12 Problems Problem Start Date Resolved Date Status Code Code 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 715961456 SNO MED-CT INCISIONAL HERNIA 11/26/2018 resolved 593211116 S NOMED-CT Allergies and Adverse Reactions Allergy Substance Reaction Severity Start Date Concern Status Co de Code System No Known Drug Allergies Moderate Active 923893149 SNOMED-CT Plan of Treatment Exposure 10/24/2020 LAB DRAW 15MIN 01/04/2023 CT CHEST/ABDOMEN/PELVIS W/ CONTRAST CT CHEST/ABDOMEN/PELVIS W/ CONTRAST 02/2022 LAB DRAW 15MIN 12/01/2021 PRE-OP COVID-19 TESTING 10/25/2021 CT ABDOMEN/PELVIS W/ CONTRAST 2 Encounters Encounter Diagnosis Start Date Code Code 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
--- OUTSIDE RECORDS SUMMARY | 2024-07-23 21:53 | XMS_ITS ---
Author Organization Unknown Address [address] [place] [address] [phone] Phone Care Team Providers Care Director Of Event Marketing Name Role Phone LORRIE Bauer Attending Unavailable NEENA Moreira Primary Unavailable Social History Type Status Start Date End Date Code Code Syst em Smoking History Former smoker 09/16/[address] Sex Male Medications Medication Start Date End Date Route Frequency Dose Code Code System Medication Instructions Home Meds Multivitamin Oral Tablet 11/26/2018 Unknown ORAL DAILY 1 unit(s) RxNorm TAKE 1 EACH ORAL DAILY oxyCODONE HCl 5MG Oral Tablet 10/29/2021 Unknown ORAL NEEDED EVERY 6 HOURS 1 TABLET 6815699 RxNorm TAKE 1 TABLET ORAL NEEDED EVERY 6 HOURS FOR Pain Atorvastatin Calcium 20MG Oral Tablet 10/29/2021 Unknown ORAL BEDTIME 20 MILLIGRAMS 270778 RxNorm TAKE 20 MILLIGRAMS ORAL BEDTIME Finasteride 5MG Oral Tablet 10/29/2021 Unknown ORAL DAILY 5 MILLIGRAMS 456341 RxNorm TAKE 5 MILLIGRAMS ORAL DAILY Gabapentin 100MG Oral Capsule 10/29/2021 Unknown ORAL NEEDED THREE TIMES A DAY 300 MILLIGRAMS 949588 RxNorm TAKE 300 MILLIGRAMS ORAL NEEDED THREE TIMES A DAY Metoprolol Succinate 50MG Oral Tablet, Extended Release 10/29/2021 Unknown ORAL DAILY 50 MILLIGRAMS 077261 RxNorm TAKE 50 MILLIGRAMS ORAL DAILY Oxybutynin Chloride 5MG Oral Tablet 10/29/2021 Unknown ORAL EVERY EVENING 5 MILLIGRAMS 157577 RxNorm TAKE 5 MILLIGRAMS ORAL EVERY EVENING Turmeric 500 MG Oral Capsule 10/29/2021 Unknown ORAL DAILY 500 MG 0733133 RxNorm TAKE 500 MG ORAL DAILY Tylenol Arthritis 650MG Oral Tablet, Extended Release 10/29/2021 Unknown ORAL NEEDED 650 MILLIGRAMS 7519984 RxNorm TAKE 650 MILLIGRAMS ORAL NEEDED Vitamin D 5000 IU Oral Capsule 10/29/2021 Unknown ORAL TWICE A DAY 5000 IU RxNorm TAKE 5000 IU ORAL TWICE A DAY Xarelto 20MG Oral Tablet 10/29/2021 Unknown ORAL DAILY 20 MILLIGRAMS 5882555 RxNorm TAKE 20 MILLIGRAMS ORAL DAILY metFORMIN HCl 500MG Oral Tablet 10/29/2021 Unknown ORAL TWICE A DAY 500 MILLIGRAMS 342141 RxNorm TAKE 500 MILLIGRAMS ORAL TWICE A [...] PERISTOMAL VENTRAL HERNIA REPAIR WITH MESH 10/27 [id number] X 10/16/2024 Symbot ex SYM12 Problems Problem Start Date Resolved Date Status Code Code 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 980464120 SNO MED-CT INCISIONAL HERNIA 11/26/2018 resolved 872489997 S NOMED-CT Allergies and Adverse Reactions Allergy Substance Reaction Severity Start Date Concern Status Co de Code System No Known Drug Allergies Moderate Active 477873411 SNOMED-CT Plan of Treatment Exposure 10/24/2020 LAB [...]
--- OUTSIDE RECORDS SUMMARY | 2024-07-23 21:53 | XMS_ITS ---
Author Organization Unknown Address [address] [place] [address] [phone] Phone Care Team Providers Care Sandstone Splitter Name Role Phone IGNACIO Coates Attending Unavailable NEENA Moreira Primary Unavailable Social History Type Status Start Date End Date Code Code Syst em Smoking History Former smoker 09/16/[address] Sex Male Medications Medication Start Date End Date Route Frequency Dose Code Code System Medication Instructions Home Meds Multivitamin Oral Tablet 11/26/2018 Unknown ORAL DAILY 1 unit(s) RxNorm TAKE 1 EACH ORAL DAILY oxyCODONE HCl 5MG Oral Tablet 10/29/2021 Unknown ORAL NEEDED EVERY 6 HOURS 1 TABLET 4171285 RxNorm TAKE 1 TABLET ORAL NEEDED EVERY 6 HOURS FOR Pain Atorvastatin Calcium 20MG Oral Tablet 10/29/2021 Unknown ORAL BEDTIME 20 MILLIGRAMS 298136 RxNorm TAKE 20 MILLIGRAMS ORAL BEDTIME Finasteride 5MG Oral Tablet 10/29/2021 Unknown ORAL DAILY 5 MILLIGRAMS 060259 RxNorm TAKE 5 MILLIGRAMS ORAL DAILY Gabapentin 100MG Oral Capsule 10/29/2021 Unknown ORAL NEEDED THREE TIMES A DAY 300 MILLIGRAMS 905243 RxNorm TAKE 300 MILLIGRAMS ORAL NEEDED THREE TIMES A DAY Metoprolol Succinate 50MG Oral Tablet, Extended Release 10/29/2021 Unknown ORAL DAILY 50 MILLIGRAMS 060634 RxNorm TAKE 50 MILLIGRAMS ORAL DAILY Oxybutynin Chloride 5MG Oral Tablet 10/29/2021 Unknown ORAL EVERY EVENING 5 MILLIGRAMS 959873 RxNorm TAKE 5 MILLIGRAMS ORAL EVERY EVENING Turmeric 500 MG Oral Capsule 10/29/2021 Unknown ORAL DAILY 500 MG 7982180 RxNorm TAKE 500 MG ORAL DAILY Tylenol Arthritis 650MG Oral Tablet, Extended Release 10/29/2021 Unknown ORAL NEEDED 650 MILLIGRAMS 0210436 RxNorm TAKE 650 MILLIGRAMS ORAL NEEDED Vitamin D 5000 IU Oral Capsule 10/29/2021 Unknown ORAL TWICE A DAY 5000 IU RxNorm TAKE 5000 IU ORAL TWICE A DAY Xarelto 20MG Oral Tablet 10/29/2021 Unknown ORAL DAILY 20 MILLIGRAMS 8662450 RxNorm TAKE 20 MILLIGRAMS ORAL DAILY metFORMIN HCl 500MG Oral Tablet 10/29/2021 Unknown ORAL TWICE A DAY 500 MILLIGRAMS 733648 RxNorm TAKE 500 MILLIGRAMS ORAL TWICE A [...] PERISTOMAL VENTRAL HERNIA REPAIR WITH MESH 10/27 [id number] X 10/16/2024 Symbot ex SYM12 Problems Problem Start Date Resolved Date Status Code Code 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 825147546 SNO MED-CT INCISIONAL HERNIA 11/26/2018 resolved 664785237 S NOMED-CT Allergies and Adverse Reactions Allergy Substance Reaction Severity Start Date Concern Status Co de Code System No Known Drug Allergies Moderate Active 657428757 SNOMED-CT Plan of Treatment Exposure 10/24/2020 LAB DRAW 15MIN 01/04/2023 CT CHEST/ABDOMEN/PELVIS W/ CONTRAST CT CHEST/ABDOMEN/PELVIS W/ CONTRAST 02/2022 LAB DRAW 15MIN 12/01/2021 PRE-OP COVID-19 TESTING 10/25/2021 CT ABDOMEN/PELVIS W/ CONTRAST 2 Encounters Encounter Diagnosis Start Date Code Code Sys tem Paroxysmal atrial fibrillation 03/28/2023 005891894 SNOMED-CT Personal Care Team Section Performer Name Performer Role Active Date Inactive Da te
--- OUTSIDE RECORDS SUMMARY | 2024-07-23 21:53 | XMS_ITS ---
Author Organization Unknown Address [address] [place] [phone] Phone Care Team Providers Care Marriage And Family Teacher Name Role Phone ROOMET MARYLOU Attending Unavailable NEENA Moreira Primary Unavailable Social History Type Status Start Date End Date Code Code Syst em Smoking History Former smoker 09/16/[id number] Sex Male Medications Medication Start Date End Date Route Frequency Dose Code Code System Medication Instructions Home Meds Multivitamin Oral Tablet 11/26/2018 Unknown ORAL DAILY 1 unit(s) RxNorm TAKE 1 EACH ORAL DAILY oxyCODONE HCl 5MG Oral Tablet 10/29/2021 Unknown ORAL NEEDED EVERY 6 HOURS 1 TABLET [id number] RxNorm TAKE 1 TABLET ORAL NEEDED EVERY 6 HOURS FOR Pain Atorvastatin Calcium 20MG Oral Tablet 10/29/2021 Unknown ORAL BEDTIME 20 MILLIGRAMS 550461 RxNorm TAKE 20 MILLIGRAMS ORAL BEDTIME Finasteride 5MG Oral Tablet 10/29/2021 Unknown ORAL DAILY 5 MILLIGRAMS 190148 RxNorm TAKE 5 MILLIGRAMS ORAL DAILY Gabapentin 100MG Oral Capsule 10/29/2021 Unknown ORAL NEEDED THREE TIMES A DAY 300 MILLIGRAMS 443050 RxNorm TAKE 300 MILLIGRAMS ORAL NEEDED THREE TIMES A DAY Metoprolol Succinate 50MG Oral Tablet, Extended Release 10/29/2021 Unknown ORAL DAILY 50 MILLIGRAMS 464187 RxNorm TAKE 50 MILLIGRAMS ORAL DAILY Oxybutynin Chloride 5MG Oral Tablet 10/29/2021 Unknown ORAL EVERY EVENING 5 MILLIGRAMS 098107 RxNorm TAKE 5 MILLIGRAMS ORAL EVERY EVENING Turmeric 500 MG Oral Capsule 10/29/2021 Unknown ORAL DAILY 500 MG [id number] RxNorm TAKE 500 MG ORAL DAILY Tylenol Arthritis 650MG Oral Tablet, Extended Release 10/29/2021 Unknown ORAL NEEDED 650 MILLIGRAMS 1357890 RxNorm TAKE 650 MILLIGRAMS ORAL NEEDED Vitamin D 5000 IU Oral Capsule 10/29/2021 Unknown ORAL TWICE A DAY 5000 IU RxNorm TAKE 5000 IU ORAL TWICE A DAY Xarelto 20MG Oral Tablet 10/29/2021 Unknown ORAL DAILY 20 MILLIGRAMS 1931132 RxNorm TAKE 20 MILLIGRAMS ORAL DAILY metFORMIN HCl 500MG Oral Tablet 10/29/2021 Unknown ORAL TWICE A DAY 500 MILLIGRAMS 979243 RxNorm TAKE 500 MILLIGRAMS ORAL TWICE A [...] PERISTOMAL VENTRAL HERNIA REPAIR WITH MESH 10/27 [id number] X 10/16/2024 Symbot ex SYM12 Problems Problem Start Date Resolved Date Status Code Code 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 [id number] SNO MED-CT INCISIONAL HERNIA 11/26/2018 resolved [id number] S NOMED-CT Allergies and Adverse Reactions Allergy Substance Reaction Severity Start Date Concern Status Co de Code System No Known Drug Allergies Moderate Active [id number] SNOMED-CT Plan of Treatment Exposure 10/24/2020 LAB DRAW 15MIN 01/04/2023 CT CHEST/ABDOMEN/PELVIS W/ CONTRAST CT CHEST/ABDOMEN/PELVIS W/ CONTRAST 02/2022 LAB DRAW 15MIN 12/01/2021 PRE-OP COVID-19 TESTING 10/25/2021 CT ABDOMEN/PELVIS W/ CONTRAST 2 Encounters Encounter Diagnosis Start Date Code Code Sys tem Refusal of treatment by patient 10/23/2022 [id number] SNOMED-CT Personal Care Team Section Performer Name Performer Role Active Date Inactive Da te
--- OUTSIDE RECORDS SUMMARY | 2024-07-23 21:54 | XMS_ITS | Encounter Summary ---
Author Organization [facility] Address [address] [place] [address] Care Team Providers Care Glue Sprayer Name Role Phone Rayray Person [place] Primary Care Provider +[phone] Reason for Visit * Reason Comments Follow-up Encounter Details Date Type Department Care Team (Late st Contact Info) Description 12/25/2021 10:00 EDT Office Visit [facility] Adult Hematology & Oncology [address] [place] [address] [phone] [place] [address] [facility] [address] [place] [address] (Fax) Malignant neoplasm of splenic flexure (HCC-CMS) [...] ascites. CT chest negative. -Inpatient admission at [facility] from January 10-January 22, 2018 for [...] History Social History Narrative Works full-time at [employer] Current Outpatient Medications Medication Sig Dispense Refill [...] in this encounter. Bassam Timmons MD Hematology/Oncology [facility] documented in this encounter Plan of [...] 06/25/2022 added in this encounter Care Teams Glue Sprayer Relationship Specialty Start Date End Date Rayray Person Ctr[facility]p 4 [facility] [place] [place] [address] PCP - General 12/29/20 documented as of this encounter
--- OUTSIDE RECORDS SUMMARY | 2024-07-23 21:54 | XMS_ITS | Encounter Summary ---
Author Organization [facility] Address [address] [place] [address] Care Team Providers Care Gas Main Fitter Helper Name Role Phone Nam Gonzalez MD Primary Care Provider Unav ailable Reason for Visit * Reason Comments Follow-up Encounter Details Date Type Department Care Team (Late st Contact Info) Description 05/19/2020 10:00 EDT Office Visit [facility] Adult Hematology & Oncology [address] [place] [address] [phone] [place] [address] [facility] [address] [place] [address] (Fax) Malignant neoplasm of splenic flexure (HCC-CMS) [...] History Social History Narrative Works full-time at [employer] Current Outpatient Medications Medication Sig Dispense Refill [...] Count and Differential Bassam Timmons MD Hematology/Oncology [facility] Cc: , * Kusum Luna [...] 2.2 - 8.85 10e3/uL 05/19/2020 14:20 EDT [facility] BASO # - [facility] 0.06 0.01 - 0.11 10e/uL 05/19/2020 14:20 EDT [facility] BASO % - [facility] 1 0 - 2 % 05/19/2020 14:20 [facility] EOS # - [facility] 0.40 0.03 - 0.61 10e3/ul 05/19/2020 14:20 EDT [facility] EOS % - [facility] 8(H) 0 - 5 % [facility] % - [facility] 43.3 40 - 80 % 05/[facility]2020 [facility] H[facility] - [facility] 41.2 39.5 - 50.2 % 05/19/2020 14:20 [facility] HEMOGLOBIN - [facility] 13.3(L) 13.8 - 17.3 g/dl 05/19/2020 14:20 [facility] IG# - [facility] 0.02 0 - 0.7 10e3/uL 05/19/2020 14:20 [facility] IG% - [facility] 0.4 0 - 0.9 % 05/19/2020 14:20 [facility] LYMPH # - [facility] 1.9 1.09 - 3.3 10e3/ul 05/19/2020 14:20 [facility] LYMPH% - [facility] 35.6 20 - 40 % 05/19/2020 14:20 [facility] MEAN CORPUSCULAR HGB - [facility] 30.9 27.6 - 33.0 pg 05/19/2020 14:20 [facility] MEAN CORPUSCULAR HGB CONC - [facility] 32.3(L) 32.8 - 36.4 g/dL 05/19/2020 14:20 [facility] MEAN CELL VOLUME - [facility] 95.8(H) 81 - 95 fl 05/19/2020 14:20 [facility] MONO # - [facility] 0.6 0.1 - 0.8 10e3/uL 05/19/2020 14:20 [facility] MONO% - [facility] 11.9 0 - 12 % 05/19/2020 14:20 [facility] PLATELET COUNT 112(L) 141 - 377 10e3/ul 05/19/2020 14:20 [facility] RED BLOOD COUNT - [facility] 4.30(L) 4.36 - 5.78 10e3/ul 05/19/2020 14:20 [facility] RED CELL DISTRI WIDTH - [facility] 12.2 <14.2 % 05/19/2020 14:20 [facility] WHITE BLOOD COUNT - [facility] 5.2 4.0 - 10.4 10e3/ul 05/19/2020 14:20 [facility] 05/19/2020 10:5 0 EDT 05/19/2020 13:54 EDT Bassam Timmons MD HEMATOLOGY & PF4 ORD ERABLES Performing Organization Address [facility]/ZIP Co de Phone Number [facility] [address] [place] [address] * CEA (05/19/2020 10:50 EDT) CEA 1.9 () ng/mL 05/20/2020 19:21 EDT [facility] Comment: REFERENCE VALUE <=3.0 (Non-smokers) Some smokers may have elevated CEA, usually <5.0. ADDITIONAL INFORMATION The testing method is an immunoenzymatic assay manufactured by [employer]. and performed on the TaecanetI 800. ? Values obtained with different assay methods or kits may be different and cannot be used interchangeably. ? Test results cannot be interpreted as absolute evidence for the presence or absence of malignant disease. Test Performed by: [facility] [address] [place] [address] Sports Therapist: Bentley Rich M.D. 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
--- OUTSIDE RECORDS SUMMARY | 2024-07-23 21:54 | XMS_ITS | Encounter Summary ---
Author Organization [facility] Address [address] [place] [address] Care Team Providers Care Slabbing Machine Operator Name Role Phone Rayray Person [facility] [place]- Primary Care Provider [phone] [phone] Reason for Visit * Reason Onset Date Comments Labs Only 11/17/2021 Encounter Details Date Type Department Care Team (Late st Contact Info) Description 11/17/2021 Telephone [facility] - [facility] [place]ology & Oncology [address] [place] [address] Leila Ann, RN Labs Only Social [...] - Can you please fax labs to [facility] documented in this encounter Plan of Treatment Not on file documented as of this encounter Visit Diagnoses Diagnosis 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
--- OUTSIDE RECORDS SUMMARY | 2024-07-23 21:54 | XMS_ITS | Encounter Summary ---
Author Organization [facility] Address [address] [place] [address] Care Team Providers Care Fancy Stitcher Name Role Phone Nam Gonzalez MD Primary Care Provider Unav ailable Encounter Details Date Type Department Care Team (Late st Contact Info) Description 11/27/2020 Results Only [facility] - Main [place] [address] [place] [address] Naveed Johnson MD [address] [place] [phone] Social History Tobacco Use Types Packs/Day [...] Routine 11/27/2020 14:10 EDT NT-PROBNP SERPL-MCNC - [facility] Routine 11/27/2020 12:55 EDT SPEC W/O ORDERS - [facility] Routine 12:55 EDT LACTIC ACID SEPSIS REFLEX - [facility] Routine 11/27/2020 12:55 EDT COMPLETE BLOOD COUNT WITH DIFFERENTIAL (AUTO) Routine 11/27/2020 12:55 EDT THYROID CASCADE Routine 11/27/2020 12:55 EDT TROPONIN I Routine 11/27/2020 12:55 EDT MAGNESIUM Routine 11/27/2020 12:55 EDT COMPREHENSIVE METABOLIC PANEL (CMP) Routine 11/27/2020 12:55 EDT documented in this encounter Results * FLU/COVID KENDELL(FLUVID) (11/27/2020 14:10 EDT) SARS-CoV-2 RT-PCR Not Detected 11/27 14:27 EDT [facility] Comment: This assay is designed [...] terminated or revoked sooner. Performed on the [id number] GeneXpert Instrument at [facility] [address] Result called to REY RIVAS/ED 11/27/20 1427: Result called by DEVIKA INFLUENZA A PCR - [facility] Negative 11/27/2020 14:27 EDT [facility] INFLUENZA B PCR - [facility] Negative 11/27/2020 14:27 EDT [facility] RSV PCR - [facility] Negative 11/27/2020 14:27 EDT [facility] 11/27/2020 14:1 0 EDT 11/27/2020 14:10 EDT Narrative [facility] - 11/27/2020 14:27 EDT FLUVID PATIENT STATUS: A [facility] 1 FLUVID Naveed Johnson MD MICROBIOLOGY - GENER AL ORDERABLES Performing Organization Address City/[facility]/ZIP Co de Phone Number [facility] [address] [place] [address] * THYROID CASCADE (11/27/2020 12:55 EDT) Pathologist [facility] TSH 1.72 0.46 - 4.68 uIU/mL 11/27/2020 13:48 EDT [facility] 11/27/2020 12:5 5 EDT 11/27/2020 13:00 EDT Naveed Johnson MD CHEMISTRY & BLOOD GA S ORDERABLES Performing Organization Address [facility]/ZIP Co de Phone Number [facility] [address] [place] [address] * SPEC W/O ORDERS - [facility] (11/27/2020 12:55 EDT) SPEC W/O ORDERS - [facility] SEE NOTE 11/27/2020 13:34 EDT [facility] Comment: ?Emergency Room Specimen(s) without Orders These specimens will be discarded in 4 hours: ONE SET OF BLOOD CULTURES 11/27/2020 12:5 5 EDT 11/27/2020 13:34 EDT Naveed Johnson MD CHEMISTRY & BLOOD GA S ORDERABLES Performing Organization Address [facility] de Phone Number [facility] [address] [place] [address] * TROPONIN I (11/27/2020 12:55 EDT) [facility] Troponin I (ng/mL) <0.034 0.000 - 0.034 ng/mL 11/27/2020 13:31 EDT [facility] Comment: Interpretation comments: ??Cutoff for [...] BLOOD GA S ORDERABLES Performing Organization Address [facility] Number [facility] [address] [place] [address] * MAGNESIUM (11/27/2020 12:55 EDT) [facility] Magnesium 2.00 1.7 - 2.8 mg/dL 11/27/2020 13:26 EDT [facility] 11/27/2020 12:5 5 EDT 11/27/2020 13:00 EDT Naveed Johnson MD CHEMISTRY & BLOOD GA S ORDERABLES Performing Organization Address [facility] Phone Number [facility] [address] [place] [address] * (ABNORMAL) COMPREHENSIVE METABOLIC PANEL (CMP) (11/27/2020 12:55 EDT) Albumin % 4.3 3.4 - 4.9 g/dL 11/27/2020 13:26 [facility] ALKALINE PHOSPHATASE - [facility] 66 38 - 126 U/L 11/27/2020 13:26 [facility] BILIRUBIN TOTAL 0.6 0.2 - 1.3 mg/dL 11/27/2020 13:26 [facility] BUN - [facility] 21 10 - 26 mg/dL 11/27/2020 13:26 [facility] CALCIUM - [facility] 9.6 8.5 - 10.5 mg/dL 11/27/2020 13:26 [facility] Chloride 105 96 - 110 mmol/L 11/27/2020 13:26 [facility] CO2 Total 29 21 - 32 mEq/L 11/27/2020 13:26 [facility] CREATININE 0.88 0.66 - 1.25 mg/dL 11/27/2020 13:26 [facility] eGFR >60 11/27/2020 13:26 [facility] Comment: Chronic renal impairment is defined as GFR <60 Multiply result by 1.210 for patients. Anion Gap 8 0 - 18 11/27/2020 13:26 [facility] GLUCOSE - [facility] 180(H) 70 - 100 mg/dL 11/27/2020 13:26 [facility] Potassium 4.4 3.5 - 5.0 mEq/L 11/27/2020 13:26 [facility] Sodium 142 136 - 145 mEq/L 11/27/2020 13:26 [facility] TOTAL PROTEIN - [facility] 6.6 6.2 - 8.2 gm/dL 11/27/2020 13:26 [facility] SGOT/AST - [facility] 35 17 - 59 U/L 11/27/2020 13:26 [facility] SGPT/ALT - [facility] 36 0 - 50 U/L 13:26 [facility] 11/27/2020 12:5 5 EDT 11/27/2020 13:00 EDT Naveed Johnson MD CHEMISTRY & BLOOD GA S ORDERABLES Performing Organization Address [facility] Co de Phone Number [facility] [address] [place] [address] * NT-PROBNP SERPL-MCNC - [facility] (11/27/2020 12:55 EDT) [facility] NT-pro BNP 43 <300 pg/mL 11/27/2020 13:26 EDT [facility] Comment: NT-proBNP values less than [...] BLOOD GA S ORDERABLES Performing Organization Address [facility] Phone Number [facility] [address] [place] [address] * (ABNORMAL) LACTIC ACID SEPSIS REFLEX - [facility] (11/27/2020 12:55 EDT) [facility] LACTIC ACID [facility] 2.5(HH) <2.0 mmol/L 11/27/2020 13:22 EDT [facility] Comment: Result called to ERY RIVAS/LUKE 11/27/20 1322 Result called by KT 11/27/2020 12:5 5 EDT 11/27/2020 12:58 EDT Naveed Johnson MD CHEMISTRY & BLOOD GA S ORDERABLES Performing Organization Address City/[facility]/ZIP Co de Phone Number [facility] [address] [place] [address] [place] [address] * (ABNORMAL) COMPLETE BLOOD COUNT WITH DIFFERENTIAL (AUTO) (11/27/2020 12:55 EDT) ABSOLUTE NEUTROPHIL COUN - [facility] 4.1 2.2 - 8.85 10e3/uL 11/27/2020 13:09 [facility] BASO # - [facility] 0.08 0.01 - 0.11 10e/uL 11/27/2020 13:09 [facility] BASO % - [facility] 1 0 - 2 % 11/27/2020 13:09 [facility] EOS # - [facility] 0.77(H) 0.03 - 0.61 10e3/ul 11/27/2020 13:09 [facility] EOS % - [facility] 10(H) 0 - 5 % 11/27/2020 13:09 [facility] GRAN % - [facility] 51.6 40 - 80 % 11/27/2020 13:09 [facility] HEMATOCRIT - [facility] 45.9 39.5 - 50.2 % 11/27/2020 13:09 [facility] HEMOGLOBIN - [facility] 15.1 13.8 - 17.3 g/dl 11/27/2020 13:09 [facility] IG# - [facility] 0.03 0 - 0.7 10e3/uL 11/27/2020 13:09 [facility] IG% - [facility] 0.4 0 - 0.9 % 11/27/2020 13:09 [facility] LYMPH # - [facility] 2.3 1.09 - 3.3 10e3/ul 11/27/2020 13:09 [facility] LYMPH% - [facility] 28.1 20 - 40 % 11/27/2020 13:09 [facility] MEAN CORPUSCULAR HGB - [facility] 30.9 27.6 - 33.0 pg 11/27/2020 13:09 [facility] MEAN CORPUSCULAR HGB CONC - [facility] 32.9 32.8 - 36.4 g/dL 11/27/2020 13:09 [facility] MEAN CELL VOLUME - [facility] 93.9 81 - 95 fl 11/27/2020 13:09 [facility] MONO # - [facility] 0.7 0.1 - 0.8 10e3/uL 11/27/2020 13:09 [facility] MONO% - [facility] 9.3 0 - 12 % 11/27/2020 13:09 [facility] PLATELET COUNT 156 141 - 377 10e3/ul 11/27/2020 13:09 [facility] RED BLOOD COUNT - [facility] 4.89 4.36 - 5.78 10e6/ul 11/27/2020 13:09 [facility] RED CELL DISTRI WIDTH - [facility] 11.5 <14.2 % 11/27/2020 13:09 [facility] WHITE BLOOD COUNT - [facility] 8.0 4.0 - 10.4 10e3/ul 11/27/2020 13:09 [facility] 11/27/2020 12:5 5 EDT 11/27/2020 13:00 EDT Naveed Johnson MD HEMATOLOGY & PF4 ORD ERABLES [facility] [address] [place] [address] documented in this encounter Visit Diagnoses Not on filedocumented in this encounter Care Teams Fancy Stitcher Relationship Specialty Start Date End Date Nam Gonzalez MD PCP - General 07/21/15 12/28/20 documented as of this encounter
--- OUTSIDE RECORDS SUMMARY | 2024-07-23 21:54 | XMS_ITS | Encounter Summary ---
Author Organization [facility] Address [address] [place] [address] Care Team Providers Care Boner Meat Name Role Phone Rayray Person [facility]- Primary Care Provider [phone] Reason for Visit * Reason Onset Date Comments Appointment Related 09/19/2023 Encounter Details Date Type Department Care Team (Late st Contact Info) Description 09/19/2023 Telephone [facility] - [facility] Adult Hematology & Oncology [address] [place] [phone] Bruce Driver MD [address] [place] [address] [address] [place] [address] Appointment Related Social History Tobacco [...] on filedocumented in this encounter Care Teams Boner Meat Relationship Specialty Start Date End Date Den[facility] [address] [facility] [place] [address] PCP - General 12/29/20 documented as of this encounter
--- OUTSIDE RECORDS SUMMARY | 2024-07-23 21:54 | XMS_ITS | Encounter Summary ---
Author Organization [facility] Address [address] [place] [address] Care Team Providers Care Prestressed Concrete Laborer Name Role Phone Rayray Person [facility]- Primary Care Provider [phone] Reason for Visit * Reason Onset Date Comments Other 12/30/2020 call/would like appt update Encounter Details Date Type Department Care Team (Late st Contact Info) Description 12/30/2020 Telephone [facility] - [facility] Adult Hematology & Oncology [address] [place] [address] Lea Garcia, JOÃO [address] [facility] [address] [place] [address] Other (call/would like appt update) [...] MA - 01/11/2021 1434 EDT Faxed to [facility] 01/11/21 14:34 * Telephone Encounter - Florence Crouch MA - 01/11/2021 1240 EDT Spoke with Anushka and relayed Assessment and Plan from most recent note. 6 month follow-up appointment scheduled for 07/03/21 with labs prior as indicated in note. Patient would like labs drawn at [facility]. ET can you please review pended lab orders and sign if correct? I will fax them to [facility] once completed. * Telephone Encounter - [...] flexure documented in this encounter Care Teams Prestressed Concrete Laborer Relationship Specialty Start Date End Date [facility] [address] [place] [address] PCP - General 12/29/20 documented as of this encounter
--- OUTSIDE RECORDS SUMMARY | 2024-07-23 21:54 | XMS_ITS | Encounter Summary ---
Author Organization [facility] Address [address] [place] [address] Care Team Providers Care Strainer Cleaner Name Role Phone Rayray Person [facility] Primary Care Provider +1 -[phone] Reason for Visit * Reason Comments Follow-up Encounter Details Date Type Department Care Team (Late st Contact Info) Description 06/27/2021 11:00 EDT Office Visit [facility] Adult Hematology & Oncology [address] [place] [address] [id number] [place] [address] [facility] [address] [place] [address] (Fax) Malignant neoplasm of splenic flexure (HCC-CMS) [...] Diagnosis ??? 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 Current Outpatient Medications Medication Sig Dispense Refill [...] [address] scans prior at [facility]. Other Orders Placed This Visit Procedures ??? CT ABDOMEN PELVIS W CONTRAST ??? CT CHEST W CONTRAST ??? Complete Blood Count and Differential ??? Comprehensive Metabolic Panel (CMP) ??? CEA ??? Complete Blood Count and Differential ??? Comprehensive Metabolic Panel (CMP) ??? CEA Bassam Timmons MD Hematology/Oncology [facility] CC: [facility]. * Britney Roberson RN - 06/27/2021 [...] 3.0 2.2 - 8.85 10e3/uL 06/27/2021 15:20 [facility] BASO # - [facility] 0.05 0.01 - 0.11 10e/uL 06/27/2021 15:20 [facility] BASO % - [facility] 1 0 - 2 % 06/27/2021 15:20 [facility] EOS # - [facility] 0.24 0.03 - 0.61 10e3/ul 06/27/2021 15:20 [facility] EOS % - [facility] 4 0 - 5 % 06/27/2021 15:20 [facility] GRAN % - [facility] 52.3 40 - 80 % 06/27/2021 15:20 [facility] HEMATOCRIT - [facility] 41.8 39.5 - 50.2 % 06/27/2021 15:20 [facility] HEMOGLOBIN - [facility] 13.8 13.8 - 17.3 g/dl 06/27/2021 15:20 [facility] IG# - [facility] 0.02 0 - 0.7 10e3/uL 06/27/2021 15:20 [facility] IG% - [facility] 0.3 0 - 0.9 % 06/27/2021 15:20 [facility] LYMPH # - [facility] 1.8 1.09 - 3.3 10e3/ul 06/27/2021 15:20 [facility] LYMPH% - [facility] 31.2 20 - 40 % 06/27/2021 15:20 [facility] MEAN CORPUSCULAR HGB - [facility] 31.5 27.6 - 33.0 pg 06/27/2021 15:20 [facility] MEAN CORPUSCULAR HGB CONC - [facility] 33.0 32.8 - 36.4 g/dL 06/27/2021 15:20 EDT [facility] MEAN CELL VOLUME - [facility] 95.4(H) 81 - 95 fl 06/27/2021 15:20 EDT [facility] MONO # - CV 0.7 0.1 - 0.8 10e3/uL 06/27/2021 15:20 EDT [facility] MONO% - [facility] 11.2 0 - 12 % 06/27/2021 15:20 EDT [facility] PLATELET COUNT 117(L) 141 - 377 10e3/ul 06/27/2021 15:20 EDT [facility] RED BLOOD COUNT - [facility] 4.38 4.36 - 5.78 10e6/ul 06/27/2021 15:20 EDT [facility] RED CELL DISTRI WIDTH - CV 12.5 <14.2 % 06/27/2021 15:20 EDT [facility] WHITE BLOOD COUNT - [facility] 5.8 4.0 - 10.4 10e3/ul 06/27/2021 15:20 EDT [facility] 06/27/2021 14:1 0 EDT 06/27/2021 15:12 EDT Bassam Timmons MD HEMATOLOGY & PF4 ORD ERABLES [facility] [address] [place] [address] * CEA (06/27/2021 14:10 EDT) CEA 2.4 () ng/mL 06/28/2021 16:00 EDT [facility] Comment: REFERENCE VALUE <=3.0 (Non-smokers) Some smokers may have elevated CEA, usually <5.0. ADDITIONAL INFORMATION The testing method is an immunoenzymatic assay manufactured by [employer] and performed on the [employer] DxI 800. ? Values obtained with different assay methods or kits may be different and cannot be used interchangeably. ? Test results cannot be interpreted as absolute evidence for the presence or absence of malignant disease. Test Performed by: [facility] [address] [place] [address] Last Pattern Grader: Bentley Rich M.D. Ph.D.; CLIA# [id number] Blood VENOUS BLOOD / Unknown 06/27/2021 14:10 EDT 06/27/2021 15:12 EDT Bassam Timmons MD CHEMISTRY & BLOOD GA S ORDERABLES [facility] [address] [place] [address] * (ABNORMAL) COMPREHENSIVE METABOLIC PANEL (CMP) (06/27/2021 14:10 EDT) Albumin % 4.2 3.4 - 4.9 g/dL 06/27[facility]2021 [facility] ALKALINE PHOSPHATASE - [facility] 51 38 - 126 U/L 06/27/2021 17:59 [facility] BILIRUBIN TOTAL 0.7 0.2 - 1.3 mg/dL 06/27/2021 17:59 [facility] BUN - [facility] 23 10 - 26 mg/dL 06/27/2021 17:59 [facility] CALCIUM - [facility] 9.7 8.5 - 10.5 mg/dL 06/27/2021 17:59 [facility] Chloride 104 96 - 110 mmol/L 06/27/2021 17:59 [facility] CO2 Total 27 21 - 32 mEq/L 06/27/2021 17:59 [facility] CREATININE 0.88 0.66 - 1.25 mg/dL 06/27/2021 17:59 [facility] eGFR >60 06/27/2021 17:59 EDT [facility] Comment: Chronic renal impairment is defined as GFR <60 Multiply result by 1.210 for patients. Anion Gap 11 0 - 18 06/27/2021 17:59 EDT [facility] GLUCOSE - [facility] 129(H) 70 - 100 mg/dL 06/27/2021 17:59 [facility] Potassium 4.4 3.5 - 5.0 mEq/L 06/27/2021 17:59 EDT [facility] Sodium 142 136 - 145 mEq/L 06/27/2021 [facility] TOTAL PROTEIN - [facility] 6.5 6.2 - 8.2 gm/dL 06/27/2021 17:59 [facility] Comment: Total protein samples collected with heparin can demonstrate a 6-10% positive bias. ??Interpret total protein result with caution. 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
--- OUTSIDE RECORDS SUMMARY | 2024-07-23 21:54 | XMS_ITS | Encounter Summary ---
Author Organization [facility] Address [address] [place] [address] Care Team Providers Care Black Oxide Coating Equipment Tender Name Role Phone Nam Gonzalez MD Primary Care Provider Iggy osborne Naya [facility]- Primary Care Provider +1 [phone] Encounter Details Date Type Department Care Team (Late st Contact Info) Description 12/22/2020 Lab Requisition [facility] Pathology & Laboratory Medicine - [address] [id number] Outr Resulting Lab, Provider Social History Tobacco [...] Priority Date/Time Associated Diagnosis Comments ZZCOVID-19 TEST [facility] PCR Today 12/21/2020 16:00 EDT COVID-19 TESTING Routine 12/21/2020 16:0 0 EDT documented in this encounter Results * COVID-19 TEST [facility] PCR (12/21/2020 16:00 EDT) Swab ENTIRE NASOPHARYNX / Unknown 12/21/2020 16:00 EDT 12/22/2020 16:57 EDT Provider Outr Resulting Lab MICROBIOLOGY - GENERAL ORDERABLES Performing Organization Address City/[facility]/ZIP Co de Phone Number [facility] [address] [place] [address] * COVID-19 TESTING (12/21/2020 16:00 EDT) COVID-19 rt-PCR Result Negative Negative 12/23/2020 15:[address] [facility] Comment: This test has not [...] performed using the joseph SARS-CoV-2 assay ([employer] on the Joseph 6800 System Performing Lab Joseph [address] [facility] 12/23/2020 15:[address] [facility] Swab 12/21/2020 16:0 0 EDT 12/22/2020 16:57 EDT Provider Outr Resulting Lab MICROBIOLOGY - GENERAL ORDERABLES [facility] [address] [place] [address] documented in this encounter Visit Diagnoses Not on filedocumented in this encounter Care Teams Black Oxide Coating Equipment Tender Relationship Specialty Start Date End Date Nam Gonzalez MD PCP - General 07/21/15 12/28/20 [facility] [address] [place] [address] PCP - General 12/29/20 documented as of this encounter
--- OUTSIDE RECORDS SUMMARY | 2024-07-23 21:54 | XMS_ITS | Encounter Summary ---
Author Organization [facility] Address [address] [place] [address] Care Team Providers Care Way Inspector Name Role Phone Nam Gonzalez MD Primary Care Provider Unav ailable Reason for Visit * Reason Comments Cough Shortness of Breath Encounter Details Date Type Department Care Team (Late st Contact Info) Description 11/27/2020 11:30 EDT Office [place] [facility] [address] [place], [place] [id number] Niraj Swanson, MIXING PLANT DUMPER [address] [facility] [address] [place], [place] [id number] Shortness of breath (Primary Dx) Social History [...] of this to me. I will call [facility] [place] and tell them you are [...] No Smoking: No Work hx: Works at [employer] PCP: Nam Gonzalez Pt reports he feels safe at home BIANCA LINARES RN * Niraj Swanson NP - 11/27/2020 1130 EDT [facility] Chief Complaint(s): Cough and [...] called to Varsha, charge nurse in the [facility] emergency [place]. Differential diagnosis includes pneumonia, severe [...] He was sent home from work at [employer]. He did obtain a Covid test which [...] has recently had a chest CT at [facility] as part of his monitoring for history [...] note may be in part documented using [employer] dictation software. Please forgive any errors or [...] CC: ? Transcribed Date/Time: 11/27/2020 (1403) ? Rehab Director: ? Printed Date/Time: 11/27/2020 (1403) ? PAGE [...] Ivette Warner MD CC: Transcribed Date/Time: 11/27/2020 (2453) Rehab Director: Printed Date/Time: 11/27/2020 (8690) PAGE 1 Signed Report Naveed Johnson MD IMG DIAGNOSTIC IMAGI NG ORDERABLES * EKG 12-LEAD (11/27/2020 12:03 EDT) 11/27/2020 12:[address] [facility] - 11/27/2020 12:03 EDT ? [facility] ? Test Date: ?2020-11-27 12:03:10 Pat Name: ? VIOLETTE BEARDEN ? Department: ?Room: ? Gender: ? M ?Project Control Analyst: ?? : ?1940 ? Requested By: Order Number: ?Reading : ?? Jamilah Berkowitz MD ? Measurements Intervals ?[place] ? Rate: ? 72 ? P: ?79 CT: ? 164 ?QRS: ?56 QRSD: ? 90 ? T: ?65 QT: ? 392 ? QTc: ?429 ? Interpretive Statements Normal sinus rhythm Normal ECG No previous ECG available for comparison Electronically Signed On 11-27-2020 19:24:32 EDT by Jamilah Berkowitz MD [email or web address] Procedure Note Jamilah Berkowitz MD - 11/27/2020 [facility] Test Date: 2020-11-27 12:03:10 Pat Name: VIOLETTE BEARDEN Department: Room: Gender: M Project Control Analyst: : 1940 Requested By: Order Number: Reading MD: Jamilah Berkowitz MD Measurements Intervals [place] Rate: 72 P: 79 CT: 164 QRS: 56 QRSD: 90 T: 65 QT: 392 QTc: 429 Interpretive Statements Normal sinus rhythm Normal ECG No previous ECG available for comparison Electronically Signed On 11-27-2020 19:24:32 EDT by Jamilah Berkowitz MD [email or web address] Naveed Johnson MD CARDIAC ECG ORDERABL ES Performing Organization Address City/State/[facility] Co de Phone Number [facility] [address] [place] [address] documented in this encounter Visit Diagnoses Diagnosis Shortness of breath- Primary documented in this encounter Care Teams Way Inspector Relationship Specialty Start Date End Date Nam Gonzalez MD PCP - General 07/21/15 12/28/20 documented as of this encounter
--- OUTSIDE RECORDS SUMMARY | 2024-07-23 21:54 | XMS_ITS | Encounter Summary ---
Author Organization [facility] Address [address] [place] [address] Care Team Providers Care Sledger Name Role Phone Rayray Person [facility]- Primary Care Provider +1 -[phone] Reason for Visit * Reason Comments Follow-up Encounter Details Date Type Department Care Team (Late st Contact Info) Description 06/25/2022 11:30 EDT Office Visit [facility] Adult Hematology & Oncology [address] [place] [id number] [place] [address] [facility] [address] [place] [address] (Fax) Malignant neoplasm of splenic flexure (HCC-CMS) [...] Diagnosis ??? 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 Current Outpatient Medications Medication Sig Dispense Refill [...] Neurology Bassam Timmons MD Hematology/Oncology [facility] CC: [facility] * Noemi Irene RN - 06/25/2022 1130 EDT Procedures: - Venipuncture Performed by: NOEMI IRENE RN Site Collected: Right Antecubital Space Volume Withdrawn: LAV EDTA 3.0 mL and [place] SST 8.5 mL Patient Response:Patient tolerated venipuncture well Number of attempts: 1 Ordering Provider:Bassam Timmons MD documented in this encounter Plan of Treatment Scheduled Orders Name Type Priority Associated Diagnoses Orde r Schedule COMPLETE BLOOD COUNT AND DIFFERENTIAL Lab STAT Malignant neoplasm of splenic flexure (HCC-CMS) Expected: 06/25/2022 (Approximate), Expires: 06/25/2023 documented as of this [...] encounter Results * IBC (06/25/2022 12:03 EDT) Iron Binding Capacity 343 240 - 450 ??g/dL 06/25/2022 13:31 EDT [facility] Blood VENOUS BLOOD / Unknown Venipuncture / Unknown 06/25/2022 12:03 EDT 06/25/2022 12:03 EDT Bassam Timmons MD CHEMISTRY & BLOOD GA S ORDERABLES [facility] [address] [place] [address] * FERRITIN (06/25/2022 12:03 EDT) [facility] Ferritin 83 18 - 464 ng/mL 06/25/2022 14:02 EDT [facility] Blood VENOUS BLOOD / Unknown Venipuncture / Unknown 06/25/2022 12:03 EDT 06/25/2022 12:03 EDT Narrative [facility] - 06/25/2022 14:02 EDT The results of this assay can be falsely lowered due to the consumption of Biotin. Bassam Timmons MD CHEMISTRY & BLOOD GA S ORDERABLES [facility] [address] [place] [address] * CEA (06/25/2022 11:38 EDT) [facility] CEA 2.1 See Note ng/mL 06/25/2022 22:[address] [facility] Comment: % Distribution of CEA [...] MD CHEMISTRY & BLOOD GA S ORDERABLES [facility] [address] [place] [address] * (ABNORMAL) COMPLETE BLOOD COUNT AND DIFFERENTIAL (06/25/2022 11:24 EDT) [facility] WBC 5.89 4.00 - 10.40 K/cmm 06/25/2022 11:53 EDT [facility] RBC 4.38 4.36 - 5.78 M/cmm 06/25/2022 11:53 [facility] Hemoglobin 13.7(L) 13.8 - 17.3 gm/dL 06/25/2022 11:53 [facility] HCT 40.9 39.5 - 50.2 % 06/25/2022 11:53 [facility] MCV 93 81 - 95 fl 06/25/2022 11:53 [facility] MCH 31.3 27.6 - 33.0 pg 06/25/2022 11:53 [facility] MCHC 33.5 32.8 - 36.4 gm/dL 06/25/2022 11:53 [facility] RDW-CV 12.0 <14.2 % 06/25/2022 11:53 [facility] RDW-SD 41.3 <46.0 fl 06/25/2022 11:53 [facility] PLT 159 141 - 377 K/cmm 06/25/2022 11:53 [facility] MPV 10.6 9.5 - 12.7 fl 06/25/2022 11:53 [facility] % Neutrophils 50.8 % 06/25/2022 11:53 [facility] % Lymphocytes 32.8 % 06/25/2022 11:53 [facility] % Monocytes 9.8 % 06/25/2022 11:53 [facility] % Eosinophils 5.6 % 06/25/2022 11:53 [facility] % Basophils 0.7 % 06/25/2022 11:53 [facility] % Immature Grans 0.3 % 06/25/20 11:53 [facility] Absolute Neutrophils 2.99 2.20 - 8.85 K/cmm 06/25/2022 11:53 [facility] Absolute Lymphocytes 1.93 1.09 - 3.30 K/cmm 06/25/2022 11:53 [facility] Absolute Monocytes 0.58 0.10 - 0.80 K/cmm 06/25/2022 11:53 EDT [facility] Absolute Eosinophils 0.33 0.03 - 0.61 K/cmm 06/25/2022 11:53 EDT [facility] ABS Basophils 0.04 0.01 - 0.11 K/cmm 06/25/2022 11:53 [facility] Absolute Immature Grans 0.02 0.00 - 0.06 K/cmm 06/25/2022 11:53 EDT [facility] Type of Differential: Auto 06/25/2022 11:53 [facility] Blood VENOUS BLOOD / Unknown Venipuncture / Unknown 06/25/2022 11:24 EDT 06/25/2022 11:50 EDT Bassam Timmons MD PACKAGES & DNA PROBE ORDERABLES Performing Organization Address City/State/[facility] Co de Phone Number [facility] [address] [place] [address] documented in this encounter Visit Diagnoses Diagnosis [...] daily. added in this encounter Care Teams Sledger Relationship Specialty Start Date End Date Naya [facility] [address] [facility] [place] [address] PCP - General 12/29/20 documented as of this encounter
--- OUTSIDE RECORDS SUMMARY | 2024-07-23 21:54 | XMS_ITS | Clinical Summary ---
Author Organization [facility] Address [address] [place] [address] Care Team Providers Care Service Line Layer Name Role Phone Rayray Person [facility] Primary Care Provider +1 [phone] Allergies Active Allergy Reactions Criticality Noted Date [...] ascites. CT chest negative. -Inpatient admission at [facility] from January 10-January 22, 2018 [...] season) 2024 08/22/2021, 03/21/2021, 02/10/2021 Care Teams Service Line Layer Relationship Specialty Start Date End Date [facility] [address] [place] [address] PCP - General 12/29/20
--- OUTSIDE RECORDS SUMMARY | 2024-07-23 21:54 | XMS_ITS | Encounter Summary ---
Author Organization [facility] Address [address] [place] [address] Care Team Providers Care Safety Coordinator Name Role Phone Rayray Person [facility] Primary Care Provider +1 [phone] Reason for Visit * Reason Comments Follow-up CT Scan Encounter Details Date Type Department Care Team (Late st Contact Info) Description 12/29/2020 11:30 EDT Office Visit [facility] Adult Hematology & Oncology [address] [place] [address] [phone] [place] [address] [facility] [address] [place] [address] (Fax) Malignant neoplasm of splenic flexure (HCC-CMS) [...] ascites. CT chest negative. -Inpatient admission at [facility] from January 10-January 22, 2018 for [...] month follow-up. He had CT scans at [facility] in the interim. Says that he [...] History Social History Narrative Works full-time at [employer]. Current Outpatient Medications Medication Sig Dispense Refill [...] in 6 months. Blood work prior at [facility]. Bassam Timmons MD Hematology/Oncology [facility] documented in this encounter Plan of [...] 12/25/2021 added in this encounter Care Teams Safety Coordinator Relationship Specialty Start Date End Date Rayray Person [facility] 4 [place] [address] PCP - General 12/29/20 documented as of this encounter
--- OUTSIDE RECORDS SUMMARY | 2024-07-23 21:54 | XMS_ITS | Encounter Summary ---
Author Organization [facility] Address [address] [place] [address] Care Team Providers Care Accounting Tutor Name Role Phone Nam Gonzalez MD Primary Care Provider Unav ailable Reason for Visit * Reason Onset Date Comments Orders (Non Pre-visit) 11/17/2020 Encounter Details Date Type Department Care Team (Late st Contact Info) Description 11/17/2020 Telephone [facility] Adult Hematology & Oncology [address] [place] [phone] [place] [address] [facility] [address] [place] [address] (Fax) Orders (Non Pre-visit) Social History Tobacco [...] 11/17/2020 1319 EST Lab orders faxed to [facility] * Telephone Encounter - Cydney Roberson RN - 11/17/2020 1240 EST Orders added. * Telephone Encounter - Court Ricardo - 11/17/2020 1221 EST Patient is scheduled for CT on 11/21/20 at [facility]. Patient will need order for BUN Creatinine GFR faxed to [facility]. TE to Nurse to add order. Thank you documented in this encounter Plan of Treatment Not on file documented as of this encounter Visit Diagnoses Diagnosis Malignant neoplasm of splenic flexure (HCC-CMS)- Primary Malignant neoplasm of splenic flexure documented in this encounter Care Teams Accounting Tutor Relationship Specialty Start Date End Date Nam Gonzalez MD PCP - General 07/21/15 12/28/20 documented as of this encounter
--- OUTSIDE RECORDS SUMMARY | 2024-07-23 21:54 | XMS_ITS | Encounter Summary ---
Author Organization [facility] Address [address] [place] [address] Care Team Providers Care Supervisor Seaming Name Role Phone Nam Gonzalez MD Primary Care Provider Unav ailable Reason for Referral * Radiology Services (Routine) - Closed Specialty Diagnoses / Procedures Referred By Mahsaac t Referred To Contact Radiology Diagnoses Malignant neoplasm of splenic flexure (HCC-CMS) Procedures CT ABDOMEN [place] [address] [employer] [address] [place] [address] Phone: Fax: [address] [address] Referral ID Status Reason Start Date Expiration Date Visits Re quested Visits Authorized [id number] Closed 11/04/2019 01/02/2020 1 1 * Radiology Services (Routine) - Specialty Report Received Specialty Diagnoses / Procedures Referred By Contac t Referred To Contact Radiology Diagnoses Malignant neoplasm of splenic flexure (HCC-CMS) Procedures [place] [address] [employer] [address] [place] [address] Phone: Fax: [address] [address] Referral ID Status Reason Start Date Expiration Date V isits Requested Visits Authorized [id number] Specialty Report Received 11/04/2001 01/02/2020 1 1 Reason for Visit * Reason Onset Date Comments CT Scan 09/30/2019 Patient schedule d on 11/08/19 Encounter Details Date Type Department Care Team (Late st Contact Info) Description 09/30/2019 Telephone [facility] [place] [facility] [place] [address] [place] [address] [place] [address] [facility] [address] [place] [address] (Fax) CT Scan (Patient scheduled on 11/08/19) [...] flexure documented in this encounter Care Teams Supervisor Seaming Relationship Specialty Start Date End Date Nam Gonzalez MD PCP - General 07/21/15 12/28/20 documented as of this encounter
--- OUTSIDE RECORDS SUMMARY | 2024-07-23 21:54 | XMS_ITS | Encounter Summary ---
Author Organization [facility] Address [address] [place] [address] Care Team Providers Care Care Management Associate Name Role Phone Rayray Person [facility]- Primary Care Provider [phone] [phone] Reason for Visit * Reason Onset Date Comments Appointment Related 01/11/2023 Encounter Details Date Type Department Care Team (Late st Contact Info) Description 01/11/2023 Telephone [facility] [place] [facility] [place] [address] [place] [phone] Suzan Cruz MD [address] [place] [address] [address] [place] [address] Appointment Related Social History Tobacco [...] on filedocumented in this encounter Care Teams Care Management Associate Relationship Specialty Start Date End Date [facility] [address] [place] [address] PCP - General 12/29/20 documented as of this encounter
--- OUTSIDE RECORDS SUMMARY | 2024-07-23 21:54 | XMS_ITS | Encounter Summary ---
Author Organization [facility] Address [address] [place] [address] Care Team Providers Care Time Signal Wirer Name Role Phone Rayray Person [facility]- Primary Care Provider +1 [phone] Reason for Visit * Reason Onset Date Comments Other 02/09/2021 CT question Encounter Details Date Type Department Care Team (Late st Contact Info) Description 02/09/2021 Telephone [facility] [place] [facility] [place] H[place]ology & Oncology [address] [place] [address] [phone] [place] [address] [facility] [address] [place] [address] (Fax) Other (CT question) Social History Tobacco [...] [place] - 02/10/2021 1505 EDT Left [facility] Radiology the message regarding the CT. * Telephone Encounter - Lupis Zuleta RN - 02/09/[address] Timmons, he will not need a CT scan until next year. Please verify with [facility] what CT order they are looking for. * Telephone Encounter - [place] Law - 02/09/2021 1159 EDT [facility] Radiology Dept called to have a CT order faxed to them-they said it was misplaced. I did notsee a CT referral for [facility]. Dr Timmons last note, 12/29/20, the plan is to have a 6 mo f/u with labs done prior at [facility]. For imaging it says to have done once a year and pt had a CT chest/abd/pelvis on 12/26/20. Does pt need a CT now? documented in this encounter Plan of Treatment Not on file documented as of this encounter Visit Diagnoses Not on filedocumented in this encounter Care Teams Time Signal Wirer Relationship Specialty Start Date End Date [facility] [address] [place] [address] PCP - General 12/29/20 documented as of this encounter
--- OUTSIDE RECORDS SUMMARY | 2024-07-23 21:54 | XMS_ITS | Encounter Summary ---
Author Organization [facility] Address [address] [place] [address] Care Team Providers Care Test Director Name Role Phone Nam Gonzalez MD Primary [...] on filedocumented in this encounter Care Teams Test Director Relationship Specialty Start Date End Date Nam Gonzalez MD PCP - General 07/21/15 12/28/20 documented as of this encounter
--- OUTSIDE RECORDS SUMMARY | 2024-07-23 21:54 | XMS_ITS ---
Author Organization Unknown Address [address] [place] [phone] Phone Care Team Providers Care Gaming Cage Cashier Name Role Phone IGNACIO Coates Attending Unavailable NEENA Moreira Primary Unavailable Social History Type Status Start Date End Date Code Code Syst em Smoking History Former smoker 09/16/[id number] Sex Male Medications Medication Start Date End Date Route Frequency Dose Code Code System Medication Instructions Home Meds Multivitamin Oral Tablet 11/26/2018 Unknown ORAL DAILY 1 unit(s) RxNorm TAKE 1 EACH ORAL DAILY oxyCODONE HCl 5MG Oral Tablet 10/29/2021 Unknown ORAL NEEDED EVERY 6 HOURS 1 TABLET [id number] RxNorm TAKE 1 TABLET ORAL NEEDED EVERY 6 HOURS FOR Pain Atorvastatin Calcium 20MG Oral Tablet 10/29/2021 Unknown ORAL BEDTIME 20 MILLIGRAMS 400723 RxNorm TAKE 20 MILLIGRAMS ORAL BEDTIME Finasteride 5MG Oral Tablet 10/29/2021 Unknown ORAL DAILY 5 MILLIGRAMS 518888 RxNorm TAKE 5 MILLIGRAMS ORAL DAILY Gabapentin 100MG Oral Capsule 10/29/2021 Unknown ORAL NEEDED THREE TIMES A DAY 300 MILLIGRAMS 705754 RxNorm TAKE 300 MILLIGRAMS ORAL NEEDED THREE TIMES A DAY Metoprolol Succinate 50MG Oral Tablet, Extended Release 10/29/2021 Unknown ORAL DAILY 50 MILLIGRAMS 217024 RxNorm TAKE 50 MILLIGRAMS ORAL DAILY Oxybutynin Chloride 5MG Oral Tablet 10/29/2021 Unknown ORAL EVERY EVENING 5 MILLIGRAMS 551819 RxNorm TAKE 5 MILLIGRAMS ORAL EVERY EVENING Turmeric 500 MG Oral Capsule 10/29/2021 Unknown ORAL DAILY 500 MG [id number] RxNorm TAKE 500 MG ORAL DAILY Tylenol Arthritis 650MG Oral Tablet, Extended Release 10/29/2021 Unknown ORAL NEEDED 650 MILLIGRAMS 6215095 RxNorm TAKE 650 MILLIGRAMS ORAL NEEDED Vitamin D 5000 IU Oral Capsule 10/29/2021 Unknown ORAL TWICE A DAY 5000 IU RxNorm TAKE 5000 IU ORAL TWICE A DAY Xarelto 20MG Oral Tablet 10/29/2021 Unknown ORAL DAILY 20 MILLIGRAMS 6729455 RxNorm TAKE 20 MILLIGRAMS ORAL DAILY metFORMIN HCl 500MG Oral Tablet 10/29/2021 Unknown ORAL TWICE A DAY 500 MILLIGRAMS 872770 RxNorm TAKE 500 MILLIGRAMS ORAL TWICE A [...] PERISTOMAL VENTRAL HERNIA REPAIR WITH MESH 10/27 [id number] X 10/16/2024 Symbot ex SYM12 Problems Problem Start Date Resolved Date Status Code Code 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 [id number] SNO MED-CT INCISIONAL HERNIA 11/26/2018 resolved [id number] S NOMED-CT Allergies and Adverse Reactions Allergy Substance Reaction Severity Start Date Concern Status Co de Code System No Known Drug Allergies Moderate Active 205515051 SNOMED-CT Plan of Treatment Exposure 10/24/2020 LAB DRAW 15MIN 01/04/2023 CT CHEST/ABDOMEN/PELVIS W/ CONTRAST CT CHEST/ABDOMEN/PELVIS W/ CONTRAST 02/2022 LAB DRAW 15MIN 12/01/2021 PRE-OP COVID-19 TESTING 10/25/2021 CT ABDOMEN/PELVIS W/ CONTRAST 2 Encounters Encounter Diagnosis Start Date Code Code Sys tem Paroxysmal atrial fibrillation 03/27/2024 [id number] SNOMED-CT Personal Care Team Section Performer Name Performer Role Active Date Inactive Da te
--- OUTSIDE RECORDS SUMMARY | 2024-07-23 21:54 | XMS_ITS | Encounter Summary ---
Author Organization [facility] Address [facility] [place] [address] Care Team Providers Care Truck Striker Name Role Phone Unavailable Primary Care Provider Unavailabl e Encounter Details Date Type Department Care Team (Latest Contact Info) Description 01/10/2018 - 01/10/2018 11:59 PM EDT Hospital Encounter Radiology Library at [facility] [place] [phone] Ricci Zambrano MD [facility] [place] [place] [address] Discharge Disposition: Home Social History Tobacco Use [...] Zambrano MD IMG FILM LIBRARY O RDERABLES [place], [place] documented in this encounter Visit Diagnoses Not on filedocumented in this encounter
--- OUTSIDE RECORDS SUMMARY | 2024-07-23 21:54 | XMS_ITS | Encounter Summary ---
Author Organization [facility] Address [address] [place] [address] Care Team Providers Care Circuit Breaker Supervisor Name Role Phone Rayray Person [facility] Primary Care Provider [phone] [phone] Encounter Details Date Type Department Care Team (Late st Contact Info) Description 09/11/2021 Lab Requisition [facility] Pathology & Laboratory Medicine - [facility] [address] [place], [place] [address] Outr Resulting Lab, Provider Social History Tobacco [...] 2.2 See Note ng/mL 09/11/2021 22:20 EST [facility] Comment: % Distribution of CEA (ng/mL): ??0.0 - 2.5 in 98.2% of Nonsmokers and 87.3% of Smokers ??2.6 - 5 in 1.8% of Nonsmokers and 8% of Smokers ??5.1 - 10.1 in 4.7% of Smokers NOTE: Serum CEA concentration should not be interpeted as absolute evidence for the presence or absence of malignant disease. ?? Assayed on Siemens Entitleaur XPT using chemiluminescent technology. ??Values obtained by different assay methods cannot be used interchangeably. Blood VENOUS BLOOD / Unknown 09/11/2021 11:27 EST 09/11/2021 21:05 EST Provider Outr Resulting Lab CHEMISTRY & BLOOD GAS ORDERABLES Performing Organization Address City/State/[facility] Co de Phone Number [facility] [address] [place] [address] documented in this encounter Visit Diagnoses Not on filedocumented in this encounter Care Teams Circuit Breaker Supervisor Relationship Specialty Start Date End Date Naya [facility] 4 [facility] [place] [address] PCP - General 12/29/20 documented as of this encounter
--- OUTSIDE RECORDS SUMMARY | 2024-07-23 21:54 | XMS_ITS | Encounter Summary ---
Author Organization [facility] Address [address] [place] [address] Care Team Providers Care Insurance Consultant Name Role Phone Nam Gonzalez MD Primary Care Provider Iggy osborne Naya [facility]- Primary Care Provider [phone] -[phone] Encounter Details Date Type Department Care Team (Late st Contact Info) Description 08/21/2019 Lab Requisition [facility] Pathology & Laboratory Medicine - [address] [address] Unknown, Provider, MD Social History Tobacco Use Types Packs/Day Years [...] 1.7 See Note ng/mL 08/24/2019 11:09 EST [facility] Comment: % Distribution of [...] GA S ORDERABLES Performing Organization Address City/State/[facility] Co de Phone Number [facility] [address] [place] [address] documented in this encounter Visit Diagnoses Not on filedocumented in this encounter Care Teams Insurance Consultant Relationship Specialty Start Date End Date Nam Gonzalez MD PCP - General 07/21/15 12/28/20 [facility]-[address] [address] PCP - General 12/29/20 documented as of this encounter
--- OUTSIDE RECORDS SUMMARY | 2024-07-23 21:54 | XMS_ITS | Encounter Summary ---
Author Organization [facility] Address [address] [place] [address] Care Team Providers Care Medical Office Secretary Name Role Phone Rayray Person [facility]- Primary Care Provider +1 -[phone] Reason for Visit * Reason Comments Follow-up Colon cancer Encounter Details Date Type Department Care Team (Late st Contact Info) Description 01/09/2023 14:00 EDT Office Visit [facility] Adult Hematology & Oncology [address] [place] [address] Suzan Cruz MD [address] [place] [address] [address] [place] [address] History of colon cancer (Primary [...] Diagnosis ??? Malignant neoplasm of splenic flexure (HCC-[facility]) December 2017: Stage II-T3 N0 [...] and affect. CT scan January 04, 2023 [facility]. The chest was unremarkable except [...] types were placed in this encounter. Hematology/Oncology [facility] CC: [facility] documented in this encounter Plan of [...] mouth. added in this encounter Care Teams Medical Office Secretary Relationship Specialty Start Date End Date [facility] [address] [place] [address] PCP - General 12/29/20 documented as of this encounter
--- OUTSIDE RECORDS SUMMARY | 2024-07-23 21:54 | XMS_ITS | Encounter Summary ---
Author Organization [facility] Address [address] [place] [address] Care Team Providers Care Dietician Name Role Phone Rayray Person [facility] Primary Care Provider [phone] [phone] Reason for Visit * (Routine/Next Available) - Receiving Office to Obtain Authorization Specialty Diagnoses / Procedures Referred By Omari thakkar Referred To Contact Procedures CT OUTSIDE IMAGES CHEST ABDOMEN PELVIS Imaging, External Referral ID Status Reason Start Date Expiration Date Visits Requested Visits Authorized [id number] Receiving Office to Obtain Authorization 01/07/2023 1 1 Encounter Details Date Type Department Care Team (Latest Contact Info) Description 01/04/2023 - 01/04/2023 23:59 EDT Hospital Encounter [facility] Secondary Reads [place] Discharge Disposition: Home [...] on filedocumented in this encounter Care Teams Dietician Relationship Specialty Start Date End Date Naya [facility] [address] [place] [address] PCP - General 12/29/20 documented as of this encounter
--- OUTSIDE RECORDS SUMMARY | 2024-07-23 21:54 | XMS_ITS | Clinical Summary ---
Author Organization [facility] Address [facility] [place] [address] Care Team Providers Care Motion Picture Operator Name Role Phone Unavailable Primary Care Provider Unavailabl e Social History Tobacco Use Types Packs/Day Years Used Date Smoking Tobacco: Never Assessed Sex and Gender Information Value Date Recorded Sex Assigned at Not on file Gender Identity Not on file Sexual Orientation Not on file Plan of Treatment Health Maintenance Due Date Last Done Comments Tetanus/Diphtheria/Pertussis Vaccines (1 - Tdap) 03/15 Zoster vaccine (1 of 2) 1990 Advance Directive 1995 Pneumoccocal Vaccine: 65+ (1 of 1 - PCV) 2005 Covid-19 Vaccine (1 - 2023- season) 2024 Influenza (Flu) vaccine (1 o f 1 - Influenza standard series) 05/17/2024
--- OUTSIDE RECORDS SUMMARY | 2024-07-23 21:54 | XMS_ITS | Encounter Summary ---
Author Organization [facility] Address [address] [place] [address] Care Team Providers Care Elevator Operator Service Name Role Phone Rayray Person [facility]- Primary Care Provider [phone] -[phone] Reason for Visit * Reason Onset Date Comments Orders (Non Pre-visit) 12/20/2022 Encounter Details Date Type Department Care Team (Late st Contact Info) Description 12/20/2022 Telephone [facility] [place] Hematology & Oncology [address] [place] [phone] Suzan Cruz MD [address] [place] [address] [address] [place] [address] Orders (Non Pre-visit) Social History [...] Alexis - 12/26/2022 1033 EDT Dilcia from [facility] is calling to inform that she did get the order for Creainine, but is also asking if we can put a BUN order in * Telephone Encounter - Florence Beltrán RN - 12/20/2022 1420 EDT Order placed for Creatinine. Thank you * Telephone Encounter - Ivette Schultz - 12/20/2022 1302 EDT Need orders for labs creatine and GFR to be faxed to [facility] lab. Patient is scheduled for CT [...] flexure documented in this encounter Care Teams Elevator Operator Service Relationship Specialty Start Date End Date [facility] [address] [facility] [place] [address] PCP - General 12/29/20 documented as of this encounter
--- OUTSIDE RECORDS SUMMARY | 2024-07-23 21:54 | XMS_ITS | Encounter Summary ---
Author Organization [facility] Address [address] [place] [address] Care Team Providers Care Validation Manager Name Role Phone Nam Gonzalez MD Primary Care Provider Unav ailable Reason for Referral * Radiology Services (Routine) - Specialty Report Received Specialty Diagnoses / Procedures Referred By Contac t Referred To Contact Diagnostic Radiology Diagnoses Malignant neoplasm of splenic flexure (HCC-CMS) Procedures [place] [address] [employer] [address] [place] [address] Phone: Fax: [address] [address] Referral ID Status Reason Start Date Expiration Date V isits Requested Visits Authorized [id number] Specialty Report Received 11/16/2019 1 1 * Radiology Services (Routine) - Specialty Report Received Specialty Diagnoses / Procedures Referred By Contac t Referred To Contact Diagnostic Radiology Diagnoses Malignant neoplasm of splenic flexure (HCC-CMS) Procedures [place] [address] [employer] [address] [place] [address] Phone: Fax: Referral ID Status Reason Start Date Expiration Date V isits Requested Visits Authorized [id number] Specialty Report Received 11/16/2019 1 1 Reason for Visit * Reason Comments Follow-up Encounter Details Date Type Department Care Team (Late st Contact Info) Description 11/16/2019 13:30 EST Office Visit [facility] Adult Hematology & Oncology [address] [place] [address] [place] [address] [facility] [address] [place] [address] (Fax) Malignant neoplasm of splenic flexure (HCC-CMS) [...] ascites. CT chest negative. -Inpatient admission at [facility] from January 10-January 22, 2018 for [...] History Social History Narrative Works full-time at [employer]. Current Outpatient Medications Medication Sig Dispense Refill [...] CONTRAST ??? CEA Bassam Timmons MD Hematology/Oncology [facility] Cc: , Scribe attestation: By time [...] 12/25/2021 added in this encounter Care Teams Validation Manager Relationship Specialty Start Date End Date Nam Gonzalez MD PCP - General 07/21/15 12/28/20 documented as of this encounter
--- OUTSIDE RECORDS SUMMARY | 2024-07-23 21:54 | XMS_ITS | Encounter Summary ---
Author Organization [facility] Address [address] [place] [address] Care Team Providers Care Material Handler Name Role Phone Rayray Person [facility]- Primary Care Provider [phone] [phone] Reason for Visit * Reason Onset Date Comments Appointment Related 11/28/2023 Coordination Of Care 11/28/2023 Encounter Details Date Type Department Care Team (Late st Contact Info) Description 11/28/2023 Telephone [facility] - [facility] Adult Hematology & Oncology [address] [place] [phone] Bruce Driver MD [address] [place] [address] [address] [place] [address] Appointment Related; Coordination Of Care [...] on filedocumented in this encounter Care Teams Material Handler Relationship Specialty Start Date End Date [facility] [address] [place] [address] PCP - General 12/29/20 documented as of this encounter
--- OUTSIDE RECORDS SUMMARY | 2024-07-23 21:54 | XMS_ITS | Encounter Summary ---
Author Organization [facility] Address [address] [place] [address] Care Team Providers Care Steam Turbine Operator Name Role Phone Rayray Person [facility] Primary Care Provider [phone] [phone] Encounter Details Date Type Department Care Team [...] on filedocumented in this encounter Care Teams Steam Turbine Operator Relationship Specialty Start Date End Date [place], Rayray [facility] 4 [facility] [place] [id number] PCP - General 12/29/20 documented as of this encounter
--- OUTSIDE RECORDS SUMMARY | 2024-07-23 21:54 | XMS_ITS | Encounter Summary ---
Author Organization [facility] Address [address] [place] [address] Care Team Providers Care Internal Grinding Machine Operator Name Role Phone Nam Gonzalez MD Primary Care Provider Unav ailable Reason for Visit * Reason Onset Date Comments Results 08/25/2019 Encounter Details Date Type Department Care Team (Late st Contact Info) Description 08/25/2019 Telephone [facility] [place] H[place]ology & Oncology [address] [place] [address] Modesta Cortez RN Results Social History Tobacco Use Types Packs/Day Years Used Date Smoking Tobacco: Never Assessed Sex and Gender Information Value Date Recorded Sex Assigned at Not on file Gender Identity Male 11/13/2019 8:44 EST Sexual Orientation Not on file documented as of this encounter Miscellaneous Notes * Telephone Encounter - Modesta Cortez RN - 08/25/2019 1417 EST Called pt, informed him of above, as requested. He verbalized his understanding and agrees with theplan. * Telephone Encounter - Modesta Cortez RN - 08/25/2019 1991 EST ----- Message from Bassam Timmons MD sent at 08/25/2019 12:42 EST ----- Please let him know that tumor marker is within normal limits. I will see him back in October withCT scans prior. These I believe were already ordered at [facility]. Thank you. documented in this encounter Plan of Treatment Not on file documented as of this encounter Visit Diagnoses Not on filedocumented in this encounter Care Teams Internal Grinding Machine Operator Relationship Specialty Start Date End Date Nam Gonzalez MD PCP - General 07/21/15 12/28/20 documented as of this encounter
--- OUTSIDE RECORDS SUMMARY | 2024-07-23 21:54 | XMS_ITS | Encounter Summary ---
Author Organization [facility] Address [address] [place] [address] Care Team Providers Care Pharmaceutical Representative Name Role Phone Nam Gonzalez MD Primary Care Provider Unav ailable Reason for Visit * Reason Onset Date Comments Other 11/17/2020 left pt msg to c jaja appt Encounter Details Date Type Department Care Team (Late st Contact Info) Description 11/17/2020 Telephone [facility] [place] Hematology & Oncology [address] [place] [phone] [place] [address] [facility] [address] [place] [address] Other (left pt msg to change appt) [...] on filedocumented in this encounter Care Teams Pharmaceutical Representative Relationship Specialty Start Date End Date Nam Gonzalez MD PCP - General 07/21/15 12/28/20 documented as of this encounter
--- OUTSIDE RECORDS SUMMARY | 2024-07-23 21:54 | XMS_ITS | Referral Summary ---
Author Organization [facility] Address [address] [place] [address] Care Team Providers Care Operations Leader Name Role Phone [facility] Primary Care Provider [phone] Allergies Active Allergy Reactions Criticality Noted Date [...] ascites. CT chest negative. -Inpatient admission at [facility] from January 10-January 22, 2018 for [...] of Treatment Not on file Care Teams Operations Leader Relationship Specialty Start Date End Date [facility] [address] [place] [address] PCP - General 12/29/20
--- OUTSIDE RECORDS SUMMARY | 2024-07-23 21:55 | XMS_ITS | Encounter Summary ---
Author Organization [facility] Address [address] [place] [address] Care Team Providers Care Heel Buffer Name Role Phone Unavailable Primary Care Provider Unavailabl e Encounter Details Date Type Department Care Team (Late st Contact Info) Description 10/07/2007 Before PRISM Converted Visit ([facility] - Maple conversion [address] [place] [address] Susana Lovelace PA-C [address] [facility], [address] [place] [phone] Social History Tobacco Use Types Packs/Day Years Used Date Smoking Tobacco: Never Assessed Sex and Gender Information Value Date Recorded Sex Assigned at Not on file Gender Identity Male 11/13/2019 8:44 EST Sexual Orientation Not on file documented as of this encounter Consult Notes * Susana Lovelace PA - 07/27/2009 1157 EST DIVISION OF NEUROSURGERY CONSULTATION - 10/07/2007 Nam Gonzalez MD [facility] [address] [place] [address] Gonzalez: At your request, I [...] 10/21/2007 18:11 REBA Sorto Jacky Moise MD Subway Operator [facility] Division of Neurological Surgery - REBA Sorto - BB Job ID: [id number] Doc ID: [id number] cc: Nam Gonzalez MD - REBA Sorto - [place] Job ID: [id number] Doc ID: [id number] cc: Nam Gonzalez MD documented in this encounter Plan of Treatment Not on file documented as of this encounter Visit Diagnoses Not on filedocumented in this encounter
--- OUTSIDE RECORDS SUMMARY | 2024-07-23 21:55 | XMS_ITS ---
Author Organization Unknown Address [address] [place] [phone] Phone Care Team Providers Care Wood Router Name Role Phone AVERY AMATO MD Attending Unavailable NEENA JACOME Primary Unavailable Social History Type Status Start Date End Date Code Code Syst em Smoking History Former smoker 09/16/[address] Sex Male Medications Medication Start Date End Date Route Frequency Dose Code Code System Medication Instructions Home Meds Multivitamin Oral Tablet 11/26/2018 Unknown ORAL DAILY 1 unit(s) RxNorm TAKE 1 EACH ORAL DAILY Tylenol Arthritis 650MG Oral Tablet, Extended Release 11/26/2018 2 ORAL NEEDED EVERY 8 HOURS 1300 MILLIGRAMS 7054277 RxNorm TAKE 1300 MILLIGRAMS ORAL NEEDED EVERY 8 HOURS oxyCODONE HCl 5MG Oral Tablet 10/11/2019 2 ORAL NEEDED EVERY 3 HOURS 5 MILLIGRAMS 6141119 RxNorm TAKE 5 MILLIGRAMS ORAL NEEDED EVERY 3 HOURS Atorvastatin Calcium 20MG Oral Tablet 10/11/2019 2 ORAL BEDTIME 20 MILLIGRAMS 787893 RxNorm TAKE 20 MILLIGRAMS ORAL BEDTIME Flomax 0.4MG Oral Capsule 10/11/2019 2 ORAL DAILY 0.4 MILLIGRAMS 803101 RxNorm TAKE 0.4 MILLIGRAMS ORAL DAILY Gabapentin 100MG Oral Capsule 10/11/2019 2 ORAL THREE TIMES A DAY 200 MILLIGRAMS 406789 RxNorm TAKE 200 MILLIGRAMS ORAL THREE TIMES A DAY Metoprolol Succinate 50MG Oral Tablet, Extended Release 10/11/2019 2 ORAL DAILY 50 MILLIGRAMS 894545 RxNorm TAKE 50 MILLIGRAMS ORAL DAILY Xarelto 20MG Oral Tablet 10/11/2019 ORAL DAILY 20 MILLIGRAMS 7795793 RxNorm TAKE 20 MILLIGRAMS ORAL DAILY oxyCODONE HCl 5MG Oral Tablet 10/29/2021 Unknown ORAL NEEDED EVERY 6 HOURS 1 TABLET 9264531 RxNorm TAKE 1 TABLET ORAL NEEDED EVERY 6 HOURS FOR Pain Atorvastatin Calcium 20MG Oral Tablet 10/29/2021 Unknown ORAL BEDTIME 20 MILLIGRAMS 680276 RxNorm TAKE 20 MILLIGRAMS ORAL BEDTIME Finasteride 5MG Oral Tablet 10/29/2021 Unknown ORAL DAILY 5 MILLIGRAMS 854310 RxNorm TAKE 5 MILLIGRAMS ORAL DAILY Gabapentin 100MG Oral Capsule 10/29/2021 Unknown ORAL NEEDED THREE TIMES A DAY 300 MILLIGRAMS 576489 RxNorm TAKE 300 MILLIGRAMS ORAL NEEDED THREE TIMES A DAY Metoprolol Succinate 50MG Oral Tablet, Extended Release 10/29/2021 Unknown ORAL DAILY 50 MILLIGRAMS 077062 RxNorm TAKE 50 MILLIGRAMS ORAL DAILY Oxybutynin Chloride 5MG Oral Tablet 10/29/2021 Unknown ORAL EVERY EVENING 5 MILLIGRAMS 641282 RxNorm TAKE 5 MILLIGRAMS ORAL EVERY EVENING Turmeric 500 MG Oral Capsule 10/29/2021 Unknown ORAL DAILY 500 MG 7737283 RxNorm TAKE 500 MG ORAL DAILY Tylenol Arthritis 650MG Oral Tablet, Extended Release 10/29/2021 Unknown ORAL NEEDED 650 MILLIGRAMS 2829383 RxNorm TAKE 650 MILLIGRAMS ORAL NEEDED Vitamin D 5000 IU Oral Capsule 10/29/2021 Unknown ORAL TWICE A DAY 5000 IU RxNorm TAKE 5000 IU ORAL TWICE A DAY Xarelto 20MG Oral Tablet 10/29/2021 Unknown ORAL DAILY 20 MILLIGRAMS 1908314 RxNorm TAKE 20 MILLIGRAMS ORAL DAILY metFORMIN HCl 500MG Oral Tablet 10/29/2021 Unknown ORAL TWICE A DAY 500 MILLIGRAMS 089538 RxNorm TAKE 500 MILLIGRAMS ORAL TWICE A [...] PERISTOMAL VENTRAL HERNIA REPAIR WITH MESH 10/27 [id number] X 10/16/2024 Symbot ex SYM12 Problems Problem Start Date Resolved Date Status Code Code 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
--- OUTSIDE RECORDS SUMMARY | 2024-07-23 21:55 | XMS_ITS | Encounter Summary ---
Author Organization [facility] Address [address] [place] [address] Care Team Providers Care Steel Turner Name Role Phone Unavailable Primary Care Provider Unavailabl e Encounter Details Date Type Department Care Team (Late st Contact Info) Description 11/12/2005 12:52 EST Hospital Encounter [facility] Perioperative Services- [address] [address] Terry Bautista MD [address] [place] [address], [address] [place] [address] Discharge Disposition: Home or Self [...] PROCEDURE REPORT PT TYPE: OPPROC PT LOC: [id number] SERVICE DATE: 11/12/2005 SURGEON: Rahul Bautista MD, Ayleen Bautista MD, Ayleen Bautista MD, FACS BATTERY STACKER: REBA Stewart PREOPERATIVE DIAGNOSIS: Right spermatocele. POSTOPERATIVE [...] MD, FACS P - ss Job ID: [id number] Document ID: [id number] cc: MD Terry Sandhu MD, FACS documented in this encounter Plan of Treatment Not on file documented as of this encounter Visit Diagnoses Not on filedocumented in this encounter
--- OUTSIDE RECORDS SUMMARY | 2024-07-23 21:55 | XMS_ITS | Encounter Summary ---
Author Organization [facility] Address [address] [place] [address] Care Team Providers Care Merchandise Distributor Name Role Phone Unavailable Primary Care Provider Unavailabl e Encounter Details Date Type Department Care Team (Latest Contact Info) Description 12/08/2007 17:03 EDT Hospital Encounter [facility] [place] [address] [place] [address] Jacky Moise MD [address] [place] [phone] Discharge Disposition: Auto Discharge Social History [...] spine films on 11/04/07 and MRI from [facility] on 09/23/07. Technique: Axial noncontrast CT [...] spine films on 11/04/07 and MRI from [facility] on 09/23/07. Technique: Axial noncontrast CT [...]
--- OUTSIDE RECORDS SUMMARY | 2024-07-23 21:55 | XMS_ITS | Encounter Summary ---
Author Organization [facility] Address [address] [place] [address] Care Team Providers Care Social Media Marketing Manager Name Role Phone Nam Gonzalez MD Primary Care Provider Unav ailable Encounter Details Date Type Department Care Team (Late st Contact Info) Description 01/11/2018 Results Only [facility] [phone] Syl Aguilar, DO [address] [place], [place] [phone] Social History Tobacco Use Types Packs/Day Years [...] ? VIOLETTE BEARDEN ? Accession #: ? [id number] : ? 1940 (Age: 77) ??M ?Collect [...] cellular enhancement technique. ? End of Report [facility] 01/11/2018 01/13/2018 14: 10 EDT Syl Aguilar DO PATHOLOGY ORDERABLES [facility] [address] [place] [address] documented in this encounter Visit Diagnoses Not on filedocumented in this encounter Care Teams Social Media Marketing Manager Relationship Specialty Start Date End Date Nam Gonzalez MD PCP - General 07/21/15 12/28/20 documented as of this encounter
--- OUTSIDE RECORDS SUMMARY | 2024-07-23 21:55 | XMS_ITS | Encounter Summary ---
Author Organization [facility] Address [address] [place] [address] Care Team Providers Care Plate Former Name Role Phone Nam Gonzalez MD Primary Care Provider Unav ailable Encounter Details Date Type Department Care Team (Late st Contact Info) Description 04/28/2019 Results Only [facility] [phone] Unknown, Provider, MD Social History Tobacco Use [...] on filedocumented in this encounter Care Teams Plate Former Relationship Specialty Start Date End Date Nam Gonzalez MD PCP - General 07/21/15 12/28/20 documented as of this encounter
--- OUTSIDE RECORDS SUMMARY | 2024-07-23 21:55 | XMS_ITS | Encounter Summary ---
Author Organization [facility] Address [address] [place] [address] Care Team Providers Care Locker Room Clerk Name Role Phone Nam Gonzalez MD Primary Care Provider Unav ailable Encounter Details Date Type Department Care Team (Late st Contact Info) Description 01/10/2018 Results Only Imaging [facility] [phone] Unknown, Provider, MD Social History Tobacco Use [...] on filedocumented in this encounter Care Teams Locker Room Clerk Relationship Specialty Start Date End Date Nam Gonzalez MD PCP - General 07/21/15 12/28/20 documented as of this encounter
--- OUTSIDE RECORDS SUMMARY | 2024-07-23 21:55 | XMS_ITS | Encounter Summary ---
Author Organization [facility] Address [address] [place] [address] Care Team Providers Care Php Web Developer Name Role Phone Nam Gonzalez MD Primary Care Provider Unav ailable Encounter Details Date Type Department Care Team (Late st Contact Info) Description 06/25/2016 Historical Results Only [facility] Radiology Results [address] [place], [place] [address] Melly Petersen, DP [address] [place] [address] Social History Tobacco Use Types [...] CC: ? Transcribed Date/Time: 06/25/2016 (171) ? Train Gate Attendant: ? Printed Date/Time: 02/27/2019 (1364) ? PAGE 1 ? Signed Report ? Procedure Note Kelechi Rai MD - 07/22/2019 EXAM: RADIOLOGY/ANKLE RIGHT - 2 VIEW EX. D/ (0240) CLINICAL INFORMATION: M76.61 ACHILLES TENDINITIS OF (R) [...] Rai MD CC: Transcribed Date/Time: 06/25/2016 (171) Train Gate Attendant: Printed Date/Time: 02/27/2019 (3171) PAGE 1 Signed Report Melly Petersen DPArielle IMG DIAGNOSTIC NERY GING ORDERABLES * XR FOOT RIGHT 1-2 VIEWS (06/25/2016 17:10 EDT) Anatomical Region Laterality Modality Lower Extremities Right Other 06/25/2016 17:1 0 EDT Narrative 06/25/2016 17:16 EDT ? EXAM: RADIOLOGY/[id number]-1OTVM ?EX. D/ (1653) ? CLINICAL INFORMATION: ? [...] CC: ? Transcribed Date/Time: 06/25/2016 (1716) ? Train Gate Attendant: SCR ? Printed Date/Time: 02/27/2019 (0855) ? PAGE 1 ? Signed Report ? Procedure Note Kelechi Rai MD - 07/22/2019 EXAM: RADIOLOGY/NQLU-CHBUD-8ENSN EX. D/ (1653) CLINICAL INFORMATION: M76.61 ACHILLES [...] Rai MD CC: Transcribed Date/Time: 06/25/2016 (1716) Train Gate Attendant: Printed Date/Time: 02/27/2019 (0479) PAGE 1 Signed Report Melly Petersen DPM IMG DIAGNOSTIC NERY GING ORDERABLES documented in this encounter Visit Diagnoses Not on filedocumented in this encounter Care Teams Php Web Developer Relationship Specialty Start Date End Date Nam Gonzalez MD PCP - General 07/21/15 12/28/20 documented as of this encounter
--- OUTSIDE RECORDS SUMMARY | 2024-07-23 21:55 | XMS_ITS ---
Author Organization Unknown Address [address] [place], [place] [address] Phone Care Team Providers Care Air Cargo Specialist Name Role Phone AVERY AMATO MD Attending Unavailable FRANCISCO CONLEY CRNA Unavailable NEENA JACOME Primary Unavailable Results GLUCOSE FINGER/HEEL CAPILLAR Y - Collect Date/Time: 05/24/2021 09:48 [facility] ID: [id number] - [id number] [address] [place], [place], [address] LOINC: 62831-6 Test Value Unit Reference Range Code Code System Flag GLUCOSE CAP 115 mg/dL L=70 H=116 Social History Type Status Start Date End Date Code Code Syst em Smoking History Former smoker 09/16/[address] Sex Male Vital Signs Vital Sign Value Unit [place] Value [place] Unit Date/Time Recent/Initial? Code Code System Systolic Blood Pressure 114 mm[Hg] 05/24/2021 11:30 Initial 8480-6 LOINC Diastolic Blood Pressure 73 mm[Hg] 05/24/2021 11:30 Initial 8462-4 LOINC O2 Saturation 96 % 2020 11:30 Initial 53973- 5 LOINC Pulse 45.0 /min 05/24/2021 11:30 [...] ORAL NEEDED EVERY 8 HOURS 1300 MILLIGRAMS 1683715 RxNorm TAKE 1300 MILLIGRAMS ORAL NEEDED EVERY 8 HOURS oxyCODONE HCl 5MG Oral Tablet 10/11/2019 2 ORAL NEEDED EVERY 3 HOURS 5 MILLIGRAMS 6415244 RxNorm TAKE 5 MILLIGRAMS ORAL NEEDED EVERY 3 HOURS Atorvastatin Calcium 20MG Oral Tablet 10/11/2019 2 ORAL BEDTIME 20 MILLIGRAMS 859965 RxNorm TAKE 20 MILLIGRAMS ORAL BEDTIME Flomax 0.4MG Oral Capsule 10/11/2019 2 ORAL DAILY 0.4 MILLIGRAMS 044520 RxNorm TAKE 0.4 MILLIGRAMS ORAL DAILY Gabapentin 100MG Oral Capsule 10/11/2019 2 ORAL THREE TIMES A DAY 200 MILLIGRAMS 250181 RxNorm TAKE 200 MILLIGRAMS ORAL THREE TIMES A DAY Metoprolol Succinate 50MG Oral Tablet, Extended Release 10/11/2019 2 ORAL DAILY 50 MILLIGRAMS 683658 RxNorm TAKE 50 MILLIGRAMS ORAL DAILY Xarelto 20MG Oral Tablet 10/11/2019 2 ORAL DAILY 20 MILLIGRAMS 3963334 RxNorm TAKE 20 MILLIGRAMS ORAL DAILY oxyCODONE HCl 5MG Oral Tablet 10/29/2021 Unknown ORAL NEEDED EVERY 6 HOURS 1 TABLET 2434439 RxNorm TAKE 1 TABLET ORAL NEEDED EVERY 6 HOURS FOR Pain Atorvastatin Calcium 20MG Oral Tablet 10/29/2021 Unknown ORAL BEDTIME 20 MILLIGRAMS 543148 RxNorm TAKE 20 MILLIGRAMS ORAL BEDTIME Finasteride 5MG Oral Tablet 10/29/2021 Unknown ORAL DAILY 5 MILLIGRAMS 336478 RxNorm TAKE 5 MILLIGRAMS ORAL DAILY Gabapentin 100MG Oral Capsule 10/29/2021 Unknown ORAL NEEDED THREE TIMES A DAY 300 MILLIGRAMS 629075 RxNorm TAKE 300 MILLIGRAMS ORAL NEEDED THREE TIMES A DAY Metoprolol Succinate 50MG Oral Tablet, Extended Release 10/29/2021 Unknown ORAL DAILY 50 MILLIGRAMS 552850 RxNorm TAKE 50 MILLIGRAMS ORAL DAILY Oxybutynin Chloride 5MG Oral Tablet 10/29/2021 Unknown ORAL EVERY EVENING 5 MILLIGRAMS 540585 RxNorm TAKE 5 MILLIGRAMS ORAL EVERY EVENING Turmeric 500 MG Oral Capsule 10/29/2021 Unknown ORAL DAILY 500 MG 9172356 RxNorm TAKE 500 MG ORAL DAILY Tylenol Arthritis 650MG Oral Tablet, Extended Release 10/29/2021 Unknown ORAL NEEDED 650 MILLIGRAMS 3708395 RxNorm TAKE 650 MILLIGRAMS ORAL NEEDED Vitamin D 5000 IU Oral Capsule 10/29/2021 Unknown ORAL TWICE A DAY 5000 IU RxNorm TAKE 5000 IU ORAL TWICE A DAY Xarelto 20MG Oral Tablet 10/29/2021 Unknown ORAL DAILY 20 MILLIGRAMS 9813697 RxNorm TAKE 20 MILLIGRAMS ORAL DAILY metFORMIN HCl 500MG Oral Tablet 10/29/2021 Unknown ORAL TWICE A DAY 500 MILLIGRAMS 610273 RxNorm TAKE 500 MILLIGRAMS ORAL TWICE A [...] Lithotripsy, Extracorporeal Shock Wave 05/24/2021 complete d 06705 CPT Cystourethroscopy (Sep Proc) 05/24/2021 completed 31457 CPT Anesthesia, Lithotripsy, Ext racorporeal Shock Wave; w/o Water Bath 05/24/2021 completed 17807 CPT Implants Implanted LAURI Status Assigning Authority Procedure Date Lot Number Serial Number Manufacturing Date Expiration Date Distinct ID Code Brand Name Model Number Abdominal hernia surgical mesh, composite- polymer 0110 8845 2119 0344 1725 0131 10PU B018 3X Active FDA PERISTOMAL VENTRAL HERNIA REPAIR WITH MESH 10/27 [id number] 10/16/2024 Symbot ex SYM12 Problems Problem Start Date Resolved Date Status Code Code 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
--- OUTSIDE RECORDS SUMMARY | 2024-07-23 21:55 | XMS_ITS | Encounter Summary ---
Author Organization [facility] Address [address] [place] [address] Care Team Providers Care Orange Peel Operator Name Role Phone Nam Gonzalez MD Primary Care Provider Unav ailable Encounter Details Date Type Department Care Team (Latest Contact Info) Description 06/25/2016 13:48 EDT - 06/25/2016 23:59 EDT Hospital Encounter [facility] [address] [place] [address] Unknown, Provider, MD Discharge Disposition: Home or Self Care Social History Tobacco Use Types Packs/Day Years Used Date Smoking Tobacco: Never Assessed Sex and Gender Information Value Date Recorded Sex Assigned at Not on file Gender Identity Male 11/13/2019 8:44 EST Sexual Orientation Not on file documented as of this encounter Discharge Disposition Disposition Code Departure Means Destination Home or Self Intermediate documented in this encounter Plan of Treatment Not on file documented as of this encounter Visit Diagnoses Not on filedocumented in this encounter Care Teams Orange Peel Operator Relationship Specialty Start Date End Date Nam Gonzalez MD PCP - General 07/21/15 12/28/20 documented as of this encounter
--- OUTSIDE RECORDS SUMMARY | 2024-07-23 21:55 | XMS_ITS | Encounter Summary ---
Author Organization [facility] Address [address] [place] [address] Care Team Providers Care Hand Braille Transcriber Name Role Phone Unavailable Primary Care Provider Unavailabl e Encounter Details Date Type Department Care Team (Late st Contact Info) Description 10/07/2007 8:23 EST - 10/07/2007 11:59 EST Hospital Encounter [address] [address] Susana Lovelace PA-C [address] [place] [address], [address] [place] [phone] Discharge Disposition: Auto Discharge Social History Tobacco [...]
--- OUTSIDE RECORDS SUMMARY | 2024-07-23 21:55 | XMS_ITS | Encounter Summary ---
Author Organization [facility] Address [address] [place] [address] Care Team Providers Care Builder Beam Name Role Phone Unavailable Primary Care Provider Unavailabl e Encounter Details Date Type Department Care Team (Late st Contact Info) Description 01/16/2008 12:18 EDT Hospital Encounter [facility] [address] [place] [address] Jacky Moise MD [address] [place] [phone] Social History Tobacco Use Types Packs/Day [...]
--- OUTSIDE RECORDS SUMMARY | 2024-07-23 21:55 | XMS_ITS | Encounter Summary ---
Author Organization [facility] Address [address] [place] [address] Care Team Providers Care Stevedore Dock Name Role Phone Nam Gonzalez MD Primary Care Provider Unav ailable Encounter Details Date Type Department Care Team (Late st Contact Info) Description 07/09/2018 Historical Results Only [facility] - [place] [address] [place] [id number] [place] [address] [facility] [address] [place] [address] (Fax) Social History Tobacco Use Types Packs/Day [...] CBC W/PLT & DIFF,POINT OF CARE - [facility] Routine 07/09/2018 10:22 EDT documented in this encounter Results * CEA (07/09/2018 10:42 EDT) CEA 1.1 () ng/mL 07/10/2018 20:49 EDT [facility] Comment: REFERENCE VALUE <=3.0 (Non-smokers) Some smokers may have elevated CEA, usually <5.0. ADDITIONAL INFORMATION The testing method is an immunoenzymatic assay manufactured by [employer] and performed on the [employer] DxI 800. ? Values obtained with different assay methods or kits may be different and cannot be used interchangeably. ? Test results cannot be interpreted as absolute evidence for the presence or absence of malignant disease. Test Performed by: [facility] [address] [place] [address] 07/09/2018 10:4 2 EDT 07/09/2018 13:53 EDT Bassam Timmons MD CHEMISTRY & BLOOD GA S ORDERABLES [facility] * (ABNORMAL) CBC W/PLT & DIFF,POINT OF CARE - [facility] (07/09/2018 10:22 EDT) ABSOLUTE NEUTROPHIL COUN - [facility] 2.8 1.7 - 7.0 10e3/uL 07/09/2018 10:40 EDT [facility] BASO # - [facility] 0.04 0.0 - 0.3 10e3/uL 07/09/2018 10:40 [facility] BASO % - [facility] 1 0 - 2 % 07/09/2018 10:40 EDT [facility] EOS # - [facility] 0.34 0.05 - 0.5 10e3/uL 07/09/2018 10:40 [facility] EOS % - [facility] 6(H) 0 - 5 % 07/09/2018 10[facility] GRAN % - [facility] 45.9 40 - 80 % 07/09/2018 10:40 [facility] HEMATOCRIT - [facility] 41.7 36.0 - 52.0 % 07/09/2018 10:40 [facility] HEMOGLOBIN - [facility] 14.1 13.7 - 17.5 g/dl 07/09/2018 10:40 EDT [facility] LYMPH # - [facility] 2.3 0.9 - 2.9 10e3/ul 07/09/2018 10:40 [facility] LYMPH% - [facility] 37.5 20 - 40 % 07/09/2018 10:40 [facility] MEAN CORPUSCULAR HGB - [facility] 31.0 26 - 34 pg 07/09/2018 10:40 T [facility] MEAN CORPUSCULAR HGB CONC - [facility] 33.8 31 - 36 g/dL 07/09/2018 10:40 [facility] MEAN CELL VOLUME - [facility] 91.6 77 - 100 fl 07/09/2018 10:40 [facility] MONO # - [facility] 0.6 0.3 - 0.9 10e3/uL 07/09/2018 10:40 [facility] MONO% - [facility] 10.4 0 - 12 % 07/09/2018 10:40 [facility] PLATELET COUNT 149(L) 150 - 400 10e3/ul 07/09/2018 10:40 [facility] RED BLOOD COUNT - [facility] 4.55 4.3 - 5.7 10e6/ul 07/09/2018 10:40 [facility] RED CELL DISTRI WIDTH - [facility] 12.9 11.8 - 15.6 % 07/09/2018 10:40 [facility] WHITE BLOOD COUNT - [facility] 6.1 3.5 - 10.5 10e3/ul 07/09/2018 10:40 [facility] 07/09/2018 10:2 2 EDT 07/09/2018 10:26 EDT Bassam Timmons MD CHEMISTRY & BLOOD GA S ORDERABLES [facility] documented in this encounter Visit Diagnoses Not on filedocumented in this encounter Care Teams Stevedore Dock Relationship Specialty Start Date End Date Nam Gonzalez MD PCP - General 07/21/15 12/28/20 documented as of this encounter
--- OUTSIDE RECORDS SUMMARY | 2024-07-23 21:55 | XMS_ITS | Encounter Summary ---
Author Organization [facility] Address [address] [place] [address] Care Team Providers Care Stuffed Casing Tier Name Role Phone Nam Gonzalez MD Primary Care Provider Unav ailable Encounter Details Date Type Department Care Team (Late st Contact Info) Description 01/30/2018 Results Only Imaging [facility] [phone] Unknown, Provider, MD Social History Tobacco Use [...] on filedocumented in this encounter Care Teams Stuffed Casing Tier Relationship Specialty Start Date End Date Nam Gonzalez MD PCP - General 07/21/15 12/28/20 documented as of this encounter
--- OUTSIDE RECORDS SUMMARY | 2024-07-23 21:55 | XMS_ITS | Encounter Summary ---
Author Organization [facility] Address [address] [place] [address] Care Team Providers Care Client Technical Specialist Name Role Phone Unavailable Primary Care Provider Unavailabl e Encounter Details Date Type Department Care Team (Latest Contact Info) Description 12/31/2007 13:08 EDT Hospital Encounter [facility] [address] [place] [address] Kenneth Oleary MD Unknown, Provider, MD Discharge Disposition: Auto Discharge Social History Tobacco [...]
--- OUTSIDE RECORDS SUMMARY | 2024-07-23 21:55 | XMS_ITS | Encounter Summary ---
Author Organization [facility] Address [address] [place] [address] Care Team Providers Care Roll Grinder Operator Name Role Phone Nam Gonzalez MD Primary Care Provider Unav ailable Encounter Details Date Type Department Care Team (Late st Contact Info) Description 02/25/2018 Historical Results Only [facility] - Main [address] [address] [place] [address] [facility] [address] [place] [address] (Fax) Social History Tobacco Use Types Packs/Day [...] CBC W/PLT & DIFF,[place]ARE [place] [facility] Routine 02/25/2018 16:06 EDT CEA Routine 02/25/2018 16:06 EDT documented in this encounter Results * (ABNORMAL) CBC W/PLT & DIFF,POINT OF CARE - [facility] (02/25/2018 16:06 EDT) ABSOLUTE NEUTROPHIL COUN - [facility] 3.4 1.7 - 7.0 10e3/uL 02/25/2018 16:15 EDT [facility] BASO # - [facility] 0.07 0.0 - 0.3 10e3/uL 02/25/2018 16:15 [facility] BASO % - [facility] 1 0 - 2 % 02/25/2018 16:15 [facility] EOS # - [facility] 0.55(H) 0.05 - 0.5 10e3/uL 02/25/2018 16:15 [facility] EOS % - [facility] 7(H) 0 - 5 % 02/25/2018 16:15 [facility] GRAN % - [facility] 41.6 40 - 80 % 02/25/2018 16:15 [facility] HEMATOCRIT - [facility] 40.9 36.0 - 52.0 % 02/25/2018 16:15 [facility] HEMOGLOBIN - [facility] 13.5(L) 13.7 - 17.5 g/dl 02/25/2018 16:15 [facility] LYMPH # - [facility] 3.2(H) 0.9 - 2.9 10e3/ul 02/25/2018 16:15 [facility] LYMPH% - [facility] 39.8 20 - 40 % 02/25/2018 16:15 [facility] MEAN CORPUSCULAR HGB - [facility] 29.7 26 - 34 pg 02/25/2018 16:15 [facility] MEAN CORPUSCULAR HGB CONC - [facility] 33.0 31 - 36 g/dL 02/25/2018 16:15 [facility] MEAN CELL VOLUME - [facility] 90.1 77 - 100 fl 02/25/2018 16:15 [facility] MONO # - [facility] 0.9 0.3 - 0.9 10e3/uL 02/25/2018 16:15 [facility] MONO% - [facility] 10.9 0 - 12 % 02/25/2018 16:15 [facility] PLATELET COUNT 216 150 - 400 10e3/ul 02/25/2018 16:15 [facility] RED BLOOD COUNT - [facility] 4.54 4.3 - 5.7 10e6/ul 02/25/2018 16:15 [facility] RED CELL DISTRI WIDTH - [facility] 14.3 11.8 - 15.6 % 02/25/2018 16:15 EDT [facility] WHITE BLOOD COUNT - [facility] 8.1 3.5 - 10.5 10e3/ul 02/25/2018 16:15 EDT [facility] 02/25/2018 16:0 6 EDT 02/25/2018 16:12 EDT Bassam Timmons MD CHEMISTRY & BLOOD GA S ORDERABLES Performing Organization Address City/[facility]/ZIP Co de Phone Number [facility] * CEA (02/25/2018 16:06 EDT) CEA 0.9 () ng/mL 02/27/2018 15:24 EDT [facility] Comment: REFERENCE VALUE <=3.0 (Non-smokers) Some smokers may have elevated CEA, usually <5.0. ADDITIONAL INFORMATION The testing method is an immunoenzymatic assay manufactured by [employer] and performed on the Vortal DxI 800. ? Values obtained with different assay methods or kits may be different and cannot be used interchangeably. ? Test results cannot be interpreted as absolute evidence for the presence or absence of malignant disease. Test Performed by: [facility] [address] [place] [address] 02/25/2018 16:0 6 EDT 02/25/2018 18:05 EDT Bassam Timmons MD CHEMISTRY & BLOOD GA S ORDERABLES Performing Organization Address City/[facility]/ZIP Co de Phone Number [facility] documented in this encounter Visit Diagnoses Not on filedocumented in this encounter Care Teams Roll Grinder Operator Relationship Specialty Start Date End Date Nam Gonzalez MD PCP - General 07/21/15 12/28/20 documented as of this encounter
--- OUTSIDE RECORDS SUMMARY | 2024-07-23 21:55 | XMS_ITS | Encounter Summary ---
Author Organization [facility] Address [address] [place] [address] Care Team Providers Care Computer Systems Design Analyst Name Role Phone Unavailable Primary Care Provider Unavailabl e Encounter Details Date Type Department Care Team (Late st Contact Info) Description 01/16/2008 Before PRISM Converted Visit (Maple) [facility] - Maple conversion [address] [place] [address] Jacky Moise MD [address] [place] [phone] Social History Tobacco Use Types Packs/Day Years Used Date Smoking Tobacco: Never Assessed Sex and Gender Information Value Date Recorded Sex Assigned at Not on file Gender Identity Male 11/13/2019 8:44 EST Sexual Orientation Not on file documented as of this encounter Progress Notes * Jacky Moise - 06/17/2009 0943 EDT DIVISION OF NEUROSURGERY PROGRESS/FOLLOWUP NOTE - 01/16/2008 Nam Gonzalez MD [facility] [address], [address] [place] [phone] Gonzalez: Terry Bearden was back [...] Moise MD 01/27/2008 07:29 Jacky Moise MD Sample Tailor [facility] Division of Neurological Surgery - Jacky Moise MD - BETH Job ID: [id number] Doc ID: [id number] cc: Nam Gonzalez MD documented in this encounter Plan of Treatment Not on file documented as of this encounter Visit Diagnoses Not on filedocumented in this encounter
--- OUTSIDE RECORDS SUMMARY | 2024-07-23 21:55 | XMS_ITS | Encounter Summary ---
Author Organization [facility] Address [address] [place] [address] Care Team Providers Care Punch Out Crew Member Name Role Phone Unavailable Primary Care Provider Unavailabl e Encounter Details Date Type Department Care Team (Late st Contact Info) Description 11/01/2005 13:36 EST Hospital Encounter [address] [address] Terry Bautista MD [address] [place] [address], [facility] [address] [place] [address] Discharge Disposition: Auto Discharge Social [...] RDW-CV 11.3(L) 11.8 - 14.1 % [facility] Comment:Performed at [facility], [place], [place] 11/01/2005 13:3 8 EST 11/01/2005 13:40 EST Terry Bautista MD HEMATOLOGY & P F4 ORDERABLES [facility] [address] [place] [address] documented in this encounter Visit Diagnoses Not on filedocumented in this encounter
--- OUTSIDE RECORDS SUMMARY | 2024-07-23 21:55 | XMS_ITS | Encounter Summary ---
Author Organization [facility] Address [address] [place] [address] Care Team Providers Care Master [employer] Name Role Phone Unavailable Primary Care Provider Unavailabl e Encounter Details Date Type Department Care Team (Late st Contact Info) Description 11/04/2007 15:31 EST Hospital Encounter [address] [address] Susana Lovelace PA-C [address] [place] [address], [address] [place] [phone] Discharge Disposition: Auto Discharge Social History Tobacco [...]
--- OUTSIDE RECORDS SUMMARY | 2024-07-23 21:55 | XMS_ITS | Encounter Summary ---
Author Organization [facility] Address [address] [place] [address] Care Team Providers Care Food Truck Caterer Name Role Phone Unavailable Primary Care Provider Unavailabl e Encounter Details Date Type Department Care Team (Latest Contact Info) Description 11/21/2007 11:55 EST - 11/21/2007 11:59 EST Hospital Encounter [facility] [address] [place] [address] Jacky Moise MD [address] [place] [phone] Discharge Disposition: Auto Discharge Social History Tobacco [...]
--- OUTSIDE RECORDS SUMMARY | 2024-07-23 21:55 | XMS_ITS | Encounter Summary ---
Author Organization [facility] Address [address] [place] [address] Care Team Providers Care Box Puller Name Role Phone Nam Gonzalez MD Primary Care Provider Unav ailable Encounter Details Date Type Department Care Team (Late st Contact Info) Description 01/19/2019 Historical Results Only [facility] - Main [address] [id number] [place] [address] [facility] [address] [place] [phone] (Fax) Social History Tobacco Use Types Packs/Day [...] CBC W/PLT & DIFF,POINT OF CARE - [facility] Routine 01/19/2019 11:23 EDT CEA Routine 01/19/2019 11:23 EDT documented in this encounter Results * (ABNORMAL) CBC W/PLT & DIFF,POINT OF CARE - [facility] (01/19/2019 11:23 EDT) ABSOLUTE NEUTROPHIL COUN - [facility] 2.6 1.7 - 7.0 10e3/uL 01/19/2019 14:06 EDT [facility] BASO # - [facility] 0.04 0.0 - 0.3 10e3/uL 01/19/2019 14:06 [facility] BASO % - [facility] 1 0 - 2 % 01/19/2019 14:06 [facility] EOS # - [facility] 0.33 0.05 - 0.5 10e3/uL 01/19/2019 14:06 [facility] EOS % - [facility] 5 0 - 5 % 01/19/2019 14:06 [facility] GRAN % - [facility] 42.0 40 - 80 % 01/19/2019 14:06 [facility] HEMATOCRIT - [facility] 42.6 36.0 - 52.0 % 01/19/2019 14:06 [facility] HEMOGLOBIN - [facility] 14.6 13.7 - 17.5 g/dl 01/19/2019 14:06 [facility] LYMPH # - [facility] 2.5 0.9 - 2.9 10e3/ul 01/19/2019 14:06 [facility] LYMPH% - [facility] 40.5(H) 20 - 40 % 01/19/2019 14:06 [facility] MEAN CORPUSCULAR HGB - [facility] 31.8 26 - 34 pg 01/19/2019 14:06 [facility] MEAN CORPUSCULAR HGB CONC - [facility] 34.3 31 - 36 g/dL 01/19/2019 14:06 [facility] MEAN CELL VOLUME - CV 92.8 77 - 100 fl 01/19/2019 14:06 [facility] MONO # - [facility] 0.7 0.3 - 0.9 10e3/uL 01/19/2019 14:06 [facility] MONO% - [facility] 11.6 0 - 12 % 01/19/2019 14:06 [facility] PLATELET COUNT 166 150 - 400 10e3/ul 01/19/2019 14:06 [facility] RED BLOOD COUNT - [facility] 4.59 4.3 - 5.7 10e6/ul 01/19/2019 14:06 [facility] RED CELL DISTRI WIDTH - [facility] 12.5 11.8 - 15.6 % 01/19/2019 14:06 EDT [facility] WHITE BLOOD COUNT - [facility] 6.2 3.5 - 10.5 10e3/ul 01/19/2019 14:06 EDT [facility] 01/19/2019 11:2 3 EDT 01/19/2019 11:35 EDT Bassam Timmons MD CHEMISTRY & BLOOD GA S ORDERABLES Performing Organization Address [facility]/ZIP Co de Phone Number [facility] * CEA (01/19/2019 11:23 EDT) CEA 1.6 () ng/mL 01/20/2019 16:51 EDT [facility] Comment: REFERENCE VALUE <=3.0 (Non-smokers) Some smokers may have elevated CEA, usually <5.0. ADDITIONAL INFORMATION The testing method is an immunoenzymatic assay manufactured by [employer] and performed on the [employer] DxI 800. ? Values obtained with different assay methods or kits may be different and cannot be used interchangeably. ? Test results cannot be interpreted as absolute evidence for the presence or absence of malignant disease. Test Performed by: [facility] - [address] [address] 01/19/2019 11:2 3 EDT 01/19/2019 16:31 EDT Bassam Timmons MD CHEMISTRY & BLOOD GA S ORDERABLES Performing Organization Address [facility]/ZIP Co de Phone Number [facility] documented in this encounter Visit Diagnoses Not on filedocumented in this encounter Care Teams Box Puller Relationship Specialty Start Date End Date Nam Gonzalez MD PCP - General 07/21/15 12/28/20 documented as of this encounter
--- OUTSIDE RECORDS SUMMARY | 2024-07-23 21:55 | XMS_ITS | Encounter Summary ---
Author Organization [facility] Address [address] [place] [address] Care Team Providers Care Grease Packer Name Role Phone Unavailable Primary Care Provider Unavailabl e Encounter Details Date Type Department Care Team (Late st Contact Info) Description 11/21/2007 Before PRISM Converted Visit (Maple) [facility] - Maple conversion [address] [place] [address] Jacky Moise MD [address] [place] [phone] Social History Tobacco Use Types Packs/Day Years Used Date Smoking Tobacco: Never Assessed Sex and Gender Information Value Date Recorded Sex Assigned at Not on file Gender Identity Male 11/13/2019 8:44 EST Sexual Orientation Not on file documented as of this encounter Progress Notes * Jacky Moise - 06/08/2009 4206 EDT DIVISION OF NEUROSURGERY PROGRESS/FOLLOWUP NOTE - 11/21/2007 Nam Gonzalez MD [facility] [address], [address] [place] [phone] Gonzalez: Terry Bearden was in [...] Moise MD 12/08/2007 11:17 Jacky Moise MD Bowling Ball Finisher [facility] Division of Neurological Surgery D: - Jacky Moise MD - BB Job ID: [id number] Doc ID: [id number] cc: Nam Gonzalez MD documented in this encounter Plan of Treatment Not on file documented as of this encounter Visit Diagnoses Not on filedocumented in this encounter
--- OUTSIDE RECORDS SUMMARY | 2024-07-23 21:55 | XMS_ITS | Encounter Summary ---
Author Organization [facility] Address [address] [place] [address] Care Team Providers Care Vice Chancellor Name Role Phone Nam Gonzalez MD Primary Care Provider Unav ailable Encounter Details Date Type Department Care Team (Latest Contact Info) Description 01/11/2018 11:15 EDT - 01/11/2018 23:59 EDT Hospital Encounter [address] [address] Unknown, Provider, MD Discharge Disposition: Home or Self Care Social History Tobacco Use Types Packs/Day Years Used Date Smoking Tobacco: Never Assessed Sex and Gender Information Value Date Recorded Sex Assigned at Not on file Gender Identity Male 11/13/2019 8:44 EST Sexual Orientation Not on file documented as of this encounter Discharge Disposition Disposition Code Departure Means Destination Home or Self [facility]itentiary documented in this encounter Plan of Treatment Not on file documented as of this encounter Visit Diagnoses Not on filedocumented in this encounter Care Teams Vice Chancellor Relationship Specialty Start Date End Date Nam Gonzalez MD PCP - General 07/21/15 12/28/20 documented as of this encounter
[2024-08-06 10:04] LABS: Misc Referral (UVM) See Comments
== END 2024-07-23 21:48 | disposition home or self-care (01) ==
LOC: NCHCN 21:47
PROVIDERS: PCP Internal Medicine; Visit Provider Internal Medicine
DX: D69.6 Thrombocytopenia, unspecified (principal)
CPT/HCPCS: 85027

== ENCOUNTER 2025-02-19 13:07 | Outpatient (REF) | payer MEDICARE, SELFPAY ==
[2025-02-19 21:49] LABS: C & S Indicated? C&S Done As Ordered
[2025-02-19 21:50] LABS: RBC >50 HPF (0-2)
== END 2025-02-19 13:08 | disposition home or self-care (01) ==
LOC: NCHCN 13:07
PROVIDERS: PCP Internal Medicine; Visit Provider Internal Medicine
DX: R31.0 Gross hematuria (principal); R82.89 Other abnormal findings on cytological and histological examination of urine
CPT/HCPCS: 81015; 87086

== ENCOUNTER 2025-04-23 15:41 | Outpatient (REF) | payer MEDICARE, SELFPAY | END 2025-04-23 15:42 | disposition home or self-care (01) | LOC: NCHCN 15:41 | PROVIDERS: PCP Internal Medicine; Visit Provider Physician Assistant | DX: R39.9 Unspecified symptoms and signs involving the genitourinary system (principal) | CPT/HCPCS: 87086 ==

== ENCOUNTER 2025-05-25 10:47 | Outpatient (REF) | payer MEDICARE, SELFPAY ==
--- NOTE | 2025-05-25 11:40 | PAPNONF_PTH ---
PATIENT: Terry Bearden LOC: [facility] U#:[id number] AGE/SX: 85/M ROOM: RE05/25/[address]: Adriana Núñez DNP : 1940 BED: DIS: 05/25/2025 SPEC #: [id number] RECD: 05/25/25 13:03 STATUS: ANDRÉS REKedar #: [id number] SUSANNA: 05/25/25 11:[address]: Adriana Núñez DEPT: [facility] Cytology RECD BY: Ashli Gallardo ENTERED: 05/25/25 13:03 SP TYPE: FUAD TA DR: Nam Gonzalez Tissues: 1 - BODY FLUID CYTO(SPUTUM/URINE)[facility] Procedures: BODY FLUID CYTO(URINE/SPUTUM) Comments: [id number] (TV = 100 ml) (REFRIGERATED) (50 ml URINE & 30 ml CYTOLY ADDED IN 2 CONTAINERS)
== END 2025-05-25 10:48 | disposition home or self-care (01) ==
LOC: LBN 10:47
PROVIDERS: PCP Internal Medicine; Referring Provider Internal Medicine; Visit Provider Nurse Practitioner Gerontology
DX: R31.0 Gross hematuria (principal)
CPT/HCPCS: 88104

== ENCOUNTER 2025-06-25 17:00 | Outpatient (REF) | payer MEDICARE, SELFPAY ==
[2025-06-25 21:39] LABS: COMMENT (LAB VIEW ONLY) 106.20 mg/dL; Microalb ug/mg Crea 27.1 ug/mg Cr
== END 2025-06-25 17:01 | disposition home or self-care (01) ==
LOC: NCHCN 17:00
PROVIDERS: PCP Internal Medicine; Visit Provider Internal Medicine
DX: E11.9 Type 2 diabetes mellitus without complications (principal)
CPT/HCPCS: 82043; 82570

== ENCOUNTER 2025-09-02 08:50 | Day surgery (SDC) | payer MEDICARE, SELFPAY ==
[2025-09-02] VITALS (21 sets, daily range): BP systolic 89–115; BP diastolic 43–73; PULSE 50–65; RESP 9–29; TEMP 36.1–36.7; O2SAT 82–100; BMI 20.5
--- NOTE | 2025-09-02 10:21 | ANES.PREOP_ITS ---
General Info Date of Service Date Performed: 09/02/25 Height: 5 ft 9 in Weight: 63.1 kg Body Mass Index (BMI): 20.5 Surgical Procedure: Operation Date: 09/02/25 10:55 Proposed Procedure Side Surgeon p Cysto,B/L Retrograde/Possible Transurethral Resection Bladder Tumor/? Need for Cauterization of Bleeders Art Carpio MD Meds Allergies and Home Medications Allergies Allergy/AdvReac Type Severity Reaction Status Date / Time No Known Allergies Allergy Verified 09/01/25 11:20 Home Medication ?Medication ?Instructions ?Recorded atorvastatin 20 mg tablet 20 mg PO DAILY 02/24/25 cholecalciferol (vitamin D3) 25 25 mcg PO DAILY mcg (1,000 unit) capsule finasteride 5 mg tablet 5 mg PO DAILY 02/24/25 mirtazapine 30 mg tablet 30 mg PO DAILY 02/24/25 rivaroxaban 20 mg tablet (Xarelto) 20 mg PO DAILY 02/14 10/10 tamsulosin 0.4 mg capsule (Flomax) 0.4 mg PO DAILY 08/10 Current Visit Medications: Current Medications Generic Name Dose Route Start Last Admin Trade Name Freq PRN Reason Stop Dose Admin Ringer's Solution 1,000 mls @ 80 mls/hr 09/02/25 06:00 IV 09/02/25 23:59 INFUSION JOHNNY Cefazolin Sodium/Dextrose 2 gm in 50 mls @ 100 mls/hr 09/02/25 06:00 Ancef Duplex IVPB 09/02/25 23:59 PREOP JOHNNY Sodium Chloride 0 ml 09/02/25 06:00 Normal Saline Flush 10 Ml Syr IV 09/02/25 23:59 PRN PRN Sodium Chloride 0 ml 09/02/25 06:00 Normal Saline 10 Ml Vial IJ 09/02/25 23:59 DIRECTED PRN Sterile Water 0 ml 09/02/25 06:00 Water,Injection,Sterile 10 Ml Vial IJ 09/02/25 23:59 DIRECTED PRN [facility] Medical History Medical History Gross hematuria Kidney stone Gout OAB (overactive bladder) Stress Atrial flutter 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 Hernia of anterior abdominal wall Reactive airways dysfunction syndrome Dysphagia Left sided sciatica Type 2 diabetes mellitus Malignant tumor of descending colon PAF (paroxysmal atrial fibrillation) Incoordination BPH (benign prostatic hyperplasia) Osteoarthritis Peripheral venous insufficiency 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 Alcohol abuse Bilateral carpal tunnel syndrome Tobacco user Idiopathic peripheral neuropathy Surgical History Surgical History (Updated 09/02/25 @ 10:58 by Art Carpio MD) History of colon resection Hx of hernia repair Tobacco Smoking/Tobacco Use Status: Current every day Tobacco Type: smokeless tobacco Passive smoking exposure: No Alcohol Alcohol Intake: current Alcohol intake frequency: holidays/special occasions only Substance 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 Details: 09/02/25: edible brownie for neuropathy/pain management Vital Signs and Lab Results Vital Signs Most Recent Vital Signs in EMR: Most Recent Vital Signs Temp Pulse Resp BP Pulse Ox 36.1 C L 54 L 19 115/66 99 09/02/25 09:36 09/02/25 09:36 09/02/25 09:36 09/02/25 09:36 09/02/25 09:36 Anesthesia Assessment and Plan Anesthesia History Personal History: No History of Anesthesia Complications Family History: No Family History of Anesthesia Complications Exercise Tolerance Exercise Tolerance: Metabolic Equivalents>4 Pertinent Negatives Pertinent Negatives: No Symptoms of GERD Cardiac & Pulmonary Exam Cardiac Exam: Normal S1/S2 Heart Sounds Pulmonary Exam: Clear Bilateral Breath Sounds Implantable Cardiac Device Does patient have a Pacemaker or an ICD?: No Airway Exam Known Difficult Airway: No Mallampati Class: 2 Mouth Opening: Normal (> 3cm) Thyromental Distance: Greater than 3 cm Neck Range of Motion: Full ROM Neck Circumference: Normal Teeth Condition: Removable Dentures/Plates Upper ASA Classification ASA Score: ASA 3 Emergency Case?: No NPO Status NPO Status: NPO Clears >2 hours, Solids >8 hours Anesthesia Plan Resuscitation Status: Full Code Anesthesia Technique: General Anesthesia Airway Planned: LMA Monitors Used: Standard Monitors Preoperative Comments:: Pt. states had echo in past at [facility]. States it was normal. i am unable to locate this. Pt. denies Chest pain/SOB or cardiac symptoms.
--- NOTE | 2025-09-02 10:30 | DI.RAD_ITS ---
Exam(s) XR RETROGRADE IN OR EXAM: XR RETROGRADE IN OR CLINICAL HISTORY: GROSS HAEMATURIA TECHNIQUE: 2D and realtime digital imaging was performed. CONTRAST MATERIAL: Refer to procedure report. COMPARISON: CT CT ABD PELVIS W IV CONTRAST ONLY from 01/21/2025 FINDINGS: Fluoroscopy was provided for Dr. Carpio during the performance of a retrograde evaluation of the renal collecting system. Please refer to the procedure report for complete details. Ka,r=4.4 mGy IMPRESSION: RADIATION DOSE DELIVERED: 0.0 0.0 0
--- NOTE | 2025-09-02 10:34 | W.PM.HP.N ---
Date of service: 09/02/25 Time of Service: 10:34 Assessment and Plan Assessment and plan (1) Gross hematuria: Assessment and plan: We will complete his hematuria workup with a cystoscopy and bilateral retrograde pyelogram. We will be prepared to perform transurethral resection of any visible bladder tumor. We will also be prepared fulgurate any bleeding points that we might encounter (especially on his prostate) History of Present Illness History of Present Illness Chief Complaint: Gross hematuria Narrative: This is an 85-year-old gentleman who has a history of gross painless hematuria. He has had imaging studies including ultrasounds and CT scans which show no solid renal masses. He does have bilateral nonobstructing kidney stones. He also had a normal urine cytology. He presents now for cystoscopy and possible transurethral resection of any visible bladder tumor. We will plan to do retrograde pyelograms to assess his ureters. We will be prepared to cauterize any bleeding points that we might encounter. He is on chronic anticoagulants but he held his Xaralto prior to the surgery. He has noticed gross hematuria as recently as a week ago. He notices that his 2 episodes of gross hematuria occurred after heavy lifting. He also complains of some swelling of the left hemiscrotum. He is asking if I will perform his exam while he is under anesthesia. Review of Systems Narrative: No fevers or chills No vision change or dysphasia Diabetes. No thyroid dysfunction No shortness of breath, cough or hemoptysis Hx atrial flutter. No chest pain No nausea, vomiting, hepatitis, ulcers, jaundice Peripheral neuropathy. No seizures, strokes Anticoagulated. No anemia Arthralgia. 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 Alcohol abuse Bilateral carpal tunnel syndrome Tobacco user Idiopathic peripheral neuropathy Surgical History (Updated 09/02/25 @ 10:58 by Art Carpio MD) History of colon resection Hx of hernia repair Social History Smoking/Tobacco Use Status: Current every day Tobacco Type: smokeless tobacco Smoking risk assessment performed?: Yes Alcohol Intake: current Alcohol Intake frequency: holidays/special occasions only Drug use: Daily Substance use type: marijuana Details: 09/02/25: edible brownie for neuropathy/pain management Housing: house Additional Social history: UTAP Meds Allergies and Home Medications Allergies Allergy/AdvReac Type Severity Reaction Status Date / Time No Known Allergies Allergy Verified 09/01/25 11:20 Home Medications ?Medication ?Instructions ?Recorded ?Confirmed ?Type atorvastatin 20 mg tablet 20 mg PO DAILY 02/24/25 09/01/25 History cholecalciferol (vitamin D3) 25 25 mcg PO DAILY 02/24/25 09/01/25 History mcg (1,000 unit) capsule finasteride 5 mg tablet 5 mg PO DAILY 02/24/25 09/01/25 History mirtazapine 30 mg tablet 30 mg PO DAILY 02/24/25 09/01/25 History rivaroxaban 20 mg tablet (Xarelto) 20 mg PO DAILY 02/24/25 09/01/25 History tamsulosin 0.4 mg capsule (Flomax) 0.4 mg PO DAILY 02/24/25 09/01/25 History Exam Const General: anxious Neck Neck: supple Resp Effort & Inspection: normal respiratory effort Auscultation: clear to auscultation bilaterally Cardio Rate: regular rate Rhythm: regular rhythm GI Palpation: soft and no masses Neuro General: patient alert, patient awake and patient oriented x3 Results Last Vital Signs Temp 36.1 C L 09/02/25 09:36 Pulse 54 L 09/02/25 09:36 Resp 19 09/02/25 09:36 BP 115/66 09/02/25 09:36 Pulse Ox 99 09/02/25 09:36 VTE Prohylaxis Risk Level: Moderate/High Risk Contraindications: None Prophylaxis: Mechanical Time Spent Time spent with Patient: <40 minutes Time was spent: other
[2025-09-02] MEDS: Lactated Ringers 1,000 ML 80 ML IV (11:05)
[2025-09-02] MEDS: Lidocaine 2% Jelly 11 ML SYR (11:23)
[2025-09-02] MEDS: ceFAZolin 2 GM/50 ML BAG IVPB (11:23)
[2025-09-02] MEDS: Omnipaque 300 MG/ML 50 ML BTL (11:30)
--- NOTE | 2025-09-02 12:01 | PDOC.DSDIS_ITS ---
Date of service: 09/02/25 Discharge Plan Disposition Patient Disposition: Home Condition: Stable Discharge Details Reason For Visit: cystoscopy Attending Provider: Art Carpio Primary Care Provider: Ema Rausch Recommendations for Follow Up Recommended tests to be ordered by follow up provider: renal ultrasound in 8 to 12 weeks Home Meds and New Rx's Prescriptions: No Action atorvastatin 20 mg tablet 20 mg PO DAILY cholecalciferol (vitamin D3) 25 mcg (1,000 unit) capsule 25 mcg PO DAILY finasteride 5 mg tablet 5 mg PO DAILY mirtazapine 30 mg tablet 30 mg PO DAILY tamsulosin [Flomax] 0.4 mg capsule 0.4 mg PO DAILY Xarelto 20 mg tablet 20 mg PO DAILY Rx Instructions: must administer with evening meal Discharge Instructions Additional Instructions: I did not find a bladder cancer on today's testing, but you did have a stone which was trying to pass into the bladder from the left kidney. I was able to remove the stone today. You may restart your Xarelto on Saturday the as long as you are not seeing blood in the urine. If you do still see blood in the urine, hold off restarting the Xarelto until the blood is gone. You may have some left flank pain which feels similar to a stone trying to pass. You can use Tylenol and ibuprofen as needed for this pain. The pain should resolve within 24 to 48 hours. You will need a follow-up appointment with our office in about 8 to 12 weeks. We will need to do a renal ultrasound ahead of time to make sure the kidney has healed from the stone removal. Stand Alone Forms: Anesthesia Discharge Inst., [facility] ([facility]), Portal Information Referrals: Art Carpio MD [ [facility] STAFF PHYSICIAN, Urology] Referral Note: 8 to 12 weeks with renal ultrasound ahead of time Activity:: Activity as Tolerated Shower/Bathe:: 24 hours Diet:: As Tolerated Discharge Orders Discharge Orders: Discharge Order (Routine); Ordered 09/02/25 Ordered By: Art Carpio DS: Diagnosis Discharge Diagnosis (1) Gross hematuria:
--- NOTE | 2025-09-02 12:06 | W.PM.OP ---
Operative Note Operative Note PRE-OP DIAGNOSIS: Gross hematuria POST-OP DIAGNOSIS: same left ureteral stone PROCEDURE: cystoscopy, bilateral retrograde pyelogram, left ureteroscopy with stone extraction SURGEON: Art Carpio ANESTHESIA TYPE: Local By Surgeon and General LMA/ETT Refer to Anesthesia Record ESTIMATED BLOOD LOSS: 5 PATHOLOGY: other (stone for chemical analysis) COMPLICATIONS: None Patient was transported to: PACU Patient's condition: stable Implants: none Indications: This is an 85-year-old gentleman who has a history of gross painless hematuria. He has had imaging studies and no solid renal masses have been identified. He does have a history of nonobstructing kidney stones. He has had a normal urine cytology. He presents for cystoscopy with bilateral retrograde pyelograms and possible transurethral resection of any visible abnormality. Findings: No bladder tumor Left distal ureteral stone Procedure Description: The patient was given IV antibiotics and brought to the operating room on 09/02/2025. After successful induction of general anesthesia, he was placed in the dorsal lithotomy position. His genitalia was prepped and draped. 2% Xylocaine jelly was instilled into the urethra. An external genitalia exam revealed a normal right testis and left sided scrotal swelling. There is no scrotal erythema or ecchymosis. The exam is most consistent with a left hydrocele. A 22 Brazilian rigid cystoscope was then passed through the urethra into the bladder. The urethra and bladder were inspected with a 30 degree lens. The pendulous, bulbar and membranous urethra appeared normal with no strictures. The prostatic urethra showed lateral lobe enlargement. No significant median lobe of the prostate was identified. No papillary lesions were seen on the prostatic mucosa. No active bleeding was seen from the prostate. The bladder neck was entered and the bladder mucosa was inspected. The right ureteral orifice appeared normal but the left ureteral orifice had an edematous appearance. Each orifice was cannulated with a 5 Brazilian access catheter and a retrograde pyelogram was obtained by injecting Omnipaque through the access catheter under fluoroscopic guidance. A filling defect in the left distal ureter was identified and the defect was consistent with a ureteral stone. The bladder was then reinspected using both a 30 and a 70 degree lens. The bladder was heavily trabeculated, but there was no evidence of papillary or nodular lesions. There was no abnormal mucosa worrisome for carcinoma in situ. We then cannulated the left ureteral orifice with the 5 Brazilian access catheter and passed a guidewire through the lumen of the catheter. The wire was advanced up to the level of the kidney. The ureteral access catheter and cystoscope were then removed. The semirigid ureteroscope was then introduced through the urethra into the bladder. We navigated the ureteroscope into the left ureteral orifice and advanced the scope into the distal ureter. A free-floating stone was seen in this location. We were able to grasp the stone and a Agnes stone basket and remove it in its entirety. The stone was sent to the laboratory for chemical analysis. Because the stone was removed in one pass, we elected not to place a ureteral stent. We removed the guidewire. The patient tolerated this procedure well with no complications. He was taken to the recovery room in stable condition. Date of Procedure: 09/02/25
[2025-09-02] MEDS: Phenazopyridine 200 MG TAB PO (13:12)
--- NOTE | 2025-09-02 13:47 | W.ANESPOSTOP ---
Postoperative Evaluation Date, Time and Location Date Performed: 09/02/25 Time Performed: 13:47 Patient Location: Day Surgery Unit Vital Signs Most Recent Imported Vital Signs: Most Recent Vital Signs Temp Pulse Resp BP Pulse Ox 36.2 C L 54 L 14 113/73 100 09/02/25 13:27 09/02/25 13:27 09/02/25 13:27 09/02/25 13:27 09/02/25 13:27 Pain Score Most Recent Pain Score: Most Recent Pain Score Pain Level 0 09/02/25 13:27 Assessment Mental Status: Awake (Alert & Oriented to Patient Baseline) Airway and Respiratory Function: Patent airway with normal (patient baseline) respiratory exam Cardiovascular Function: Hemodynamically Stable Hydration Status: Adequately Hydrated Nausea & Vomiting: No Nausea or Vomiting Pain: Pain is tolerable per patient Peripheral Nerve Block: Patient did not receive a nerve block
== END 2025-09-02 13:53 | disposition home or self-care (01) ==
PROVIDERS: PCP Internal Medicine; Visit Provider Urology
PROC: 0TBB8ZZ Excision of Bladder, Via Natural or Artificial Opening Endoscopic (ICD-10-PCS; CPT 52352; principal; 2025-09-02 10:45)
DX: N20.1 Calculus of ureter (principal); E11.9 Type 2 diabetes mellitus without complications; I48.92 Unspecified atrial flutter; I48.0 Paroxysmal atrial fibrillation
CPT/HCPCS: 52352; 74420; 82365; J0131; J0690; J1100; J1885; J2405; J2704; Q9967